=== PATIENT | male | born 1950 | race American Indian/Alaskan Native ===

== ENCOUNTER 2016-12-21 21:41 | Inpatient (IN) | payer MEDICARE ==
[2016-12-22 00:10] LABS: Basophils % (Auto) 0.5 % (0.0-1.8); Eosinophils % (Auto) 1.1 % (0.0-4.3); Hematocrit 31.4 % (35.5-45.6); Mean Corpuscular HGB Conc 32 % (32-34); Mean Corpuscular Hemoglobin 27 pg (28-32); Mean Corpuscular Volume 84 fl (84-94); Platelet Count 368 K/mm3 (140-440); Red Blood Count 3.74 M/mm3 (3.65-5.03); Red Cell Distribution Width 16.6 % (13.2-15.2); White Blood Count 9.7 K/mm3 (4.5-11.0)
[2016-12-22 00:24] LABS: Albumin 2.8 g/dL (3.9-5); Albumin/Globulin Ratio 0.5 %; Bilirubin,Total 1.1 mg/dL (0.1-1.2); Calcium 8.7 mg/dL (8.4-10.2); Chloride 95.2 mmol/L (98-107); Total Protein 8.3 g/dL (6.3-8.2)
[2016-12-22] MEDS ORDERED: NACL 0.9% 1000 ML 1,000 ML IV ONE (00:30)
[2016-12-22] MEDS ORDERED: ZOFRAN IV ONE (00:30)
[2016-12-22] MEDS ORDERED: MORPHINE IV ONE (00:30)
[2016-12-22 00:51] LABS: Potassium 5.2 mmol/L (3.6-5.0)
[2016-12-22] MEDS ORDERED: MORPHINE ONE (01:21)
--- NOTE | 2016-12-22 01:51 | Emergency Department Report ---
ED Abdominal Pain HPI - General Chief Complaint: Abdominal Pain Stated Complaint: ABD PAIN Time Seen by Provider: 12/22/16 00:28 Source: patient, EMS, old records reviewed Mode of arrival: Ambulatory Limitations: No Limitations - History of Present Illness Initial Comments: 66-year-old male with past medical history of alcohol abuse, hypertension, prostate cancer, anemia, and recent hemicolectomy presents to the hospital complaining of nausea, vomiting, by mouth intolerance and abdominal distention. Patient was recently admitted here December 01 until the . He is initially admitted for GI bleed and was found to have large soft multilobulated lesions approximately 8-10 cm from the cecum to the ascending colon. On December 13 patient underwent laparoscopic, hand-assisted right hemicolectomy performed by Dr Osorio. During admission patient required transfusion of 2 PRBC due to GI hemorrhage. Patient also had renal sufficiency that improved to normal prior to discharge. See recent discharge summary for further treatment and other diagnoses during ED stay. Patient states prior to discharge she was having vomiting that was not improved. When he went home he continued to vomit and was unable to tolerate any food or liquids. His pain and generalized intermittent aching abdominal pain rated 8/10 intensity that is worse with palpation. Patient states he is passing gas and did have a small bowel movement earlier today. No fever reported. Patient has not had any alcohol since before recent admission. Severity scale (0 -10): 7 - Related Data Home Medications Medication Instructions Recorded Confirmed Last Taken amLODIPine [Norvasc] 10 mg PO DAILY 12/01/16 12/01/16 11/30/16 Previous Rx's Medication Instructions Recorded Last Taken Type Allopurinol [Zyloprim] 100 mg PO QDAY #30 tablet 12/20/16 Unknown Rx Folic Acid [Folvite] 1 mg PO QDAY #30 tablet 12/20/16 Unknown Rx Metoprolol [Lopressor TAB] 50 mg PO BID #60 tablet 12/20/16 Unknown Rx Multivitamin Tab [Multiple Vitamin 1 each PO QDAY #30 tablet 12/20/16 Unknown Rx TAB (Theragran)] Pantoprazole [Protonix TAB] 40 mg PO DAILY #30 tablet 12/20/16 Unknown Rx Tamsulosin [Flomax] 0.4 mg PO QDAY #30 capsule 12/20/16 Unknown Rx Thiamine [Vitamin B-1] 100 mg PO QDAY #30 tablet 12/20/16 Unknown Rx amLODIPine [Norvasc] 10 mg PO QDAY #30 tablet 12/20/16 Unknown Rx traMADol [Ultram 50 MG tab] 50 mg PO Q6HR PRN #14 tablet 12/20/16 Unknown Rx Allergies Allergy/AdvReac Type Severity Reaction Status Date / Time No Known Allergies Allergy Unverified 12/01/16 00:18 ED Review of Systems ROS: Stated complaint: ABD PAIN Other details as noted in HPI Comment: All other systems reviewed and negative Other: Constitutional: No fevers chills or weight loss Eyes: No eye pain visual changes or discharge ENT: No ear pain or throat pain Neck: Denies pain Respiratory: Denies cough wheezing shortness of breath Cardiovascular: Denies chest pain, palpitations, syncope GI: as per hpi : Denies dysuria, Musculoskeletal: Denies back pain, joint swelling Skin: Denies rash, lesions, erythema Neurologic: Denies headache, numbness, weakness Psychiatric: Denies suicidal ideation, hallucinations ED Past Medical Hx - Past Medical History Previous Medical History?: Yes Hx Hypertension: Yes Additional medical history: prostate cancer, Anemia, KF, alcohol abuse - Surgical History Past Surgical History?: Yes Additional Surgical History: Colonectomy - Social History Smoking Status: Never Smoker Substance Use Type: Alcohol - Medications Home Medications: Home Medications Medication Instructions Recorded Confirmed Last Taken Type amLODIPine [Norvasc] 10 mg PO DAILY 12/01/16 12/01/16 11/30/16 History Allopurinol [Zyloprim] 100 mg PO QDAY #30 tablet 12/20/16 Unknown Rx Folic Acid [Folvite] 1 mg PO QDAY #30 tablet 12/20/16 Unknown Rx Metoprolol [Lopressor TAB] 50 mg PO BID #60 tablet 12/20/16 Unknown Rx Multivitamin Tab [Multiple Vitamin 1 each PO QDAY #30 tablet 12/20/16 Unknown Rx TAB (Theragran)] Pantoprazole [Protonix TAB] 40 mg PO DAILY #30 tablet 12/20/16 Unknown Rx Tamsulosin [Flomax] 0.4 mg PO QDAY #30 capsule 12/20/16 Unknown Rx Thiamine [Vitamin B-1] 100 mg PO QDAY #30 tablet 12/20/16 Unknown Rx amLODIPine [Norvasc] 10 mg PO QDAY #30 tablet 12/20/16 Unknown Rx traMADol [Ultram 50 MG tab] 50 mg PO Q6HR PRN #14 tablet 12/20/16 Unknown Rx ED Physical Exam - General Limitations: No Limitations - Other Other exam information: General: No limitations, patient is alert in no acute distress Head exam: Atraumatic, normocephalic Eyes exam: Normal appearance, pupils equal reactive to light, extraocular movements intact ENT: Moist mucous membrane, normal oropharynx Neck exam: Normal inspection, full range of motion, no meningismus nontender Respiratory exam: Clear to auscultation bilateral, no wheezes, rales, crackles Cardiovascular: Normal rate and rhythm, normal heart sounds Abdomen: Soft, distended mild diffuse tenderness, with normal bowel sounds, no rebound, or guarding. lap scars noted Extremity: Full range of motion normal inspection no deformity Back: Normal Inspection, full range of motion, no tenderness Neurologic: Alert, oriented x3, cranial nerves intact, no motor or sensory deficit Psychiatric: normal affect, normal mood Skin: Warm, dry, intact ED Course Vital Signs 12/21/16 12/21/16 12/22/16 21:44 21:47 01:25 Temperature 98.7 F 97.8 F Pulse Rate 104 H Respiratory 22 22 18 Rate Blood Pressure 117/66 Blood Pressure 117/66 [Right] O2 Sat by Pulse 98 Oximetry 12/22/16 02:01 Temperature Pulse Rate 96 H Respiratory 18 Rate Blood Pressure Blood Pressure 126/78 [Right] O2 Sat by Pulse 100 Oximetry - Reevaluation(s) Reevaluation #1: 12/22/16 02:26 pt tx with NS, morphine, zofran - Consultations Consultation #1: 12/22/16 05:12 Attempted to reach out to patient surgeon Dr. Osorio. There appears to be an issue with his answering service and we repeated a contributing signal. NG tube placed and consult ordered for the morning. Patient is not an acute surgical candidate at this time so patient may be seen during admission in the hospital. ED Medical Decision Making - Lab Data Result diagrams: 12/21/16 23:47 12/22/16 00:01 Lab Results 12/21/16 12/22/16 12/22/16 Range/Units 23:47 00:01 00:01 WBC 9.7 (4.5-11.0) K/mm3 RBC 3.74 (3.65-5.03) M/mm3 Hgb 10.0 L (11.8-15.2) gm/dl Hct 31.4 L (35.5-45.6) % MCV 84 (84-94) fl MCH 27 L (28-32) pg MCHC 32 (32-34) % RDW 16.6 H (13.2-15.2) % Plt Count 368 (140-440) K/mm3 Lymph % (Auto) 16.0 (13.4-35.0) % [place] % (Auto) 8.9 H (0.0-7.3) % Eos % (Auto) 1.1 (0.0-4.3) % Baso % (Auto) 0.5 (0.0-1.8) % Lymph # 1.5 (1.2-5.4) K/mm3 [place] # 0.9 H (0.0-0.8) K/mm3 Eos # 0.1 (0.0-0.4) K/mm3 Baso # 0.1 (0.0-0.1) K/mm3 Seg Neutrophils % 73.5 H (40.0-70.0) % Seg Neutrophils # 7.1 (1.8-7.7) K/mm3 Sodium 131 L (137-145) mmol/L Potassium 5.2 H (3.6-5.0) mmol/L Chloride 95.2 L (98-107) mmol/L Carbon Dioxide 18 L (22-30) mmol/L Anion Gap 23 mmol/L BUN 47 H (9-20) mg/dL Creatinine 2.2 H D (0.8-1.5) mg/dL Estimated GFR 36 ml/min BUN/Creatinine Ratio 21 % Glucose 134 H (75-100) mg/dL Calcium 8.7 (8.4-10.2) mg/dL Magnesium 2.20 (1.7-2.3) mg/dL Total Bilirubin 1.10 (0.1-1.2) mg/dL AST 39 (5-40) units/L ALT 17 (7-56) units/L Alkaline Phosphatase 80 (35-129) units/L Ammonia (25-60) umol/L Total Protein 8.3 H (6.3-8.2) g/dL Albumin 2.8 L (3.9-5) g/dL Albumin/Globulin Ratio 0.5 % Lipase 55 (13-60) units/L Plasma/Serum Alcohol (0-0.07) gm% 12/22/16 12/22/16 Range/Units 00:35 00:35 WBC (4.5-11.0) K/mm3 RBC (3.65-5.03) M/mm3 Hgb (11.8-15.2) gm/dl Hct (35.5-45.6) % MCV (84-94) fl MCH (28-32) pg MCHC (32-34) % RDW (13.2-15.2) % Plt Count (140-440) K/mm3 Lymph % (Auto) (13.4-35.0) % [place] % (Auto) (0.0-7.3) % Eos % (Auto) (0.0-4.3) % Baso % (Auto) (0.0-1.8) % Lymph # (1.2-5.4) K/mm3 [place] # (0.0-0.8) K/mm3 Eos # (0.0-0.4) K/mm3 Baso # (0.0-0.1) K/mm3 Seg Neutrophils % (40.0-70.0) % Seg Neutrophils # (1.8-7.7) K/mm3 Sodium (137-145) mmol/L Potassium (3.6-5.0) mmol/L Chloride (98-107) mmol/L Carbon Dioxide (22-30) mmol/L Anion Gap mmol/L BUN (9-20) mg/dL Creatinine (0.8-1.5) mg/dL Estimated GFR ml/min BUN/Creatinine Ratio % Glucose (75-100) mg/dL Calcium (8.4-10.2) mg/dL Magnesium (1.7-2.3) mg/dL Total Bilirubin (0.1-1.2) mg/dL AST (5-40) units/L ALT (7-56) units/L Alkaline Phosphatase (35-129) units/L Ammonia 114.0 H (25-60) umol/L Total Protein (6.3-8.2) g/dL Albumin (3.9-5) g/dL Albumin/Globulin Ratio % Lipase (13-60) units/L Plasma/Serum Alcohol < 0.01 (0-0.07) gm% - Radiology Data Radiology results: report reviewed CT abdomen and pelvis with oral contrast only. Cholelithiasis without cholecystitis. There is anastomotic suture line in the right lower quadrant. There is moderate distention of multiple loops of bowel with air-fluid levels. Small bowel loops measuring up to 4.2 cm in diameter. Suspicion for partial mechanical small bowel obstruction. Severe arthritic changes and right hip. Nonspecific reticulation of subcutaneous fat above the umbilicus which could be postsurgical versus cellulitis. Liver cirrhosis - Medical Decision Making Patient requires admission to the hospital acutely worsening renal function likely secondary to dehydration and by mouth intolerance/vomiting. CT suspicious for mechanical partial small bowel obstruction and anastomotic surgical site. Patient will require admission to the hospital for hydration and surgical consultation. NGT ordered - Differential Diagnosis obstruction, posto infections, gastroenteritis, pancreatitis Critical Care Time: No Critical care attestation.: If time is entered above; I have spent that time in minutes in the direct care of this critically ill patient, excluding procedure time. ED Disposition Clinical Impression: Partial small bowel obstruction, S/P right hemicolectomy, Acute renal insufficiency, Dehydration, Vomiting, Increased ammonia level, Liver cirrhosis Disposition: OP ADMIT IP TO THIS HOSP Is pt being admited?: Yes Condition: Stable Time of Disposition: 04:57 (Dr Asencio/hosp)
--- NOTE | 2016-12-22 04:51 | Cat Scan Report ---
FINAL REPORT EXAM: CT ABDOMEN PELVIS WO CON HISTORY: recent hemicolectom secondary to mass, pain, swell TECHNIQUE: Routine axial imaging was obtained of the abdomen and pelvis without IV contrast. Oral contrast was administered. Comparison is made to the study of 12/01/2016. FINDINGS: Images through lung bases reveal areas of scarring in the right middle lobe and right lower lobe. There are several blebs in the left lower lobe. There is a small hiatal hernia at the GE junction. The liver has a lobulated contour suggesting cirrhosis. There are no focal hepatic lesions. The gallbladder is normal size reveals multiple stones. There are no secondary signs of acute cholecystitis. The pancreas and spleen appear normal. The adrenal glands reveal stable 2.8 cm in diameter right adrenal nodule. The kidneys show no evidence of stones or hydronephrosis. There is an anastomotic suture line in the right lower quadrant. There is moderate distention of multiple small bowel loops with air-fluid levels. The small bowel loops measure up to 4.2 cm in diameter. The findings are suspicious for partial mechanical small bowel obstruction. The visualized colon reveals multiple uncomplicated diverticula. There is no evidence of free fluid or adenopathy. In the pelvis the prostate gland and bladder appear normal. The skeletal structures reveal severe arthritic changes of the right hip joint. The soft tissues reveal nonspecific reticulation of the subcutaneous fat above the umbilicus. With this is postsurgical in origin or related cellulitis is uncertain. IMPRESSION: Dilatation of small-bowel loops with air-fluid levels with a partial mechanical small bowel obstruction. Uncomplicated colonic diverticulosis. Contour changes of the liver suggesting cirrhosis. Gallstones. Stable 2.8 cm right adrenal nodule. Severe arthritic changes of the right hip joint. Reticulation of the subcutaneous fat in the anterior abdominal wall above the umbilicus. With this related cellulitis or postsurgical changes is uncertain.
[2016-12-22] MEDS ORDERED: LIDOCAINE VISCOUS 2% PO ONE (05:04)
[2016-12-22] MEDS ORDERED: MILK OF MAGNESIA PO PRN (09:00)
[2016-12-22] MEDS ORDERED: MORPHINE IV PRN (09:00)
[2016-12-22] MEDS ORDERED: TYLENOL PO PRN (09:00)
--- NOTE | 2016-12-22 09:19 | Progress Note ---
Subjective Narrative: Event note , called to see Pt Mr Acadia , I Talked to Dr Pryor, she will take deni for the Pt surgery rodriguez , will see EDU ,panchito , Objective Vital Signs - 12hr 12/22/16 12/22/16 12/22/16 08:43 08:45 09:00 Temperature Pulse Rate 102 H 109 H 105 H Respiratory 20 22 20 Rate Blood Pressure 127/72 O2 Sat by Pulse 98 98 99 Oximetry 12/22/16 09:03 Temperature 97.7 F Pulse Rate Respiratory Rate Blood Pressure O2 Sat by Pulse Oximetry - Labs 12/21/16 23:47 12/22/16 00:01
--- NOTE | 2016-12-22 09:20 | History and Physical Report ---
<BRYANT HUNG - Last Filed: 12/22/16 12:34> History of Present Illness Date of examination: 12/22/16 Date of admission: 12/22/16 08:09 Chief complaint: Nausea and vomiting History of present illness: Patient is a 66-year-old male with past medical history of alcohol abuse, hypertension, prostate cancer, anemia, and recent hemicolectomy for bleeding ascending colon mass on 12/13/16, who presents to the hospital complaining of nausea, vomiting, eating or drinking intolerance and abdominal distention. Patient was recently admitted here for GI bleed and was found to have large soft multilobulated lesions approximately 8-10 cm from the cecum to the ascending colon and was discharge on . Patient states that he was having intermittent nausea and vomiting while in the hospital, but after she went home he continued vomiting and unable to tolerate anything even water. Patient also complains of generalized abdominal pain. The pain is described as a constant dull, diffuse pain that intermittently becomes sharp and well localized. The sharp pain tends to occur in different locations at different times. The intensity of the pain has been increasing over the past two days and on pain scale he now rates the pain at 8 out of 10. Eating or drinking worsened his pain, no reliving factors. His last bowel movement was today. He denies a recent history of fever, jaundice, pruritis, diarrhea, hemoptysis, melena, or hematochezia. An NGT was placed in the ER with thick yellow gastric output. Past History Past Medical History: anemia, hypertension, other (prostate cancer, and recent hemicolectomy for bleeding ascending colon mass on 12/13/16) Past Surgical History: No surgical history, Other ( hemicolectomy for bleeding ascending colon mass on 12/13/16) Social history: alcohol abuse. denies: smoking Family history: hypertension Medications and Allergies Allergies Allergy/AdvReac Type Severity Reaction Status Date / Time No Known Allergies Allergy Unverified 12/01/16 00:18 Home Medications Medication Instructions Recorded Confirmed Last Taken Type Allopurinol [Zyloprim] 100 mg PO QDAY #30 tablet 12/20/16 12/22/16 12/21/16 08: 00 Rx Folic Acid [Folvite] 1 mg PO QDAY #30 tablet 12/20/16 12/22/16 12/21/16 08:00 Rx Metoprolol [Lopressor TAB] 50 mg PO BID #60 tablet 12/20/16 12/22/16 12/21/16 08 :00 Rx Multivitamin Tab [Multiple Vitamin 1 each PO QDAY #30 tablet 12/20/16 12/22/16 Unknown Rx TAB (Theragran)] Pantoprazole [Protonix TAB] 40 mg PO DAILY #30 tablet 12/20/16 12/22/16 08:00 Rx Tamsulosin [Flomax] 0.4 mg PO QDAY #30 capsule 12/20/16 12/22/16 12/21/16 08:00 Rx Thiamine [Vitamin B-1] 100 mg PO QDAY #30 tablet 12/20/16 12/22/16 12/21/16 08: 00 Rx amLODIPine [Norvasc] 10 mg PO QDAY #30 tablet 12/20/16 12/22/16 12/21/16 08:00 Rx traMADol [Ultram 50 MG tab] 50 mg PO Q6HR PRN #14 tablet 12/20/16 12/22/1612/21 08:00 Rx Active Meds: Active Medications Acetaminophen (Tylenol) 650 mg PO Q4H PRN PRN Reason: Pain MILD(1-3)/Fever >100.5/HAMM Allopurinol (Zyloprim) 100 mg PO QDAY [facility] Amlodipine Besylate (Norvasc) 10 mg PO DAILY [facility] Bisacodyl (Dulcolax) 10 mg IA QDAY PRN PRN Reason: Constipation unrelieved by MOM Enoxaparin Sodium (Lovenox) 40 mg SUB-Q QDAY [facility] Folic Acid (Folvite) 1 mg PO QDAY [facility] Sodium Chloride (Nacl 0.9% 1000 Ml) 1,000 mls @ 100 mls/hr IV DIRECT [facility] Magnesium Hydroxide (Milk Of Magnesia) 30 ml PO Q4H PRN PRN Reason: Constipation Metoprolol Tartrate (Lopressor) 50 mg PO BID [facility] Morphine Sulfate (Morphine) 2 mg IV Q4H PRN PRN Reason: Pain, Moderate (4-6) Multivitamins (Theragran Tab) 1 each PO QDAY [facility] Ondansetron HCl (Zofran) 4 mg IV Q4H PRN PRN Reason: Nausea And Vomiting Pantoprazole Sodium (Protonix) 40 mg PO DAILY [facility] Tamsulosin HCl (Flomax) 0.4 mg PO QDAY [facility] Thiamine HCl (Vitamin B-1) 100 mg PO QDAY [facility] Review of Systems Constitutional: no weight gain, no fever, no chills Ears, nose, mouth and throat: no ear discharge, no tinnitis, no decreased hearing, no nose pain, no nasal congestion Respiratory: no cough with sputum, no excessive sputum, no hemoptysis Gastrointestinal: abdominal pain, nausea, vomiting, no diarrhea, no constipation , no hematemesis, no coffee ground emesis, no melena, no hematochezia Genitourinary Male: no flank pain, no discharge, no urinary frequency, no urinary hesitancy, no nocturia Rectal: no incontinence, no bleeding Musculoskeletal: no shooting arm pain, no arm numbness/tingling, no low back pain, no shooting leg pain Integumentary: no pruritis, no redness, no sores, no jaundice Neurological: no tingling, no seizures, no syncope, no tremors Psychiatric: no change in appetite, no change in libido, no suicidal ideation, no disorientation Endocrine: no polydipsia, no polyuria, no nocturia, no excessive sweating Hematologic/Lymphatic: no easy bruising, no easy bleeding Allergic/Immunologic: no urticaria, no allergic rhinitis Exam - Constitutional Vitals: Temp Pulse Resp BP Pulse Ox 97.7 F 105 H 20 127/72 99 12/22/16 09:03 12/22/16 09:00 12/22/16 09:00 12/22/16 09:00 12/22/16 09:00 General appearance: Present: no acute distress - EENT Eyes: Present: PERRL ENT: hearing intact - Neck Neck: Present: supple - Respiratory Respiratory effort: normal Respiratory: bilateral: CTA - Cardiovascular Rhythm: regular Heart Sounds: Present: S1 & S2 - Abdominal General gastrointestinal: Present: tender Localized gastrointestinal: tender: RUQ, LUQ Male genitourinary: Present: deferred - Rectal Rectal Exam: deferred - Integumentary Integumentary: Present: clear, warm, dry - Musculoskeletal Musculoskeletal: strength equal bilaterally, generalized weakness - Psychiatric Psychiatric: appropriate mood/affect - Neurologic Neurologic: CNII-XII intact - Allied Health Allied health notes reviewed: nursing Results - Labs CBC & Chem 7: 12/21/16 23:47 12/22/16 00:01 Labs: Laboratory Last Values WBC 9.7 K/mm3 (4.5-11.0) 12/21/16 23:47 RBC 3.74 M/mm3 (3.65-5.03) 12/21/16 23:47 Hgb 10.0 gm/dl (11.8-15.2) L 12/21/16 23:47 Hct 31.4 % (35.5-45.6) L 12/21/16 23:47 MCV 84 fl (84-94) 12/21/16 23:47 MCH 27 pg (28-32) L 12/21/16 23:47 MCHC 32 % (32-34) 12/21/16 23:47 RDW 16.6 % (13.2-15.2) H 12/21/16 23:47 Plt Count 368 K/mm3 (140-440) 12/21/16 23:47 Lymph % (Auto) 16.0 % (13.4-35.0) 12/21/16 23:47 [place] % (Auto) 8.9 % (0.0-7.3) H 12/21/16 23:47 Eos % (Auto) 1.1 % (0.0-4.3) 12/21/16 23:47 Baso % (Auto) 0.5 % (0.0-1.8) 12/21/16 23:47 Lymph # 1.5 K/mm3 (1.2-5.4) 12/21/16 23:47 [place] # 0.9 K/mm3 (0.0-0.8) H 12/21/16 23:47 Eos # 0.1 K/mm3 (0.0-0.4) 12/21/16 23:47 Baso # 0.1 K/mm3 (0.0-0.1) 12/21/16 23:47 Seg Neutrophils % 73.5 % (40.0-70.0) H 12/21/16 23:47 Seg Neutrophils # 7.1 K/mm3 (1.8-7.7) 12/21/16 23:47 Sodium 131 mmol/L (137-145) L 12/22/16 00:01 Potassium 5.2 mmol/L (3.6-5.0) H 12/22/16 00:01 Chloride 95.2 mmol/L (98-107) L 12/22/16 00:01 Carbon Dioxide 18 mmol/L (22-30) L 12/22/16 00:01 Anion Gap 23 mmol/L 12/22/16 00:01 BUN 47 mg/dL (9-20) H 12/22/16 00:01 Creatinine 2.2 mg/dL (0.8-1.5) H D 12/22/16 00:01 Estimated GFR 36 ml/min 12/22/16 00:01 BUN/Creatinine Ratio 21 % 12/22/16 00:01 Glucose 134 mg/dL (75-100) H 12/22/16 00:01 Calcium 8.7 mg/dL (8.4-10.2) 12/22/16 00:01 Magnesium 2.20 mg/dL (1.7-2.3) 12/22/16 00:01 Total Bilirubin 1.10 mg/dL (0.1-1.2) 12/22/16 00:01 AST 39 units/L (5-40) 12/22/16 00:01 ALT 17 units/L (7-56) 12/22/16 00:01 Alkaline Phosphatase 80 units/L (35-129) 12/22/16 00:01 Ammonia 114.0 umol/L (25-60) H 12/22/16 00:35 Total Protein 8.3 g/dL (6.3-8.2) H 12/22/16 00:01 Albumin 2.8 g/dL (3.9-5) L 12/22/16 00:01 Albumin/Globulin Ratio 0.5 % 12/22/16 00:01 Lipase 55 units/L (13-60) 12/22/16 00:01 Plasma/Serum Alcohol < 0.01 gm% (0-0.07) 12/22/16 00:35 Assessment and Plan Assessment and plan: patient is a 66-year-old male with past medical history of alcohol abuse, hypertension, prostate cancer, anemia, and recent hemicolectomy for bleeding ascending colon mass on 12/13/16, who presents to the hospital complaining of nausea, vomiting, eating or drinking intolerance and abdominal distention. Patient recently admitted here for GI bleed and was found to have large soft multilobulated lesions approximately 8-10 cm from the cecum to the ascending colon and was discharge on . Patient states that he was having intermittent nausea and vomiting while in the hospital, but after she went home he continued for Vomiting and unable to tolerate anything even water. Patient also complains of generalized abdominal pain. Partial small bowel obstruction Nothing by mouth; rest the gut NG tube placed IV fluid Supportive care Status post right hemicolectomy Managed by Gen. surgery Acute renal failure/vasomotor nephropathy IV fluid hydration Renal Ultrasound Nephrology consult Intractable nausea and vomiting. IV fluid hydration Antiemetic Elevated ammonia level Started gently on lactulose Repeat CMP Closely monitor liver function History liver cirrhosis Closely monitor liver function Hyponatremia IV fluid at NS that will correct it Repeat BMP Closely monitor electrolytes Hyperkalemia Most likely due to dehydration Patient started on enema lactulose, diarrhea that will correct it Repeat BMP Closely monitor electrolytes ETOH abuse Counseling done. Hx Transient afib no anticoagulation per Cardiology on previous admission. DVT prophylaxis Heparin Advance Directives: Yes VTE prophylaxis?: Chemical Contraindication Mechanical VTE Prophylaxis: Treatment Not Indicated Plan of care discussed with patient/family: Yes <EVERARDO GREEN R - Last Filed: 12/22/16 13:25> History of Present Illness Date of admission: 12/22/16 08:09 Medications and Allergies Active Meds: Active Medications Bisacodyl (Dulcolax) 10 mg IA QDAY PRN PRN Reason: Constipation unrelieved by MOM Heparin Sodium (Porcine) (Heparin) 5,000 unit SUB-Q Q12HR [facility] Sodium Chloride (Nacl 0.9% 1000 Ml) 1,000 mls @ 125 mls/hr IV DIRECT [facility] Labetalol HCl (Normodyne) 10 mg IV Q4H PRN PRN Reason: Blood Pressure Metoprolol Tartrate (Lopressor) 5 mg IV Q6HR [facility] Morphine Sulfate (Morphine) 2 mg IV Q4H PRN PRN Reason: Pain, Moderate (4-6) Ondansetron HCl (Zofran) 4 mg IV Q4H PRN PRN Reason: Nausea And Vomiting Pantoprazole Sodium (Protonix) 40 mg IV QDAY [facility] Phenol (Chloraseptic) 1 spray MM PRN PRN PRN Reason: Sore Throat Exam - Constitutional Vitals: Temp Pulse Resp BP Pulse Ox 97.7 F 100 H 20 127/72 99 12/22/16 09:03 12/22/16 09:59 12/22/16 09:00 12/22/16 09:59 12/22/16 09:00 Results - Labs CBC & Chem 7: 12/21/16 23:47 12/22/16 12:25 Labs: Laboratory Last Values WBC 9.7 K/mm3 (4.5-11.0) 12/21/16 23:47 RBC 3.74 M/mm3 (3.65-5.03) 12/21/16 23:47 Hgb 10.0 gm/dl (11.8-15.2) L 12/21/16 23:47 Hct 31.4 % (35.5-45.6) L 12/21/16 23:47 MCV 84 fl (84-94) 12/21/16 23:47 MCH 27 pg (28-32) L 12/21/16 23:47 MCHC 32 % (32-34) 12/21/16 23:47 RDW 16.6 % (13.2-15.2) H 12/21/16 23:47 Plt Count 368 K/mm3 (140-440) 12/21/16 23:47 Lymph % (Auto) 16.0 % (13.4-35.0) 12/21/16 23:47 [place] % (Auto) 8.9 % (0.0-7.3) H 12/21/16 23:47 Eos % (Auto) 1.1 % (0.0-4.3) 12/21/16 23:47 Baso % (Auto) 0.5 % (0.0-1.8) 12/21/16 23:47 Lymph # 1.5 K/mm3 (1.2-5.4) 12/21/16 23:47 [place] # 0.9 K/mm3 (0.0-0.8) H 12/21/16 23:47 Eos # 0.1 K/mm3 (0.0-0.4) 12/21/16 23:47 Baso # 0.1 K/mm3 (0.0-0.1) 12/21/16 23:47 Seg Neutrophils % 73.5 % (40.0-70.0) H 12/21/16 23:47 Seg Neutrophils # 7.1 K/mm3 (1.8-7.7) 12/21/16 23:47 Sodium 136 mmol/L (137-145) L 12/22/16 12:25 Potassium 4.5 mmol/L (3.6-5.0) 12/22/16 12:25 Chloride 99.8 mmol/L (98-107) 12/22/16 12:25 Carbon Dioxide 19 mmol/L (22-30) L 12/22/16 12:25 Anion Gap 22 mmol/L 12/22/16 12:25 BUN 47 mg/dL (9-20) H 12/22/16 12:25 Creatinine 2.0 mg/dL (0.8-1.5) H 12/22/16 12:25 Estimated GFR 40 ml/min 12/22/16 12:25 BUN/Creatinine Ratio 24 % 12/22/16 12:25 Glucose 122 mg/dL (75-100) H 12/22/16 12:25 Calcium 8.2 mg/dL (8.4-10.2) L 12/22/16 12:25 Magnesium 2.20 mg/dL (1.7-2.3) 12/22/16 00:01 Total Bilirubin 1.10 mg/dL (0.1-1.2) 12/22/16 00:01 AST 39 units/L (5-40) 12/22/16 00:01 ALT 17 units/L (7-56) 12/22/16 00:01 Alkaline Phosphatase 80 units/L (35-129) 12/22/16 00:01 Ammonia 114.0 umol/L (25-60) H 12/22/16 00:35 Total Protein 8.3 g/dL (6.3-8.2) H 12/22/16 00:01 Albumin 2.8 g/dL (3.9-5) L 12/22/16 00:01 Albumin/Globulin Ratio 0.5 % 12/22/16 00:01 Lipase 55 units/L (13-60) 12/22/16 00:01 Urine Color Yellow (Yellow) 12/22/16 Unknown Urine Turbidity Hazy (Clear) 12/22/16 Unknown Urine pH 5.0 (5.0-7.0) 12/22/16 Unknown Ur Specific [place] 1.017 (1.003-1.030) 12/22/16 Unknown Urine Protein <15 mg/dl mg/dL (Negative) 12/22/16 Unknown Urine Glucose (UA) Neg mg/dL (Negative) 12/22/16 Unknown Urine Ketones Neg mg/dL (Negative) 12/22/16 Unknown Urine Blood Sm (Negative) 12/22/16 Unknown Urine Nitrite Pos (Negative) 12/22/16 Unknown Urine Bilirubin Neg (Negative) 12/22/16 Unknown Urine Urobilinogen < 2.0 mg/dL (<2.0) 12/22/16 Unknown Ur Leukocyte Esterase Mod (Negative) 12/22/16 Unknown Urine WBC (Auto) 33.0 /HPF (0.0-6.0) H 12/22/16 Unknown Urine RBC (Auto) 4.0 /HPF (0.0-6.0) 12/22/16 Unknown U Epithel Cells (Auto) 2.0 /HPF (0-13.0) 12/22/16 Unknown Urine Bacteria (Auto) 2+ /HPF (Negative) 12/22/16 Unknown Urine Mucus Few /HPF 12/22/16 Unknown Plasma/Serum Alcohol < 0.01 gm% (0-0.07) 12/22/16 00:35 Assessment and Plan Assessment and plan: I saw and evaluated the patient. I agree with the findings and the plan of care as documented in the Nurse Practitioner's~note, with the following corrections and additions.
[2016-12-22 09:23] LABS: Bacteria,Urine 2+ /HPF (Negative); Bilirubin,Urine NEG (Negative); Blood,Urine SM (Negative); Ketones,Urine NEG (Negative); Leukocyte Esterase,Urine MOD (Negative); Mucus,Urine FEW /HPF; Nitrite,Urine POS (Negative); Protein,Urine <15 mg/dL mg/dL (Negative); Urobilinogen,Urine < 2.0 mg/dL (<2.0)
[2016-12-22] MEDS ORDERED: LOPRESSOR IV ONE (09:51)
[2016-12-22] MEDS ORDERED: NORVASC PO SCH (10:00)
[2016-12-22] MEDS ORDERED: THERAGRAN Tab PO SCH (10:00)
[2016-12-22] MEDS ORDERED: FLOMAX PO SCH (10:00)
[2016-12-22] MEDS ORDERED: LOPRESSOR PO SCH (10:00)
[2016-12-22] MEDS ORDERED: DULCOLAX PR PRN (10:00)
[2016-12-22] MEDS ORDERED: LOVENOX SUB-Q SCH (10:00)
[2016-12-22] MEDS ORDERED: PROTONIX PO SCH (10:00)
[2016-12-22] MEDS ORDERED: ZYLOPRIM PO SCH (10:00)
[2016-12-22] MEDS ORDERED: FOLVITE PO SCH (10:00)
[2016-12-22] MEDS ORDERED: VITAMIN B-1 PO SCH (10:00)
--- NOTE | 2016-12-22 10:02 | Consultation ---
History of Present Illness Consult date: 12/22/16 Reason for consult: abdominal pain Chief complaint: nausea, vomiting, abdominal pain - History of present illness History of present illness: 66 yo M with hx of etoh abuse, liver cirrhosis, prostate ca s/p recent R hemicolectomy for bleeding ascending colon mass on 12/13/16 and discharged on . Prior to being discharged he was tolerating a GI soft diet, having BMs, and passing flatus. He presented to emergency room last night with c/o nausea, vomiting (nonbloody/nonbilious) since leaving the hospital. He also had some associated abdominal pain. He has been consistently passing flatus and having BMs daily, last one was today. He denies f/c, CP, SOB. An NGT was placed in the ER and has had thick yellow gastric output. Since NGT was placed, he feels better and is asking for water to drink. Past History Past Medical History: atrial fib, cancer (prostate ca, colon adenocarcinoma), hypertension, liver disease, other (gout) Past Surgical History: bowel surgery (Lap HAMM R hemicolectomy), Other (colonscopy /EGD) Social history: alcohol abuse (quit November 2016). denies: smoking Family history: no significant family history Medications and Allergies Allergies Allergy/AdvReac Type Severity Reaction Status Date / Time No Known Allergies Allergy Unverified 12/01/16 00:18 Home Medications Medication Instructions Recorded Confirmed Last Taken Type amLODIPine [Norvasc] 10 mg PO DAILY 12/01/16 12/01/16 11/30/16 History Allopurinol [Zyloprim] 100 mg PO QDAY #30 tablet 12/20/16 Unknown Rx Folic Acid [Folvite] 1 mg PO QDAY #30 tablet 12/20/16 Unknown Rx Metoprolol [Lopressor TAB] 50 mg PO BID #60 tablet 12/20/16 Unknown Rx Multivitamin Tab [Multiple Vitamin 1 each PO QDAY #30 tablet 12/20/16 Unknown Rx TAB (Theragran)] Pantoprazole [Protonix TAB] 40 mg PO DAILY #30 tablet 12/20/16 Unknown Rx Tamsulosin [Flomax] 0.4 mg PO QDAY #30 capsule 12/20/16 Unknown Rx Thiamine [Vitamin B-1] 100 mg PO QDAY #30 tablet 12/20/16 Unknown Rx amLODIPine [Norvasc] 10 mg PO QDAY #30 tablet 12/20/16 Unknown Rx traMADol [Ultram 50 MG tab] 50 mg PO Q6HR PRN #14 tablet 12/20/16 Unknown Rx Active Meds: Active Medications Acetaminophen (Tylenol) 650 mg PO Q4H PRN PRN Reason: Pain MILD(1-3)/Fever >100.5/HAMM Allopurinol (Zyloprim) 100 mg PO QDAY [facility] Amlodipine Besylate (Norvasc) 10 mg PO DAILY [facility] Bisacodyl (Dulcolax) 10 mg MO QDAY PRN PRN Reason: Constipation unrelieved by MOM Enoxaparin Sodium (Lovenox) 40 mg SUB-Q QDAY [facility] Folic Acid (Folvite) 1 mg PO QDAY [facility] Sodium Chloride (Nacl 0.9% 1000 Ml) 1,000 mls @ 125 mls/hr IV DIRECT [facility] Magnesium Hydroxide (Milk Of Magnesia) 30 ml PO Q4H PRN PRN Reason: Constipation Metoprolol Tartrate (Lopressor) 50 mg PO BID [facility] Morphine Sulfate (Morphine) 2 mg IV Q4H PRN PRN Reason: Pain, Moderate (4-6) Multivitamins (Theragran Tab) 1 each PO QDAY [facility] Ondansetron HCl (Zofran) 4 mg IV Q4H PRN PRN Reason: Nausea And Vomiting Pantoprazole Sodium (Protonix) 40 mg PO DAILY [facility] Tamsulosin HCl (Flomax) 0.4 mg PO QDAY [facility] Thiamine HCl (Vitamin B-1) 100 mg PO QDAY [facility] Review of Systems All systems: negative (see HPI) Exam Vital Signs Temp Resp BP 98.7 F 22 117/66 12/21/16 21:44 12/21/16 21:44 12/21/16 21:44 Narrative exam: Gen: AAOx3. NAD ENT: NGT in place with thick yellow output - approx 500cc in canister since insertion CV: S1, S2+, tachycardic Resp: No audible wheezes Abd: soft, protuberant, mildly distended, NT. incisions c/d/i. Non tympanitic. + bowel sounds in all four quadrants Ext: No c/c/e Results - Labs 12/21/16 23:47 12/22/16 00:01 Abnormal lab results 12/22/16 Range/Units Unknown Urine WBC (Auto) 33.0 H (0.0-6.0) /HPF - Imaging CT scan - abdomen: report reviewed, image reviewed CT scan - pelvis: report reviewed, image reviewed Assessment and Plan 66 yo M with hx of recent Laparoscopic hand assisted right hemicolectomy for colon mass 1. post operative ileus vs p SBO 2. MINH 3. hyperkalemia 4. malnutrition 5. colon adenocarcinoma 6. pAfib 7. hyponatremia PLan: 1. admitted to hospitalist service 2. continue NPO 3. IVF - NS@ 125cc/hr 4. strict I/Os 5. repeat BMP this PM 6. NGT to low continuous suction 7. DVT ppx - lovenox/SCDs 8. obtain obstruction series today 9. Activity as tolerated 10. continue home meds, change to IV equivalent while NPO 11. PRN pain and nausea control Pt informed of pathology results from surgery. Will discuss further with him and his daughter today.
[2016-12-22] MEDS ORDERED: CEPHULAC PR SCH (12:00)
--- NOTE | 2016-12-22 12:58 | XRay Report ---
ABDOMINAL SERIES: History: Postoperative ileus. AP view of the chest is unremarkable. Supine and upright views the abdomen demonstrates multiple prominent loops of bowel filled with gas throughout the abdomen. This could represent a postoperative ileus. There is no evidence for free air or pathologic calcifications. A nasogastric tube terminates in the fundus of the stomach. IMPRESSION: Findings compatible with a postoperative ileus.
[2016-12-22 12:59] LABS: Calcium 8.2 mg/dL (8.4-10.2); Chloride 99.8 mmol/L (98-107); Potassium 4.5 mmol/L (3.6-5.0)
[2016-12-22] MEDS ORDERED: CHLORASEPTIC MM PRN (13:09)
[2016-12-22] MEDS ORDERED: NORMODYNE IV PRN (13:24)
[2016-12-22] MEDS: NACL 0.9% 1000 ML 1,000 ML IV SCH (13:28)
[2016-12-22] MEDS: HEPARIN SUB-Q SCH ×2 (13:28→21:00)
--- NOTE | 2016-12-22 13:59 | Ultrasound Report ---
ULTRASOUND RENAL BILATERAL HISTORY: Acute renal failure. TECHNIQUE: transabdominal ultrasound with color Doppler interrogation. FINDINGS: Scans of the kidneys show normal renal contours. There is normal central calyceal clustering and good preservation of the cortical thickness. There is no evidence of mass or hydronephrosis. The views of the bladder and the region of the ureters appear normal. Mild cirrhotic changes are identified in the liver. There is an area of relative decreased echogenicity in the right hepatic lobe measuring up to 4.5 cm. This lesion is not clearly identified on the CT abdomen without contrast performed the same day. Consider further evaluation with four-phase liver CT. IMPRESSION: Unremarkable renal ultrasound. Cirrhosis. Questionable liver mass. See above.
[2016-12-22] MEDS: LOPRESSOR IV SCH (17:21)
[2016-12-23] MEDS: LOPRESSOR IV SCH ×4 (02:58→18:51)
[2016-12-23] MEDS: NACL 0.9% 1000 ML 1,000 ML IV SCH (05:21)
[2016-12-23 06:02] LABS: Basophils % (Auto) 0.2 % (0.0-1.8); Eosinophils % (Auto) 0.3 % (0.0-4.3); Hematocrit 29.3 % (35.5-45.6); Hemoglobin 9.3 gm/dl (11.8-15.2); Mean Corpuscular HGB Conc 32 % (32-34); Mean Corpuscular Hemoglobin 27 pg (28-32); Mean Corpuscular Volume 85 fl (84-94); Platelet Count 241 K/mm3 (140-440); Red Blood Count 3.45 M/mm3 (3.65-5.03); Red Cell Distribution Width 16.4 % (13.2-15.2); White Blood Count 5.9 K/mm3 (4.5-11.0)
[2016-12-23 06:09] LABS: Albumin 2.6 g/dL (3.9-5); Albumin/Globulin Ratio 0.5 %; Calcium 8.4 mg/dL (8.4-10.2); Chloride 106.5 mmol/L (98-107); Magnesium 2.3 mg/dL (1.7-2.3); Phosphorous 3.5 mg/dL (2.5-4.5); Potassium 4.5 mmol/L (3.6-5.0); Total Protein 7.5 g/dL (6.3-8.2)
--- NOTE | 2016-12-23 07:24 | Consultation ---
History of Present Illness - Reason for Consult Consult date: 12/23/16 acute renal failure - History of Present Illness History obtained from patient's daughter and medical record. Mr. Garcia is a 66 yo gentleman with hypertension recently hospitalized after presenting to the ED with abdominal pain, anemia and heme+ stool. Colonoscopy was obtained and notable for large, soft multi-lobulated lesions approx 8-10 cm from caecum to ascending colon. General surgery was consulted, and on Dec 13, right hemicolectomy was performed. He was discharged to home on Dec 20. However, he represented to the ED on Dec 22 with intractable vomiting. Per daughter, following discharge, patient continued to vomit throughout the night and the following day. He was unable to tolerate an po intake. She reports that he was also experiencing abdominal pain. As symptoms failed to improve, EMS was called and patient was transported to the ED. In the ED, labs were notable for SCr 2.2mg/dL. Last SCr 1.2mg/dL on Dec 17. Nephrology consultation requested for MINH. Patient currently denies abdominal pain, SOB. Past History Past Medical History: anemia, hypertension, other (prostate cancer, and recent hemicolectomy for bleeding ascending colon mass on 12/13/16) Past Surgical History: No surgical history, Other ( hemicolectomy for bleeding ascending colon mass on 12/13/16) Social history: alcohol abuse. denies: smoking Family history: hypertension Medications and Allergies Allergies Allergy/AdvReac Type Severity Reaction Status Date / Time No Known Allergies Allergy Unverified 12/01/16 00:18 Home Medications Medication Instructions Recorded Confirmed Last Taken Type Allopurinol [Zyloprim] 100 mg PO QDAY #30 tablet 12/20/16 12/22/16 12/21/16 08: 00 Rx Folic Acid [Folvite] 1 mg PO QDAY #30 tablet 12/20/16 12/22/16 12/21/16 08:00 Rx Metoprolol [Lopressor TAB] 50 mg PO BID #60 tablet 12/20/16 12/22/16 12/21/16 08 :00 Rx Multivitamin Tab [Multiple Vitamin 1 each PO QDAY #30 tablet 12/20/16 12/22/16 Unknown Rx TAB (Theragran)] Pantoprazole [Protonix TAB] 40 mg PO DAILY #30 tablet 12/20/16 12/22/16 08:00 Rx Tamsulosin [Flomax] 0.4 mg PO QDAY #30 capsule 12/20/16 12/22/16 12/21/16 08:00 Rx Thiamine [Vitamin B-1] 100 mg PO QDAY #30 tablet 12/20/16 12/22/16 12/21/16 08: 00 Rx amLODIPine [Norvasc] 10 mg PO QDAY #30 tablet 12/20/16 12/22/16 12/21/16 08:00 Rx traMADol [Ultram 50 MG tab] 50 mg PO Q6HR PRN #14 tablet 12/20/16 12/22/1612/21 08:00 Rx Active Meds: Active Medications Bisacodyl (Dulcolax) 10 mg SC QDAY PRN PRN Reason: Constipation unrelieved by MOM Heparin Sodium (Porcine) (Heparin) 5,000 unit SUB-Q Q12HR [facility] Last Admin: 12/22/16 21:00 Dose: 5,000 unit Sodium Chloride (Nacl 0.9% 1000 Ml) 1,000 mls @ 125 mls/hr IV DIRECT [facility] Last Admin: 12/23/16 05:21 Dose: 125 mls/hr Labetalol HCl (Normodyne) 10 mg IV Q4H PRN PRN Reason: Blood Pressure Metoprolol Tartrate (Lopressor) 5 mg IV Q6HR [facility] Last Admin: 12/23/16 05:31 Dose: 5 mg Morphine Sulfate (Morphine) 2 mg IV Q4H PRN PRN Reason: Pain, Moderate (4-6) Ondansetron HCl (Zofran) 4 mg IV Q4H PRN PRN Reason: Nausea And Vomiting Pantoprazole Sodium (Protonix) 40 mg IV QDAY [facility] Phenol (Chloraseptic) 1 spray MM PRN PRN PRN Reason: Sore Throat Last Admin: 12/22/16 21:00 Dose: 1 spray Review of Systems All systems: negative Cardiovascular: no chest pain, no orthopnea, no shortness of breath Gastrointestinal: abdominal pain, nausea, vomiting Exam - Vital Signs Vital signs: Vital Signs Temp Resp BP 98.7 F 22 117/66 12/21/16 21:44 12/21/16 21:44 12/21/16 21:44 - General Appearance General appearance: well-developed, well-nourished EENT: ATNC, other (NGT in place - clamped) Respiratory: Clear to Ascultation Heart: regular, S1S2 Gastrointestinal: Present: hypoactive bowel sounds, distended (soft), obese Integumentary: no rash Neurologic: no focal deficit Musculoskeletal: Present: other (no edema) Psychiatric: cooperative Results - Lab Results 12/23/16 05:22 12/23/16 05:22 Most recent lab results Calcium 8.4 mg/dL (8.4-10.2) 12/23/16 05:22 Phosphorus 3.50 mg/dL (2.5-4.5) 12/23/16 05:22 Magnesium 2.30 mg/dL (1.7-2.3) 12/23/16 05:22 Assessment and Plan Impression: * Acute kidney injury secondary to prerenal azotemia due to volume depletion * Hyperkalemia * Ileus vs partial SBO * Nausea/vomiting secondary to #3 * Ascending colon mass s/p laparoscopic right hemicolectomy * Hx of transient atrial fibrillation * Anemia Plan: * No acute indication for renal replacement therapy - renal function has improved with conservative management * Continue IVF for hydration * Obtain urine studies * General surgery following * Avoid potential nephrotoxins * Strict I/O
--- NOTE | 2016-12-23 09:07 | XRay Report ---
ABDOMINAL SERIES: History: Partial small bowel obstruction. No change is demonstrated since yesterday's exam at 1127 hrs. A nasogastric tube terminates in the proximal stomach. Multiple dilated loops of small bowel with fluid levels are unchanged. No evidence for free air. These findings suggest a postoperative ileus versus partial small bowel obstruction. Single view of the chest remains unremarkable. Right upper lobe scarring is noted. IMPRESSION: No change.
--- NOTE | 2016-12-23 09:10 | Progress Note ---
Assessment and Plan Assessment and plan: Partial small bowel obstruction vs post operative ileus Nothing by mouth; bowel rest NG tube to low continuous suction IV fluid serial KUBs Supportive care Colon adenocarcinoma Oncology f/u as OP Status post right hemicolectomy Managed by Gen. surgery Acute renal failure/vasomotor nephropathy IV fluid hydration Renal Ultrasound Strict I/Os Nephrology following Intractable nausea and vomiting. etiology secondary to above IV fluid hydration Antiemetic History liver cirrhosis Elevated ammonia level Started gently on lactulose Repeat CMP Closely monitor liver function Hyponatremia IV fluid at NS Repeat BMP Closely monitor electrolytes Hyperkalemia Patient on enema lactulose, Repeat BMP Closely monitor electrolytes ETOH abuse Counseling done. Paroxysmal afib no anticoagulation per Cardiology on previous admission. DVT prophylaxis Heparin History Interval history: No new issues overnight. Hospitalist Physical - Constitutional Vitals: Temp Pulse Resp BP Pulse Ox 98.3 F 94 H 18 137/70 98 12/23/16 07:39 12/23/16 07:39 12/23/16 07:39 12/23/16 07:39 12/23/16 07:39 General appearance: Present: no acute distress - EENT Eyes: Present: PERRL, EOM intact ENT: hearing intact, clear oral mucosa, dentition normal - Neck Neck: Present: supple, normal ROM - Respiratory Respiratory effort: normal Respiratory: bilateral: CTA - Cardiovascular Rhythm: regular Heart Sounds: Present: S1 & S2. Absent: gallop, rub - Extremities Extremities: no ischemia, No edema, Full ROM - Abdominal General gastrointestinal: soft, non-tender, non-distended, normal bowel sounds - Integumentary Integumentary: Present: clear, warm, dry - Neurologic Neurologic: CNII-XII intact, moves all extremities Results - Labs CBC & Chem 7: 12/23/16 05:22 12/23/16 05:22 Labs: Laboratory Last Values WBC 5.9 K/mm3 (4.5-11.0) 12/23/16 05:22 RBC 3.45 M/mm3 (3.65-5.03) L 12/23/16 05:22 Hgb 9.3 gm/dl (11.8-15.2) L 12/23/16 05:22 Hct 29.3 % (35.5-45.6) L 12/23/16 05:22 MCV 85 fl (84-94) 12/23/16 05:22 MCH 27 pg (28-32) L 12/23/16 05:22 MCHC 32 % (32-34) 12/23/16 05:22 RDW 16.4 % (13.2-15.2) H 12/23/16 05:22 Plt Count 241 K/mm3 (140-440) 12/23/16 05:22 Lymph % (Auto) 17.1 % (13.4-35.0) 12/23/16 05:22 [place] % (Auto) 10.4 % (0.0-7.3) H 12/23/16 05:22 Eos % (Auto) 0.3 % (0.0-4.3) 12/23/16 05:22 Baso % (Auto) 0.2 % (0.0-1.8) 12/23/16 05:22 Lymph # 1.0 K/mm3 (1.2-5.4) L 12/23/16 05:22 [place] # 0.6 K/mm3 (0.0-0.8) 12/23/16 05:22 Eos # 0.0 K/mm3 (0.0-0.4) 12/23/16 05:22 Baso # 0.0 K/mm3 (0.0-0.1) 12/23/16 05:22 Seg Neutrophils % 72.0 % (40.0-70.0) H 12/23/16 05:22 Seg Neutrophils # 4.2 K/mm3 (1.8-7.7) 12/23/16 05:22 Sodium 142 mmol/L (137-145) 12/23/16 05:22 Potassium 4.5 mmol/L (3.6-5.0) 12/23/16 05:22 Chloride 106.5 mmol/L (98-107) 12/23/16 05:22 Carbon Dioxide 18 mmol/L (22-30) L 12/23/16 05:22 Anion Gap 22 mmol/L 12/23/16 05:22 BUN 42 mg/dL (9-20) H 12/23/16 05:22 Creatinine 1.6 mg/dL (0.8-1.5) H 12/23/16 05:22 Estimated GFR 52 ml/min 12/23/16 05:22 BUN/Creatinine Ratio 26 % 12/23/16 05:22 Glucose 101 mg/dL (75-100) H 12/23/16 05:22 Calcium 8.4 mg/dL (8.4-10.2) 12/23/16 05:22 Phosphorus 3.50 mg/dL (2.5-4.5) 12/23/16 05:22 Magnesium 2.30 mg/dL (1.7-2.3) 12/23/16 05:22 Total Bilirubin 1.00 mg/dL (0.1-1.2) 12/23/16 05:22 AST 22 units/L (5-40) 12/23/16 05:22 ALT 13 units/L (7-56) 12/23/16 05:22 Alkaline Phosphatase 69 units/L (35-129) 12/23/16 05:22 Ammonia 114.0 umol/L (25-60) H 12/22/16 00:35 Total Protein 7.5 g/dL (6.3-8.2) 12/23/16 05:22 Albumin 2.6 g/dL (3.9-5) L 12/23/16 05:22 Albumin/Globulin Ratio 0.5 % 12/23/16 05:22 Lipase 55 units/L (13-60) 12/22/16 00:01 Urine Color Yellow (Yellow) 12/22/16 Unknown Urine Turbidity Hazy (Clear) 12/22/16 Unknown Urine pH 5.0 (5.0-7.0) 12/22/16 Unknown Ur Specific [place]cd[place] 1.017 (1.003-1.030) 12/22/16 Unknown Urine Protein <15 mg/dl mg/dL (Negative) 12/22/16 Unknown Urine Glucose (UA) Neg mg/dL (Negative) 12/22/16 Unknown Urine Ketones Neg mg/dL (Negative) 12/22/16 Unknown Urine Blood Sm (Negative) 12/22/16 Unknown Urine Nitrite Pos (Negative) 12/22/16 Unknown Urine Bilirubin Neg (Negative) 12/22/16 Unknown Urine Urobilinogen < 2.0 mg/dL (<2.0) 12/22/16 Unknown Ur Leukocyte Esterase Mod (Negative) 12/22/16 Unknown Urine WBC (Auto) 33.0 /HPF (0.0-6.0) H 12/22/16 Unknown Urine RBC (Auto) 4.0 /HPF (0.0-6.0) 12/22/16 Unknown U Epithel Cells (Auto) 2.0 /HPF (0-13.0) 12/22/16 Unknown Urine Bacteria (Auto) 2+ /HPF (Negative) 12/22/16 Unknown Urine Mucus Few /HPF 12/22/16 Unknown Plasma/Serum Alcohol < 0.01 gm% (0-0.07) 12/22/16 00:35
--- NOTE | 2016-12-23 09:44 | Progress Note ---
Assessment and Plan 66 yo M with 1. postoperative ileus 2. MINH 3. ?liver mass 4. adenocarcinoma of colon - CEA preop 33.9 5. hx prostate ca Plan: 1. continue NPO 2. change IVF to D5 1/2 NS@100cc/hr 3. PT c/s/OOB 4. change SQ heparin to lovenox for DVT ppx 5. continue IV metoprolol 6. NGT to Low continuous suction 7. Obs series in am tomorrow 8. BMP in am tomorrow 9. recommend oncology c/s 10. Lactulose discontinued secondary to dilated bowel 11. liver mass seen on abdominal ultrasound -> pt will need additional liver imaging when Elderly Companion improved to r/o mets I had a long discussion with the patient and his daughter Jazmyn today regarding results of pathology from colon resection, imaging results from abdominal ultrasound and the finding of a possible liver mass. We discussed the need for additional testing to determine if the patient definitively has a liver mass and if this is possible mets from colon ca. In addition to the colon ca, the patient has a history of untreated prostate cancer diagnosed 3 years ago which was discovered at [place] and radiation was recommended at that time. All questions were answered. The patient's daughter has spoken with social work about inpatient rehab and possible hospice. Will continue current inpatient treatment for ileus at this time until the patient is more stable for additional testing. Will discuss case at tumor board next week. Subjective Date of service: 12/23/16 Narrative: Pt seen and examined. Feels pain in the back of his throat secondary to NGT. Was not able to sleep well last night secondary to discomfort from NGT. Minimal improvement in discomfort with chloraseptic spray and ice chips. No f/c, n/v, abdominal pain. Pt admits to passing flatus, but no BM while admitted to hospital. Objective Vital Signs - 12hr 12/22/16 12/23/16 12/23/16 23:07 00:41 02:58 Temperature 98.2 F Pulse Rate 97 H 97 H Respiratory 18 19 Rate Blood Pressure 126/76 126/67 Blood Pressure [Right] O2 Sat by Pulse 98 Oximetry 12/23/16 12/23/16 12/23/16 05:28 05:31 07:39 Temperature 98.3 F Pulse Rate 101 H 102 H 94 H Respiratory 18 18 Rate Blood Pressure 146/76 137/70 Blood Pressure 146/76 [Right] O2 Sat by Pulse 100 98 Oximetry - General physical appearance Narrative Exam: Gen: AAOx3. NAD ENT: NGT in place, minimal clear brown gastric contents draining CV: S1, S2+ Resp: No audible wheezes Abd: very soft, NT, distention improved. NOT tympanitic. + Bowel sounds in all four quadrants. Incisions c/d/i Ext: No c/c/e - Labs 12/23/16 05:22 12/23/16 05:22 Diabetes panel 12/22/16 12/23/16 Range/Units 12:25 05:22 Sodium 136 L 142 (137-145) mmol/L Potassium 4.5 4.5 (3.6-5.0) mmol/L Chloride 99.8 106.5 (98-107) mmol/L Carbon Dioxide 19 L 18 L (22-30) mmol/L BUN 47 H 42 H (9-20) mg/dL Creatinine 2.0 H 1.6 H (0.8-1.5) mg/dL Glucose 122 H 101 H (75-100) mg/dL Calcium 8.2 L 8.4 (8.4-10.2) mg/dL AST 22 (5-40) units/L ALT 13 (7-56) units/L Alkaline Phosphatase 69 (35-129) units/L Total Protein 7.5 (6.3-8.2) g/dL Albumin 2.6 L (3.9-5) g/dL Calcium panel 12/22/16 12/23/16 Range/Units 12:25 05:22 Calcium 8.2 L 8.4 (8.4-10.2) mg/dL Phosphorus 3.50 (2.5-4.5) mg/dL Albumin 2.6 L (3.9-5) g/dL Pituitary panel 12/22/16 12/23/16 Range/Units 12:25 05:22 Sodium 136 L 142 (137-145) mmol/L Potassium 4.5 4.5 (3.6-5.0) mmol/L Chloride 99.8 106.5 (98-107) mmol/L Carbon Dioxide 19 L 18 L (22-30) mmol/L BUN 47 H 42 H (9-20) mg/dL Creatinine 2.0 H 1.6 H (0.8-1.5) mg/dL Glucose 122 H 101 H (75-100) mg/dL Calcium 8.2 L 8.4 (8.4-10.2) mg/dL Adrenal panel 12/22/16 12/23/16 Range/Units 12:25 05:22 Sodium 136 L 142 (137-145) mmol/L Potassium 4.5 4.5 (3.6-5.0) mmol/L Chloride 99.8 106.5 (98-107) mmol/L Carbon Dioxide 19 L 18 L (22-30) mmol/L BUN 47 H 42 H (9-20) mg/dL Creatinine 2.0 H 1.6 H (0.8-1.5) mg/dL Glucose 122 H 101 H (75-100) mg/dL Calcium 8.2 L 8.4 (8.4-10.2) mg/dL Total Bilirubin 1.00 (0.1-1.2) mg/dL AST 22 (5-40) units/L ALT 13 (7-56) units/L Alkaline Phosphatase 69 (35-129) units/L Total Protein 7.5 (6.3-8.2) g/dL Albumin 2.6 L (3.9-5) g/dL - Imaging Abdominal x-ray: report reviewed, image reviewed (ileus, no improvement compared with 12/22/16) Additional Studies: abdominal ultrasound: Area of relatively decreased echogenicity in the right hepatic lobe measuring up to 4.5 cm. This lesion is not clearly identified on the CT abdomen without contrast performed the same day. Cirrhosis.
[2016-12-23] MEDS: PROTONIX IV SCH (10:31)
[2016-12-23] MEDS: LOVENOX SUB-Q SCH (10:31)
[2016-12-23] MEDS: D5/0.45NS 1,000 ML IV SCH (10:32)
[2016-12-23] MEDS: ATIVAN IV PRN (13:58)
[2016-12-24] MEDS: DILAUDID IV PRN ×3 (00:21→23:45)
[2016-12-24] MEDS: LOPRESSOR IV SCH ×5 (01:26→23:45)
[2016-12-24 03:12] LABS: Bacteria,Urine 1+ /HPF (Negative); Bilirubin,Urine NEG (Negative); Blood,Urine SM (Negative); Ketones,Urine NEG (Negative); Leukocyte Esterase,Urine LG (Negative); Nitrite,Urine POS (Negative); Protein,Urine <15 mg/dL mg/dL (Negative); Urobilinogen,Urine < 2.0 mg/dL (<2.0)
[2016-12-24 06:24] LABS: Anion Gap 15 mmol/L; BUN/Creatinine Ratio 24; Blood Urea Nitrogen 34 mg/dL (9-20); Calcium 8.4 mg/dL (8.4-10.2); Carbon Dioxide 23 mmol/L (22-30); Chloride 109.6 mmol/L (98-107); Glucose 137 mg/dL (75-100); Potassium 4.3 mmol/L (3.6-5.0); Sodium 143 mmol/L (137-145)
[2016-12-24] MEDS: D5/0.45NS 1,000 ML IV SCH ×2 (06:24→19:10)
--- NOTE | 2016-12-24 09:47 | Progress Note ---
Assessment and Plan 66 yo M with 1. postoperative ileus 2. MINH 3. ?liver mass 4. adenocarcinoma of colon - CEA preop 33.9 5. hx prostate ca 6. malnutrition Plan: 1. continue NPO 2. IVF D5 1/2 NS@100cc/hr 3. PT c/s/OOB 4. DVT ppx - lovenox 5. continue IV metoprolol 6. NGT - clamp trial until 12:30pm, nursing given instructions and to call at the end of clamp trial 7. cancel obs series - patient having bowel function 8. oncology c/s pending 9. liver mass seen on abdominal ultrasound -> pt will need additional liver imaging when Plant Facilities Technician improved to r/o mets Subjective Date of service: 12/24/16 Narrative: Patient seen and examined at bedside. Got some rest overnight. Had 2 very large soft, liquidy bowel movements overnight and continues to pass flatus. No n/v, abd pain, f/c, cp, sob. Pt is frustrated to be in the hospital and wants to go home. Objective Vital Signs - 12hr 12/24/16 12/24/16 12/24/16 00:23 04:31 08:04 Temperature 97.3 F L 97.4 F L 97.4 F L Pulse Rate 89 80 76 Respiratory 18 20 20 Rate Blood Pressure 142/63 149/74 128/65 O2 Sat by Pulse 99 100 100 Oximetry - General physical appearance Narrative Exam: Gen: Awake and alert. NAD. ENT: NGT in place with light brown gastric fluid in canister Abd: very soft, NT, ND, protuberant. Midline incision with pinpoint area of serous drainage at cephalad portion of incision. Approx 3ccm of seroma fluid evacuated and steristrips placed, 2x2 gauze, and tegaderm. No erythema around incision. All other incisions c/d/i. - Labs 12/23/16 05:22 12/24/16 05:02 Diabetes panel 12/24/16 Range/Units 05:02 Sodium 143 (137-145) mmol/L Potassium 4.3 (3.6-5.0) mmol/L Chloride 109.6 H (98-107) mmol/L Carbon Dioxide 23 (22-30) mmol/L BUN 34 H (9-20) mg/dL Creatinine 1.4 (0.8-1.5) mg/dL Glucose 137 H (75-100) mg/dL Calcium 8.4 (8.4-10.2) mg/dL Calcium panel 12/24/16 Range/Units 05:02 Calcium 8.4 (8.4-10.2) mg/dL Pituitary panel 12/24/16 Range/Units 05:02 Sodium 143 (137-145) mmol/L Potassium 4.3 (3.6-5.0) mmol/L Chloride 109.6 H (98-107) mmol/L Carbon Dioxide 23 (22-30) mmol/L BUN 34 H (9-20) mg/dL Creatinine 1.4 (0.8-1.5) mg/dL Glucose 137 H (75-100) mg/dL Calcium 8.4 (8.4-10.2) mg/dL Adrenal panel 12/24/16 Range/Units 05:02 Sodium 143 (137-145) mmol/L Potassium 4.3 (3.6-5.0) mmol/L Chloride 109.6 H (98-107) mmol/L Carbon Dioxide 23 (22-30) mmol/L BUN 34 H (9-20) mg/dL Creatinine 1.4 (0.8-1.5) mg/dL Glucose 137 H (75-100) mg/dL Calcium 8.4 (8.4-10.2) mg/dL
--- NOTE | 2016-12-24 10:32 | Progress Note ---
Assessment and Plan - Patient Problems (1) MINH (acute kidney injury) Current Visit: Yes Status: Acute Plan to address problem: Significantly improved since admission Serum creatinine down to 1.4 2/2 prerenal Continue IV hydration Monitor renal function Avoid nephrotoxins (2) Liver mass Current Visit: Yes Status: Acute Plan to address problem: Questionable liver mass in the right hepatic lobe CT of the abdomen and pelvis did not reveal any mass as this was done without contrast due to renal insufficiency However a renal ultrasound showed a 4.5 cm mass in the liver (3) Dehydration Current Visit: Yes Status: Acute Plan to address problem: Improving Continue IV hydration (4) Partial small bowel obstruction Current Visit: Yes Status: Acute Plan to address problem: 2/2 postop ileus Continue nothing by mouth with NG tube with low intermittent suction Gen. surgery following (5) S/P right hemicolectomy Current Visit: Yes Status: Acute Plan to address problem: Recent right hemicolectomy due to recurrent bleeding biopsy was positive for adenocarcinoma (6) Paroxysmal atrial fibrillation Current Visit: No Status: Acute Plan to address problem: Patient in sinus rhythm at this time Patient is nothing by mouth Continue IV beta vin as needed (7) History of prostate cancer Current Visit: Yes Status: Acute Plan to address problem: History of advanced prostate cancer, apparently diagnosed at [facility] 3 years ago He was offered radiation treatment but the patient apparently declined at that time His daughter wants the patient to be transferred to [facility] if possible to look into his prostate cancer as well as the questionable liver mass for further evaluation I have talked to the transfer center at [facility] and gave all the information Waiting for their response Subjective Date of service: 12/24/16 Interval history: Patient is resting No apparent distress Offers no specific complaints Wants to eat He denies any chest pain shortness of breath or abdominal pain He states he is passing flatus occasionally Denies any bowel movement All inter disciplinary notes reviewed Objective - Constitutional Vitals: Vital Signs - 12hr 12/24/16 12/24/16 12/24/16 00:23 04:31 08:04 Temperature 97.3 F L 97.4 F L 97.4 F L Pulse Rate 89 80 76 Respiratory 18 20 20 Rate Blood Pressure 142/63 149/74 128/65 O2 Sat by Pulse 99 100 100 Oximetry General appearance: Present: no acute distress - EENT Eyes: PERRL, EOM intact ENT: hearing intact - Neck Neck: supple, normal ROM, no masses or JVD - Respiratory Respiratory: bilateral: CTA - Cardiovascular Rhythm: regular Heart Sounds: Present: S1 & S2 Extremities: No edema - Gastrointestinal General gastrointestinal: Present: soft, non-tender, hypoactive bowel sounds - Genitourinary Male genitourinary: deferred - Integumentary Integumentary: clear, warm - Musculoskeletal Musculoskeletal: strength equal bilaterally - Neurologic Neurologic: no focal deficits - Psychiatric Psychiatric: appropriate mood/affect - Labs CBC & Chem 7: 12/23/16 05:22 12/24/16 05:02 Labs: Abnormal lab results 12/23/16 12/23/16 12/24/16 Range/Units Unknown Unknown 05:02 Chloride 109.6 H (98-107) mmol/L BUN 34 H (9-20) mg/dL Glucose 137 H (75-100) mg/dL Urine WBC (Auto) 84.0 H (0.0-6.0) /HPF Urine Creatinine 117.5 H (0.1-20.0) mg/dL
[2016-12-24] MEDS: PROTONIX IV SCH (11:00)
--- NOTE | 2016-12-24 11:06 | Progress Note ---
Subjective Interval history: Patient was seen today for follow-up, on many renal related issues Patient currently denies having any symptoms of chest pain pressure shortness of breath Better aware about renal related issues Interdisciplinary notes were reviewed Vitals labs intake and output medications were reviewed from today Allergies: Reviewed Social history: Reviewed Family history: Reviewed Physical examination HEENT: Oral mucosa moist no pharyngeal erythema Neck: Supple no JVD Chest: Clear to auscultation no crackles rales or wheezes Heart: Regular rate and rhythm S1-S2 heard no S3-S4 Abdomen: Soft nontender no renal bruit no CVA tenderness no suprapubic fullness Extremity: Mild edema dry skin no peripheral cyanosis pulses palpable Neurological: Alert awake Musculoskeletal: No joint effusion noted Assessment and plan Acute renal failure in a patient who has multiple risk factors for underlying chronic kidney disease: Patient was extensively counseled and educated to make necessary dietary lifestyle changes upon discharge will need to be seen in office for follow-up Avoid any follow-up CARLOS inhibitor as angiotensin receptor vin and nonsteroidal drugs since renal function has normalized we will sign off the case patient was given information to follow up in office metabolic acidosis currently resolved Renal ultrasonogram unremarkable Possible hepatic mass noted on the renal ultrasonogram please consider further workup as indicated, possibly consider a hematology oncology consultation, patient was made aware about ultrasonogram findings Labs were discussed with patient explained and simple Wolof does have good understanding off renal related issues, Will continue to follow and make recommendation from renal standpoint Objective - Vital Signs Vital signs: Vital Signs - 12hr 12/24/16 12/24/16 12/24/16 00:23 04:31 08:04 Temperature 97.3 F L 97.4 F L 97.4 F L Pulse Rate 89 80 76 Respiratory 18 20 20 Rate Blood Pressure 142/63 149/74 128/65 O2 Sat by Pulse 99 100 100 Oximetry - Lab 12/23/16 05:22 12/24/16 05:02 Most recent lab results Calcium 8.4 mg/dL (8.4-10.2) 12/24/16 05:02 Phosphorus 3.50 mg/dL (2.5-4.5) 12/23/16 05:22 Magnesium 2.30 mg/dL (1.7-2.3) 12/23/16 05:22 Urine Creatinine 117.5 mg/dL (0.1-20.0) H 12/23/16 Unknown Urine Sodium 41 mmol/L 12/23/16 Unknown
[2016-12-24] MEDS: LOVENOX SUB-Q SCH (11:27)
--- NOTE | 2016-12-24 15:05 | Hem/Onc Consultation ---
History of Present Illness - Reason for Consult Consult date: 12/24/16 - History of Present Illness Consult dictated. Past History Past Medical History: anemia, hypertension, other (prostate cancer, and recent hemicolectomy for bleeding ascending colon mass on 12/13/16) Past Surgical History: No surgical history, Other ( hemicolectomy for bleeding ascending colon mass on 12/13/16) Social history: alcohol abuse. denies: smoking Family history: hypertension Medications and Allergies Allergies Allergy/AdvReac Type Severity Reaction Status Date / Time No Known Allergies Allergy Unverified 12/01/16 00:18 Home Medications Medication Instructions Recorded Confirmed Last Taken Type Allopurinol [Zyloprim] 100 mg PO QDAY #30 tablet 12/20/16 12/22/16 12/21/16 08: 00 Rx Folic Acid [Folvite] 1 mg PO QDAY #30 tablet 12/20/16 12/22/16 12/21/16 08:00 Rx Metoprolol [Lopressor TAB] 50 mg PO BID #60 tablet 12/20/16 12/22/16 12/21/16 08 :00 Rx Multivitamin Tab [Multiple Vitamin 1 each PO QDAY #30 tablet 12/20/16 12/22/16 Unknown Rx TAB (Theragran)] Pantoprazole [Protonix TAB] 40 mg PO DAILY #30 tablet 12/20/16 12/22/16 08:00 Rx Tamsulosin [Flomax] 0.4 mg PO QDAY #30 capsule 12/20/16 12/22/16 12/21/16 08:00 Rx Thiamine [Vitamin B-1] 100 mg PO QDAY #30 tablet 12/20/16 12/22/16 12/21/16 08: 00 Rx amLODIPine [Norvasc] 10 mg PO QDAY #30 tablet 12/20/16 12/22/16 12/21/16 08:00 Rx traMADol [Ultram 50 MG tab] 50 mg PO Q6HR PRN #14 tablet 12/20/16 12/22/1612/21 08:00 Rx Active Meds: Active Medications Bisacodyl (Dulcolax) 10 mg SD QDAY PRN PRN Reason: Constipation unrelieved by MOM Enoxaparin Sodium (Lovenox) 40 mg SUB-Q DAILY [facility] Last Admin: 12/24/16 11:27 Dose: 40 mg Hydromorphone HCl (Dilaudid) 0.25 mg IV Q3H PRN PRN Reason: Pain, Moderate (4-6) Last Admin: 12/24/16 13:14 Dose: 0.25 mg Dextrose/Sodium Chloride (D5/0.45ns) 1,000 mls @ 100 mls/hr IV DIRECT AURA Last Admin: 12/24/16 06:24 Dose: 100 mls/hr Labetalol HCl (Normodyne) 10 mg IV Q4H PRN PRN Reason: Blood Pressure Lorazepam (Ativan) 0.5 mg IV Q12H PRN PRN Reason: Agitation Last Admin: 12/23/16 13:58 Dose: 0.5 mg Metoprolol Tartrate (Lopressor) 5 mg IV Q6HR [facility] Last Admin: 12/24/16 13:19 Dose: 5 mg Ondansetron HCl (Zofran) 4 mg IV Q4H PRN PRN Reason: Nausea And Vomiting Pantoprazole Sodium (Protonix) 40 mg IV QDAY [facility] Last Admin: 12/24/16 11:00 Dose: 40 mg Phenol (Chloraseptic) 1 spray MM PRN PRN PRN Reason: Sore Throat Last Admin: 12/22/16 21:00 Dose: 1 spray Exam - Constitutional Vitals: Last Vital Signs Temp 97.3 F L 12/24/16 12:45 Pulse 100 H 12/24/16 13:19 Resp 20 12/24/16 13:14 BP 140/90 12/24/16 13:19 Pulse Ox 99 12/24/16 12:45 Results - Labs lab Results: Laboratory Results - last 24 hr 12/23/16 12/23/16 12/24/16 Unknown Unknown 05:02 Sodium 143 Potassium 4.3 Chloride 109.6 H Carbon Dioxide 23 Anion Gap 15 BUN 34 H Creatinine 1.4 Estimated GFR > 60 BUN/Creatinine Ratio 24 Glucose 137 H Calcium 8.4 Urine Color Yellow Urine Turbidity Cloudy Urine pH 5.0 Ur Specific [place] 1.014 Urine Protein <15 mg/dl Urine Glucose (UA) Neg Urine Ketones Neg Urine Blood Sm Urine Nitrite Pos Urine Bilirubin Neg Urine Urobilinogen < 2.0 Ur Leukocyte Esterase Lg Urine WBC (Auto) 84.0 H Urine RBC (Auto) 3.0 U Epithel Cells (Auto) < 1.0 Urine Bacteria (Auto) 1+ Urine Creatinine 117.5 H Urine Sodium 41
[2016-12-24 15:54] LABS: Reticulocyte % 2.87 % (0.78-2.58)
[2016-12-24 16:21] LABS: Prostate Specific Antigen 21.75 ng/mL (0.00-4.00)
[2016-12-24] MEDS: ATIVAN IV PRN (19:08)
--- NOTE | 2016-12-25 02:36 | Consultation ---
REFERRING PHYSICIAN: Dr. Pryor. REASON FOR CONSULTATION: Colon CA. HISTORY OF PRESENT ILLNESS: The patient is a 66-year-old male with history of alcohol abuse, hypertension, previous history of prostate cancer who recently had right hemicolectomy for bleeding ascending colon mass. His pathology was found to be T2, N0 with 0/7 lymph nodes positive. He presented to the hospital now with evidence of intermittent nausea, vomiting. He also started having abdominal pain. He is also found to have renal insufficiency, which is improving. The patient did have CT scan during this hospitalization where he was found on his abdominal CT to have evidence of adrenal mass along with dilatation of the small bowel. 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 This was present in his last CAT scan too. He also had undergone renal ultrasound for renal insufficiency and he was found to have cirrhosis of the liver, questionable liver mass. Because of the liver mass and his recent history of colon cancer, Oncology consult was called. The patient is currently recovering and is able to take p.o. He denies any previous history of malignancy. I did have some form of malignancy in the father, he does not know the specifics. PAST MEDICAL HISTORY: Positive for anemia, hypertension, prostate cancer, colon cancer. SOCIAL HISTORY: Used to drink. He has quit drinking he said in November. PHYSICAL EXAMINATION: GENERAL: The patient is awake. HEAD AND ENT: Unremarkable. CHEST: Clear. CARDIOVASCULAR: Regular rate and rhythm. ABDOMEN: Slightly distended, midline abdominal incision is present. EXTREMITIES: No clubbing, cyanosis, or edema. LABORATORY DATA: Creatinine today is 1.4, which has improved from 2.2 on admission. The patient's hemoglobin yesterday was 9.3, white count 5.9, platelets 241,000. His presurgery CEA according to Dr. Pryor was greater than 30. ASSESSMENT: 1. T2, N0 colon cancer status post right hemicolectomy. 2. Abnormal contour of the liver, possibly cirrhosis, which could show as a mass. Rule out metastatic disease. 3. History of prostate cancer. 4. Anemia. RECOMMENDATION AND PLAN: At this time, we will go ahead and check PSA, also check CEA. We will also check hepatitis profile. Continue to monitor. May need MRI and PET scan, which we can do as outpatient. Strongly recommended for the patient to quit alcohol use. I will also do anemia workup. [facility]# [id number] JYOTI/SHEILA
[2016-12-25] MEDS: D5/0.45NS 1,000 ML IV SCH (04:00)
[2016-12-25] MEDS: LOPRESSOR IV SCH ×2 (06:28→17:06)
[2016-12-25 08:34] LABS: Anion Gap 15 mmol/L; BUN/Creatinine Ratio 21; Blood Urea Nitrogen 29 mg/dL (9-20); Calcium 8.1 mg/dL (8.4-10.2); Carbon Dioxide 22 mmol/L (22-30); Chloride 109.2 mmol/L (98-107); Glucose 108 mg/dL (75-100); Potassium 3.9 mmol/L (3.6-5.0); Sodium 142 mmol/L (137-145)
--- NOTE | 2016-12-25 10:33 | Progress Note ---
Assessment and Plan 66 yo M with 1. postoperative ileus - resolving 2. MINH - resolving 3. ?liver mass 4. adenocarcinoma of colon - CEA preop 33.9 5. elevated PSA - hx prostate ca 6. malnutrition 7. HepBsAg + Plan: 1. start clear liquids with supplements 2. decrease IVF D5 1/2 NS@75 cc/hr 3. continue OOB 4. DVT ppx - lovenox 5. continue IV metoprolol - if pt tolerates clears, may be changed to PO 6. oncology c/s appreciated - repeat CEA ordered and is pending 7. liver mass seen on abdominal ultrasound -> will need MRI and PET as outpt per oncology Possible transfer to [place] initiated yesterday per family request. Awaiting contact from [place] transfer center regarding accepting physician and bed. Subjective Date of service: 12/25/16 Narrative: Pt seen and examined at bedside. No acute complaints. No overnight events. No f/ c, cp, sob, n/v, abdominal pain. Patient passed NGT clamp trial yesterday afternoon and NGT was removed. No issues since then. Continues to pass flatus. Last BM one day ago. Objective Vital Signs - 12hr 12/24/16 12/24/16 12/25/16 23:45 23:52 00:15 Temperature 97.6 F Pulse Rate 96 H 84 Respiratory 18 22 18 Rate Blood Pressure 124/72 124/68 Blood Pressure [Right] O2 Sat by Pulse 97 Oximetry 12/25/16 12/25/16 12/25/16 04:08 06:28 09:25 Temperature 97.6 F 98.5 F Pulse Rate 85 85 84 Respiratory 17 18 Rate Blood Pressure 147/85 147/85 Blood Pressure 111/52 [Right] O2 Sat by Pulse 99 100 Oximetry 12/25/16 09:29 Temperature 98.5 F Pulse Rate Respiratory 18 Rate Blood Pressure 111/52 Blood Pressure [Right] O2 Sat by Pulse Oximetry - General physical appearance Narrative Exam: Gen: AAOx3. NAD CV: S2, S2+ Resp: No audible wheezes Abd: soft, NT, ND. Small amount of serous fluid draining from cephalad portion of midline incision. No additional fluid could be expressed. No erythema, no ttp. Skin apposed with steristrips and abdominal binder applied. Ext: No c/c/e - Labs 12/23/16 05:22 12/25/16 07:23 Diabetes panel 12/25/16 Range/Units 07:23 Sodium 142 (137-145) mmol/L Potassium 3.9 (3.6-5.0) mmol/L Chloride 109.2 H (98-107) mmol/L Carbon Dioxide 22 (22-30) mmol/L BUN 29 H (9-20) mg/dL Creatinine 1.4 (0.8-1.5) mg/dL Glucose 108 H (75-100) mg/dL Calcium 8.1 L (8.4-10.2) mg/dL Calcium panel 12/25/16 Range/Units 07:23 Calcium 8.1 L (8.4-10.2) mg/dL Pituitary panel 12/25/16 Range/Units 07:23 Sodium 142 (137-145) mmol/L Potassium 3.9 (3.6-5.0) mmol/L Chloride 109.2 H (98-107) mmol/L Carbon Dioxide 22 (22-30) mmol/L BUN 29 H (9-20) mg/dL Creatinine 1.4 (0.8-1.5) mg/dL Glucose 108 H (75-100) mg/dL Calcium 8.1 L (8.4-10.2) mg/dL Adrenal panel 12/25/16 Range/Units 07:23 Sodium 142 (137-145) mmol/L Potassium 3.9 (3.6-5.0) mmol/L Chloride 109.2 H (98-107) mmol/L Carbon Dioxide 22 (22-30) mmol/L BUN 29 H (9-20) mg/dL Creatinine 1.4 (0.8-1.5) mg/dL Glucose 108 H (75-100) mg/dL Calcium 8.1 L (8.4-10.2) mg/dL
[2016-12-25] MEDS ORDERED: D5/0.45NS 1,000 ML IV SCH (11:00)
[2016-12-25] MEDS: LOVENOX SUB-Q SCH (11:44)
[2016-12-25] MEDS: DILAUDID IV PRN ×3 (11:45→21:02)
[2016-12-25] MEDS ORDERED: MILK OF MAGNESIA PO ONE (15:00)
--- NOTE | 2016-12-25 15:46 | Progress Note ---
Assessment and Plan Assessment and Plan - Patient Problems (1) MINH (acute kidney injury) Current Visit: Yes Status: Acute Plan to address problem: Significantly improved since admission Serum creatinine down to 1.4 2/2 prerenal Continue IV hydration Monitor renal function Avoid nephrotoxins (2) Liver mass Current Visit: Yes Status: Acute Plan to address problem: Questionable liver mass in the right hepatic lobe CT of the abdomen and pelvis did not reveal any mass as this was done without contrast due to renal insufficiency However a renal ultrasound showed a 4.5 cm mass in the liver (3) Dehydration Current Visit: Yes Status: Acute Plan to address problem: Improving Continue IV hydration (4) Partial small bowel obstruction Current Visit: Yes Status: Acute Plan to address problem: 2/2 postop ileus NG tube is out Started on clear liquids with supplements Gen. surgery following (5) S/P right hemicolectomy Current Visit: Yes Status: Acute Plan to address problem: Recent right hemicolectomy due to recurrent bleeding biopsy was positive for adenocarcinoma (6) Paroxysmal atrial fibrillation Current Visit: No Status: Acute Plan to address problem: Patient in sinus rhythm at this time Patient is nothing by mouth Continue IV beta vin as needed (7) History of prostate cancer Current Visit: Yes Status: Acute Plan to address problem: History of advanced prostate cancer, apparently diagnosed at [place] 3 years ago He was offered radiation treatment but the patient apparently declined at that time His daughter apparently wants the patient to be transferred to [place] if possible to look into his prostate cancer as well as the questionable liver mass for further evaluation I have talked to the transfer center at [place] and gave all the information Waiting for their response - Patient Problems (1) MINH (acute kidney injury) Current Visit: Yes Status: Acute (2) Liver mass Current Visit: Yes Status: Acute (3) Dehydration Current Visit: Yes Status: Acute (4) Partial small bowel obstruction Current Visit: Yes Status: Acute (5) S/P right hemicolectomy Current Visit: Yes Status: Acute (6) Paroxysmal atrial fibrillation Current Visit: No Status: Acute (7) History of prostate cancer Current Visit: Yes Status: Acute Subjective Date of service: 12/25/16 Interval history: Patient is resting in the bed No apparent distress No specific complaints His NG tube is out He is passing flatus Had bowel movement last night All interdisciplinary notes were reviewed Objective - Constitutional Vitals: Vital Signs - 12hr 12/25/16 12/25/16 12/25/16 04:08 06:28 09:25 Temperature 97.6 F 98.5 F Pulse Rate 85 85 84 Pulse Rate [ Left Radial] Respiratory 17 18 Rate Blood Pressure 147/85 147/85 Blood Pressure 111/52 [Right] O2 Sat by Pulse 99 100 Oximetry 12/25/16 12/25/16 12/25/16 09:29 10:00 12:13 Temperature 98.5 F 98.2 F Pulse Rate 77 Pulse Rate [ 76 Left Radial] Respiratory 18 18 18 Rate Blood Pressure 111/52 116/65 Blood Pressure [Right] O2 Sat by Pulse 100 100 Oximetry General appearance: Present: no acute distress - EENT Eyes: PERRL, EOM intact ENT: hearing intact, clear oral mucosa - Neck Neck: supple, normal ROM - Respiratory Respiratory effort: normal Respiratory: bilateral: CTA - Cardiovascular Rhythm: regular Heart Sounds: Present: S1 & S2 Extremities: No edema - Gastrointestinal General gastrointestinal: Present: soft, tender (mild tenderness in the mid abdomen), distended - Integumentary Integumentary: clear - Musculoskeletal Musculoskeletal: strength equal bilaterally - Neurologic Neurologic: no focal deficits - Labs CBC & Chem 7: 12/23/16 05:22 12/25/16 07:23 Labs: Abnormal lab results 12/24/16 12/25/16 Range/Units 15:10 07:23 Chloride 109.2 H (98-107) mmol/L BUN 29 H (9-20) mg/dL Glucose 108 H (75-100) mg/dL Calcium 8.1 L (8.4-10.2) mg/dL Iron 23 L (49-181) ug/dL
[2016-12-25] MEDS: PROTONIX IV SCH (16:43)
[2016-12-25] MEDS: ZOFRAN IV PRN (19:54)
[2016-12-26] MEDS: LOPRESSOR IV SCH ×3 (00:21→16:57)
[2016-12-26] MEDS: DILAUDID IV PRN ×4 (02:21→20:01)
[2016-12-26 08:14] LABS: Calcium 8.4 mg/dL (8.4-10.2)
[2016-12-26 08:15] LABS: Chloride 104.6 mmol/L (98-107); Potassium 4.6 mmol/L (3.6-5.0)
[2016-12-26] MEDS ORDERED: NACL 0.9% 1000 ML 1,000 ML IV SCH ×2 (09:00→21:00)
--- NOTE | 2016-12-26 09:30 | Hem/Onc Progress Note ---
Assessment and Plan Patient's creatinine has risen.? Obstruction. Patient has had history of prostate cancer 3 years ago and opted for no treatment. This is according to his daughter. He has not had anybody check him for that since then. His PSA was 21 which makes me suggest that he may have prostate issues that may be causing his difficulty voiding now. I have discussed with nephrology who will see him again. We will also need a urology evaluation for history of prostate cancer. Continue to monitor Subjective Date of service: 12/26/16 Interval history: Patient uncomfortable. Complains of abdominal pain. Has difficulty voiding. Had a bout of emesis early this morning. Has been having bowel movements. Objective - Constitutional Vitals: Last Vital Signs Temp 97.6 F 12/26/16 05:16 Pulse 135 H 12/26/16 06:45 Resp 18 12/26/16 06:53 BP 114/59 12/26/16 06:45 Pulse Ox 97 12/26/16 05:16 General appearance: mild distress Performance status: 4-completely disabled - Neck Neck: supple - Respiratory Respiratory effort: Positive: normal Respiratory: bilateral: CTA - Cardiovascular Rhythm: regular - Gastrointestinal General gastrointestinal: Present: distended (right-sided abdominal wound) - Labs Lab Results: Laboratory Results - last 24 hr 12/26/16 06:57 Sodium 137 Potassium 4.6 Chloride 104.6 Carbon Dioxide 12 L D Anion Gap 25 BUN 34 H Creatinine 2.4 H D Estimated GFR 33 BUN/Creatinine Ratio 14 Glucose 126 H Calcium 8.4
--- NOTE | 2016-12-26 09:41 | Progress Note ---
Assessment and Plan - Patient Problems (1) MINH (acute kidney injury) Current Visit: Yes Status: Acute Plan to address problem: may be prerenal, R/O obstruction. Pt has significant abdomen distention-may be pressing on renal vasculature. Noted worsening renal function. Co2-12--check sepsis work up. Surgery notes reviewed. Place on bicarb supplements. Discussed with -hospitalist. PSA-21.75. Discussed with (2) Liver cirrhosis Current Visit: Yes Status: Acute Qualifiers: Hepatic cirrhosis type: H Ascites presence: A (3) Liver mass Current Visit: Yes Status: Acute (4) S/P right hemicolectomy Current Visit: Yes Status: Acute (5) Metabolic acidosis Current Visit: No Status: Acute Subjective Date of service: 12/26/16 Interval history: acutely ill looking, noted abdomen distention Objective - Vital Signs Vital signs: Vital Signs - 12hr 12/25/16 12/25/16 12/26/16 22:00 23:18 02:21 Temperature 98.9 F Pulse Rate 125 H Pulse Rate [ 90 Left Radial] Respiratory 18 20 18 Rate Blood Pressure 109/52 O2 Sat by Pulse 95 Oximetry 12/26/16 12/26/16 12/26/16 02:51 05:16 06:45 Temperature 97.6 F Pulse Rate 135 H 135 H Pulse Rate [ Left Radial] Respiratory 18 22 Rate Blood Pressure 114/59 114/59 O2 Sat by Pulse 97 Oximetry 12/26/16 06:53 Temperature Pulse Rate Pulse Rate [ Left Radial] Respiratory 18 Rate Blood Pressure O2 Sat by Pulse Oximetry - General Appearance General appearance: chronically ill EENT: mucous membranes dry Neck: no JVD Respiratory: Present: Decreased Breath Sounds Cardiology: regular, systolic murmur Gastrointestinal: hypoactive bowel sounds, other (distended) - Lab 12/26/16 11:09 12/26/16 06:57 Most recent lab results Calcium 8.4 mg/dL (8.4-10.2) 12/26/16 06:57 Phosphorus 3.50 mg/dL (2.5-4.5) 12/23/16 05:22 Magnesium 2.30 mg/dL (1.7-2.3) 12/23/16 05:22 Urine Creatinine 117.5 mg/dL (0.1-20.0) H 12/23/16 Unknown Urine Sodium 41 mmol/L 12/23/16 Unknown
--- NOTE | 2016-12-26 10:24 | Progress Note ---
Assessment and Plan 66 yo M with 1. postoperative ileus, vomting 2. MINH - worseing 3. ?liver mass 4. adenocarcinoma of colon, s/p lap right hemicolectomy - CEA preop 33.9 5. elevated PSA - hx prostate ca 6. malnutrition 7. HepB 8. urinary retention 9. UTI on admission UA - no antibiotics given thus far Plan: 1. make NPO, 2. change IVF - NS@125cc/hr 3. obtain CT scan A/P with oral contrast STAT 4. continue OOB 5. DVT ppx - lovenox 6. continue IV metoprolol 7. insert echevarria catheter for inability to urinate, I/Os 8. recommend uro c/s 9. oncology c/s appreciated - repeat CEA ordered and is pending 10. liver mass seen on abdominal ultrasound -> will need MRI and PET as outpt per oncology 11. elevated WBC and UTI- start abx 12. Further recommendations pending CT scan results Spoke with [place] transfer center. Because family requested transfer, they are responsible for transport costs. D/W Pts daughter who elects to stay at [facility] at this time. Hospice [facility] on board and has inpatient bed for patient once medically stable. Subjective Date of service: 12/26/16 Narrative: Attempted to see patient at 10:20am but down in Xray. Spoke with daughter. Patient has been having difficulty voiding and had one episode of emesis overnight (nonbloody/nonbilious). Pt seen and examined. Has not been having difficulty voiding for last one to two days, now unable to void. Had one episode of nonbloody/nonbilious emesis overnight and c/o associated lower abdominal pain at that time. Now feels well, denies abdominal pain, n/v. Had a BM yesterday and admits to consistently passing flatus. No f/c, cp, sob. Objective Vital Signs - 12hr 12/25/16 12/26/16 12/26/16 23:18 02:21 02:51 Temperature 98.9 F Pulse Rate 125 H Respiratory 20 18 18 Rate Blood Pressure 109/52 O2 Sat by Pulse 95 Oximetry 12/26/16 12/26/16 12/26/16 05:16 06:45 06:53 Temperature 97.6 F Pulse Rate 135 H 135 H Respiratory 22 18 Rate Blood Pressure 114/59 114/59 O2 Sat by Pulse 97 Oximetry - General physical appearance Narrative Exam: Gen: AAOx3. NAD. sleepy CV: S1, S2+ Resp: no audible wheezes Abd: soft, distended, NT. Midline incision with serous drainage. All other incisions clean and dry. +bowel sounds in all 4 quadrants - Labs 12/26/16 11:09 12/26/16 06:57 Diabetes panel 12/26/16 Range/Units 06:57 Sodium 137 (137-145) mmol/L Potassium 4.6 (3.6-5.0) mmol/L Chloride 104.6 (98-107) mmol/L Carbon Dioxide 12 L D (22-30) mmol/L BUN 34 H (9-20) mg/dL Creatinine 2.4 H D (0.8-1.5) mg/dL Glucose 126 H (75-100) mg/dL Calcium 8.4 (8.4-10.2) mg/dL Calcium panel 12/26/16 Range/Units 06:57 Calcium 8.4 (8.4-10.2) mg/dL Pituitary panel 12/26/16 Range/Units 06:57 Sodium 137 (137-145) mmol/L Potassium 4.6 (3.6-5.0) mmol/L Chloride 104.6 (98-107) mmol/L Carbon Dioxide 12 L D (22-30) mmol/L BUN 34 H (9-20) mg/dL Creatinine 2.4 H D (0.8-1.5) mg/dL Glucose 126 H (75-100) mg/dL Calcium 8.4 (8.4-10.2) mg/dL Adrenal panel 12/26/16 Range/Units 06:57 Sodium 137 (137-145) mmol/L Potassium 4.6 (3.6-5.0) mmol/L Chloride 104.6 (98-107) mmol/L Carbon Dioxide 12 L D (22-30) mmol/L BUN 34 H (9-20) mg/dL Creatinine 2.4 H D (0.8-1.5) mg/dL Glucose 126 H (75-100) mg/dL Calcium 8.4 (8.4-10.2) mg/dL - Imaging Abdominal x-ray: report reviewed, image reviewed (SBO, dilated small bowel loops )
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
[2016-12-26] MEDS ORDERED: SODIUM BICARBONATE 150 MEQ in D5W 1,000 ML IV SCH (11:00)
[2016-12-26] MEDS: LOVENOX SUB-Q SCH (11:12)
[2016-12-26 11:39] LABS: Mean Corpuscular HGB Conc 30 % (32-34); Mean Corpuscular Hemoglobin 27 pg (28-32); Mean Corpuscular Volume 89 fl (84-94); Platelet Count 268 K/mm3 (140-440); Red Blood Count 3.66 M/mm3 (3.65-5.03); Red Cell Distribution Width 17.4 % (13.2-15.2)
[2016-12-26 11:45] LABS: Hemoglobin 9.7 gm/dl (11.8-15.2); White Blood Count 24.7 K/mm3 (4.5-11.0)
[2016-12-26 11:47] LABS: Hematocrit 32.4 % (35.5-45.6)
[2016-12-26 12:46] LABS: Anisocytosis 1+; Basophils % (Manual) 0 % (0.0-1.8); Blastocytes % (Manual) 0 %; Diff Status Complete; Eosinophils % (Manual) 0 % (0.0-4.3); Platelet Estimate Consistent w Auto
[2016-12-26] MEDS ORDERED: ROCEPHIN/NS 1 GM/50 ML 1 GM/50 ML BAG IV SCH (13:00)
[2016-12-26] MEDS: PROTONIX IV SCH (14:13)
[2016-12-26 14:56] LABS: ISTAT Base Excess -10; ISTAT DEVICE 0; ISTAT HCO3 15.2; ISTAT PCO2 25.7 (35-45); ISTAT PO2 89 (80-105); ISTAT SO2 97; ISTAT TCO2 16
[2016-12-26] MEDS ORDERED: NACL 0.9% 1000 ML 1,000 ML IV ONE (16:50)
--- NOTE | 2016-12-26 18:20 | Cat Scan Report ---
FINAL REPORT EXAM: CT ABDOMEN PELVIS WO CON HISTORY: vomiting, hx right hemicolectomy due to mass TECHNIQUE: Standard unenhanced CT of the abdomen and pelvis. Coronal and sagittal reconstruction was also performed. Contrast: Oral contrast given. PRIORS: CT a/P 12/22/2016, 12/01/2016 FINDINGS: Surgical anastomosis clips are present in the right lower quadrant surrounding the proximal colon. There is a cluster of soft tissue nodules in the fat medial to the surgical site and anterior to the right ileus psoas muscle suspicious for possible enlarged lymph nodes. The largest focus measures 1.9 x 1.9 cm (axial image 218, series 2). Extensive diverticulosis is scattered throughout the remaining colon without active diverticulitis. In the small bowel, there is diffuse concentric wall thickening of the distal jejunum within the left mid abdomen. The bowel wall measures up to 11 mm (axial image 267, series 2). The wall thickening has progressed since the prior study. These loops are also borderline dilated in diameter measuring up to 3.9 cm. Also, there are small new bubbles of air within the venous branches of the mesentery feeding the distal segments of these involved loops of jejunum or possibly proximal ilium (axial images 169-195, series 2). No evidence for portal venous gas is seen. No definitive evidence for pneumatosis of the involved small bowel loops is seen. No haziness or induration in the mesenteric fat of these involve loops is seen. No definite transition zone is identified to suggest bowel obstruction. Within the abdomen, the liver appears cirrhotic, unchanged, being shrunken in size and lobulated in contour. Multiple gallstones are noted in the gallbladder. The spleen is upper limits normal in size. The nodule in the right adrenal gland contains focal fat, likely a benign entity such as adenoma or angiomyelolipoma. This is stable in size. The pancreas, left adrenal gland, and kidneys are unremarkable. No evidence for pelvic lymphadenopathy is seen. No fluid collection, inflammatory change, or free air is seen within the abdomen or pelvis. The appendix has likely been removed. Within the pelvis, the bladder is collapsed containing a Traylor catheter balloon and intraluminal air. The prostate is normal. No evidence for mass or lymphadenopathy is seen in the pelvis. Images through the upper abdomen include the lung bases which demonstrates stable linear atelectasis or scarring in the left base. Small bulla is also noted in the left lower lobe medially. Bony structures show severe osteoarthritis in the right hip with complete [id number] joint space narrowing, flattening of the right femoral head, and extensive subchondral cyst formation on both sides of the joint. There is also moderate narrowing of the L3-L4 disc. IMPRESSION: 1. Worsening diffuse bowel wall thickening involving the distal jejunum and possibly proximal ilium. However, this is associated with new mesenteric vein air bubbles. Possibility of ischemic bowel should be considered. 2. Suspicious soft tissue nodules in the right lower quadrant medial to the surgical site. Possible enlarged lymph nodes should be considered. 3. Diverticulosis without active diverticulitis 4. Cirrhosis 5. Cholelithiasis 6. Stable nodule in the right adrenal gland 7. Severe osteoarthritis in the right hip with [id number] joint space narrowing.
--- NOTE | 2016-12-26 18:20 | Progress Note ---
Assessment and Plan Assessment and plan: 1. Ileus vs SBO Status post recent laparoscopic right hemicolectomy Make NPO, give IV fluids Evaluated by surgeon and scheduled for CT with oral contrast 2. Adenocarcinoma of colon Colonoscopy with biopsy positive for adenocarcinoma Status post right hemicolectomy Preop CEA elevated, 33.9 Oncology following and plans additional workup for staging; also has liver mass - diff: metastasis vs hepatocarcinoma given history of chronic hep B and cirrhosis 3. Liver mass/liver cirrhosis History of chronic hepatitis B and remote alcohol abuse See above discussion 4. Acute renal failure Secondary to vasomotor nephropathy due to dehydration +/_ obstructive uropathy due to prostate cancer Give IV fluids Monitor BUN/creatinine and electrolytes 5. Prostate cancer Diagnosed 3 years ago at [facility] and patient denied treatment 6. Urinary retention Possible secondary to prostate cancer/ileus Insert Traylor Consider urology evaluation 7. Sepsis/UTI Leukocytosis, UA consistent with UTI Obtain urine culture and start antibiotic, IV fluids 8. Malnutrition Supplementation per dietitian 9. Anemia Iron deficient secondary to blood loss/chronic inflammation/malignancy Monitor H&H, currently in 9 range 10. Paroxysmal A. fib On beta vin for rate control Not on anticoagulation given multiple comorbidities/recent surgery Currently in sinus rhythm 11. DVT/GI prophylaxis History Interval history: overnight developed low abd pain and had an episode of vomiting; also, c/o inability to void evaluated by surgery and scheduled for abd x-ray and CT with oral contrast bernadine present, updated Hospitalist Physical - Constitutional Vitals: Temp Pulse Resp BP Pulse Ox 98.3 F 114 H 22 93/49 100 12/26/16 08:07 12/26/16 08:08 12/26/16 11:08 12/26/16 08:07 12/26/16 08:08 General appearance: Present: mild distress, well-nourished - EENT Eyes: Present: PERRL, EOM intact. Absent: scleral icterus, conjunctival injection - Neck Neck: Present: supple, normal ROM. Absent: masses or JVD - Respiratory Respiratory effort: normal Respiratory: bilateral: diminished, negative: rhonchi, wheezing - Cardiovascular Rhythm: other (tachycardic) Heart Sounds: Present: S1 & S2. Absent: systolic murmur - Extremities Extremities: no ischemia - Abdominal General gastrointestinal: soft, non-tender, distended, normal bowel sounds, other (serous drainage from latest abd incision) - Psychiatric Psychiatric: cooperative - Neurologic Neurologic: no focal deficits Results - Labs CBC & Chem 7: 12/27/16 02:34 12/27/16 02:34 Labs: Laboratory Last Values WBC 24.7 K/mm3 (4.5-11.0) H 12/26/16 11:09 RBC 3.66 M/mm3 (3.65-5.03) 12/26/16 11:09 Hgb 9.7 gm/dl (11.8-15.2) L 12/26/16 11:09 Hct 32.4 % (35.5-45.6) L 12/26/16 11:09 MCV 89 fl (84-94) 12/26/16 11:09 MCH 27 pg (28-32) L 12/26/16 11:09 MCHC 30 % (32-34) L 12/26/16 11:09 RDW 17.4 % (13.2-15.2) H 12/26/16 11:09 Plt Count 268 K/mm3 (140-440) 12/26/16 11:09 Lymph % (Auto) 17.1 % (13.4-35.0) 12/23/16 05:22 [place] % (Auto) 10.4 % (0.0-7.3) H 12/23/16 05:22 Eos % (Auto) 0.3 % (0.0-4.3) 12/23/16 05:22 Baso % (Auto) 0.2 % (0.0-1.8) 12/23/16 05:22 Lymph # 1.0 K/mm3 (1.2-5.4) L 12/23/16 05:22 [place] # 0.6 K/mm3 (0.0-0.8) 12/23/16 05:22 Eos # 0.0 K/mm3 (0.0-0.4) 12/23/16 05:22 Baso # 0.0 K/mm3 (0.0-0.1) 12/23/16 05:22 Add Manual Diff Complete 12/26/16 11:09 Total Counted 200 12/26/16 11:09 Seg Neutrophils % Remarketing Manager 12/26/16 11:09 Seg Neuts % (Manual) 94.5 % (40.0-70.0) H 12/26/16 11:09 Band Neutrophils % 1.5 % 12/26/16 11:09 Lymphocytes % (Manual) 2.0 % (13.4-35.0) L 12/26/16 11:09 Reactive Lymphs % (Man) 0 % 12/26/16 11:09 Monocytes % (Manual) 2.0 % (0.0-7.3) 12/26/16 11:09 Eosinophils % (Manual) 0 % (0.0-4.3) 12/26/16 11:09 Basophils % (Manual) 0 % (0.0-1.8) 12/26/16 11:09 Metamyelocytes % 0 % 12/26/16 11:09 Myelocytes % 0 % 12/26/16 11:09 Promyelocytes % 0 % 12/26/16 11:09 Blast Cells % 0 % 12/26/16 11:09 Nucleated RBC % Not Reportable 12/26/16 11:09 Seg Neutrophils # 4.2 K/mm3 (1.8-7.7) 12/23/16 05:22 Seg Neutrophils # Man 23.3 K/mm3 (1.8-7.7) H 12/26/16 11:09 Band Neutrophils # 0.4 K/mm3 12/26/16 11:09 Lymphocytes # (Manual) 0.5 K/mm3 (1.2-5.4) L 12/26/16 11:09 Abs React Lymphs (Man) 0.0 K/mm3 12/26/16 11:09 Monocytes # (Manual) 0.5 K/mm3 (0.0-0.8) 12/26/16 11:09 Eosinophils # (Manual) 0.0 K/mm3 (0.0-0.4) 12/26/16 11:09 Basophils # (Manual) 0.0 K/mm3 (0.0-0.1) 12/26/16 11:09 Metamyelocytes # 0.0 K/mm3 12/26/16 11:09 Myelocytes # 0.0 K/mm3 12/26/16 11:09 Promyelocytes # 0.0 K/mm3 12/26/16 11:09 Blast Cells # 0.0 K/mm3 12/26/16 11:09 WBC Morphology Not Reportable 12/26/16 11:09 Hypersegmented Neuts Not Reportable 12/26/16 11:09 Hyposegmented Neuts Not Reportable 12/26/16 11:09 Hypogranular Neuts Not Reportable 12/26/16 11:09 Smudge Cells Not Reportable 12/26/16 11:09 Toxic Granulation Not Reportable 12/26/16 11:09 Toxic Vacuolation Not Reportable 12/26/16 11:09 Dohle Bodies Not Reportable 12/26/16 11:09 Pelger-Huet Anomaly Not Reportable 12/26/16 11:09 Selin Rods Not Reportable 12/26/16 11:09 Platelet Estimate Consistent w auto 12/26/16 11:09 Clumped Platelets Not Reportable 12/26/16 11:09 Plt Clumps, EDTA Not Reportable 12/26/16 11:09 Large Platelets Not Reportable 12/26/16 11:09 Giant Platelets Not Reportable 12/26/16 11:09 Platelet Satelliting Not Reportable 12/26/16 11:09 Plt Morphology Comment Not Reportable 12/26/16 11:09 RBC Morphology Not Reportable 12/26/16 11:09 Dimorphic RBCs Not Reportable 12/26/16 11:09 Polychromasia Not Reportable 12/26/16 11:09 Hypochromasia Not Reportable 12/26/16 11:09 Poikilocytosis Not Reportable 12/26/16 11:09 Anisocytosis 1+ 12/26/16 11:09 Microcytosis Not Reportable 12/26/16 11:09 Macrocytosis Not Reportable 12/26/16 11:09 Spherocytes Not Reportable 12/26/16 11:09 Pappenheimer Bodies Not Reportable 12/26/16 11:09 Sickle Cells Not Reportable 12/26/16 11:09 Target Cells Not Reportable 12/26/16 11:09 Tear Drop Cells Not Reportable 12/26/16 11:09 Ovalocytes Not Reportable 12/26/16 11:09 Helmet Cells Not Reportable 12/26/16 11:09 [place] Bodies Not Reportable 12/26/16 11:09 [place] Rings Not Reportable 12/26/16 11:09 [place] Cells Not Reportable 12/26/16 11:09 Bite Cells Not Reportable 12/26/16 11:09 Crenated Cell Not Reportable 12/26/16 11:09 Elliptocytes Not Reportable 12/26/16 11:09 Acanthocytes (Spur) Not Reportable 12/26/16 11:09 Rouleaux Not Reportable 12/26/16 11:09 Hemoglobin C Crystals Not Reportable 12/26/16 11:09 Schistocytes Not Reportable 12/26/16 11:09 Malaria parasites Not Reportable 12/26/16 11:09 Percent Retic 2.87 % (0.78-2.58) H 12/24/16 15:10 Russ Bodies Not Reportable 12/26/16 11:09 Hem Pathologist Commnt No 12/26/16 11:09 POC ABG pH 7.380 (7.35-7.45) 12/26/16 14:04 POC ABG pCO2 25.7 (35-45) L 12/26/16 14:04 POC ABG pO2 89 (80-105) 12/26/16 14:04 POC ABG HCO3 15.2 12/26/16 14:04 POC ABG Total CO2 16 12/26/16 14:04 POC ABG O2 Sat 97 12/26/16 14:04 POC ABG Base Excess -10 12/26/16 14:04 FiO2 21 % 12/26/16 14:04 Sodium 137 mmol/L (137-145) 12/26/16 06:57 Potassium 4.6 mmol/L (3.6-5.0) 12/26/16 06:57 Chloride 104.6 mmol/L (98-107) 12/26/16 06:57 Carbon Dioxide 12 mmol/L (22-30) L D 12/26/16 06:57 Anion Gap 25 mmol/L 12/26/16 06:57 BUN 34 mg/dL (9-20) H 12/26/16 06:57 Creatinine 2.4 mg/dL (0.8-1.5) H D 12/26/16 06:57 Estimated GFR 33 ml/min 12/26/16 06:57 BUN/Creatinine Ratio 14 % 12/26/16 06:57 Glucose 126 mg/dL (75-100) H 12/26/16 06:57 Calcium 8.4 mg/dL (8.4-10.2) 12/26/16 06:57 Phosphorus 3.50 mg/dL (2.5-4.5) 12/23/16 05:22 Magnesium 2.30 mg/dL (1.7-2.3) 12/23/16 05:22 Iron 23 ug/dL (49-181) L 12/24/16 15:10 TIBC 267 mcg/dL (250-450) 12/24/16 15:10 % Saturation 8.61 % 12/24/16 15:10 Transferrin 233 mg/dl (180-329) 12/24/16 15:10 Ferritin 67.5 ng/mL (13.0-400.0) 12/24/16 15:10 Total Bilirubin 1.00 mg/dL (0.1-1.2) 12/23/16 05:22 AST 22 units/L (5-40) 12/23/16 05:22 ALT 13 units/L (7-56) 12/23/16 05:22 Alkaline Phosphatase 69 units/L (35-129) 12/23/16 05:22 Ammonia 114.0 umol/L (25-60) H 12/22/16 00:35 Total Protein 7.5 g/dL (6.3-8.2) 12/23/16 05:22 Albumin 2.6 g/dL (3.9-5) L 12/23/16 05:22 Albumin/Globulin Ratio 0.5 % 12/23/16 05:22 Lipase 55 units/L (13-60) 12/22/16 00:01 Prostate Specific Ag 21.75 ng/mL (0.00-4.00) H 12/24/16 15:10 Vitamin B12 1191 pg/mL (211-911) H 12/24/16 15:10 Folate 16.86 ng/mL (7.3-26.0) 12/24/16 15:10 Urine Color Yellow (Yellow) 12/23/16 Unknown Urine Turbidity Cloudy (Clear) 12/23/16 Unknown Urine pH 5.0 (5.0-7.0) 12/23/16 Unknown Ur Specific [place] 1.014 (1.003-1.030) 12/23/16 Unknown Urine Protein <15 mg/dl mg/dL (Negative) 12/23/16 Unknown Urine Glucose (UA) Neg mg/dL (Negative) 12/23/16 Unknown Urine Ketones Neg mg/dL (Negative) 12/23/16 Unknown Urine Blood Sm (Negative) 12/23/16 Unknown Urine Nitrite Pos (Negative) 12/23/16 Unknown Urine Bilirubin Neg (Negative) 12/23/16 Unknown Urine Urobilinogen < 2.0 mg/dL (<2.0) 12/23/16 Unknown Ur Leukocyte Esterase Lg (Negative) 12/23/16 Unknown Urine WBC (Auto) 84.0 /HPF (0.0-6.0) H 12/23/16 Unknown Urine RBC (Auto) 3.0 /HPF (0.0-6.0) 12/23/16 Unknown U Epithel Cells (Auto) < 1.0 /HPF (0-13.0) 12/23/16 Unknown Urine Bacteria (Auto) 1+ /HPF (Negative) 12/23/16 Unknown Urine Mucus Few /HPF 12/22/16 Unknown Urine Creatinine 117.5 mg/dL (0.1-20.0) H 12/23/16 Unknown Urine Sodium 41 mmol/L 12/23/16 Unknown Plasma/Serum Alcohol < 0.01 gm% (0-0.07) 12/22/16 00:35 Hep Bs Antigen Reactive (Negative) 12/24/16 15:10 Hepatitis C Antibody Non-reactive (NonReactive) 12/24/16 15:10
--- NOTE | 2016-12-26 18:52 | Event Note ---
Date: 12/26/[address] scan reviewed with in house radiology and discussed with [facility] radiologist Dr. Frankel. One loop of small bowel with severe wall thickening and mesenteric venous air is worrisome for ischemia. Patient's WBC has worsened today. His partial small bowel obstruction has not resolved and this small bowel loop is likely the cause if ischemic. Patient examined. Does not complain of pain. Abdomen is soft, NT. Together with the patient's partial bowel obstruction not improving clinically, leukocytosis, and worrisome findings of bowel ischemia on CT scan today, the decision was made to proceed to the operating room alon for a diagnostic laparoscopy, possible exploratory laparotomy, possible bowel resection. I explained all risks and benefits to patient and his daughter who was at the bedside. Consents were signed and placed on the chart. I notified Dr. Thorne.
[2016-12-26 20:20] LABS: INR 1.58 (0.87-1.13)
[2016-12-26] MEDS ORDERED: NACL 0.9% 1000 ML 1,000 ML ONE ×2 (20:25→22:21)
[2016-12-26] MEDS ORDERED: LEVAQUIN 500MG/100ML 500 MG/100 ML BAG IV NR (21:00)
[2016-12-26] MEDS ORDERED: FLAGYL 500 MG/100 ML 500 MG/100 ML BAG IV NR (21:00)
[2016-12-26] MEDS ORDERED: DIPRIVAN 10 MG/ML IV ONE (21:19)
[2016-12-26] MEDS ORDERED: DECADRON ONE (21:20)
[2016-12-26] MEDS ORDERED: XYLOCAINE MPF 2% ONE (21:20)
[2016-12-26] MEDS ORDERED: DILAUDID ONE (21:20)
[2016-12-26] MEDS ORDERED: ZOFRAN ONE (21:20)
[2016-12-26] MEDS ORDERED: ZEMURON IV ONE (21:20)
[2016-12-26] MEDS ORDERED: LEVAQUIN 500MG/100ML 500 MG/100 ML BAG IV ONE (21:40)
[2016-12-26] MEDS ORDERED: FLAGYL 500 MG/100 ML 500 MG/100 ML BAG IV ONE (21:41)
--- NOTE | 2016-12-26 21:51 | Anesthesia Day of Surgery ---
Anesthesia Day of Surgery - Day of Surgery Patient Examined: Yes Patient H&P Reviewed: Yes Patient is NPO: Yes
--- NOTE | 2016-12-26 21:51 | Anesthesia Consultation ---
Anesthesia Consult and Med Hx Date of service: 12/26/16 - Airway Anesthetic Teeth Evaluation: Poor ROM Head & Neck: Adequate Mental/Hyoid Distance: Adequate Mallampati Class: Class II Intubation Access Assessment: Probably Good - Pulmonary Exam CTA: Yes - Cardiac Exam Cardiac Exam: RRR - Pre-Operative Health Status ASA Pre-Surgery Classification: ASA3 Proposed Anesthetic Plan: General - Pulmonary Hx Smoking: Yes Hx Sleep Apnea: No - Cardiovascular System Hx Hypertension: Yes Hx Heart Attack/AMI: No Hx Angina: No - Central Nervous System Hx Psychiatric Problems: No - Gastrointestinal Hx Gastroesophageal Reflux Disease: Yes - Endocrine Hx Non-Insulin Dependent Diabetes: No - Other Systems Hx Alcohol Use: Yes Hx Cancer: Yes (Prostate CA) Hx Obesity: Yes
[2016-12-27] MEDS ORDERED: ATROPINE 0.1% (CARDIAC) ONE (00:16)
--- NOTE | 2016-12-27 00:22 | Post Operative Note ---
Date of procedure: 12/27/16 Pre-op diagnosis: ischemic bowel, sepsis Post-op diagnosis: other (ileus) Findings: Adhesions from ileocolic anastamosis to the RLQ and anastamosis patent. Generalized distension of small bowel loops, no clear transition point. All bowel pink and healthy. Palpable pulses in mesentery. Procedure: Exploratory laparotomy, lysis of adhesions Anesthesia: KARENA Surgeon: PHILIPPE SANDOVAL Computational Linguist: ESTEFANÍA MCPHERSON Estimated blood loss: other (250cc) Pathology: none Condition: stable Disposition: PACU
[2016-12-27] MEDS ORDERED: ATROVENT IH ONE ×2 (01:26→03:38)
[2016-12-27] MEDS ORDERED: PROVENTIL IH ONE (01:40)
[2016-12-27] MEDS: DILAUDID IV PRN ×8 (02:15→15:55)
[2016-12-27 02:56] LABS: Mean Corpuscular HGB Conc 29 % (32-34); Mean Corpuscular Hemoglobin 26 pg (28-32); Mean Corpuscular Volume 90 fl (84-94); Platelet Count 347 K/mm3 (140-440); Red Blood Count 3.55 M/mm3 (3.65-5.03); Red Cell Distribution Width 17.1 % (13.2-15.2)
[2016-12-27 03:09] LABS: Calcium 7.4 mg/dL (8.4-10.2)
[2016-12-27 03:10] LABS: Chloride 104.6 mmol/L (98-107); Potassium 4.9 mmol/L (3.6-5.0)
[2016-12-27] MEDS: FLAGYL 500 MG/100 ML 500 MG/100 ML BAG IV SCH ×4 (03:15→22:35)
[2016-12-27 03:35] LABS: Hematocrit 31.9 % (35.5-45.6); Hemoglobin 9.4 gm/dl (11.8-15.2); White Blood Count 26.4 K/mm3 (4.5-11.0)
[2016-12-27] MEDS: LEVAQUIN 500MG/100ML 500 MG/100 ML BAG IV SCH ×2 (03:45→23:32)
[2016-12-27] MEDS ORDERED: HESPAN 500 ML IV ONE ×2 (04:37→04:40)
[2016-12-27 05:32] LABS: Basophils % (Manual) 0 % (0.0-1.8); Blastocytes % (Manual) 0 %; Eosinophils % (Manual) 0 % (0.0-4.3)
[2016-12-27 05:33] LABS: Anisocytosis 1+; Diff Status Complete
[2016-12-27] MEDS: LOPRESSOR IV SCH ×4 (08:00→17:39)
[2016-12-27] MEDS ORDERED: NACL 0.9% 1000 ML 1,000 ML IV ONE (08:34)
--- NOTE | 2016-12-27 08:47 | Operative Report ---
Operative Report Operative Report: Date of procedure: 12/27/16 Pre-op diagnosis: ischemic bowel, sepsis Post-op diagnosis: other (ileus), sepsis Findings: Adhesions from ileocolic anastamosis to the RLQ and anastamosis patent. Generalized distension of small bowel loops, no clear transition point. All bowel pink and healthy. Palpable pulses in mesentery. Procedure: Exploratory laparotomy, lysis of adhesions Anesthesia: SHERRON Surgeon: PHILIPPE SANDOVAL Bakery Chef: ESTEFANÍA MCPHERSON Estimated blood loss: other (250cc) Pathology: none Condition: stable Disposition: PACU HPI and indication: 66 yo M with hx of prostate ca, newly diagnosed colon adenocarcinoma s/p recent Lap HAMM right hemicolectomy presented to the hospital with a post op ileus. The patient's WBC increased significantly since admission , ileus was not resolving and repeat CT scan A/P showed concerns for ischemic small bowel. For this reason, it was decided the patient should go back to the operating room for abdominal exploration. All risks and benefits were discussed with the patient and his family members at the bedside and consent was signed. Procedure in detail: Patient was identified in the preoperative area and taken back to the operating room, placed on operating room table in supine position. After anesthesia was induced the abdomen was prepped and draped in usual sterile fashion and a timeout was performed. A midline incision was made using a 10 blade and dissection carried down through the skin and subcutaneous tissue using Bovie electrocautery until the fascia was encountered. Fascia was scored and grasped between 2 hemostats and tented upwards. The fascia was then opened with Bovie electrocautery and the abdomen then bluntly entered. The remainder of the fascia was opened in the midline, in a cephalad and caudad direction to complete the incision using electrocautery. Distended small bowel was encountered and eviscerated. There was a minimal amount of serous fluid in the abdomen. The small bowel was ran from the ligament of Treitz to the ileocolic anastomosis in the right lower quadrant. The bowel showed signs of generalized distention however there is no transition point. All of the small bowel was pink, and showed no signs of ischemia or injury. All the mesentery was intact and there were bounding pulses palpated. The remaining colon also appeared healthy. The ileocolic anastomosis and omentum was adhesed to the retroperitoneum. These adhesions were carefully lysed and the anastomosis inspected. The anastomosis was intact and the common channel was patent. The liver was palpated and is cirrhotic. An obvious liver mass could not definitively be palpated. We then turned our attention to irrigating the surgical field. There was oozing from the right lower quadrant where some adhesions were lysed. This bleeding was controlled using Vicryl ties and Tisseel to the wound bed. The area was carefully inspected and hemostasis meticulously achieved. The bowel was then placed back into anatomic position. The NG tube was palpated in the stomach and secured by anesthesia. The midline fascia was closed with running looped PDS in the usual fashion. The subcutaneous tissue was then irrigated and the skin closed with pop. The patient was awoken from anesthesia and extubated. He was taken to PACU in stable condition. At the end of the case, all sponge, instrument, sharp counts were correct 2.
--- NOTE | 2016-12-27 09:18 | Hem/Onc Progress Note ---
Assessment and Plan supportive care Continue to monitor Subjective Date of service: 12/27/16 Interval history: Patient uncomfortable. Complains of abdominal pain. Events noted. Patient underwent expiratory laparotomy adhesions Objective - Constitutional Vitals: Last Vital Signs Temp 98.2 F 12/27/16 07:00 Pulse 117 H 12/27/16 07:00 Resp 20 12/27/16 07:00 BP 92/52 12/27/16 08:14 Pulse Ox 100 12/27/16 07:00 - Neck Neck: supple - Respiratory Respiratory effort: Positive: normal - Cardiovascular Rhythm: regular Extremities: No edema - Labs Lab Results: Laboratory Results - last 24 hr 12/26/16 12/26/16 12/26/16 11:09 14:04 19:47 WBC 24.7 H RBC 3.66 Hgb 9.7 L Hct 32.4 L MCV 89 MCH 27 L MCHC 30 L RDW 17.4 H Plt Count 268 Add Manual Diff Complete Total Counted 200 Seg Neutrophils % Buckle Strap Drum Operator Seg Neuts % (Manual) 94.5 H Band Neutrophils % 1.5 Lymphocytes % (Manual) 2.0 L Reactive Lymphs % (Man) 0 Monocytes % (Manual) 2.0 Eosinophils % (Manual) 0 Basophils % (Manual) 0 Metamyelocytes % 0 Myelocytes % 0 Promyelocytes % 0 Blast Cells % 0 Nucleated RBC % Not Reportable Seg Neutrophils # Man 23.3 H Band Neutrophils # 0.4 Lymphocytes # (Manual) 0.5 L Abs React Lymphs (Man) 0.0 Monocytes # (Manual) 0.5 Eosinophils # (Manual) 0.0 Basophils # (Manual) 0.0 Metamyelocytes # 0.0 Myelocytes # 0.0 Promyelocytes # 0.0 Blast Cells # 0.0 WBC Morphology Not Reportable Hypersegmented Neuts Not Reportable Hyposegmented Neuts Not Reportable Hypogranular Neuts Not Reportable Smudge Cells Not Reportable Toxic Granulation Not Reportable Toxic Vacuolation Not Reportable Dohle Bodies Not Reportable Pelger-Huet Anomaly Not Reportable Selin Rods Not Reportable Platelet Estimate Consistent w auto Clumped Platelets Not Reportable Plt Clumps, EDTA Not Reportable Large Platelets Not Reportable Giant Platelets Not Reportable Platelet Satelliting Not Reportable Plt Morphology Comment Not Reportable RBC Morphology Not Reportable Dimorphic RBCs Not Reportable Polychromasia Not Reportable Hypochromasia Not Reportable Poikilocytosis Not Reportable Anisocytosis 1+ Microcytosis Not Reportable Macrocytosis Not Reportable Spherocytes Not Reportable Pappenheimer Bodies Not Reportable Sickle Cells Not Reportable Target Cells Not Reportable Tear Drop Cells Not Reportable Ovalocytes Not Reportable Helmet Cells Not Reportable Hylton-Katy Bodies Not Reportable Morrill Rings Not Reportable Aranza Cells Not Reportable Bite Cells Not Reportable Crenated Cell Not Reportable Elliptocytes Not Reportable Acanthocytes (Spur) Not Reportable Rouleaux Not Reportable Hemoglobin C Crystals Not Reportable Schistocytes Not Reportable Malaria parasites Not Reportable Russ Bodies Not Reportable Hem Pathologist Commnt No PT 19.6 H INR 1.58 H POC ABG pH 7.380 POC ABG pCO2 25.7 L POC ABG pO2 89 POC ABG HCO3 15.2 POC ABG Total CO2 16 POC ABG O2 Sat 97 POC ABG Base Excess -10 FiO2 21 Sodium Potassium Chloride Carbon Dioxide Anion Gap BUN Creatinine Estimated GFR BUN/Creatinine Ratio Glucose Calcium Triglycerides Blood Type Antibody Screen 12/26/16 12/27/16 12/27/16 19:47 02:34 02:34 WBC 26.4 H RBC 3.55 L Hgb 9.4 L Hct 31.9 L MCV 90 MCH 26 L MCHC 29 L RDW 17.1 H Plt Count 347 Add Manual Diff Complete Total Counted 100 Seg Neutrophils % Buckle Strap Drum Operator Seg Neuts % (Manual) 35.0 L Band Neutrophils % 47.0 Lymphocytes % (Manual) 8.0 L Reactive Lymphs % (Man) 0 Monocytes % (Manual) 7.0 Eosinophils % (Manual) 0 Basophils % (Manual) 0 Metamyelocytes % 3.0 Myelocytes % 0 Promyelocytes % 0 Blast Cells % 0 Nucleated RBC % Not Reportable Seg Neutrophils # Man 9.2 H Band Neutrophils # 12.4 Lymphocytes # (Manual) 2.1 Abs React Lymphs (Man) 0.0 Monocytes # (Manual) 1.8 H Eosinophils # (Manual) 0.0 Basophils # (Manual) 0.0 Metamyelocytes # 0.8 Myelocytes # 0.0 Promyelocytes # 0.0 Blast Cells # 0.0 WBC Morphology Not Reportable Hypersegmented Neuts Not Reportable Hyposegmented Neuts Not Reportable Hypogranular Neuts Not Reportable Smudge Cells Not Reportable Toxic Granulation Not Reportable Toxic Vacuolation Not Reportable Dohle Bodies Not Reportable Pelger-Huet Anomaly Not Reportable Selin Rods Not Reportable Platelet Estimate Appears normal Clumped Platelets Not Reportable Plt Clumps, EDTA Not Reportable Large Platelets Not Reportable Giant Platelets Not Reportable Platelet Satelliting Not Reportable Plt Morphology Comment Not Reportable RBC Morphology Not Reportable Dimorphic RBCs Not Reportable Polychromasia Not Reportable Hypochromasia Not Reportable Poikilocytosis Not Reportable Anisocytosis 1+ Microcytosis Not Reportable Macrocytosis Not Reportable Spherocytes Not Reportable Pappenheimer Bodies Not Reportable Sickle Cells Not Reportable Target Cells Not Reportable Tear Drop Cells Not Reportable Ovalocytes Not Reportable Helmet Cells Not Reportable Hylton-Katy Bodies Not Reportable Morrill Rings Not Reportable Aranza Cells Not Reportable Bite Cells Not Reportable Crenated Cell Not Reportable Elliptocytes Not Reportable Acanthocytes (Spur) Not Reportable Rouleaux Not Reportable Hemoglobin C Crystals Not Reportable Schistocytes Not Reportable Malaria parasites Not Reportable Russ Bodies Not Reportable Hem Pathologist Commnt No PT INR POC ABG pH POC ABG pCO2 POC ABG pO2 POC ABG HCO3 POC ABG Total CO2 POC ABG O2 Sat POC ABG Base Excess FiO2 Sodium 138 Potassium 4.9 Chloride 104.6 Carbon Dioxide 13 L Anion Gap 25 BUN 41 H Creatinine 2.4 H Estimated GFR 33 BUN/Creatinine Ratio 17 Glucose 169 H Calcium 7.4 L Triglycerides 103 Blood Type O POSITIVE Antibody Screen Negative
--- NOTE | 2016-12-27 09:37 | Progress Note ---
Assessment and Plan 66 yo M s/p exploratory laparotomy, PATTI, POD#1 1. postoperative ileus 2. MINH, dehydration 3. ?liver mass 4. adenocarcinoma of colon, s/p lap right hemicolectomy - CEA preop 33.9 5. elevated PSA - hx prostate ca 6. malnutrition 7. HepB 8. urinary retention 9. UTI on admission UA 10. sepsis 2/2 UTI Plan: 1. continue NPO, 2. change IVF - NS@125cc/hr. Give 1L NS bolus now for low BP 3. abx - on levaquin and flagyl, ID c/s ordered, blood and urine cx pending 4. daily CBC, BMP 5. NGT to LCWS 6. strict I/Os 7. start TPN today, nutrition c/s ordered 8. PICC line consult ordered yesterday 9. OOB/IS 10. pain control PRN 11. DVT ppx - lovenox 12. continue IV metoprolol 13. continue echevarria for strict I/Os 14. recommend uro c/s 15. oncology c/s appreciated - repeat CEA ordered and is pending Subjective Date of service: 12/27/16 Narrative: Patient seen and examined. Recovered in PACU overnight and took many hours to fully wake up. Patient c/o abdominal pain near incision, 10/30 in severity. No n/ v, f/c, cp, sob. Low BP overnight in PACU. Objective Vital Signs - 12hr 12/27/16 12/27/16 12/27/16 00:05 00:10 00:15 Temperature 97 F L Pulse Rate 35 L 42 L 98 H Respiratory 6 L 17 11 L Rate Blood Pressure 120/45 136/53 Blood Pressure [Right] O2 Sat by Pulse 57 L 100 Oximetry 12/27/16 12/27/16 12/27/16 00:20 00:25 00:30 Temperature Pulse Rate 117 H 113 H 113 H Respiratory 18 11 L 13 Rate Blood Pressure 167/70 160/74 149/66 Blood Pressure [Right] O2 Sat by Pulse 100 100 100 Oximetry 12/27/16 12/27/16 12/27/16 00:45 01:00 01:15 Temperature Pulse Rate 114 H 121 H 134 H Respiratory 18 19 25 H Rate Blood Pressure 120/61 115/67 133/73 Blood Pressure [Right] O2 Sat by Pulse 100 100 100 Oximetry 12/27/16 12/27/16 12/27/16 01:30 01:45 02:00 Temperature Pulse Rate 142 H 142 H 144 H Respiratory 22 18 21 Rate Blood Pressure 141/106 134/81 132/90 Blood Pressure [Right] O2 Sat by Pulse 100 100 100 Oximetry 12/27/16 12/27/16 12/27/16 02:15 02:30 02:38 Temperature Pulse Rate 141 H 143 H Respiratory 22 22 22 Rate Blood Pressure 117/58 124/56 Blood Pressure [Right] O2 Sat by Pulse 100 100 Oximetry 12/27/16 12/27/16 12/27/16 02:45 02:50 03:00 Temperature 98.6 F Pulse Rate 139 H 136 H Respiratory 22 28 H 26 H Rate Blood Pressure 113/62 124/68 Blood Pressure [Right] O2 Sat by Pulse 98 100 Oximetry 12/27/16 12/27/16 12/27/16 03:07 03:30 04:00 Temperature Pulse Rate 138 H 120 H Respiratory 28 H 18 18 Rate Blood Pressure 125/62 74/37 Blood Pressure [Right] O2 Sat by Pulse 100 100 Oximetry 12/27/16 12/27/16 12/27/16 04:30 05:00 05:30 Temperature 97.7 F Pulse Rate 129 H 118 H 115 H Respiratory 18 18 16 Rate Blood Pressure 75/30 83/44 102/52 Blood Pressure [Right] O2 Sat by Pulse 100 98 100 Oximetry 12/27/16 12/27/16 12/27/16 06:00 06:15 06:30 Temperature 98.1 F Pulse Rate 115 H 118 H 114 H Respiratory 13 16 16 Rate Blood Pressure 101/54 105/56 104/60 Blood Pressure [Right] O2 Sat by Pulse 100 100 100 Oximetry 12/27/16 12/27/16 12/27/16 07:00 08:14 09:28 Temperature 98.2 F Pulse Rate 117 H Respiratory 20 Rate Blood Pressure Blood Pressure 112/60 92/52 109/60 [Right] O2 Sat by Pulse 100 Oximetry - General physical appearance Narrative Exam: Gen: Awake and alert, oriented to person and place ENT: NGT in place with scant drainage CV: S1, S2+ Resp: CTAB, no w/r/r. poor inspiratory effort Abd: soft, mildy distended, mod TTP near incision. Dressing c/d/i, abdominal binder in place Ext: no c/c/e : echevarria with clear, dark yellow urine - Labs 12/27/16 02:34 12/27/16 02:34 Diabetes panel 12/27/16 Range/Units 02:34 Sodium 138 (137-145) mmol/L Potassium 4.9 (3.6-5.0) mmol/L Chloride 104.6 (98-107) mmol/L Carbon Dioxide 13 L (22-30) mmol/L BUN 41 H (9-20) mg/dL Creatinine 2.4 H (0.8-1.5) mg/dL Glucose 169 H (75-100) mg/dL Calcium 7.4 L (8.4-10.2) mg/dL Triglycerides 103 (2-149) mg/dL Calcium panel 12/27/16 Range/Units 02:34 Calcium 7.4 L (8.4-10.2) mg/dL Pituitary panel 12/27/16 Range/Units 02:34 Sodium 138 (137-145) mmol/L Potassium 4.9 (3.6-5.0) mmol/L Chloride 104.6 (98-107) mmol/L Carbon Dioxide 13 L (22-30) mmol/L BUN 41 H (9-20) mg/dL Creatinine 2.4 H (0.8-1.5) mg/dL Glucose 169 H (75-100) mg/dL Calcium 7.4 L (8.4-10.2) mg/dL Adrenal panel 12/27/16 Range/Units 02:34 Sodium 138 (137-145) mmol/L Potassium 4.9 (3.6-5.0) mmol/L Chloride 104.6 (98-107) mmol/L Carbon Dioxide 13 L (22-30) mmol/L BUN 41 H (9-20) mg/dL Creatinine 2.4 H (0.8-1.5) mg/dL Glucose 169 H (75-100) mg/dL Calcium 7.4 L (8.4-10.2) mg/dL
--- NOTE | 2016-12-27 09:46 | Progress Note ---
Assessment and Plan - Patient Problems (1) MINH (acute kidney injury) Current Visit: Yes Status: Acute Plan to address problem: may be prerenal. Surgery notes reviewed. Co2-13 on bicarb supplements. Discussed with -hospitalist. Discussed with . Monitor renal function (2) Liver cirrhosis Current Visit: Yes Status: Acute Qualifiers: Hepatic cirrhosis type: H Ascites presence: A (3) Liver mass Current Visit: Yes Status: Acute (4) S/P right hemicolectomy Current Visit: Yes Status: Acute (5) Metabolic acidosis Current Visit: No Status: Acute Subjective Date of service: 12/27/16 Interval history: acutely ill looking, yesterday's events, surgery notes reviewed. More alert today Objective - Vital Signs Vital signs: Vital Signs - 12hr 12/27/16 12/27/16 12/27/16 00:05 00:10 00:15 Temperature 97 F L Pulse Rate 35 L 42 L 98 H Respiratory 6 L 17 11 L Rate Blood Pressure 120/45 136/53 Blood Pressure [Right] O2 Sat by Pulse 57 L 100 Oximetry 12/27/16 12/27/16 12/27/16 00:20 00:25 00:30 Temperature Pulse Rate 117 H 113 H 113 H Respiratory 18 11 L 13 Rate Blood Pressure 167/70 160/74 149/66 Blood Pressure [Right] O2 Sat by Pulse 100 100 100 Oximetry 12/27/16 12/27/16 12/27/16 00:45 01:00 01:15 Temperature Pulse Rate 114 H 121 H 134 H Respiratory 18 19 25 H Rate Blood Pressure 120/61 115/67 133/73 Blood Pressure [Right] O2 Sat by Pulse 100 100 100 Oximetry 12/27/16 12/27/16 12/27/16 01:30 01:45 02:00 Temperature Pulse Rate 142 H 142 H 144 H Respiratory 22 18 21 Rate Blood Pressure 141/106 134/81 132/90 Blood Pressure [Right] O2 Sat by Pulse 100 100 100 Oximetry 12/27/16 12/27/16 12/27/16 02:15 02:30 02:38 Temperature Pulse Rate 141 H 143 H Respiratory 22 22 22 Rate Blood Pressure 117/58 124/56 Blood Pressure [Right] O2 Sat by Pulse 100 100 Oximetry 12/27/16 12/27/16 12/27/16 02:45 02:50 03:00 Temperature 98.6 F Pulse Rate 139 H 136 H Respiratory 22 28 H 26 H Rate Blood Pressure 113/62 124/68 Blood Pressure [Right] O2 Sat by Pulse 98 100 Oximetry 12/27/16 12/27/16 12/27/16 03:07 03:30 04:00 Temperature Pulse Rate 138 H 120 H Respiratory 28 H 18 18 Rate Blood Pressure 125/62 74/37 Blood Pressure [Right] O2 Sat by Pulse 100 100 Oximetry 12/27/16 12/27/16 12/27/16 04:30 05:00 05:30 Temperature 97.7 F Pulse Rate 129 H 118 H 115 H Respiratory 18 18 16 Rate Blood Pressure 75/30 83/44 102/52 Blood Pressure [Right] O2 Sat by Pulse 100 98 100 Oximetry 12/27/16 12/27/16 12/27/16 06:00 06:15 06:30 Temperature 98.1 F Pulse Rate 115 H 118 H 114 H Respiratory 13 16 16 Rate Blood Pressure 101/54 105/56 104/60 Blood Pressure [Right] O2 Sat by Pulse 100 100 100 Oximetry 12/27/16 12/27/16 12/27/16 07:00 08:14 09:28 Temperature 98.2 F Pulse Rate 117 H Respiratory 20 Rate Blood Pressure Blood Pressure 112/60 92/52 109/60 [Right] O2 Sat by Pulse 100 Oximetry - General Appearance General appearance: chronically ill EENT: mucous membranes dry Neck: no JVD Respiratory: Present: Decreased Breath Sounds Cardiology: regular, systolic murmur Gastrointestinal: hypoactive bowel sounds Musculoskeletal: other (1+edema) - Lab 12/27/16 02:34 12/27/16 02:34 Most recent lab results Calcium 7.4 mg/dL (8.4-10.2) L 12/27/16 02:34 Phosphorus 3.50 mg/dL (2.5-4.5) 12/23/16 05:22 Magnesium 2.30 mg/dL (1.7-2.3) 12/23/16 05:22 Urine Creatinine 117.5 mg/dL (0.1-20.0) H 12/23/16 Unknown Urine Sodium 41 mmol/L 12/23/16 Unknown
[2016-12-27] MEDS: NACL 0.9% 1000 ML 1,000 ML IV SCH (10:26)
--- NOTE | 2016-12-27 10:56 | Consultation ---
History of Present Illness - Reason for Consult Consult date: 12/27/16 Requesting physician: PHILIPPE SANDOVAL - History of Present Illness 66 year old male with a history prostate cancer, hypertension, gout, GERD and alcohol abuse recently admitted from 11/21 to 12/20/16 due to be anemic and + FOBT. CT abd/pelvis without contrast showed Gallstones, no process in the abd and pelvis, uncomplicated colonic diverticulosis. Patient had an EGD which revealed Hiatal hernia and Mildly erythematous gastric mucosa, enlarged folds. Then a colonscopy 12/06/16 was done and showed a large, soft multi-lobulated lesions approx 8-10 cm from caecum to ascending colon. Patient was taken to the OR 12/13/2016 for laparoscopic, hand-assisted right hemicolectomy. Patient was then discharged. Unfortunately, he was readmitted on 12/21/16 due to nausea, vomiting, eating or drinking intolerance and abdominal distention. In the emergency room, intial temp 98.7, HR 104, BP 117/66, initial white count was 9.7, hemoglobin 10, platelets 268, creatinine 2.2. Ammonia was 114. Urinalysis was positive for leukocyte esterase moderate and wbc 33. CT of the abdomen demonstrated dilation of the small bowel loops with air-fluid levels and a partial mechanical small bowel obstruction. Patient was taken to the operating room on 12/27/2016 and underwent exploratory laparoscopy and lysis of adhesions. Current Antimicrobials: Levaquin 12/26 Metronidazole 12/26 Previous Antimicrobials: Microbiology: Blood cultures: 12/27 ngtd Past History Past Medical History: anemia, hypertension, other (prostate cancer, and recent hemicolectomy for bleeding ascending colon mass on 12/13/16) Past Surgical History: No surgical history, Other ( hemicolectomy for bleeding ascending colon mass on 12/13/16) Social history: alcohol abuse. denies: smoking Family history: hypertension Medications and Allergies Allergies Allergy/AdvReac Type Severity Reaction Status Date / Time No Known Allergies Allergy Unverified 12/01/16 00:18 Home Medications Medication Instructions Recorded Confirmed Last Taken Type Allopurinol [Zyloprim] 100 mg PO QDAY #30 tablet 12/20/16 12/22/16 12/21/16 08: 00 Rx Folic Acid [Folvite] 1 mg PO QDAY #30 tablet 12/20/16 12/22/1612/21/17 08:00 Rx Metoprolol [Lopressor TAB] 50 mg PO BID #60 tablet 12/20/16 12/22/16 12/21/16 08 :00 Rx Multivitamin Tab [Multiple Vitamin 1 each PO QDAY #30 tablet 12/20/16 12/22/16 Unknown Rx TAB (Theragran)] Pantoprazole [Protonix TAB] 40 mg PO DAILY #30 tablet 12/20/16 12/22/16 08:00 Rx Tamsulosin [Flomax] 0.4 mg PO QDAY #30 capsule 12/20/16 12/22/16 12/21/16 08:00 Rx Thiamine [Vitamin B-1] 100 mg PO QDAY #30 tablet 12/20/16 12/22/16 12/21/16 08: 00 Rx amLODIPine [Norvasc] 10 mg PO QDAY #30 tablet 12/20/16 12/22/16 12/21/16 08:00 Rx traMADol [Ultram 50 MG tab] 50 mg PO Q6HR PRN #14 tablet 12/20/16 12/22/1612/21 08:00 Rx Active Meds: Active Medications Bisacodyl (Dulcolax) 10 mg DC QDAY PRN PRN Reason: Constipation unrelieved by MOM Enoxaparin Sodium (Lovenox) 40 mg SUB-Q DAILY AURA Last Admin: 12/26/16 11:12 Dose: 40 mg Hydromorphone HCl (Dilaudid) 0.25 mg IV Q3H PRN PRN Reason: Pain, Moderate (4-6) Last Admin: 12/27/16 09:19 Dose: 0.25 mg Hydromorphone HCl (Dilaudid) 0.5 mg IV Q3H PRN PRN Reason: Pain , Severe (7-10) Hydromorphone HCl (Dilaudid) 0.5 mg IV Q10MIN PRN PRN Reason: Pain , Severe (7-10) Stop: 12/29/16 22:02 Last Admin: 12/27/16 03:07 Dose: 0.25 mg Sodium Bicarbonate 150 meq/ (Dextrose) 1,150 mls @ 75 mls/hr IV DIRECT AURA Last Admin: 12/26/16 14:02 Dose: 75 mls/hr Levofloxacin/Dextrose (Levaquin 500mg/100ml) 500 mg in 100 mls @ 100 mls/hr IV Q24H [facility] PRN Reason: Protocol Last Admin: 12/27/16 03:45 Dose: 100 mls/hr Metronidazole (Flagyl 500 Mg/100 Ml) 500 mg in 100 mls @ 100 mls/hr IV Q8HR [facility] Last Admin: 12/27/16 08:02 Dose: Not Given Sodium Chloride (Nacl 0.9% 1000 Ml) 1,000 mls @ 75 mls/hr IV DIRECT AURA Sodium Chloride (Nacl 0.9% 1000 Ml) 1,000 mls @ 100 mls/hr IV DIRECT [facility] Last Admin: 12/27/16 10:26 Dose: 100 mls/hr Labetalol HCl (Normodyne) 10 mg IV Q4H PRN PRN Reason: Blood Pressure Lorazepam (Ativan) 0.5 mg IV Q12H PRN PRN Reason: Agitation Last Admin: 12/24/16 19:08 Dose: 0.5 mg Metoprolol Tartrate (Lopressor) 5 mg IV Q6HR [facility] Last Admin: 12/27/16 08:01 Dose: Not Given Ondansetron HCl (Zofran) 4 mg IV Q4H PRN PRN Reason: Nausea And Vomiting Last Admin: 12/25/16 19:54 Dose: 4 mg Pantoprazole Sodium (Protonix) 40 mg IV QDAY [facility] Last Admin: 12/26/16 14:13 Dose: 40 mg Phenol (Chloraseptic) 1 spray MM PRN PRN PRN Reason: Sore Throat Last Admin: 12/22/16 21:00 Dose: 1 spray Review of Systems All systems: negative (as per HPI rest negative) Physical Examination - Physical Exam Narrative exam: General appearance: Alert in NAD, conversant Eyes: anicteric sclerae, moist conjunctivae; no lid-lag; PERRLA HENT: Atraumatic; oropharynx clear with moist mucous membranes and no mucosal ulcerations/no oral thrush; normal hard and soft palate. Normal external ears. + NGT Neck: Trachea midline; supple, no thyromegaly or lymphadenopathy Lungs: CTA, with normal respiratory effort and no intercostal retractions CV: tachy Abdomen: Soft, surg wound with dressings Extremities: No peripheral edema or extremity lymphadenopathy Skin: Normal temperature, turgor and texture; no rash, ulcers or subcutaneous nodules Psych: Appropriate affect, alert and oriented to person, place and time. Neuro: alert and oriented x 3. Moving all extermities Lines: No CVL / PICC + echevarria - Constitutional Vitals: Vital Signs Temp Pulse Resp BP Pulse Ox 98.2 F 135 H 20 104/55 100 12/27/16 07:00 12/27/16 10:27 12/27/16 07:00 12/27/16 10:27 12/27/16 07:00 Temperature -Last 24 Hours Temperature 98.2 F Temperature 98.1 F Temperature 97.7 F Temperature 98.6 F Temperature 97 F Temperature 97.8 F Temperature 98.3 F Temperature 98.6 F Results - Labs CBC & Chem 7: 12/27/16 02:34 12/27/16 02:34 Labs: Abnormal lab results 12/26/16 12/26/16 12/26/16 Range/Units 11:09 14:04 19:47 WBC 24.7 H (4.5-11.0) K/mm3 RBC (3.65-5.03) M/mm3 Hgb 9.7 L (11.8-15.2) gm/dl Hct 32.4 L (35.5-45.6) % MCH 27 L (28-32) pg MCHC 30 L (32-34) % RDW 17.4 H (13.2-15.2) % Seg Neuts % (Manual) 94.5 H (40.0-70.0) % Lymphocytes % (Manual) 2.0 L (13.4-35.0) % Seg Neutrophils # Man 23.3 H (1.8-7.7) K/mm3 Lymphocytes # (Manual) 0.5 L (1.2-5.4) K/mm3 Monocytes # (Manual) (0.0-0.8) K/mm3 PT 19.6 H (12.2-14.9) Sec. INR 1.58 H (0.87-1.13) POC ABG pCO2 25.7 L (35-45) Carbon Dioxide (22-30) mmol/L BUN (9-20) mg/dL Creatinine (0.8-1.5) mg/dL Glucose (75-100) mg/dL Calcium (8.4-10.2) mg/dL 12/27/16 12/27/16 Range/Units 02:34 02:34 WBC 26.4 H (4.5-11.0) K/mm3 RBC 3.55 L (3.65-5.03) M/mm3 Hgb 9.4 L (11.8-15.2) gm/dl Hct 31.9 L (35.5-45.6) % MCH 26 L (28-32) pg MCHC 29 L (32-34) % RDW 17.1 H (13.2-15.2) % Seg Neuts % (Manual) 35.0 L (40.0-70.0) % Lymphocytes % (Manual) 8.0 L (13.4-35.0) % Seg Neutrophils # Man 9.2 H (1.8-7.7) K/mm3 Lymphocytes # (Manual) (1.2-5.4) K/mm3 Monocytes # (Manual) 1.8 H (0.0-0.8) K/mm3 PT (12.2-14.9) Sec. INR (0.87-1.13) POC ABG pCO2 (35-45) Carbon Dioxide 13 L (22-30) mmol/L BUN 41 H (9-20) mg/dL Creatinine 2.4 H (0.8-1.5) mg/dL Glucose 169 H (75-100) mg/dL Calcium 7.4 L (8.4-10.2) mg/dL Assessment and Plan Assessment: 1) SIRS: Not present on admission, manifested by tachycardia, hypotension, leukocytosis, bandemia. Etiology most likely due to post-op reaction +/- SBO +/ - UTI. 2) SBO: -S/p exploratory laparoscopy and lysis of adhesions on 12/27/2016. -Repeat CT showed worsneing thickening of small bowel wall with new mesenteric vein air bubbles, cirrhotic liver. 3) Adenocarcinoma of the colon: -S/p laparoscopic, hand-assisted right hemicolectomy on 12/13/2016. 4) Liver cirrohsis: ? HBV ? ETOH. initial ammonia 114. 5) UTI / recent urinary retention 6) History of prostate cancer 7) Alcohol abuse 8) Renal failure Plan: -follow-up blood cultures, urine culture -obtain procalcitonin, C-reactive protein (CRP) -continue levaquin and flagyl -add fluconazole -will consider changing abx to meropenem if not better in 24-48h Guarded prognosis Thank you Dr Sandoval for your consultation, will follow up with you. Aria Pop MD Infectious Diseases Specialist [facility] M [phone] O [phone]
[2016-12-27 11:31] LABS: Magnesium 1.7 mg/dL (1.7-2.3)
[2016-12-27] MEDS: LOVENOX SUB-Q SCH (11:36)
[2016-12-27] MEDS: PROTONIX IV SCH (13:05)
--- NOTE | 2016-12-27 15:51 | Progress Note ---
Assessment and Plan Assessment and plan: 1. Ileus vs SBO Status post recent laparoscopic right hemicolectomy NPO, on IV fluids Evaluated by surgeon, CT with oral contrast obtained, s/p expl lap which revealed viable bowel; status post adhesion lysis Started on levofloxacin and Flagyl ID consulted and fluconazole added 2. Adenocarcinoma of colon Colonoscopy with biopsy positive for adenocarcinoma Status post right hemicolectomy Preop CEA elevated, 33.9 Oncology following and additional workup initiated; also has liver mass - diff: metastasis vs hepatocarcinoma given history of chronic hep B and cirrhosis 3. Liver mass/liver cirrhosis History of chronic hepatitis B and remote alcohol abuse See above discussion 4. Acute renal failure Secondary to vasomotor nephropathy due to dehydration +/_ obstructive uropathy due to prostate cancer Continue IV fluids [place] Monitor BUN/creatinine and electrolytes 5. Prostate cancer Diagnosed 3 years ago at [place] and denied treatment 6. Urinary retention Possible secondary to prostate cancer/ileus Insert Traylor Consider urology evaluation 7. Sepsis/UTI Leukocytosis, UA consistent with UTI, but urine culture negative 8. Malnutrition Supplementation per dietitian 9. Anemia Iron deficient secondary to blood loss/chronic inflammation/malignancy Monitor H&H, currently in 9 range 10. Paroxysmal A. fib On beta vin for rate control Not on anticoagulation given multiple comorbidities/recent surgery Currently in sinus rhythm 11. DVT/GI prophylaxis History Interval history: s/p exploratory laparotomy Family at bedside Hospitalist Physical - Constitutional Vitals: Temp Pulse Resp BP Pulse Ox 98.2 F 104 H 20 115/49 99 12/27/16 07:00 12/27/16 14:47 12/27/16 07:00 12/27/16 14:47 12/27/16 10:00 General appearance: Present: mild distress, well-nourished - EENT Eyes: Present: PERRL, EOM intact - Neck Neck: Present: supple. Absent: enlarged thyroid, masses or JVD - Respiratory Respiratory effort: normal Respiratory: bilateral: diminished, negative: rhonchi, wheezing - Cardiovascular Rhythm: other (tachycardic) Heart Sounds: Present: S1 & S2. Absent: systolic murmur - Extremities Extremities: no ischemia - Abdominal General gastrointestinal: soft, tender, distended, hypoactive bowel sounds - Psychiatric Psychiatric: other (confused, but answering simple questions appropriately) - Neurologic Neurologic: no focal deficits Results - Labs CBC & Chem 7: 12/29/16 06:19 12/29/16 06:19 Labs: Laboratory Last Values WBC 26.4 K/mm3 (4.5-11.0) H 12/27/16 02:34 RBC 3.55 M/mm3 (3.65-5.03) L 12/27/16 02:34 Hgb 9.4 gm/dl (11.8-15.2) L 12/27/16 02:34 Hct 31.9 % (35.5-45.6) L 12/27/16 02:34 MCV 90 fl (84-94) 12/27/16 02:34 MCH 26 pg (28-32) L 12/27/16 02:34 MCHC 29 % (32-34) L 12/27/16 02:34 RDW 17.1 % (13.2-15.2) H 12/27/16 02:34 Plt Count 347 K/mm3 (140-440) 12/27/16 02:34 Lymph % (Auto) 17.1 % (13.4-35.0) 12/23/16 05:22 [place] % (Auto) 10.4 % (0.0-7.3) H 12/23/16 05:22 Eos % (Auto) 0.3 % (0.0-4.3) 12/23/16 05:22 Baso % (Auto) 0.2 % (0.0-1.8) 12/23/16 05:22 Lymph # 1.0 K/mm3 (1.2-5.4) L 12/23/16 05:22 [place] # 0.6 K/mm3 (0.0-0.8) 12/23/16 05:22 Eos # 0.0 K/mm3 (0.0-0.4) 12/23/16 05:22 Baso # 0.0 K/mm3 (0.0-0.1) 12/23/16 05:22 Add Manual Diff Complete 12/27/16 02:34 Total Counted 100 12/27/16 02:34 Seg Neutrophils % Science Analyst 12/27/16 02:34 Seg Neuts % (Manual) 35.0 % (40.0-70.0) L 12/27/16 02:34 Band Neutrophils % 47.0 % 12/27/16 02:34 Lymphocytes % (Manual) 8.0 % (13.4-35.0) L 12/27/16 02:34 Reactive Lymphs % (Man) 0 % 12/27/16 02:34 Monocytes % (Manual) 7.0 % (0.0-7.3) 12/27/16 02:34 Eosinophils % (Manual) 0 % (0.0-4.3) 12/27/16 02:34 Basophils % (Manual) 0 % (0.0-1.8) 12/27/16 02:34 Metamyelocytes % 3.0 % 12/27/16 02:34 Myelocytes % 0 % 12/27/16 02:34 Promyelocytes % 0 % 12/27/16 02:34 Blast Cells % 0 % 12/27/16 02:34 Nucleated RBC % Not Reportable 12/27/16 02:34 Seg Neutrophils # 4.2 K/mm3 (1.8-7.7) 12/23/16 05:22 Seg Neutrophils # Man 9.2 K/mm3 (1.8-7.7) H 12/27/16 02:34 Band Neutrophils # 12.4 K/mm3 12/27/16 02:34 Lymphocytes # (Manual) 2.1 K/mm3 (1.2-5.4) 12/27/16 02:34 Abs React Lymphs (Man) 0.0 K/mm3 12/27/16 02:34 Monocytes # (Manual) 1.8 K/mm3 (0.0-0.8) H 12/27/16 02:34 Eosinophils # (Manual) 0.0 K/mm3 (0.0-0.4) 12/27/16 02:34 Basophils # (Manual) 0.0 K/mm3 (0.0-0.1) 12/27/16 02:34 Metamyelocytes # 0.8 K/mm3 12/27/16 02:34 Myelocytes # 0.0 K/mm3 12/27/16 02:34 Promyelocytes # 0.0 K/mm3 12/27/16 02:34 Blast Cells # 0.0 K/mm3 12/27/16 02:34 WBC Morphology Not Reportable 12/27/16 02:34 Hypersegmented Neuts Not Reportable 12/27/16 02:34 Hyposegmented Neuts Not Reportable 12/27/16 02:34 Hypogranular Neuts Not Reportable 12/27/16 02:34 Smudge Cells Not Reportable 12/27/16 02:34 Toxic Granulation Not Reportable 12/27/16 02:34 Toxic Vacuolation Not Reportable 12/27/16 02:34 Dohle Bodies Not Reportable 12/27/16 02:34 Pelger-Huet Anomaly Not Reportable 12/27/16 02:34 Selin Rods Not Reportable 12/27/16 02:34 Platelet Estimate Appears normal 12/27/16 02:34 Clumped Platelets Not Reportable 12/27/16 02:34 Plt Clumps, EDTA Not Reportable 12/27/16 02:34 Large Platelets Not Reportable 12/27/16 02:34 Giant Platelets Not Reportable 12/27/16 02:34 Platelet Satelliting Not Reportable 12/27/16 02:34 Plt Morphology Comment Not Reportable 12/27/16 02:34 RBC Morphology Not Reportable 12/27/16 02:34 Dimorphic RBCs Not Reportable 12/27/16 02:34 Polychromasia Not Reportable 12/27/16 02:34 Hypochromasia Not Reportable 12/27/16 02:34 Poikilocytosis Not Reportable 12/27/16 02:34 Anisocytosis 1+ 12/27/16 02:34 Microcytosis Not Reportable 12/27/16 02:34 Macrocytosis Not Reportable 12/27/16 02:34 Spherocytes Not Reportable 12/27/16 02:34 Pappenheimer Bodies Not Reportable 12/27/16 02:34 Sickle Cells Not Reportable 12/27/16 02:34 Target Cells Not Reportable 12/27/16 02:34 Tear Drop Cells Not Reportable 12/27/16 02:34 Ovalocytes Not Reportable 12/27/16 02:34 Helmet Cells Not Reportable 12/27/16 02:34 Hylton-Lazy Y U Bodies Not Reportable 12/27/16 02:34 [place] Rings Not Reportable 12/27/16 02:34 Stafford Cells Not Reportable 12/27/16 02:34 Bite Cells Not Reportable 12/27/16 02:34 Crenated Cell Not Reportable 12/27/16 02:34 Elliptocytes Not Reportable 12/27/16 02:34 Acanthocytes (Spur) Not Reportable 12/27/16 02:34 Rouleaux Not Reportable 12/27/16 02:34 Hemoglobin C Crystals Not Reportable 12/27/16 02:34 Schistocytes Not Reportable 12/27/16 02:34 Malaria parasites Not Reportable 12/27/16 02:34 Percent Retic 2.87 % (0.78-2.58) H 12/24/16 15:10 Russ Bodies Not Reportable 12/27/16 02:34 Hem Pathologist Commnt No 12/27/16 02:34 PT 19.6 Sec. (12.2-14.9) H 12/26/16 19:47 INR 1.58 (0.87-1.13) H 12/26/16 19:47 POC ABG pH 7.380 (7.35-7.45) 12/26/16 14:04 POC ABG pCO2 25.7 (35-45) L 12/26/16 14:04 POC ABG pO2 89 (80-105) 12/26/16 14:04 POC ABG HCO3 15.2 12/26/16 14:04 POC ABG Total CO2 16 12/26/16 14:04 POC ABG O2 Sat 97 12/26/16 14:04 POC ABG Base Excess -10 12/26/16 14:04 FiO2 21 % 12/26/16 14:04 Sodium 138 mmol/L (137-145) 12/27/16 02:34 Potassium 4.9 mmol/L (3.6-5.0) 12/27/16 02:34 Chloride 104.6 mmol/L (98-107) 12/27/16 02:34 Carbon Dioxide 13 mmol/L (22-30) L 12/27/16 02:34 Anion Gap 25 mmol/L 12/27/16 02:34 BUN 41 mg/dL (9-20) H 12/27/16 02:34 Creatinine 2.4 mg/dL (0.8-1.5) H 12/27/16 02:34 Estimated GFR 33 ml/min 12/27/16 02:34 BUN/Creatinine Ratio 17 % 12/27/16 02:34 Glucose 169 mg/dL (75-100) H 12/27/16 02:34 Calcium 7.4 mg/dL (8.4-10.2) L 12/27/16 02:34 Phosphorus 4.00 mg/dL (2.5-4.5) 12/27/16 11:04 Magnesium 1.70 mg/dL (1.7-2.3) 12/27/16 11:04 Iron 23 ug/dL (49-181) L 12/24/16 15:10 TIBC 267 mcg/dL (250-450) 12/24/16 15:10 % Saturation 8.61 % 12/24/16 15:10 Transferrin 233 mg/dl (180-329) 12/24/16 15:10 Ferritin 67.5 ng/mL (13.0-400.0) 12/24/16 15:10 Total Bilirubin 1.00 mg/dL (0.1-1.2) 12/23/16 05:22 AST 22 units/L (5-40) 12/23/16 05:22 ALT 13 units/L (7-56) 12/23/16 05:22 Alkaline Phosphatase 69 units/L (35-129) 12/23/16 05:22 Ammonia 114.0 umol/L (25-60) H 12/22/16 00:35 C-Reactive Protein 20.10 mg/dL (0.00-1.30) H 12/27/16 11:04 Total Protein 7.5 g/dL (6.3-8.2) 12/23/16 05:22 Albumin 2.6 g/dL (3.9-5) L 12/23/16 05:22 Albumin/Globulin Ratio 0.5 % 12/23/16 05:22 Triglycerides 103 mg/dL (2-149) 12/27/16 02:34 Lipase 55 units/L (13-60) 12/22/16 00:01 Prostate Specific Ag 21.75 ng/mL (0.00-4.00) H 12/24/16 15:10 Vitamin B12 1191 pg/mL (211-911) H 12/24/16 15:10 Folate 16.86 ng/mL (7.3-26.0) 12/24/16 15:10 Urine Color Yellow (Yellow) 12/23/16 Unknown Urine Turbidity Cloudy (Clear) 12/23/16 Unknown Urine pH 5.0 (5.0-7.0) 12/23/16 Unknown Ur Specific Indian 1.014 (1.003-1.030) 12/23/16 Unknown Urine Protein <15 mg/dl mg/dL (Negative) 12/23/16 Unknown Urine Glucose (UA) Neg mg/dL (Negative) 12/23/16 Unknown Urine Ketones Neg mg/dL (Negative) 12/23/16 Unknown Urine Blood Sm (Negative) 12/23/16 Unknown Urine Nitrite Pos (Negative) 12/23/16 Unknown Urine Bilirubin Neg (Negative) 12/23/16 Unknown Urine Urobilinogen < 2.0 mg/dL (<2.0) 12/23/16 Unknown Ur Leukocyte Esterase Lg (Negative) 12/23/16 Unknown Urine WBC (Auto) 84.0 /HPF (0.0-6.0) H 12/23/16 Unknown Urine RBC (Auto) 3.0 /HPF (0.0-6.0) 12/23/16 Unknown U Epithel Cells (Auto) < 1.0 /HPF (0-13.0) 12/23/16 Unknown Urine Bacteria (Auto) 1+ /HPF (Negative) 12/23/16 Unknown Urine Mucus Few /HPF 12/22/16 Unknown Urine Creatinine 117.5 mg/dL (0.1-20.0) H 12/23/16 Unknown Urine Sodium 41 mmol/L 12/23/16 Unknown Plasma/Serum Alcohol < 0.01 gm% (0-0.07) 12/22/16 00:35 Hep Bs Antigen Reactive (Negative) 12/24/16 15:10 Hepatitis C Antibody Non-reactive (NonReactive) 12/24/16 15:10 Blood Type O POSITIVE 12/26/16 19:47 Antibody Screen Negative 12/26/16 19:47
[2016-12-27] MEDS ORDERED: TPN ADULT 1,800 ML IV SCH (20:00)
[2016-12-28] MEDS: DILAUDID IV PRN ×7 (00:26→23:51)
[2016-12-28] MEDS: LOPRESSOR IV SCH ×3 (00:27→17:16)
[2016-12-28] MEDS: NACL 0.9% 1000 ML 1,000 ML IV SCH (00:28)
[2016-12-28] MEDS: FLAGYL 500 MG/100 ML 500 MG/100 ML BAG IV SCH ×3 (05:05→23:31)
[2016-12-28 06:46] LABS: Basophils % (Auto) 0.2 % (0.0-1.8); Eosinophils % (Auto) 0.2 % (0.0-4.3); Hematocrit 23.4 % (35.5-45.6); Hemoglobin 7.1 gm/dl (11.8-15.2); Mean Corpuscular HGB Conc 30 % (32-34); Mean Corpuscular Volume 85 fl (84-94); Platelet Count 149 K/mm3 (140-440); Red Blood Count 2.75 M/mm3 (3.65-5.03); Red Cell Distribution Width 17.1 % (13.2-15.2); White Blood Count 6.4 K/mm3 (4.5-11.0)
[2016-12-28 06:49] LABS: Mean Corpuscular Hemoglobin 26 pg (28-32)
[2016-12-28 07:12] LABS: Calcium 7.5 mg/dL (8.4-10.2); Chloride 110.6 mmol/L (98-107); Magnesium 1.9 mg/dL (1.7-2.3); Phosphorous 2.8 mg/dL (2.5-4.5); Potassium 4.5 mmol/L (3.6-5.0); Prealbumin 0.03 g/L (0.200-0.400)
--- NOTE | 2016-12-28 09:00 | Progress Note ---
Assessment and Plan 66 yo M s/p exploratory laparotomy, PATTI, POD#2 1. postoperative ileus 2. MINH, dehydration 3. ?liver mass 4. adenocarcinoma of colon, s/p lap right hemicolectomy - CEA preop 33.9 5. elevated PSA - hx prostate ca 6. malnutrition 7. HepB 8. urinary retention 9. UTI on admission UA 10. sepsis 2/2 UTI Plan: 1. continue NPO, 2. decerase IVF 3. abx - on levaquin and flagyl, ID following, blood and urine cx pending. WBC improved 4. daily BMP and CBC, Hb drop today likely secondary to dilution, recheck in am. transfuse PRN 5. NGT to LCWS 6. strict I/Os 7. continue TPN today, nutrition following 8. OOB/IS 9. pain control PRN 10. DVT ppx - lovenox 11. continue IV metoprolol 12. continue echevarria for strict I/Os 13. recommend uro c/s 14. oncology c/s appreciated - repeat CEA ordered and is pending 15. rad onc c/s to Dr. Tellez Discussed case at tumor board yesterday. 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 Recommend genetic testing as outpatient and d/w patient's daughter as well. Radiation oncology may be able to offer therapy and will see patient. Subjective Date of service: 12/28/16 Narrative: Patient seen and examined at bedside. He appears confused at times. No overnight events. No fevers/chills, chest pain, shortness of breath. Patient states she's been passing flatus, no bowel movements. He has no nausea, vomiting. Abdominal pain is controlled Objective Vital Signs - 12hr 12/27/16 12/28/16 12/28/16 22:00 00:20 05:44 Temperature 98.2 F 97.9 F Pulse Rate 106 H 104 H 108 H Respiratory 21 20 Rate Blood Pressure 116/62 109/61 [Right] O2 Sat by Pulse Oximetry 12/28/16 08:31 Temperature 98.4 F Pulse Rate 99 H Respiratory 20 Rate Blood Pressure 116/67 [Right] O2 Sat by Pulse 95 Oximetry - General physical appearance Narrative Exam: General: Awake, alert, oriented 3. Confused at times ENT: NGT with clear gastric content CV: S1, S2+ resp: No audible wheezes Abd: soft, NT, mildly distended. Dressing c/d/i Ext: No c/c/e : echevarria with clear dark yellow urine in bag - Labs 12/28/16 06:03 12/28/16 06:04 Diabetes panel 12/28/16 Range/Units 06:04 Sodium 141 (137-145) mmol/L Potassium 4.5 (3.6-5.0) mmol/L Chloride 110.6 H (98-107) mmol/L Carbon Dioxide 18 L (22-30) mmol/L BUN 39 H (9-20) mg/dL Creatinine 1.9 H (0.8-1.5) mg/dL Glucose 124 H (75-100) mg/dL Calcium 7.5 L (8.4-10.2) mg/dL Calcium panel 12/27/16 12/28/16 Range/Units 11:04 06:04 Calcium 7.5 L (8.4-10.2) mg/dL Phosphorus 4.00 2.80 D (2.5-4.5) mg/dL Pituitary panel 12/28/16 Range/Units 06:04 Sodium 141 (137-145) mmol/L Potassium 4.5 (3.6-5.0) mmol/L Chloride 110.6 H (98-107) mmol/L Carbon Dioxide 18 L (22-30) mmol/L BUN 39 H (9-20) mg/dL Creatinine 1.9 H (0.8-1.5) mg/dL Glucose 124 H (75-100) mg/dL Calcium 7.5 L (8.4-10.2) mg/dL Adrenal panel 12/28/16 Range/Units 06:04 Sodium 141 (137-145) mmol/L Potassium 4.5 (3.6-5.0) mmol/L Chloride 110.6 H (98-107) mmol/L Carbon Dioxide 18 L (22-30) mmol/L BUN 39 H (9-20) mg/dL Creatinine 1.9 H (0.8-1.5) mg/dL Glucose 124 H (75-100) mg/dL Calcium 7.5 L (8.4-10.2) mg/dL
--- NOTE | 2016-12-28 09:21 | Progress Note ---
Assessment and Plan - Patient Problems (1) MINH (acute kidney injury) Current Visit: Yes Status: Acute Plan to address problem: may be prerenal with hypoperfusion. Surgery and ID notes reviewed. Renal function slowly improving. Co2 level coming up. On TPN. Continue present treatment. S/P Exp lap with lysis of adhesions on 12/27/16. Adenocarcinoma of colon-S/P right hemicolectomy on 12/13/16 (2) Liver cirrhosis Current Visit: Yes Status: Acute Qualifiers: Hepatic cirrhosis type: H Ascites presence: A (3) Liver mass Current Visit: Yes Status: Acute (4) S/P right hemicolectomy Current Visit: Yes Status: Acute (5) Metabolic acidosis Current Visit: No Status: Acute Subjective Date of service: 12/28/16 Interval history: pt is alert, but confused. Daughter at bed side reports that he is hallucinating Objective - Vital Signs Vital signs: Vital Signs - 12hr 12/27/16 12/28/16 12/28/16 22:00 00:20 05:44 Temperature 98.2 F 97.9 F Pulse Rate 106 H 104 H 108 H Respiratory 21 20 Rate Blood Pressure 116/62 109/61 [Right] O2 Sat by Pulse Oximetry 12/28/16 08:31 Temperature 98.4 F Pulse Rate 99 H Respiratory 20 Rate Blood Pressure 116/67 [Right] O2 Sat by Pulse 95 Oximetry - General Appearance General appearance: chronically ill EENT: mucous membranes dry Neck: no JVD Respiratory: Present: Decreased Breath Sounds Cardiology: regular, systolic murmur Gastrointestinal: distended, other (s/p surgery) Musculoskeletal: other (trace edema) - Lab 12/28/16 06:03 12/28/16 06:04 Most recent lab results Calcium 7.5 mg/dL (8.4-10.2) L 12/28/16 06:04 Phosphorus 2.80 mg/dL (2.5-4.5) D 12/28/16 06:04 Magnesium 1.90 mg/dL (1.7-2.3) 12/28/16 06:04 Urine Creatinine 117.5 mg/dL (0.1-20.0) H 12/23/16 Unknown Urine Sodium 41 mmol/L 12/23/16 Unknown
--- NOTE | 2016-12-28 09:27 | Hem/Onc Progress Note ---
Assessment and Plan Hemoglobin has dropped. We will transfuse 1 unit of prbc. Discussed with patient's daughter. Creatinine improved. Continue supportive care. 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 Subjective Date of service: 12/28/16 Interval history: Patient feels better. Confused as per daughter. Currently on TPN. Objective - Constitutional Vitals: Last Vital Signs Temp 98.4 F 12/28/16 08:31 Pulse 99 H 12/28/16 08:31 Resp 20 12/28/16 08:31 BP 116/67 12/28/16 08:31 Pulse Ox 95 12/28/16 08:31 General appearance: no acute distress - Neck Neck: supple - Respiratory Respiratory effort: Positive: normal Respiratory: bilateral: CTA - Cardiovascular Rhythm: regular Extremity abnormal: other (SCDs present) - Gastrointestinal General gastrointestinal: Present: distended - Labs Lab Results: Laboratory Results - last 24 hr 12/27/16 12/27/16 12/27/16 11:04 11:04 21:55 WBC RBC Hgb Hct MCV MCH MCHC RDW Plt Count Lymph % (Auto) [place] % (Auto) Eos % (Auto) Baso % (Auto) Lymph # [place] # Eos # Baso # Seg Neutrophils % Seg Neutrophils # Sodium Potassium Chloride Carbon Dioxide Anion Gap BUN Creatinine Estimated GFR BUN/Creatinine Ratio Glucose POC Glucose 107 H Calcium Phosphorus 4.00 Magnesium 1.70 C-Reactive Protein 20.10 H Prealbumin 12/28/16 12/28/16 12/28/16 05:39 06:03 06:04 WBC 6.4 RBC 2.75 L Hgb 7.1 L Hct 23.4 L D MCV 85 MCH 26 L MCHC 30 L RDW 17.1 H Plt Count 149 Lymph % (Auto) 8.0 L [place] % (Auto) 5.6 Eos % (Auto) 0.2 Baso % (Auto) 0.2 Lymph # 0.5 L [place] # 0.4 Eos # 0.0 Baso # 0.0 Seg Neutrophils % 86.0 H Seg Neutrophils # 5.5 Sodium 141 Potassium 4.5 Chloride 110.6 H Carbon Dioxide 18 L Anion Gap 17 BUN 39 H Creatinine 1.9 H Estimated GFR 43 BUN/Creatinine Ratio 21 Glucose 124 H POC Glucose 150 H Calcium 7.5 L Phosphorus 2.80 D Magnesium 1.90 C-Reactive Protein Prealbumin 0.030 L 12/28/16 08:37 WBC RBC Hgb Hct MCV MCH MCHC RDW Plt Count Lymph % (Auto) [place] % (Auto) Eos % (Auto) Baso % (Auto) Lymph # [place] # Eos # Baso # Seg Neutrophils % Seg Neutrophils # Sodium Potassium Chloride Carbon Dioxide Anion Gap BUN Creatinine Estimated GFR BUN/Creatinine Ratio Glucose POC Glucose 163 H Calcium Phosphorus Magnesium C-Reactive Protein Prealbumin
[2016-12-28] MEDS: LOVENOX SUB-Q SCH (09:42)
[2016-12-28] MEDS: PROTONIX IV SCH (09:42)
[2016-12-28] MEDS ORDERED: NACL 0.9% 500 ML 500 ML IV ONE (10:00)
--- NOTE | 2016-12-28 12:09 | Progress Note ---
Assessment and Plan Assessment: 1) SIRS: better. Etiology most likely due to post-op reaction +/- SBO +/- UTI. CRP=20 2) SBO: -S/p exploratory laparoscopy and lysis of adhesions on 12/27/2016. -Repeat CT showed worsening thickening of small bowel wall with new mesenteric vein air bubbles, cirrhotic liver. 3) Adenocarcinoma of the colon: -S/p laparoscopic, hand-assisted right hemicolectomy on 12/13/2016. 4) Liver cirrohsis: ? HBV ? ETOH. initial ammonia 114. 5) UTI / recent urinary retention 6) History of prostate cancer 7) Alcohol abuse 8) Renal failure Plan: -follow-up procalcitonin -repeat CRP tomorrow -continue levaquin and flagyl day 3 of 7 -add fluconazole Thank you Dr Pryor for your consultation, will follow up with you. Aria Pop MD Infectious Diseases Specialist [facility], [place] [facility] ([facility]) M [phone] O [phone] Subjective Date of service: 12/28/16 Principal diagnosis: SIRS Interval history: Feels better. No fever. Current Antimicrobials: Levaquin 12/26 Metronidazole 12/26 Previous Antimicrobials: Microbiology: Blood cultures: 12/27 ngtd Objective - Exam Narrative Exam: General appearance: Alert in NAD, conversant Eyes: anicteric sclerae, moist conjunctivae; no lid-lag; PERRLA HENT: Atraumatic; oropharynx clear with moist mucous membranes and no mucosal ulcerations/no oral thrush; normal hard and soft palate. Normal external ears. + NGT Neck: Trachea midline; supple, no thyromegaly or lymphadenopathy Lungs: CTA, with normal respiratory effort and no intercostal retractions CV: tachy Abdomen: Soft, surg wound with dressings Extremities: No peripheral edema or extremity lymphadenopathy Skin: Normal temperature, turgor and texture; no rash, ulcers or subcutaneous nodules Psych: Appropriate affect, alert and oriented to person, place and time. Neuro: alert and oriented x 3. Moving all extermities Lines: No CVL / PICC + echevarria - Constitutional Vitals: Vital Signs Temp Pulse Resp BP Pulse Ox 98.4 F 99 H 20 116/67 95 12/28/16 08:31 12/28/16 08:31 12/28/16 08:31 12/28/16 08:31 12/28/16 08:31 Temperature -Last 24 Hours Temperature 98.4 F Temperature 97.9 F Temperature 98.2 F Temperature 98.7 F - Labs CBC & Chem 7: 12/28/16 06:03 12/28/16 06:04 Labs: Abnormal lab results 12/26/16 12/27/16 12/27/16 Range/Units 19:47 11:04 21:55 RBC (3.65-5.03) M/mm3 Hgb (11.8-15.2) gm/dl Hct (35.5-45.6) % MCH (28-32) pg MCHC (32-34) % RDW (13.2-15.2) % Lymph % (Auto) (13.4-35.0) % Lymph # (1.2-5.4) K/mm3 Seg Neutrophils % (40.0-70.0) % Chloride (98-107) mmol/L Carbon Dioxide (22-30) mmol/L BUN (9-20) mg/dL Creatinine (0.8-1.5) mg/dL Glucose (75-100) mg/dL POC Glucose 107 H (70-105) Calcium (8.4-10.2) mg/dL C-Reactive Protein 20.10 H (0.00-1.30) mg/dL Prealbumin (0.200-0.400) g/L Crossmatch See Detail 12/28/16 12/28/16 12/28/16 Range/Units 05:39 06:03 06:04 RBC 2.75 L (3.65-5.03) M/mm3 Hgb 7.1 L (11.8-15.2) gm/dl Hct 23.4 L D (35.5-45.6) % MCH 26 L (28-32) pg MCHC 30 L (32-34) % RDW 17.1 H (13.2-15.2) % Lymph % (Auto) 8.0 L (13.4-35.0) % Lymph # 0.5 L (1.2-5.4) K/mm3 Seg Neutrophils % 86.0 H (40.0-70.0) % Chloride 110.6 H (98-107) mmol/L Carbon Dioxide 18 L (22-30) mmol/L BUN 39 H (9-20) mg/dL Creatinine 1.9 H (0.8-1.5) mg/dL Glucose 124 H (75-100) mg/dL POC Glucose 150 H (70-105) Calcium 7.5 L (8.4-10.2) mg/dL C-Reactive Protein (0.00-1.30) mg/dL Prealbumin 0.030 L (0.200-0.400) g/L Crossmatch 12/28/16 12/28/16 Range/Units 08:37 12:53 RBC (3.65-5.03) M/mm3 Hgb (11.8-15.2) gm/dl Hct (35.5-45.6) % MCH (28-32) pg MCHC (32-34) % RDW (13.2-15.2) % Lymph % (Auto) (13.4-35.0) % Lymph # (1.2-5.4) K/mm3 Seg Neutrophils % (40.0-70.0) % Chloride (98-107) mmol/L Carbon Dioxide (22-30) mmol/L BUN (9-20) mg/dL Creatinine (0.8-1.5) mg/dL Glucose (75-100) mg/dL POC Glucose 163 H 182 H (70-105) Calcium (8.4-10.2) mg/dL C-Reactive Protein (0.00-1.30) mg/dL Prealbumin (0.200-0.400) g/L Crossmatch
[2016-12-28] MEDS: DIFLUCAN 200 MG/100 ML BAG IV SCH (16:43)
[2016-12-28] MEDS ORDERED: LIDOCAINE VISCOUS 2% MM ONE (17:30)
--- NOTE | 2016-12-28 19:28 | Progress Note ---
Assessment and Plan Assessment and plan: 1. Ileus vs SBO Status post recent laparoscopic right hemicolectomy NPO, on IV fluids Evaluated by surgeon, CT with oral contrast obtained, s/p expl lap which revealed viable bowel; status post adhesion lysis 2. Sepsis Started on levofloxacin and Flagyl ID consulted and fluconazole added Blood and urine cultures negative at 48 hours 3. Adenocarcinoma of colon Colonoscopy with biopsy positive for adenocarcinoma Status post right hemicolectomy Preop CEA elevated, 33.9 Oncology following and additional workup initiated; also has liver mass - diff: metastasis vs hepatocarcinoma given history of chronic hep B and cirrhosis 4. Liver mass/liver cirrhosis History of chronic hepatitis B and remote alcohol abuse See above discussion 5. Acute renal failure Secondary to vasomotor nephropathy due to dehydration +/_ obstructive uropathy due to prostate cancer Continue IV fluids Traylor Monitor BUN/creatinine and electrolytes 6. Prostate cancer Diagnosed 3 years ago at [place] and denied treatment 7. Urinary retention Possible secondary to prostate cancer/ileus S/p Traylor insertion Consider urology evaluation 8. Malnutrition Supplementation per dietitian 9. Anemia Iron deficient secondary to blood loss/chronic inflammation/malignancy Monitor H&H, currently in 9 range 10. Paroxysmal A. fib On beta vin for rate control Not on anticoagulation given multiple comorbidities/recent surgery Currently in sinus rhythm 11. DVT/GI prophylaxis History Interval history: s/p exploratory laparotomy, c/o abd pain and distension; passing flatus, no bowel movement famiy at bedside Hospitalist Physical - Constitutional Vitals: Temp Pulse Resp BP Pulse Ox 98 F 111 H 18 160/85 98 12/28/16 19:09 12/28/16 19:09 12/28/16 19:09 12/28/16 19:09 12/28/16 19:09 General appearance: Present: mild distress, well-nourished - EENT Eyes: Present: PERRL, EOM intact - Neck Neck: Present: supple, normal ROM. Absent: masses or JVD - Respiratory Respiratory effort: normal Respiratory: bilateral: diminished, rhonchi, negative: wheezing - Cardiovascular Rhythm: regular Heart Sounds: Present: S1 & S2. Absent: systolic murmur - Extremities Extremities: no ischemia - Abdominal General gastrointestinal: soft, tender, distended, hypoactive bowel sounds - Psychiatric Psychiatric: cooperative - Neurologic Neurologic: no focal deficits Results - Labs CBC & Chem 7: 12/29/16 06:19 12/29/16 06:19 Labs: Laboratory Last Values WBC 6.4 K/mm3 (4.5-11.0) 12/28/16 06:03 RBC 2.75 M/mm3 (3.65-5.03) L 12/28/16 06:03 Hgb 7.1 gm/dl (11.8-15.2) L 12/28/16 06:03 Hct 23.4 % (35.5-45.6) L D 12/28/16 06:03 MCV 85 fl (84-94) 12/28/16 06:03 MCH 26 pg (28-32) L 12/28/16 06:03 MCHC 30 % (32-34) L 12/28/16 06:03 RDW 17.1 % (13.2-15.2) H 12/28/16 06:03 Plt Count 149 K/mm3 (140-440) 12/28/16 06:03 Lymph % (Auto) 8.0 % (13.4-35.0) L 12/28/16 06:03 Larue % (Auto) 5.6 % (0.0-7.3) 12/28/16 06:03 Eos % (Auto) 0.2 % (0.0-4.3) 12/28/16 06:03 Baso % (Auto) 0.2 % (0.0-1.8) 12/28/16 06:03 Lymph # 0.5 K/mm3 (1.2-5.4) L 12/28/16 06:03 Larue # 0.4 K/mm3 (0.0-0.8) 12/28/16 06:03 Eos # 0.0 K/mm3 (0.0-0.4) 12/28/16 06:03 Baso # 0.0 K/mm3 (0.0-0.1) 12/28/16 06:03 Add Manual Diff Complete 12/27/16 02:34 Total Counted 100 12/27/16 02:34 Seg Neutrophils % 86.0 % (40.0-70.0) H 12/28/16 06:03 Seg Neuts % (Manual) 35.0 % (40.0-70.0) L 12/27/16 02:34 Band Neutrophils % 47.0 % 12/27/16 02:34 Lymphocytes % (Manual) 8.0 % (13.4-35.0) L 12/27/16 02:34 Reactive Lymphs % (Man) 0 % 12/27/16 02:34 Monocytes % (Manual) 7.0 % (0.0-7.3) 12/27/16 02:34 Eosinophils % (Manual) 0 % (0.0-4.3) 12/27/16 02:34 Basophils % (Manual) 0 % (0.0-1.8) 12/27/16 02:34 Metamyelocytes % 3.0 % 12/27/16 02:34 Myelocytes % 0 % 12/27/16 02:34 Promyelocytes % 0 % 12/27/16 02:34 Blast Cells % 0 % 12/27/16 02:34 Nucleated RBC % Not Reportable 12/27/16 02:34 Seg Neutrophils # 5.5 K/mm3 (1.8-7.7) 12/28/16 06:03 Seg Neutrophils # Man 9.2 K/mm3 (1.8-7.7) H 12/27/16 02:34 Band Neutrophils # 12.4 K/mm3 12/27/16 02:34 Lymphocytes # (Manual) 2.1 K/mm3 (1.2-5.4) 12/27/16 02:34 Abs React Lymphs (Man) 0.0 K/mm3 12/27/16 02:34 Monocytes # (Manual) 1.8 K/mm3 (0.0-0.8) H 12/27/16 02:34 Eosinophils # (Manual) 0.0 K/mm3 (0.0-0.4) 12/27/16 02:34 Basophils # (Manual) 0.0 K/mm3 (0.0-0.1) 12/27/16 02:34 Metamyelocytes # 0.8 K/mm3 12/27/16 02:34 Myelocytes # 0.0 K/mm3 12/27/16 02:34 Promyelocytes # 0.0 K/mm3 12/27/16 02:34 Blast Cells # 0.0 K/mm3 12/27/16 02:34 WBC Morphology Not Reportable 12/27/16 02:34 Hypersegmented Neuts Not Reportable 12/27/16 02:34 Hyposegmented Neuts Not Reportable 12/27/16 02:34 Hypogranular Neuts Not Reportable 12/27/16 02:34 Smudge Cells Not Reportable 12/27/16 02:34 Toxic Granulation Not Reportable 12/27/16 02:34 Toxic Vacuolation Not Reportable 12/27/16 02:34 Dohle Bodies Not Reportable 12/27/16 02:34 Pelger-Huet Anomaly Not Reportable 12/27/16 02:34 Selin Rods Not Reportable 12/27/16 02:34 Platelet Estimate Appears normal 12/27/16 02:34 Clumped Platelets Not Reportable 12/27/16 02:34 Plt Clumps, EDTA Not Reportable 12/27/16 02:34 Large Platelets Not Reportable 12/27/16 02:34 Giant Platelets Not Reportable 12/27/16 02:34 Platelet Satelliting Not Reportable 12/27/16 02:34 Plt Morphology Comment Not Reportable 12/27/16 02:34 RBC Morphology Not Reportable 12/27/16 02:34 Dimorphic RBCs Not Reportable 12/27/16 02:34 Polychromasia Not Reportable 12/27/16 02:34 Hypochromasia Not Reportable 12/27/16 02:34 Poikilocytosis Not Reportable 12/27/16 02:34 Anisocytosis 1+ 12/27/16 02:34 Microcytosis Not Reportable 12/27/16 02:34 Macrocytosis Not Reportable 12/27/16 02:34 Spherocytes Not Reportable 12/27/16 02:34 Pappenheimer Bodies Not Reportable 12/27/16 02:34 Sickle Cells Not Reportable 12/27/16 02:34 Target Cells Not Reportable 12/27/16 02:34 Tear Drop Cells Not Reportable 12/27/16 02:34 Ovalocytes Not Reportable 12/27/16 02:34 Helmet Cells Not Reportable 12/27/16 02:34 [place] Bodies Not Reportable 12/27/16 02:34 [place] Rings Not Reportable 12/27/16 02:34 [place] Cells Not Reportable 12/27/16 02:34 Bite Cells Not Reportable 12/27/16 02:34 Crenated Cell Not Reportable 12/27/16 02:34 Elliptocytes Not Reportable 12/27/16 02:34 Acanthocytes (Spur) Not Reportable 12/27/16 02:34 Rouleaux Not Reportable 12/27/16 02:34 Hemoglobin C Crystals Not Reportable 12/27/16 02:34 Schistocytes Not Reportable 12/27/16 02:34 Malaria parasites Not Reportable 12/27/16 02:34 Percent Retic 2.87 % (0.78-2.58) H 12/24/16 15:10 Russ Bodies Not Reportable 12/27/16 02:34 Hem Pathologist Commnt No 12/27/16 02:34 PT 19.6 Sec. (12.2-14.9) H 12/26/16 19:47 INR 1.58 (0.87-1.13) H 12/26/16 19:47 POC ABG pH 7.380 (7.35-7.45) 12/26/16 14:04 POC ABG pCO2 25.7 (35-45) L 12/26/16 14:04 POC ABG pO2 89 (80-105) 12/26/16 14:04 POC ABG HCO3 15.2 12/26/16 14:04 POC ABG Total CO2 16 12/26/16 14:04 POC ABG O2 Sat 97 12/26/16 14:04 POC ABG Base Excess -10 12/26/16 14:04 FiO2 21 % 12/26/16 14:04 Sodium 141 mmol/L (137-145) 12/28/16 06:04 Potassium 4.5 mmol/L (3.6-5.0) 12/28/16 06:04 Chloride 110.6 mmol/L (98-107) H 12/28/16 06:04 Carbon Dioxide 18 mmol/L (22-30) L 12/28/16 06:04 Anion Gap 17 mmol/L 12/28/16 06:04 BUN 39 mg/dL (9-20) H 12/28/16 06:04 Creatinine 1.9 mg/dL (0.8-1.5) H 12/28/16 06:04 Estimated GFR 43 ml/min 12/28/16 06:04 BUN/Creatinine Ratio 21 % 12/28/16 06:04 Glucose 124 mg/dL (75-100) H 12/28/16 06:04 POC Glucose 182 (70-105) H 12/28/16 12:53 Calcium 7.5 mg/dL (8.4-10.2) L 12/28/16 06:04 Phosphorus 2.80 mg/dL (2.5-4.5) D 12/28/16 06:04 Magnesium 1.90 mg/dL (1.7-2.3) 12/28/16 06:04 Iron 23 ug/dL (49-181) L 12/24/16 15:10 TIBC 267 mcg/dL (250-450) 12/24/16 15:10 % Saturation 8.61 % 12/24/16 15:10 Transferrin 233 mg/dl (180-329) 12/24/16 15:10 Ferritin 67.5 ng/mL (13.0-400.0) 12/24/16 15:10 Total Bilirubin 1.00 mg/dL (0.1-1.2) 12/23/16 05:22 AST 22 units/L (5-40) 12/23/16 05:22 ALT 13 units/L (7-56) 12/23/16 05:22 Alkaline Phosphatase 69 units/L (35-129) 12/23/16 05:22 Ammonia 114.0 umol/L (25-60) H 12/22/16 00:35 C-Reactive Protein 20.10 mg/dL (0.00-1.30) H 12/27/16 11:04 Total Protein 7.5 g/dL (6.3-8.2) 12/23/16 05:22 Albumin 2.6 g/dL (3.9-5) L 12/23/16 05:22 Albumin/Globulin Ratio 0.5 % 12/23/16 05:22 Prealbumin 0.030 g/L (0.200-0.400) L 12/28/16 06:04 Triglycerides 103 mg/dL (2-149) 12/27/16 02:34 Lipase 55 units/L (13-60) 12/22/16 00:01 Prostate Specific Ag 21.75 ng/mL (0.00-4.00) H 12/24/16 15:10 Vitamin B12 1191 pg/mL (211-911) H 12/24/16 15:10 Folate 16.86 ng/mL (7.3-26.0) 12/24/16 15:10 Urine Color Yellow (Yellow) 12/23/16 Unknown Urine Turbidity Cloudy (Clear) 12/23/16 Unknown Urine pH 5.0 (5.0-7.0) 12/23/16 Unknown Ur Specific [place] 1.014 (1.003-1.030) 12/23/16 Unknown Urine Protein <15 mg/dl mg/dL (Negative) 12/23/16 Unknown Urine Glucose (UA) Neg mg/dL (Negative) 12/23/16 Unknown Urine Ketones Neg mg/dL (Negative) 12/23/16 Unknown Urine Blood Sm (Negative) 12/23/16 Unknown Urine Nitrite Pos (Negative) 12/23/16 Unknown Urine Bilirubin Neg (Negative) 12/23/16 Unknown Urine Urobilinogen < 2.0 mg/dL (<2.0) 12/23/16 Unknown Ur Leukocyte Esterase Lg (Negative) 12/23/16 Unknown Urine WBC (Auto) 84.0 /HPF (0.0-6.0) H 12/23/16 Unknown Urine RBC (Auto) 3.0 /HPF (0.0-6.0) 12/23/16 Unknown U Epithel Cells (Auto) < 1.0 /HPF (0-13.0) 12/23/16 Unknown Urine Bacteria (Auto) 1+ /HPF (Negative) 12/23/16 Unknown Urine Mucus Few /HPF 12/22/16 Unknown Urine Creatinine 117.5 mg/dL (0.1-20.0) H 12/23/16 Unknown Urine Sodium 41 mmol/L 12/23/16 Unknown Plasma/Serum Alcohol < 0.01 gm% (0-0.07) 12/22/16 00:35 Hep Bs Antigen Reactive (Negative) 12/24/16 15:10 Hepatitis C Antibody Non-reactive (NonReactive) 12/24/16 15:10 Blood Type O POSITIVE 12/26/16 19:47 Antibody Screen Negative 12/26/16 19:47 Crossmatch See Detail 12/26/16 19:47
[2016-12-28] MEDS: ZOFRAN IV PRN (19:53)
[2016-12-28] MEDS ORDERED: TPN ADULT 1,800 ML IV SCH (20:00)
[2016-12-28] MEDS ORDERED: INTRALIPID 20% 250 ML IV SCH (20:00)
[2016-12-28] MEDS: ATIVAN IV PRN (21:54)
[2016-12-28] MEDS: LEVAQUIN 500MG/100ML 500 MG/100 ML BAG IV SCH (23:53)
[2016-12-29] MEDS: LOPRESSOR IV SCH ×2 (01:30→06:21)
[2016-12-29] MEDS: FLAGYL 500 MG/100 ML 500 MG/100 ML BAG IV SCH ×3 (06:20→23:19)
[2016-12-29 06:51] LABS: Hematocrit 25.9 % (35.5-45.6); Hemoglobin 8.1 gm/dl (11.8-15.2); Mean Corpuscular HGB Conc 31 % (32-34); Mean Corpuscular Hemoglobin 27 pg (28-32); Mean Corpuscular Volume 86 fl (84-94); Platelet Count 150 K/mm3 (140-440); Red Blood Count 3.02 M/mm3 (3.65-5.03); Red Cell Distribution Width 16.9 % (13.2-15.2); White Blood Count 15.9 K/mm3 (4.5-11.0)
[2016-12-29 07:10] LABS: Chloride 109.3 mmol/L (98-107); Potassium 4.6 mmol/L (3.6-5.0)
[2016-12-29] MEDS: DILAUDID IV PRN ×3 (07:20→20:22)
--- NOTE | 2016-12-29 08:38 | Progress Note ---
Assessment and Plan - Patient Problems (1) MINH (acute kidney injury) Current Visit: Yes Status: Acute Plan to address problem: may be prerenal with hypoperfusion. Surgery and ID notes reviewed. Renal function slowly improving.Scr-2.1 today. On TPN. S/P Exp lap with lysis of adhesions on 12/27/16. Adenocarcinoma of colon-S/P right hemicolectomy on . Co2-15-- monitor--adjust in TPN (2) Liver cirrhosis Current Visit: Yes Status: Acute Qualifiers: Hepatic cirrhosis type: H Ascites presence: A (3) Liver mass Current Visit: Yes Status: Acute (4) S/P right hemicolectomy Current Visit: Yes Status: Acute (5) Metabolic acidosis Current Visit: No Status: Acute Subjective Date of service: 12/29/16 Principal diagnosis: SIRS Interval history: pt is confused. Daughter at bed side reports that he is hallucinating. No BM or flatus Objective - Vital Signs Vital signs: Vital Signs - 12hr 12/28/16 12/29/16 12/29/16 21:37 00:12 05:16 Temperature 98.4 F 98.6 F 98.1 F Pulse Rate 129 H 141 H Respiratory 20 22 20 Rate Blood Pressure 136/46 110/64 123/67 O2 Sat by Pulse 95 98 Oximetry 12/29/16 12/29/16 06:21 07:20 Temperature Pulse Rate 125 H Respiratory 18 Rate Blood Pressure 123/67 O2 Sat by Pulse Oximetry - General Appearance General appearance: chronically ill EENT: mucous membranes dry Neck: no JVD Respiratory: Present: Decreased Breath Sounds Cardiology: regular, systolic murmur Gastrointestinal: absent bowel sounds, distended Neurologic: other (echevarria- dark colored urine) Musculoskeletal: other (no edema) - Lab 12/29/16 06:19 12/29/16 06:19 Most recent lab results Calcium 8.0 mg/dL (8.4-10.2) L 12/29/16 06:19 Phosphorus 2.80 mg/dL (2.5-4.5) D 12/28/16 06:04 Magnesium 1.90 mg/dL (1.7-2.3) 12/28/16 06:04 Urine Creatinine 117.5 mg/dL (0.1-20.0) H 12/23/16 Unknown Urine Sodium 41 mmol/L 12/23/16 Unknown
[2016-12-29 08:44] LABS: Basophils % (Manual) 0 % (0.0-1.8); Blastocytes % (Manual) 0 %; Eosinophils % (Manual) 0 % (0.0-4.3)
[2016-12-29 08:45] LABS: Anisocytosis 1+; Diff Status Complete; Ovalocytes Few; Poikilocytosis 1+; Tear Drop Cells Few
--- NOTE | 2016-12-29 10:55 | Progress Note ---
Assessment and Plan Assessment: 1) SIRS: better however leukocytosis is up today. Etiology most likely post-op reaction +/- SBO +/- UTI. CRP=20 2) SBO: -S/p exploratory laparoscopy and lysis of adhesions on 12/27/2016. -Repeat CT showed worsening thickening of small bowel wall with new mesenteric vein air bubbles, cirrhotic liver. 3) Adenocarcinoma of the colon: -S/p laparoscopic, hand-assisted right hemicolectomy on 12/13/2016. 4) Liver cirrohsis: ? ETOH. initial ammonia 114. HBV S ag negative 5) UTI / recent urinary retention 6) History of prostate cancer 7) Alcohol abuse 8) Renal failure - worsening Plan: -follow-up procalcitonin -repeat CRP today -monitor leukocytosis -continue levaquin and flagyl day 4 of 7 -continue fluconazole Thank you Dr Pryor for your consultation, will follow up with you. Aria Pop MD Infectious Diseases Specialist [facility] [phone] O [phone] Subjective Date of service: 12/29/16 Principal diagnosis: SIRS Interval history: Feels better. No fever. No abdominal pain. Current Antimicrobials: Levaquin 12/26 Metronidazole 12/26 Fluconazole 12/28 Previous Antimicrobials: Microbiology: Blood cultures: 12/27 ngtd Objective - Exam Narrative Exam: General appearance: Alert in NAD, conversant Eyes: anicteric sclerae, moist conjunctivae; no lid-lag; PERRLA HENT: Atraumatic; oropharynx clear with moist mucous membranes and no mucosal ulcerations/no oral thrush; normal hard and soft palate. Normal external ears. + NGT with clear green secretion Neck: Trachea midline; supple, no thyromegaly or lymphadenopathy Lungs: CTA, with normal respiratory effort and no intercostal retractions CV: tachy Abdomen: Soft, surg wound with dressings Extremities: No peripheral edema or extremity lymphadenopathy Skin: Normal temperature, turgor and texture; no rash, ulcers or subcutaneous nodules Psych: Appropriate affect, alert and oriented to person, place and time. Neuro: alert and oriented x 3. Moving all extermities Lines: No CVL / PICC + echevarria - Constitutional Vitals: Vital Signs Temp Pulse Resp BP Pulse Ox 97.4 F L 120 H 20 107/69 99 12/29/16 08:53 12/29/16 09:51 12/29/16 08:53 12/29/16 08:53 12/29/16 08:53 Temperature -Last 24 Hours Temperature 97.4 F Temperature 98.1 F Temperature 98.6 F Temperature 98.4 F Temperature 98.7 F Temperature 98 F Temperature 98 F Temperature 98.3 F Temperature 98.6 F Temperature 98.6 F - Labs CBC & Chem 7: 12/29/16 06:19 12/29/16 06:19 Labs: Abnormal lab results 12/26/16 12/28/16 12/28/16 Range/Units 19:47 12:53 20:47 WBC (4.5-11.0) K/mm3 RBC (3.65-5.03) M/mm3 Hgb (11.8-15.2) gm/dl Hct (35.5-45.6) % MCH (28-32) pg MCHC (32-34) % RDW (13.2-15.2) % Seg Neuts % (Manual) (40.0-70.0) % Lymphocytes % (Manual) (13.4-35.0) % Seg Neutrophils # Man (1.8-7.7) K/mm3 Lymphocytes # (Manual) (1.2-5.4) K/mm3 Chloride (98-107) mmol/L Carbon Dioxide (22-30) mmol/L BUN (9-20) mg/dL Creatinine (0.8-1.5) mg/dL Glucose (75-100) mg/dL POC Glucose 182 H 131 H (70-105) Calcium (8.4-10.2) mg/dL Crossmatch See Detail 12/29/16 12/29/16 12/29/16 Range/Units 06:19 06:19 06:49 WBC 15.9 H (4.5-11.0) K/mm3 RBC 3.02 L (3.65-5.03) M/mm3 Hgb 8.1 L (11.8-15.2) gm/dl Hct 25.9 L (35.5-45.6) % MCH 27 L (28-32) pg MCHC 31 L (32-34) % RDW 16.9 H (13.2-15.2) % Seg Neuts % (Manual) 90.0 H (40.0-70.0) % Lymphocytes % (Manual) 5.0 L (13.4-35.0) % Seg Neutrophils # Man 14.3 H (1.8-7.7) K/mm3 Lymphocytes # (Manual) 0.8 L (1.2-5.4) K/mm3 Chloride 109.3 H (98-107) mmol/L Carbon Dioxide 15 L (22-30) mmol/L BUN 37 H (9-20) mg/dL Creatinine 2.1 H (0.8-1.5) mg/dL Glucose 134 H (75-100) mg/dL POC Glucose 154 H (70-105) Calcium 8.0 L (8.4-10.2) mg/dL Crossmatch
--- NOTE | 2016-12-29 11:22 | Hem/Onc Progress Note ---
Assessment and Plan Continue to closely monitor. Transfusion support. Continue antibiotics. Subjective Date of service: 12/29/16 Interval history: Patient feels better. . Currently on TPN. Objective - Constitutional Vitals: Last Vital Signs Temp 97.4 F L 12/29/16 08:53 Pulse 120 H 12/29/16 09:51 Resp 20 12/29/16 08:53 BP 107/69 12/29/16 08:53 Pulse Ox 99 12/29/16 08:53 General appearance: mild distress Performance status: 4-completely disabled - Neck Neck: supple - Respiratory Respiratory effort: Positive: normal Respiratory: bilateral: diminished - Cardiovascular Rhythm: regular Extremities: No edema - Gastrointestinal General gastrointestinal: Present: distended - Labs Lab Results: Laboratory Results - last 24 hr 12/26/16 12/28/16 12/28/16 19:47 12:53 20:47 WBC RBC Hgb Hct MCV MCH MCHC RDW Plt Count Add Manual Diff Total Counted Seg Neutrophils % Seg Neuts % (Manual) Band Neutrophils % Lymphocytes % (Manual) Reactive Lymphs % (Man) Monocytes % (Manual) Eosinophils % (Manual) Basophils % (Manual) Metamyelocytes % Myelocytes % Promyelocytes % Blast Cells % Nucleated RBC % Seg Neutrophils # Man Band Neutrophils # Lymphocytes # (Manual) Abs React Lymphs (Man) Monocytes # (Manual) Eosinophils # (Manual) Basophils # (Manual) Metamyelocytes # Myelocytes # Promyelocytes # Blast Cells # WBC Morphology Hypersegmented Neuts Hyposegmented Neuts Hypogranular Neuts Smudge Cells Toxic Granulation Toxic Vacuolation Dohle Bodies Pelger-Huet Anomaly Selin Rods Platelet Estimate Clumped Platelets Plt Clumps, EDTA Large Platelets Giant Platelets Platelet Satelliting Plt Morphology Comment RBC Morphology Dimorphic RBCs Polychromasia Hypochromasia Poikilocytosis Anisocytosis Microcytosis Macrocytosis Spherocytes Pappenheimer Bodies Sickle Cells Target Cells Tear Drop Cells Ovalocytes Helmet Cells [place] Bodies [place] Rings [place] Cells Bite Cells Crenated Cell Elliptocytes Acanthocytes (Spur) Rouleaux Hemoglobin C Crystals Schistocytes Malaria parasites Russ Bodies Hem Pathologist Commnt Sodium Potassium Chloride Carbon Dioxide Anion Gap BUN Creatinine Estimated GFR BUN/Creatinine Ratio Glucose POC Glucose 182 H 131 H Calcium Blood Type O POSITIVE Antibody Screen Negative Crossmatch See Detail 11/11/0612/29/16 12/29/16 06:19 06:19 06:49 WBC 15.9 H RBC 3.02 L Hgb 8.1 L Hct 25.9 L MCV 86 MCH 27 L MCHC 31 L RDW 16.9 H Plt Count 150 Add Manual Diff Complete Total Counted 100 Seg Neutrophils % Hr Business Partner Consultant Seg Neuts % (Manual) 90.0 H Band Neutrophils % 4.0 Lymphocytes % (Manual) 5.0 L Reactive Lymphs % (Man) 0 Monocytes % (Manual) 0 Eosinophils % (Manual) 0 Basophils % (Manual) 0 Metamyelocytes % 1.0 Myelocytes % 0 Promyelocytes % 0 Blast Cells % 0 Nucleated RBC % Not Reportable Seg Neutrophils # Man 14.3 H Band Neutrophils # 0.6 Lymphocytes # (Manual) 0.8 L Abs React Lymphs (Man) 0.0 Monocytes # (Manual) 0.0 Eosinophils # (Manual) 0.0 Basophils # (Manual) 0.0 Metamyelocytes # 0.2 Myelocytes # 0.0 Promyelocytes # 0.0 Blast Cells # 0.0 WBC Morphology Not Reportable Hypersegmented Neuts Not Reportable Hyposegmented Neuts Not Reportable Hypogranular Neuts Not Reportable Smudge Cells Not Reportable Toxic Granulation Not Reportable Toxic Vacuolation Not Reportable Dohle Bodies Not Reportable Pelger-Huet Anomaly Not Reportable Selin Rods Not Reportable Platelet Estimate Appears normal Clumped Platelets Not Reportable Plt Clumps, EDTA Not Reportable Large Platelets Not Reportable Giant Platelets Not Reportable Platelet Satelliting Not Reportable Plt Morphology Comment Not Reportable RBC Morphology Not Reportable Dimorphic RBCs Not Reportable Polychromasia Not Reportable Hypochromasia Not Reportable Poikilocytosis 1+ Anisocytosis 1+ Microcytosis Not Reportable Macrocytosis Not Reportable Spherocytes Not Reportable Pappenheimer Bodies Not Reportable Sickle Cells Not Reportable Target Cells Not Reportable Tear Drop Cells Few Ovalocytes Few Helmet Cells Not Reportable [place] Bodies Not Reportable [place] Rings Not Reportable [place] Cells Not Reportable Bite Cells Not Reportable Crenated Cell Not Reportable Elliptocytes Not Reportable Acanthocytes (Spur) Not Reportable Rouleaux Not Reportable Hemoglobin C Crystals Not Reportable Schistocytes Not Reportable Malaria parasites Not Reportable Russ Bodies Not Reportable Hem Pathologist Commnt No Sodium 142 Potassium 4.6 Chloride 109.3 H Carbon Dioxide 15 L Anion Gap 22 BUN 37 H Creatinine 2.1 H Estimated GFR 38 BUN/Creatinine Ratio 18 Glucose 134 H POC Glucose 154 H Calcium 8.0 L Blood Type Antibody Screen Crossmatch
[2016-12-29] MEDS: DIFLUCAN 200 MG/100 ML BAG IV SCH (11:35)
[2016-12-29] MEDS: LOVENOX SUB-Q SCH (11:36)
[2016-12-29] MEDS: PROTONIX IV SCH (11:36)
--- NOTE | 2016-12-29 13:55 | Progress Note ---
Assessment and Plan 66 yo M s/p exploratory laparotomy, PATTI, POD#3 1. ileus 2. MINH, dehydration 3. ?liver mass 4. adenocarcinoma of colon, s/p lap right hemicolectomy - CEA preop 33.9 5. elevated PSA - hx prostate ca 6. malnutrition 7. HepB 8. urinary retention 9. UTI on admission UA 10. sepsis 2/2 UTI Plan: 1. continue NPO 2. IVF 3. abx - on levaquin and flagyl, ID following, blood cx pending. urine cx negative (but was collected after antibiotics initiated). trend WBC. 4. daily BMP and CBC, s/p 1 PRBC yesterday, Hb response appropriate 5. NGT to LCWS - will dc once patient has a BM 6. strict I/Os 7. continue PPN today, nutrition following, PICC line to be placed - then switch to TPN 8. OOB/IS 9. pain control PRN 10. DVT ppx - lovenox 11. continue IV metoprolol 12. continue echevarria for strict I/Os 13. recommend uro c/s for urinary retention/echevarria 14. oncology c/s appreciated - repeat CEA ordered and is pending 15. rad onc c/s to Dr. Tellez Subjective Date of service: 12/29/16 Narrative: Pt seen and examined. No complaints today. Pain is controlled. No f/c. No BM. Pt admits to flatus. No n/v Objective Vital Signs - 12hr 12/29/16 12/29/16 12/29/16 05:16 06:21 07:20 Temperature 98.1 F Pulse Rate 141 H 125 H Pulse Rate [ Apical] Pulse Rate [ From Monitor] Respiratory 20 18 Rate Blood Pressure 123/67 123/67 O2 Sat by Pulse 98 Oximetry 12/29/16 12/29/16 12/29/16 08:53 09:51 11:36 Temperature 97.4 F L Pulse Rate 92 H Pulse Rate [ 120 H Apical] Pulse Rate [ 120 H From Monitor] Respiratory 20 18 Rate Blood Pressure 107/69 O2 Sat by Pulse 99 Oximetry - General physical appearance Narrative Exam: Gen: AAOx3. NAD ENT: NGT in place with clear drainage - 200cc over 12 hours CV: S1, S2+ irregular pulse @ 88bpm manual Resp: No audible wheezes Abd: soft, NT, ND. incisions c/d/i. Ext: 1+ pitting edema b/l LE : echevarria catheter with dark yellow urine - Labs 12/29/16 06:19 12/29/16 06:19 Diabetes panel 12/29/16 Range/Units 06:19 Sodium 142 (137-145) mmol/L Potassium 4.6 (3.6-5.0) mmol/L Chloride 109.3 H (98-107) mmol/L Carbon Dioxide 15 L (22-30) mmol/L BUN 37 H (9-20) mg/dL Creatinine 2.1 H (0.8-1.5) mg/dL Glucose 134 H (75-100) mg/dL Calcium 8.0 L (8.4-10.2) mg/dL Calcium panel 12/29/16 Range/Units 06:19 Calcium 8.0 L (8.4-10.2) mg/dL Pituitary panel 12/29/16 Range/Units 06:19 Sodium 142 (137-145) mmol/L Potassium 4.6 (3.6-5.0) mmol/L Chloride 109.3 H (98-107) mmol/L Carbon Dioxide 15 L (22-30) mmol/L BUN 37 H (9-20) mg/dL Creatinine 2.1 H (0.8-1.5) mg/dL Glucose 134 H (75-100) mg/dL Calcium 8.0 L (8.4-10.2) mg/dL Adrenal panel 12/29/16 Range/Units 06:19 Sodium 142 (137-145) mmol/L Potassium 4.6 (3.6-5.0) mmol/L Chloride 109.3 H (98-107) mmol/L Carbon Dioxide 15 L (22-30) mmol/L BUN 37 H (9-20) mg/dL Creatinine 2.1 H (0.8-1.5) mg/dL Glucose 134 H (75-100) mg/dL Calcium 8.0 L (8.4-10.2) mg/dL
[2016-12-29] MEDS ORDERED: TPN ADULT 1,800 ML IV SCH (20:00)
--- NOTE | 2016-12-29 20:08 | Progress Note ---
Assessment and Plan Assessment and plan: 1. Ileus vs SBO Status post recent laparoscopic right hemicolectomy Status post exploratory lap 12/27 NPO, on IV fluids, plan to start TPN Surgery following 2. Sepsis Started on levofloxacin and Flagyl ID consulted and fluconazole added Blood and urine cultures negative at 48 hours 3. Adenocarcinoma of colon Colonoscopy with biopsy positive for adenocarcinoma Status post right hemicolectomy Preop CEA elevated, 33.9 Oncology following and additional workup initiated; also has liver mass - diff: metastasis vs hepatocarcinoma given history of chronic hep B and cirrhosis 4. Liver mass/liver cirrhosis History of chronic hepatitis B and remote alcohol abuse See above discussion 5. Acute renal failure likely superimposed on chronic kidney disease Secondary to vasomotor nephropathy due to dehydration +/_ obstructive uropathy due to prostate cancer Continue IV fluids Traylor Monitor BUN/creatinine and electrolytes Creatinine plateau in 1.9-2 range Nephrology following 6. Prostate cancer Diagnosed 3 years ago at [place] and denied treatment 7. Urinary retention Possible secondary to prostate cancer/ileus S/p Traylor insertion Consider urology evaluation 8. Malnutrition Supplementation per dietitian 9. Anemia Iron deficient secondary to blood loss/chronic inflammation/malignancy Monitor H&H, currently in 9 range Status post 1 unit PRBC 10. Paroxysmal A. fib On beta vin for rate control Not on anticoagulation given multiple comorbidities/recent surgery Currently in sinus rhythm, irregular with PACs noted on monitor 11. DVT/GI prophylaxis History Interval history: s/p exploratory laparotomy POD 3, c/o abd pain and distension; passing flatus, but no bowel movement; overall feeling slightly better family at bedside Hospitalist Physical - Constitutional Vitals: Temp Pulse Resp BP Pulse Ox 97.9 F 126 H 18 106/63 99 12/29/16 19:42 12/29/16 19:42 12/29/16 19:42 12/29/16 19:42 12/29/16 19:42 General appearance: Present: mild distress, well-nourished - EENT Eyes: Present: PERRL, EOM intact ENT: clear oral mucosa, poor dentition - Neck Neck: Present: supple. Absent: enlarged thyroid, masses or JVD - Respiratory Respiratory effort: normal Respiratory: bilateral: diminished, negative: rhonchi, wheezing - Cardiovascular Rhythm: other (tachycardic, irregular) Heart Sounds: Present: S1 & S2. Absent: systolic murmur - Extremities Extremities: no ischemia Extremity abnormal: edema - Abdominal General gastrointestinal: soft, non-tender, non-distended, normal bowel sounds - Psychiatric Psychiatric: cooperative - Neurologic Neurologic: CNII-XII intact, moves all extremities Results - Labs CBC & Chem 7: 12/29/16 06:19 12/29/16 06:19 Labs: Laboratory Last Values WBC 15.9 K/mm3 (4.5-11.0) H 12/29/16 06:19 RBC 3.02 M/mm3 (3.65-5.03) L 12/29/16 06:19 Hgb 8.1 gm/dl (11.8-15.2) L 12/29/16 06:19 Hct 25.9 % (35.5-45.6) L 12/29/16 06:19 MCV 86 fl (84-94) 12/29/16 06:19 MCH 27 pg (28-32) L 12/29/16 06:19 MCHC 31 % (32-34) L 12/29/16 06:19 RDW 16.9 % (13.2-15.2) H 12/29/16 06:19 Plt Count 150 K/mm3 (140-440) 12/29/16 06:19 Lymph % (Auto) 8.0 % (13.4-35.0) L 12/28/16 06:03 Cole % (Auto) 5.6 % (0.0-7.3) 12/28/16 06:03 Eos % (Auto) 0.2 % (0.0-4.3) 12/28/16 06:03 Baso % (Auto) 0.2 % (0.0-1.8) 12/28/16 06:03 Lymph # 0.5 K/mm3 (1.2-5.4) L 12/28/16 06:03 Cole # 0.4 K/mm3 (0.0-0.8) 12/28/16 06:03 Eos # 0.0 K/mm3 (0.0-0.4) 12/28/16 06:03 Baso # 0.0 K/mm3 (0.0-0.1) 12/28/16 06:03 Add Manual Diff Complete 12/29/16 06:19 Total Counted 100 12/29/16 06:19 Seg Neutrophils % Gem Cutter 12/29/16 06:19 Seg Neuts % (Manual) 90.0 % (40.0-70.0) H 12/29/16 06:19 Band Neutrophils % 4.0 % 12/29/16 06:19 Lymphocytes % (Manual) 5.0 % (13.4-35.0) L 12/29/16 06:19 Reactive Lymphs % (Man) 0 % 12/29/16 06:19 Monocytes % (Manual) 0 % (0.0-7.3) 12/29/16 06:19 Eosinophils % (Manual) 0 % (0.0-4.3) 12/29/16 06:19 Basophils % (Manual) 0 % (0.0-1.8) 12/29/16 06:19 Metamyelocytes % 1.0 % 12/29/16 06:19 Myelocytes % 0 % 12/29/16 06:19 Promyelocytes % 0 % 12/29/16 06:19 Blast Cells % 0 % 12/29/16 06:19 Nucleated RBC % Not Reportable 12/29/16 06:19 Seg Neutrophils # 5.5 K/mm3 (1.8-7.7) 12/28/16 06:03 Seg Neutrophils # Man 14.3 K/mm3 (1.8-7.7) H 12/29/16 06:19 Band Neutrophils # 0.6 K/mm3 12/29/16 06:19 Lymphocytes # (Manual) 0.8 K/mm3 (1.2-5.4) L 12/29/16 06:19 Abs React Lymphs (Man) 0.0 K/mm3 12/29/16 06:19 Monocytes # (Manual) 0.0 K/mm3 (0.0-0.8) 12/29/16 06:19 Eosinophils # (Manual) 0.0 K/mm3 (0.0-0.4) 12/29/16 06:19 Basophils # (Manual) 0.0 K/mm3 (0.0-0.1) 12/29/16 06:19 Metamyelocytes # 0.2 K/mm3 12/29/16 06:19 Myelocytes # 0.0 K/mm3 12/29/16 06:19 Promyelocytes # 0.0 K/mm3 12/29/16 06:19 Blast Cells # 0.0 K/mm3 12/29/16 06:19 WBC Morphology Not Reportable 12/29/16 06:19 Hypersegmented Neuts Not Reportable 12/29/16 06:19 Hyposegmented Neuts Not Reportable 12/29/16 06:19 Hypogranular Neuts Not Reportable 12/29/16 06:19 Smudge Cells Not Reportable 12/29/16 06:19 Toxic Granulation Not Reportable 12/29/16 06:19 Toxic Vacuolation Not Reportable 12/29/16 06:19 Dohle Bodies Not Reportable 12/29/16 06:19 Pelger-Huet Anomaly Not Reportable 12/29/16 06:19 Selin Rods Not Reportable 12/29/16 06:19 Platelet Estimate Appears normal 12/29/16 06:19 Clumped Platelets Not Reportable 12/29/16 06:19 Plt Clumps, EDTA Not Reportable 12/29/16 06:19 Large Platelets Not Reportable 12/29/16 06:19 Giant Platelets Not Reportable 12/29/16 06:19 Platelet Satelliting Not Reportable 12/29/16 06:19 Plt Morphology Comment Not Reportable 12/29/16 06:19 RBC Morphology Not Reportable 12/29/16 06:19 Dimorphic RBCs Not Reportable 12/29/16 06:19 Polychromasia Not Reportable 12/29/16 06:19 Hypochromasia Not Reportable 12/29/16 06:19 Poikilocytosis 1+ 12/29/16 06:19 Anisocytosis 1+ 12/29/16 06:19 Microcytosis Not Reportable 12/29/16 06:19 Macrocytosis Not Reportable 12/29/16 06:19 Spherocytes Not Reportable 12/29/16 06:19 Pappenheimer Bodies Not Reportable 12/29/16 06:19 Sickle Cells Not Reportable 12/29/16 06:19 Target Cells Not Reportable 12/29/16 06:19 Tear Drop Cells Few 12/29/16 06:19 Ovalocytes Few 12/29/16 06:19 Helmet Cells Not Reportable 12/29/16 06:19 [place] Bodies Not Reportable 12/29/16 06:19 [place] Rings Not Reportable 12/29/16 06:19 Aranza Cells Not Reportable 12/29/16 06:19 Bite Cells Not Reportable 12/29/16 06:19 Crenated Cell Not Reportable 12/29/16 06:19 Elliptocytes Not Reportable 12/29/16 06:19 Acanthocytes (Spur) Not Reportable 12/29/16 06:19 Rouleaux Not Reportable 12/29/16 06:19 Hemoglobin C Crystals Not Reportable 12/29/16 06:19 Schistocytes Not Reportable 12/29/16 06:19 Malaria parasites Not Reportable 12/29/16 06:19 Percent Retic 2.87 % (0.78-2.58) H 12/24/16 15:10 Russ Bodies Not Reportable 12/29/16 06:19 Hem Pathologist Commnt No 12/29/16 06:19 PT 19.6 Sec. (12.2-14.9) H 12/26/16 19:47 INR 1.58 (0.87-1.13) H 12/26/16 19:47 POC ABG pH 7.380 (7.35-7.45) 12/26/16 14:04 POC ABG pCO2 25.7 (35-45) L 12/26/16 14:04 POC ABG pO2 89 (80-105) 12/26/16 14:04 POC ABG HCO3 15.2 12/26/16 14:04 POC ABG Total CO2 16 12/26/16 14:04 POC ABG O2 Sat 97 12/26/16 14:04 POC ABG Base Excess -10 12/26/16 14:04 FiO2 21 % 12/26/16 14:04 Sodium 142 mmol/L (137-145) 12/29/16 06:19 Potassium 4.6 mmol/L (3.6-5.0) 12/29/16 06:19 Chloride 109.3 mmol/L (98-107) H 12/29/16 06:19 Carbon Dioxide 15 mmol/L (22-30) L 12/29/16 06:19 Anion Gap 22 mmol/L 12/29/16 06:19 BUN 37 mg/dL (9-20) H 12/29/16 06:19 Creatinine 2.1 mg/dL (0.8-1.5) H 12/29/16 06:19 Estimated GFR 38 ml/min 12/29/16 06:19 BUN/Creatinine Ratio 18 % 12/29/16 06:19 Glucose 134 mg/dL (75-100) H 12/29/16 06:19 POC Glucose 140 (70-105) H 12/29/16 17:35 Calcium 8.0 mg/dL (8.4-10.2) L 12/29/16 06:19 Phosphorus 2.80 mg/dL (2.5-4.5) D 12/28/16 06:04 Magnesium 1.90 mg/dL (1.7-2.3) 12/28/16 06:04 Iron 23 ug/dL (49-181) L 12/24/16 15:10 TIBC 267 mcg/dL (250-450) 12/24/16 15:10 % Saturation 8.61 % 12/24/16 15:10 Transferrin 233 mg/dl (180-329) 12/24/16 15:10 Ferritin 67.5 ng/mL (13.0-400.0) 12/24/16 15:10 Total Bilirubin 1.00 mg/dL (0.1-1.2) 12/23/16 05:22 AST 22 units/L (5-40) 12/23/16 05:22 ALT 13 units/L (7-56) 12/23/16 05:22 Alkaline Phosphatase 69 units/L (35-129) 12/23/16 05:22 Ammonia 114.0 umol/L (25-60) H 12/22/16 00:35 C-Reactive Protein 18.80 mg/dL (0.00-1.30) H 12/29/16 06:15 Total Protein 7.5 g/dL (6.3-8.2) 12/23/16 05:22 Albumin 2.6 g/dL (3.9-5) L 12/23/16 05:22 Albumin/Globulin Ratio 0.5 % 12/23/16 05:22 Prealbumin 0.030 g/L (0.200-0.400) L 12/28/16 06:04 Triglycerides 103 mg/dL (2-149) 12/27/16 02:34 Lipase 55 units/L (13-60) 12/22/16 00:01 Carcinoembryonic Ag See scanned report 12/24/16 15:10 Prostate Specific Ag 21.75 ng/mL (0.00-4.00) H 12/24/16 15:10 Vitamin B12 1191 pg/mL (211-911) H 12/24/16 15:10 Folate 16.86 ng/mL (7.3-26.0) 12/24/16 15:10 Urine Color Yellow (Yellow) 12/23/16 Unknown Urine Turbidity Cloudy (Clear) 12/23/16 Unknown Urine pH 5.0 (5.0-7.0) 12/23/16 Unknown Ur Specific [place] 1.014 (1.003-1.030) 12/23/16 Unknown Urine Protein <15 mg/dl mg/dL (Negative) 12/23/16 Unknown Urine Glucose (UA) Neg mg/dL (Negative) 12/23/16 Unknown Urine Ketones Neg mg/dL (Negative) 12/23/16 Unknown Urine Blood Sm (Negative) 12/23/16 Unknown Urine Nitrite Pos (Negative) 12/23/16 Unknown Urine Bilirubin Neg (Negative) 12/23/16 Unknown Urine Urobilinogen < 2.0 mg/dL (<2.0) 12/23/16 Unknown Ur Leukocyte Esterase Lg (Negative) 12/23/16 Unknown Urine WBC (Auto) 84.0 /HPF (0.0-6.0) H 12/23/16 Unknown Urine RBC (Auto) 3.0 /HPF (0.0-6.0) 12/23/16 Unknown U Epithel Cells (Auto) < 1.0 /HPF (0-13.0) 12/23/16 Unknown Urine Bacteria (Auto) 1+ /HPF (Negative) 12/23/16 Unknown Urine Mucus Few /HPF 12/22/16 Unknown Urine Creatinine 117.5 mg/dL (0.1-20.0) H 12/23/16 Unknown Urine Sodium 41 mmol/L 12/23/16 Unknown Plasma/Serum Alcohol < 0.01 gm% (0-0.07) 12/22/16 00:35 Hep Bs Antigen Reactive (Negative) 12/24/16 15:10 Hepatitis C Antibody Non-reactive (NonReactive) 12/24/16 15:10 Blood Type O POSITIVE 12/26/16 19:47 Antibody Screen Negative 12/26/16 19:47 Crossmatch See Detail 12/26/16 19:47
[2016-12-29] MEDS: LEVAQUIN 500MG/100ML 500 MG/100 ML BAG IV SCH (23:19)
[2016-12-29 23:39] LABS: Abnormal Protein Band 1 0.3 g/dL; Abnormal Protein Band 2 0.3 g/dL; Albumin 2.6 g/dL (3.8-4.8); Gamma Globulin 2.5 g/dL (0.8-1.7)
--- NOTE | 2016-12-30 01:07 | Consultation ---
REQUESTING PHYSICIAN: Heaven Pryor DO. CHIEF COMPLAINT: Colon cancer. PROFILE: This is a 66-year-old gentleman recently diagnosed as having an adenocarcinoma of the colon, also with a history of adenocarcinoma of the prostate, referred for consultation. CONCLUSION: 1. Reported history of adenocarcinoma of the prostate diagnosed 3 years ago at [facility]. No details available. 2. Diagnosed as having pathologic stage T2 N0 adenocarcinoma of the ascending colon. 3. Status post right hemicolectomy, lymph node dissection under the direction of Dr. Pryor. 4. History of reoperation secondary to probable bowel obstruction. 5. History of cirrhosis of the liver with liver mass. Workup pending. RECOMMENDATION: We will obtain all records from [facility] in regards to his adenocarcinoma of the prostate. Most likely his best treatment proceeding forward is an androgen ablation therapy. ASSESSMENT: This is a 66-year-old -[place] gentleman who has a history of alcohol abuse, hypertension, previous history of adenocarcinoma of the prostate and most recently underwent a right hemicolectomy for bleeding for an ascending colon mass. His pathology was noted to be adenocarcinoma, pathologic stage T2 N0 with 0/7 lymph nodes positive. He represented to [facility] with nausea and vomiting, abdominal pain. He was taken to the operating room on 12/27/2016 and underwent exploratory laparotomy with lysis of adhesions. He is noted to have a liver mass, but no mass was palpated intraoperatively. He has a history of liver cirrhosis. His CT of the abdomen did demonstrate dilatation of the small bowel loops with air fluid levels and mechanical small-bowel obstruction. He is now referred for evaluation for his prostate cancer. PAST MEDICAL HISTORY: Anemia, hypertension, recent hemicolectomy, alcohol abuse. SOCIAL HISTORY: Alcohol abuse. FAMILY HISTORY: Hypertension. MEDICATIONS: Allopurinol, metoprolol, Protonix, Flomax, aminophylline, tramadol, Dilaudid, levofloxacin, metronidazole, lorazepam. ALLERGIES: NONE KNOWN. REVIEW OF SYSTEMS: GENERAL: Fatigue, weak, tired. HEENT: Denies any hoarseness, headache, visual changes. RESPIRATORY: Denies shortness of breath, hemoptysis. CARDIOVASCULAR: Denies any chest pain. GASTROINTESTINAL: Recent hemicolectomy with bowel obstruction with reoperation. GENITOURINARY: History of prostate cancer. Traylor catheter indwelling. PHYSICAL EXAMINATION: GENERAL: He is a very ill-appearing gentleman in no obvious distress. VITAL SIGNS: Blood pressure 104/55, pulse is 90, respirations 18, afebrile. ECOG equals 2. Pain equals 3/10. HEENT: Normocephalic, atraumatic. Eyes were clear. LUNGS: Decreased breath sounds. NG tube in place. ABDOMEN: He is status post right hemicolectomy, well-healing dissection scar. Abdomen is tender. No hepatosplenomegaly. DIGITAL RECTAL: Deferred. EXTREMITIES: No clubbing, cyanosis or edema. GENITALIA: Normal indwelling Traylor catheter . DISCUSSION: This is an unfortunate 66-year-old gentleman who has a history of adenocarcinoma of the prostate, reportedly diagnosed 2-3 years ago at [facility]. We will attempt to obtain all these records. Because of his overall poor condition, we are recommending androgen ablation therapy as his primary treatment for his adenocarcinoma of the prostate. Reportedly, his PSA is greater than 60, but I need to verify those results. We will keep you informed. JOB# [id number] FERNY/SHEILA MCDONALD
[2016-12-30] MEDS: LOPRESSOR IV SCH ×6 (01:17→16:17)
[2016-12-30] MEDS: DILAUDID IV PRN ×2 (05:10→20:22)
[2016-12-30] MEDS: FLAGYL 500 MG/100 ML 500 MG/100 ML BAG IV SCH ×3 (05:11→21:00)
[2016-12-30 06:19] LABS: Basophils % (Auto) 0.2 % (0.0-1.8); Eosinophils % (Auto) 0.6 % (0.0-4.3); Hematocrit 24.4 % (35.5-45.6); Hemoglobin 7.9 gm/dl (11.8-15.2); Mean Corpuscular HGB Conc 32 % (32-34); Mean Corpuscular Hemoglobin 28 pg (28-32); Mean Corpuscular Volume 85 fl (84-94); Platelet Count 110 K/mm3 (140-440); Red Blood Count 2.87 M/mm3 (3.65-5.03); Red Cell Distribution Width 16.9 % (13.2-15.2); White Blood Count 7.7 K/mm3 (4.5-11.0)
[2016-12-30 06:35] LABS: Calcium 7.9 mg/dL (8.4-10.2); Chloride 111.9 mmol/L (98-107); Potassium 4.3 mmol/L (3.6-5.0)
--- NOTE | 2016-12-30 09:54 | Hem/Onc Progress Note ---
Assessment and Plan Overall improvement. Continue to closely monitor. Discussed with daughter. Upon discharge I will follow him for his colorectal cancer and his prostate cancer. follow CBC Subjective Date of service: 12/30/16 Interval history: Patient feels better. . Currently on TPN. Objective - Constitutional Vitals: Last Vital Signs Temp 98.9 F 12/30/16 09:18 Pulse 90 12/30/16 09:18 Resp 20 12/30/16 09:18 BP 117/69 12/30/16 09:18 Pulse Ox 99 12/30/16 09:18 General appearance: no acute distress Performance status: 3-limited selfcare - Neck Neck: supple - Respiratory Respiratory effort: Positive: normal Respiratory: bilateral: diminished - Cardiovascular Rhythm: regular - Gastrointestinal General gastrointestinal: Present: other (postop changes. Abdominal binder) - Labs Lab Results: Laboratory Results - last 24 hr 12/24/16 12/24/16 12/28/16 15:10 15:10 07:17 WBC RBC Hgb Hct MCV MCH MCHC RDW Plt Count Lymph % (Auto) [place] % (Auto) Eos % (Auto) Baso % (Auto) Lymph # [place] # Eos # Baso # Seg Neutrophils % Seg Neutrophils # Sodium Potassium Chloride Carbon Dioxide Anion Gap BUN Creatinine Estimated GFR BUN/Creatinine Ratio Glucose POC Glucose 149 H Calcium Phosphorus Magnesium C-Reactive Protein Serum Total Protein 7.8 Albumin 2.6 L Iqevm-0-Cvqhnmmyp 0.5 H Vndez-4-Weouevnpq 0.8 Beta Globulins 0.8 H Gamma Globulins 2.5 H Abnorm Protein Band 1 0.3 H Abnorm Protein Band 2 0.3 H PEP Interpretation see below H Carcinoembryonic Ag See scanned report 12/28/16 12/29/16 12/29/16 15:54 06:15 13:22 WBC RBC Hgb Hct MCV MCH MCHC RDW Plt Count Lymph % (Auto) [place] % (Auto) Eos % (Auto) Baso % (Auto) Lymph # [place] # Eos # Baso # Seg Neutrophils % Seg Neutrophils # Sodium Potassium Chloride Carbon Dioxide Anion Gap BUN Creatinine Estimated GFR BUN/Creatinine Ratio Glucose POC Glucose 168 H 149 H Calcium Phosphorus Magnesium C-Reactive Protein 18.80 H Serum Total Protein Albumin Ebzaj-4-Ewqibpsre Khzdd-4-Viaqprfwo Beta Globulins Gamma Globulins Abnorm Protein Band 1 Abnorm Protein Band 2 PEP Interpretation Carcinoembryonic Ag 12/29/16 12/30/16 12/30/16 17:35 01:12 05:44 WBC RBC Hgb Hct MCV MCH MCHC RDW Plt Count Lymph % (Auto) [place] % (Auto) Eos % (Auto) Baso % (Auto) Lymph # [place] # Eos # Baso # Seg Neutrophils % Seg Neutrophils # Sodium Potassium Chloride Carbon Dioxide Anion Gap BUN Creatinine Estimated GFR BUN/Creatinine Ratio Glucose POC Glucose 140 H 166 H 149 H Calcium Phosphorus Magnesium C-Reactive Protein Serum Total Protein Albumin Dirdy-5-Boyfponlr Sydga-5-Ugmfgdtwi Beta Globulins Gamma Globulins Abnorm Protein Band 1 Abnorm Protein Band 2 PEP Interpretation Carcinoembryonic Ag 12/30/16 12/30/16 06:00 06:00 WBC 7.7 RBC 2.87 L Hgb 7.9 L Hct 24.4 L MCV 85 MCH 28 MCHC 32 RDW 16.9 H Plt Count 110 L Lymph % (Auto) 9.2 L [place] % (Auto) 6.4 Eos % (Auto) 0.6 Baso % (Auto) 0.2 Lymph # 0.7 L [place] # 0.5 Eos # 0.0 Baso # 0.0 Seg Neutrophils % 83.6 H Seg Neutrophils # 6.4 Sodium 143 Potassium 4.3 Chloride 111.9 H Carbon Dioxide 20 L Anion Gap 15 BUN 42 H Creatinine 1.6 H Estimated GFR 52 BUN/Creatinine Ratio 26 Glucose 130 H POC Glucose Calcium 7.9 L Phosphorus 2.00 L Magnesium 2.00 C-Reactive Protein Serum Total Protein Albumin Zxqbc-7-Mgbsfbodo Qgecx-6-Ymzwaqecq Beta Globulins Gamma Globulins Abnorm Protein Band 1 Abnorm Protein Band 2 PEP Interpretation Carcinoembryonic Ag
--- NOTE | 2016-12-30 09:58 | Progress Note ---
Assessment and Plan Assessment: 1) SIRS: imrpoving. Etiology most likely post-op reaction +/- SBO +/- UTI. CRP= 20-->18 2) SBO: -S/p exploratory laparoscopy and lysis of adhesions on 12/27/2016. -Repeat CT showed worsening thickening of small bowel wall with new mesenteric vein air bubbles, cirrhotic liver. 3) Adenocarcinoma of the colon: -S/p laparoscopic, hand-assisted right hemicolectomy on 12/13/2016. 4) Liver cirrohsis: ? ETOH. initial ammonia 114. HBV S ag negative 5) UTI / recent urinary retention 6) History of prostate cancer 7) Alcohol abuse 8) Renal failure - improving Plan: -follow-up procalcitonin -continue levaquin and flagyl day of -continue fluconazole I am covering the weekend Thank you Dr Pryor for your consultation, will follow up with you. Aria Pop MD Infectious Diseases Specialist [facility] M [phone] O [phone] Subjective Date of service: 12/30/16 Principal diagnosis: SIRS Interval history: Feels better. No fever. No abdominal pain. Current Antimicrobials: Levaquin 12/26 Metronidazole 12/26 Fluconazole 12/28 Previous Antimicrobials: Microbiology: Blood cultures: 12/27 ngtd Urine cultures: 12/27 neg Objective - Exam Narrative Exam: General appearance: Alert in NAD, conversant Eyes: anicteric sclerae, moist conjunctivae; no lid-lag; PERRLA HENT: Atraumatic; oropharynx clear with moist mucous membranes and no mucosal ulcerations/no oral thrush; normal hard and soft palate. Normal external ears. + NGT with clear green secretion Neck: Trachea midline; supple, no thyromegaly or lymphadenopathy Lungs: CTA, with normal respiratory effort and no intercostal retractions CV: tachy Abdomen: Soft, surg wound with dressings Extremities: No peripheral edema or extremity lymphadenopathy Skin: Normal temperature, turgor and texture; no rash, ulcers or subcutaneous nodules Psych: Appropriate affect, alert and oriented to person, place and time. Neuro: alert and oriented x 3. Moving all extermities Lines: No CVL / PICC + echevarria - Constitutional Vitals: Vital Signs Temp Pulse Resp BP Pulse Ox 98.9 F 90 20 117/69 99 11/10/17 09:18 12/30/16 09:18 12/30/16 09:18 12/30/16 09:18 12/30/16 09:18 Temperature -Last 24 Hours Temperature 98.9 F Temperature 98.1 F Temperature 98.2 F Temperature 97.9 F Temperature 97.7 F Temperature 97.6 F - Labs CBC & Chem 7: 12/30/16 06:00 12/30/16 06:00 Labs: Abnormal lab results 12/24/16 12/28/16 12/28/16 Range/Units 15:10 07:17 15:54 RBC (3.65-5.03) M/mm3 Hgb (11.8-15.2) gm/dl Hct (35.5-45.6) % RDW (13.2-15.2) % Plt Count (140-440) K/mm3 Lymph % (Auto) (13.4-35.0) % Lymph # (1.2-5.4) K/mm3 Seg Neutrophils % (40.0-70.0) % Chloride (98-107) mmol/L Carbon Dioxide (22-30) mmol/L BUN (9-20) mg/dL Creatinine (0.8-1.5) mg/dL Glucose (75-100) mg/dL POC Glucose 149 H 168 H (70-105) Calcium (8.4-10.2) mg/dL Phosphorus (2.5-4.5) mg/dL C-Reactive Protein (0.00-1.30) mg/dL Albumin 2.6 L (3.8-4.8) g/dL Eivoh-8-Vrqiglwez 0.5 H (0.2-0.3) g/dL Beta Globulins 0.8 H (0.2-0.5) g/dL Gamma Globulins 2.5 H (0.8-1.7) g/dL Abnorm Protein Band 1 0.3 H g/dL Abnorm Protein Band 2 0.3 H g/dL PEP Interpretation see below H 12/29/16 12/29/16 12/29/16 Range/Units 06:15 13:22 17:35 RBC (3.65-5.03) M/mm3 Hgb (11.8-15.2) gm/dl Hct (35.5-45.6) % RDW (13.2-15.2) % Plt Count (140-440) K/mm3 Lymph % (Auto) (13.4-35.0) % Lymph # (1.2-5.4) K/mm3 Seg Neutrophils % (40.0-70.0) % Chloride (98-107) mmol/L Carbon Dioxide (22-30) mmol/L BUN (9-20) mg/dL Creatinine (0.8-1.5) mg/dL Glucose (75-100) mg/dL POC Glucose 149 H 140 H (70-105) Calcium (8.4-10.2) mg/dL Phosphorus (2.5-4.5) mg/dL C-Reactive Protein 18.80 H (0.00-1.30) mg/dL Albumin (3.8-4.8) g/dL Cpfsa-4-Csrsqveyn (0.2-0.3) g/dL Beta Globulins (0.2-0.5) g/dL Gamma Globulins (0.8-1.7) g/dL Abnorm Protein Band 1 g/dL Abnorm Protein Band 2 g/dL PEP Interpretation 12/30/16 12/30/16 12/30/16 Range/Units 01:12 05:44 06:00 RBC (3.65-5.03) M/mm3 Hgb (11.8-15.2) gm/dl Hct (35.5-45.6) % RDW (13.2-15.2) % Plt Count (140-440) K/mm3 Lymph % (Auto) (13.4-35.0) % Lymph # (1.2-5.4) K/mm3 Seg Neutrophils % (40.0-70.0) % Chloride 111.9 H (98-107) mmol/L Carbon Dioxide 20 L (22-30) mmol/L BUN 42 H (9-20) mg/dL Creatinine 1.6 H (0.8-1.5) mg/dL Glucose 130 H (75-100) mg/dL POC Glucose 166 H 149 H (70-105) Calcium 7.9 L (8.4-10.2) mg/dL Phosphorus 2.00 L (2.5-4.5) mg/dL C-Reactive Protein (0.00-1.30) mg/dL Albumin (3.8-4.8) g/dL Rbilp-0-Yvizykwzp (0.2-0.3) g/dL Beta Globulins (0.2-0.5) g/dL Gamma Globulins (0.8-1.7) g/dL Abnorm Protein Band 1 g/dL Abnorm Protein Band 2 g/dL PEP Interpretation 12/30/16 Range/Units 06:00 RBC 2.87 L (3.65-5.03) M/mm3 Hgb 7.9 L (11.8-15.2) gm/dl Hct 24.4 L (35.5-45.6) % RDW 16.9 H (13.2-15.2) % Plt Count 110 L (140-440) K/mm3 Lymph % (Auto) 9.2 L (13.4-35.0) % Lymph # 0.7 L (1.2-5.4) K/mm3 Seg Neutrophils % 83.6 H (40.0-70.0) % Chloride (98-107) mmol/L Carbon Dioxide (22-30) mmol/L BUN (9-20) mg/dL Creatinine (0.8-1.5) mg/dL Glucose (75-100) mg/dL POC Glucose (70-105) Calcium (8.4-10.2) mg/dL Phosphorus (2.5-4.5) mg/dL C-Reactive Protein (0.00-1.30) mg/dL Albumin (3.8-4.8) g/dL Acvaf-8-Aqwglcoee (0.2-0.3) g/dL Beta Globulins (0.2-0.5) g/dL Gamma Globulins (0.8-1.7) g/dL Abnorm Protein Band 1 g/dL Abnorm Protein Band 2 g/dL PEP Interpretation
[2016-12-30] MEDS: DIFLUCAN 200 MG/100 ML BAG IV SCH (10:17)
[2016-12-30] MEDS: LOVENOX SUB-Q SCH (10:18)
[2016-12-30] MEDS: PROTONIX IV SCH (10:19)
--- NOTE | 2016-12-30 10:59 | Progress Note ---
Assessment and Plan Impression: * Acute kidney injury secondary to prerenal azotemia due to volume depletion * Ileus vs partial SBO * Nausea/vomiting secondary to #2 * Ascending colon mass s/p laparoscopic right hemicolectomy * Hx of transient atrial fibrillation * Anemia Plan: * Renal function is stable * Heme/onc following * TPN per primary team * Dose medications for renal function * Avoid potential nephrotoxins * Strict I/O Subjective Date of service: 12/30/16 Principal diagnosis: SIRS Interval history: Patient c/o abdominal discomfort. Objective - Vital Signs Vital signs: Vital Signs - 12hr 12/29/16 12/29/16 12/30/16 23:33 23:39 01:17 Temperature 98.2 F Pulse Rate 100 H 105 H Pulse Rate [ 126 H Apical] Respiratory 18 Rate Blood Pressure 129/70 Blood Pressure [Right] O2 Sat by Pulse 98 Oximetry 12/30/16 12/30/16 05:13 09:18 Temperature 98.1 F 98.9 F Pulse Rate 89 90 Pulse Rate [ Apical] Respiratory 18 20 Rate Blood Pressure 119/71 Blood Pressure 117/69 [Right] O2 Sat by Pulse 99 99 Oximetry - General Appearance General appearance: well-developed, well-nourished EENT: ATNC, other (NGT in place) Respiratory: Present: Decreased Breath Sounds Cardiology: regular, S1S2 Gastrointestinal: hypoactive bowel sounds, distended Integumentary: no rash, warm and dry Musculoskeletal: other (no edema) Psychiatric: cooperative - Lab 12/30/16 06:00 12/30/16 06:00 Most recent lab results Calcium 7.9 mg/dL (8.4-10.2) L 12/30/16 06:00 Phosphorus 2.00 mg/dL (2.5-4.5) L 12/30/16 06:00 Magnesium 2.00 mg/dL (1.7-2.3) 12/30/16 06:00 Urine Creatinine 117.5 mg/dL (0.1-20.0) H 12/23/16 Unknown Urine Sodium 41 mmol/L 12/23/16 Unknown
[2016-12-30] MEDS ORDERED: PROVENTIL IH PRN (11:00)
--- NOTE | 2016-12-30 12:21 | Progress Note ---
Assessment and Plan 66 yo M s/p exploratory laparotomy, PATTI, POD#4 1. ileus 2. MINH, dehydration 3. ?liver mass 4. adenocarcinoma of colon, s/p lap right hemicolectomy - CEA preop 33.9 5. elevated PSA - hx prostate ca 6. malnutrition 7. HepB 8. urinary retention 9. UTI on admission UA 10. sepsis 2/2 UTI Plan: 1. continue NPO, ok to have mouth swabs and ice chips 2. IVF 3. abx - on levaquin and flagyl, ID following, blood cx pending. urine cx negative (but was collected after antibiotics initiated). WBC improved. 4. daily BMP and CBC, replace phos 5. NGT to LCWS - will dc once patient has a BM. May clamp to ambulate or to get up to chair 6. strict I/Os 7. continue PPN, nutrition following, PICC line to be placed - then switch to TPN 8. OOB TID/IS, PT consult. 9. pain control PRN 10. DVT ppx - lovenox 11. continue IV metoprolol 12. continue echevarria for strict I/Os 13. recommend uro c/s for urinary retention/echevarria 14. oncology and rad onc c/s appreciated, rpt CEA pending Subjective Date of service: 12/30/16 Narrative: Pt seen and examined. Feels well. Pain is controlled. No n/v, f/c, cp, sob. + flatus, no BM. Objective Vital Signs - 12hr 12/30/16 12/30/16 12/30/16 01:17 05:13 09:18 Temperature 98.1 F 98.9 F Pulse Rate 105 H 89 90 Respiratory 18 20 Rate Blood Pressure 119/71 Blood Pressure 117/69 [Right] O2 Sat by Pulse 99 99 Oximetry - General physical appearance Narrative Exam: Gen: Awake and alert. NAD ENT: NGT with clear yellow drainage CV: S1, S2+ Resp: No audible wheezes Abd: soft, NT, ND. incisions c/d/i, abdominal binder in place. + bowel sounds - hypoactive Ext: trace b/l pedal edema : echevarria with clear neptali urine I/Os: UO: 800cc/24 hr NGT: not recorded, approx 200cc/24 hours in canister - Labs 12/30/16 06:00 12/30/16 06:00 Diabetes panel 12/24/16 12/30/16 Range/Units 15:10 06:00 Sodium 143 (137-145) mmol/L Potassium 4.3 (3.6-5.0) mmol/L Chloride 111.9 H (98-107) mmol/L Carbon Dioxide 20 L (22-30) mmol/L BUN 42 H (9-20) mg/dL Creatinine 1.6 H (0.8-1.5) mg/dL Glucose 130 H (75-100) mg/dL Calcium 7.9 L (8.4-10.2) mg/dL Albumin 2.6 L (3.8-4.8) g/dL Calcium panel 12/24/16 12/30/16 Range/Units 15:10 06:00 Calcium 7.9 L (8.4-10.2) mg/dL Phosphorus 2.00 L (2.5-4.5) mg/dL Albumin 2.6 L (3.8-4.8) g/dL Pituitary panel 12/30/16 Range/Units 06:00 Sodium 143 (137-145) mmol/L Potassium 4.3 (3.6-5.0) mmol/L Chloride 111.9 H (98-107) mmol/L Carbon Dioxide 20 L (22-30) mmol/L BUN 42 H (9-20) mg/dL Creatinine 1.6 H (0.8-1.5) mg/dL Glucose 130 H (75-100) mg/dL Calcium 7.9 L (8.4-10.2) mg/dL Adrenal panel 12/24/16 12/30/16 Range/Units 15:10 06:00 Sodium 143 (137-145) mmol/L Potassium 4.3 (3.6-5.0) mmol/L Chloride 111.9 H (98-107) mmol/L Carbon Dioxide 20 L (22-30) mmol/L BUN 42 H (9-20) mg/dL Creatinine 1.6 H (0.8-1.5) mg/dL Glucose 130 H (75-100) mg/dL Calcium 7.9 L (8.4-10.2) mg/dL Albumin 2.6 L (3.8-4.8) g/dL
[2016-12-30] MEDS: DUONEB *Not for PRN Use IH SCH ×2 (13:34→22:32)
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
[2016-12-30] MEDS ORDERED: INTRALIPID 20% 250 ML IV SCH (20:00)
[2016-12-30] MEDS ORDERED: TPN ADULT 1,800 ML IV SCH (20:00)
[2016-12-30] MEDS: LEVAQUIN 500MG/100ML 500 MG/100 ML BAG IV SCH (21:00)
--- NOTE | 2016-12-30 21:47 | Progress Note ---
Assessment and Plan Assessment and plan: 1. Ileus vs SBO Status post recent laparoscopic right hemicolectomy Status post exploratory lap 12/27 On PPN, plan to start TPN Surgery following 2. Sepsis Started on levofloxacin and Flagyl ID consulted and fluconazole added Blood and urine cultures negative at 48 hours 3. Adenocarcinoma of colon Colonoscopy with biopsy positive for adenocarcinoma Status post right hemicolectomy Preop CEA elevated, 33.9 Oncology following and additional workup initiated; also has liver mass - diff: metastasis vs hepatocarcinoma given history of chronic hep B and cirrhosis 4. Liver mass/liver cirrhosis History of chronic hepatitis B and remote alcohol abuse See above discussion 5. Acute renal failure likely superimposed on chronic kidney disease Secondary to vasomotor nephropathy due to dehydration +/_ obstructive uropathy due to prostate cancer Continue IV fluids Tray[place] Monitor BUN/creatinine and electrolytes Improving Nephrology following 6. Prostate cancer Diagnosed 3 years ago at [facility] and denied treatment 7. Urinary retention Possible secondary to prostate cancer/ileus S/p Traylor insertion Will need urology evaluation for further management when stabilized 8. Malnutrition PPN, plan to start TPN 9. Anemia Iron deficient secondary to blood loss/chronic inflammation/malignancy Monitor H&H Status post 1 unit PRBC Currently Hgb 7.9 10. Paroxysmal A. fib On beta vin for rate control Not on anticoagulation given multiple comorbidities/recent surgery Currently in sinus rhythm, irregular with PACs noted on monitor 11. DVT/GI prophylaxis History Interval history: Still no bowel movement, but passing flatus; pain controlled Hospitalist Physical - Constitutional Vitals: Temp Pulse Resp BP Pulse Ox 98.3 F 85 20 114/70 99 12/30/16 20:01 12/30/16 20:01 12/30/16 20:22 12/30/16 20:01 12/30/16 20:01 General appearance: Present: mild distress, obese - EENT Eyes: Present: PERRL, EOM intact ENT: clear oral mucosa, poor dentition - Neck Neck: Present: supple. Absent: enlarged thyroid, masses or JVD - Respiratory Respiratory effort: normal Respiratory: bilateral: diminished, negative: rhonchi, wheezing - Cardiovascular Rhythm: other (tachycardic) Heart Sounds: Present: S1 & S2. Absent: systolic murmur - Extremities Extremities: no ischemia - Abdominal General gastrointestinal: soft, tender, distended, hypoactive bowel sounds - Psychiatric Psychiatric: cooperative - Neurologic Neurologic: no focal deficits Results - Labs CBC & Chem 7: 12/30/16 06:00 12/30/16 06:00 Labs: Laboratory Last Values WBC 7.7 K/mm3 (4.5-11.0) 12/30/16 06:00 RBC 2.87 M/mm3 (3.65-5.03) L 12/30/16 06:00 Hgb 7.9 gm/dl (11.8-15.2) L 12/30/16 06:00 Hct 24.4 % (35.5-45.6) L 12/30/16 06:00 MCV 85 fl (84-94) 12/30/16 06:00 MCH 28 pg (28-32) 12/30/16 06:00 MCHC 32 % (32-34) 12/30/16 06:00 RDW 16.9 % (13.2-15.2) H 12/30/16 06:00 Plt Count 110 K/mm3 (140-440) L 12/30/16 06:00 Lymph % (Auto) 9.2 % (13.4-35.0) L 12/30/16 06:00 [place] % (Auto) 6.4 % (0.0-7.3) 12/30/16 06:00 Eos % (Auto) 0.6 % (0.0-4.3) 12/30/16 06:00 Baso % (Auto) 0.2 % (0.0-1.8) 12/30/16 06:00 Lymph # 0.7 K/mm3 (1.2-5.4) L 12/30/16 06:00 [place] # 0.5 K/mm3 (0.0-0.8) 12/30/16 06:00 Eos # 0.0 K/mm3 (0.0-0.4) 12/30/16 06:00 Baso # 0.0 K/mm3 (0.0-0.1) 12/30/16 06:00 Add Manual Diff Complete 12/29/16 06:19 Total Counted 100 12/29/16 06:19 Seg Neutrophils % 83.6 % (40.0-70.0) H 12/30/16 06:00 Seg Neuts % (Manual) 90.0 % (40.0-70.0) H 12/29/16 06:19 Band Neutrophils % 4.0 % 12/29/16 06:19 Lymphocytes % (Manual) 5.0 % (13.4-35.0) L 12/29/16 06:19 Reactive Lymphs % (Man) 0 % 12/29/16 06:19 Monocytes % (Manual) 0 % (0.0-7.3) 12/29/16 06:19 Eosinophils % (Manual) 0 % (0.0-4.3) 12/29/16 06:19 Basophils % (Manual) 0 % (0.0-1.8) 12/29/16 06:19 Metamyelocytes % 1.0 % 12/29/16 06:19 Myelocytes % 0 % 12/29/16 06:19 Promyelocytes % 0 % 12/29/16 06:19 Blast Cells % 0 % 12/29/16 06:19 Nucleated RBC % Not Reportable 12/29/16 06:19 Seg Neutrophils # 6.4 K/mm3 (1.8-7.7) 12/30/16 06:00 Seg Neutrophils # Man 14.3 K/mm3 (1.8-7.7) H 12/29/16 06:19 Band Neutrophils # 0.6 K/mm3 12/29/16 06:19 Lymphocytes # (Manual) 0.8 K/mm3 (1.2-5.4) L 12/29/16 06:19 Abs React Lymphs (Man) 0.0 K/mm3 12/29/16 06:19 Monocytes # (Manual) 0.0 K/mm3 (0.0-0.8) 12/29/16 06:19 Eosinophils # (Manual) 0.0 K/mm3 (0.0-0.4) 12/29/16 06:19 Basophils # (Manual) 0.0 K/mm3 (0.0-0.1) 12/29/16 06:19 Metamyelocytes # 0.2 K/mm3 12/29/16 06:19 Myelocytes # 0.0 K/mm3 12/29/16 06:19 Promyelocytes # 0.0 K/mm3 12/29/16 06:19 Blast Cells # 0.0 K/mm3 12/29/16 06:19 WBC Morphology Not Reportable 12/29/16 06:19 Hypersegmented Neuts Not Reportable 12/29/16 06:19 Hyposegmented Neuts Not Reportable 12/29/16 06:19 Hypogranular Neuts Not Reportable 12/29/16 06:19 Smudge Cells Not Reportable 12/29/16 06:19 Toxic Granulation Not Reportable 12/29/16 06:19 Toxic Vacuolation Not Reportable 12/29/16 06:19 Dohle Bodies Not Reportable 12/29/16 06:19 Pelger-Huet Anomaly Not Reportable 12/29/16 06:19 Selin Rods Not Reportable 12/29/16 06:19 Platelet Estimate Appears normal 12/29/16 06:19 Clumped Platelets Not Reportable 12/29/16 06:19 Plt Clumps, EDTA Not Reportable 12/29/16 06:19 Large Platelets Not Reportable 12/29/16 06:19 Giant Platelets Not Reportable 12/29/16 06:19 Platelet Satelliting Not Reportable 12/29/16 06:19 Plt Morphology Comment Not Reportable 12/29/16 06:19 RBC Morphology Not Reportable 12/29/16 06:19 Dimorphic RBCs Not Reportable 12/29/16 06:19 Polychromasia Not Reportable 12/29/16 06:19 Hypochromasia Not Reportable 12/29/16 06:19 Poikilocytosis 1+ 12/29/16 06:19 Anisocytosis 1+ 12/29/16 06:19 Microcytosis Not Reportable 12/29/16 06:19 Macrocytosis Not Reportable 12/29/16 06:19 Spherocytes Not Reportable 12/29/16 06:19 Pappenheimer Bodies Not Reportable 12/29/16 06:19 Sickle Cells Not Reportable 12/29/16 06:19 Target Cells Not Reportable 12/29/16 06:19 Tear Drop Cells Few 12/29/16 06:19 Ovalocytes Few 12/29/16 06:19 Helmet Cells Not Reportable 12/29/16 06:19 Hylton-Roca Bodies Not Reportable 12/29/16 06:19 Jean Rings Not Reportable 12/29/16 06:19 [place] Cells Not Reportable 12/29/16 06:19 Bite Cells Not Reportable 12/29/16 06:19 Crenated Cell Not Reportable 12/29/16 06:19 Elliptocytes Not Reportable 12/29/16 06:19 Acanthocytes (Spur) Not Reportable 12/29/16 06:19 Rouleaux Not Reportable 12/29/16 06:19 Hemoglobin C Crystals Not Reportable 12/29/16 06:19 Schistocytes Not Reportable 12/29/16 06:19 Malaria parasites Not Reportable 12/29/16 06:19 Percent Retic 2.87 % (0.78-2.58) H 12/24/16 15:10 Russ Bodies Not Reportable 12/29/16 06:19 Hem Pathologist Commnt No 12/29/16 06:19 PT 19.6 Sec. (12.2-14.9) H 12/26/16 19:47 INR 1.58 (0.87-1.13) H 12/26/16 19:47 POC ABG pH 7.380 (7.35-7.45) 12/26/16 14:04 POC ABG pCO2 25.7 (35-45) L 12/26/16 14:04 POC ABG pO2 89 (80-105) 12/26/16 14:04 POC ABG HCO3 15.2 12/26/16 14:04 POC ABG Total CO2 16 12/26/16 14:04 POC ABG O2 Sat 97 12/26/16 14:04 POC ABG Base Excess -10 12/26/16 14:04 FiO2 21 % 12/26/16 14:04 Sodium 143 mmol/L (137-145) 12/30/16 06:00 Potassium 4.3 mmol/L (3.6-5.0) 12/30/16 06:00 Chloride 111.9 mmol/L (98-107) H 12/30/16 06:00 Carbon Dioxide 20 mmol/L (22-30) L 12/30/16 06:00 Anion Gap 15 mmol/L 12/30/16 06:00 BUN 42 mg/dL (9-20) H 12/30/16 06:00 Creatinine 1.6 mg/dL (0.8-1.5) H 12/30/16 06:00 Estimated GFR 52 ml/min 12/30/16 06:00 BUN/Creatinine Ratio 26 % 12/30/16 06:00 Glucose 130 mg/dL (75-100) H 12/30/16 06:00 POC Glucose 144 (70-105) H 12/30/16 20:53 Calcium 7.9 mg/dL (8.4-10.2) L 12/30/16 06:00 Phosphorus 2.00 mg/dL (2.5-4.5) L 12/30/16 06:00 Magnesium 2.00 mg/dL (1.7-2.3) 12/30/16 06:00 Iron 23 ug/dL (49-181) L 12/24/16 15:10 TIBC 267 mcg/dL (250-450) 12/24/16 15:10 % Saturation 8.61 % 12/24/16 15:10 Transferrin 233 mg/dl (180-329) 12/24/16 15:10 Ferritin 67.5 ng/mL (13.0-400.0) 12/24/16 15:10 Total Bilirubin 1.00 mg/dL (0.1-1.2) 12/23/16 05:22 AST 22 units/L (5-40) 12/23/16 05:22 ALT 13 units/L (7-56) 12/23/16 05:22 Alkaline Phosphatase 69 units/L (35-129) 12/23/16 05:22 Ammonia 114.0 umol/L (25-60) H 12/22/16 00:35 C-Reactive Protein 18.80 mg/dL (0.00-1.30) H 12/29/16 06:15 Serum Total Protein 7.8 g/dL (6.1-8.1) 12/24/16 15:10 Total Protein 7.5 g/dL (6.3-8.2) 12/23/16 05:22 Albumin 2.6 g/dL (3.8-4.8) L 12/24/16 15:10 Albumin/Globulin Ratio 0.5 % 12/23/16 05:22 Prealbumin 0.030 g/L (0.200-0.400) L 12/28/16 06:04 Fncbv-1-Sswjkwphg 0.5 g/dL (0.2-0.3) H 12/24/16 15:10 Enocu-6-Alqnndmiq 0.8 g/dL (0.5-0.9) 12/24/16 15:10 Beta Globulins 0.8 g/dL (0.2-0.5) H 12/24/16 15:10 Gamma Globulins 2.5 g/dL (0.8-1.7) H 12/24/16 15:10 Abnorm Protein Band 1 0.3 g/dL H 12/24/16 15:10 Abnorm Protein Band 2 0.3 g/dL H 12/24/16 15:10 PEP Interpretation see below H 12/24/16 15:10 Triglycerides 103 mg/dL (2-149) 12/27/16 02:34 Lipase 55 units/L (13-60) 12/22/16 00:01 Carcinoembryonic Ag See scanned report 12/24/16 15:10 Prostate Specific Ag 21.75 ng/mL (0.00-4.00) H 12/24/16 15:10 Vitamin B12 1191 pg/mL (211-911) H 12/24/16 15:10 Folate 16.86 ng/mL (7.3-26.0) 12/24/16 15:10 Urine Color Yellow (Yellow) 12/23/16 Unknown Urine Turbidity Cloudy (Clear) 12/23/16 Unknown Urine pH 5.0 (5.0-7.0) 12/23/16 Unknown Ur Specific [place] 1.014 (1.003-1.030) 12/23/16 Unknown Urine Protein <15 mg/dl mg/dL (Negative) 12/23/16 Unknown Urine Glucose (UA) Neg mg/dL (Negative) 12/23/16 Unknown Urine Ketones Neg mg/dL (Negative) 12/23/16 Unknown Urine Blood Sm (Negative) 12/23/16 Unknown Urine Nitrite Pos (Negative) 12/23/16 Unknown Urine Bilirubin Neg (Negative) 12/23/16 Unknown Urine Urobilinogen < 2.0 mg/dL (<2.0) 12/23/16 Unknown Ur Leukocyte Esterase Lg (Negative) 12/23/16 Unknown Urine WBC (Auto) 84.0 /HPF (0.0-6.0) H 12/23/16 Unknown Urine RBC (Auto) 3.0 /HPF (0.0-6.0) 12/23/16 Unknown U Epithel Cells (Auto) < 1.0 /HPF (0-13.0) 12/23/16 Unknown Urine Bacteria (Auto) 1+ /HPF (Negative) 12/23/16 Unknown Urine Mucus Few /HPF 12/22/16 Unknown Urine Creatinine 117.5 mg/dL (0.1-20.0) H 12/23/16 Unknown Urine Sodium 41 mmol/L 12/23/16 Unknown Plasma/Serum Alcohol < 0.01 gm% (0-0.07) 12/22/16 00:35 Hep Bs Antigen Reactive (Negative) 12/24/16 15:10 Hepatitis C Antibody Non-reactive (NonReactive) 12/24/16 15:10 Miscellaneous Test Flexitest 1 H 12/28/16 07:18 Blood Type O POSITIVE 12/26/16 19:47 Antibody Screen Negative 12/26/16 19:47 Crossmatch See Detail 12/26/16 19:47
[2016-12-31] MEDS: LOPRESSOR IV SCH ×4 (05:15→18:41)
[2016-12-31] MEDS: FLAGYL 500 MG/100 ML 500 MG/100 ML BAG IV SCH ×3 (05:15→22:36)
[2016-12-31 06:48] LABS: Basophils % (Auto) 0.3 % (0.0-1.8); Eosinophils % (Auto) 0.3 % (0.0-4.3); Hematocrit 23.5 % (35.5-45.6); Hemoglobin 7.5 gm/dl (11.8-15.2); Mean Corpuscular HGB Conc 32 % (32-34); Mean Corpuscular Hemoglobin 27 pg (28-32); Mean Corpuscular Volume 84 fl (84-94); Platelet Count 107 K/mm3 (140-440); Red Blood Count 2.81 M/mm3 (3.65-5.03); Red Cell Distribution Width 17.1 % (13.2-15.2); White Blood Count 6.7 K/mm3 (4.5-11.0)
[2016-12-31 07:08] LABS: Anion Gap 13 mmol/L; BUN/Creatinine Ratio 29; Blood Urea Nitrogen 41 mg/dL (9-20); Calcium 7.9 mg/dL (8.4-10.2); Carbon Dioxide 23 mmol/L (22-30); Chloride 110.3 mmol/L (98-107); Glucose 131 mg/dL (75-100); Potassium 4.5 mmol/L (3.6-5.0); Sodium 142 mmol/L (137-145)
[2016-12-31] MEDS: DUONEB *Not for PRN Use IH SCH ×3 (07:42→19:52)
--- NOTE | 2016-12-31 09:09 | Progress Note ---
Assessment and Plan 66 yo M s/p exploratory laparotomy, PATTI, POD#5 1. ileus 2. MINH, dehydration 3. ?liver mass 4. adenocarcinoma of colon, s/p lap right hemicolectomy - CEA preop 33.9 5. elevated PSA - hx prostate ca 6. malnutrition 7. HepB 8. urinary retention 9. UTI on admission UA 10. sepsis 2/2 UTI Plan: 1. continue NPO, ok to have mouth swabs and ice chips 2. IVF 3. abx - on levaquin and flagyl, ID following, blood cx pending. urine cx negative (but was collected after antibiotics initiated) 4. daily BMP and CBC 5. NGT to LCWS - will dc once patient has a BM. May clamp to ambulate or to get up to chair 6. strict I/Os 7. continue TPN, PICC placed 8. OOB TID/IS, PT consult. 9. pain control PRN 10. DVT ppx - lovenox 11. continue IV metoprolol 12. dc echevarria per primary team 13. recommend uro c/s for urinary retention/echevarria 14. oncology and rad onc c/s appreciated, rpt CEA pending Subjective Date of service: 12/31/16 Narrative: Pt seen and examined. c/o soreness in abdomen. + flatus. No BM per nursing. Pt agitated overnight and may have dislodged NGT per nursing. NO f/c, cp, sob, n/v Objective Vital Signs - 12hr 12/30/16 12/30/16 12/30/16 22:00 22:33 22:45 Temperature Pulse Rate Pulse Rate [ Apical] Pulse Rate [ 97 H 93 H Bilateral Throughout] Respiratory Rate Respiratory 13 15 Rate [Bilateral Throughout] Respiratory Rate [Right Knee] Blood Pressure Blood Pressure [Right] O2 Sat by Pulse 98 Oximetry 12/31/16 12/31/16 12/31/16 00:02 02:40 03:49 Temperature 98.3 F Pulse Rate 108 H Pulse Rate [ 113 H Apical] Pulse Rate [ Bilateral Throughout] Respiratory 18 20 Rate Respiratory Rate [Bilateral Throughout] Respiratory 20 Rate [Right Knee] Blood Pressure 111/71 Blood Pressure [Right] O2 Sat by Pulse 98 98 Oximetry 12/31/16 12/31/16 12/31/16 04:22 05:16 06:50 Temperature 98.1 F Pulse Rate 104 H 103 H 103 H Pulse Rate [ Apical] Pulse Rate [ Bilateral Throughout] Respiratory 18 Rate Respiratory Rate [Bilateral Throughout] Respiratory Rate [Right Knee] Blood Pressure 113/60 113/60 Blood Pressure [Right] O2 Sat by Pulse 98 Oximetry 12/31/16 12/31/16 07:47 08:50 Temperature 97.6 F Pulse Rate 93 H 96 H Pulse Rate [ Apical] Pulse Rate [ Bilateral Throughout] Respiratory 18 Rate Respiratory Rate [Bilateral Throughout] Respiratory Rate [Right Knee] Blood Pressure Blood Pressure 125/78 [Right] O2 Sat by Pulse 99 98 Oximetry - General physical appearance Narrative Exam: Gen: AAOx3. NAD ENT: NGT with clear dark yellow liquid in canister. NGT advanced by approximately 7 cm and taped into place. CV: S1, S2+ Resp: No audible wheezes Abd: soft, NT, mildy distended. Incisions c/d/i. abdominal binder in place Ext: No c/c/e : echevarria with neptali urine in bag I/Os: Uo: 1900cc/24 hours NGT: output not recorded, per nursing approx 1100cc over 24 hours - Labs 12/31/16 05:45 12/31/16 05:45 Diabetes panel 12/31/16 Range/Units 05:45 Sodium 142 (137-145) mmol/L Potassium 4.5 (3.6-5.0) mmol/L Chloride 110.3 H (98-107) mmol/L Carbon Dioxide 23 (22-30) mmol/L BUN 41 H (9-20) mg/dL Creatinine 1.4 (0.8-1.5) mg/dL Glucose 131 H (75-100) mg/dL Calcium 7.9 L (8.4-10.2) mg/dL Calcium panel 12/31/16 Range/Units 05:45 Calcium 7.9 L (8.4-10.2) mg/dL Phosphorus 2.30 L (2.5-4.5) mg/dL Pituitary panel 12/31/16 Range/Units 05:45 Sodium 142 (137-145) mmol/L Potassium 4.5 (3.6-5.0) mmol/L Chloride 110.3 H (98-107) mmol/L Carbon Dioxide 23 (22-30) mmol/L BUN 41 H (9-20) mg/dL Creatinine 1.4 (0.8-1.5) mg/dL Glucose 131 H (75-100) mg/dL Calcium 7.9 L (8.4-10.2) mg/dL Adrenal panel 12/31/16 Range/Units 05:45 Sodium 142 (137-145) mmol/L Potassium 4.5 (3.6-5.0) mmol/L Chloride 110.3 H (98-107) mmol/L Carbon Dioxide 23 (22-30) mmol/L BUN 41 H (9-20) mg/dL Creatinine 1.4 (0.8-1.5) mg/dL Glucose 131 H (75-100) mg/dL Calcium 7.9 L (8.4-10.2) mg/dL
[2016-12-31] MEDS: LOVENOX SUB-Q SCH (10:29)
[2016-12-31] MEDS: DIFLUCAN 200 MG/100 ML BAG IV SCH (10:29)
[2016-12-31] MEDS: PROTONIX IV SCH (10:30)
--- NOTE | 2016-12-31 10:36 | Progress Note ---
Assessment and Plan Assessment: 1) SIRS: improving. Etiology most likely post-op reaction +/- SBO +/- UTI. CRP= 20-->18. Procal=17 (very high) 2) SBO: -S/p exploratory laparoscopy and lysis of adhesions on 12/27/2016. -Repeat CT showed worsening thickening of small bowel wall with new mesenteric vein air bubbles, cirrhotic liver. 3) Adenocarcinoma of the colon: -S/p laparoscopic, hand-assisted right hemicolectomy on 12/13/2016. 4) Liver cirrohsis: ? ETOH. initial ammonia 114. HBV S ag negative 5) UTI / recent urinary retention 6) History of prostate cancer 7) Alcohol abuse 8) Renal failure - improving 9) Thrombocytopenia ? from liver cirrhosis/sepsis Plan: -continue levaquin and flagyl day (extended in view of high procal) -continue fluconazole -monitor platelets I am rounding on Monday, call me if questions Thank you Dr Pryor for your consultation, will follow up with you. Aria Pop MD Infectious Diseases Specialist [facility] M [phone] O [phone] Subjective Date of service: 12/31/16 Principal diagnosis: SIRS Interval history: Feels better. No fever. No abdominal pain. Current Antimicrobials: Levaquin 12/26 Metronidazole 12/26 Fluconazole 12/28 Previous Antimicrobials: Microbiology: Blood cultures: 12/27 ngtd Urine cultures: 12/27 neg Objective - Exam Narrative Exam: General appearance: Alert in NAD, conversant Eyes: anicteric sclerae, moist conjunctivae; no lid-lag; PERRLA HENT: Atraumatic; oropharynx clear with moist mucous membranes and no mucosal ulcerations/no oral thrush; normal hard and soft palate. Normal external ears. + NGT with clear green secretion Neck: Trachea midline; supple, no thyromegaly or lymphadenopathy Lungs: CTA, with normal respiratory effort and no intercostal retractions CV: tachy Abdomen: Soft, surg wound with dressings Extremities: No peripheral edema or extremity lymphadenopathy Skin: Normal temperature, turgor and texture; no rash, ulcers or subcutaneous nodules Psych: Appropriate affect, alert and oriented to person, place and time. Neuro: alert and oriented x 3. Moving all extermities Lines: No CVL / PICC + echevarria - Constitutional Vitals: Vital Signs Temp Pulse Resp BP Pulse Ox 97.6 F 96 H 18 125/78 98 12/31/16 08:50 12/31/16 08:50 12/31/16 08:50 12/31/16 08:50 12/31/16 08:50 Temperature -Last 24 Hours Temperature 97.6 F Temperature 98.1 F Temperature 98.3 F Temperature 98.3 F Temperature 98.2 F Temperature 98.6 F - Labs CBC & Chem 7: 12/31/16 05:45 12/31/16 05:45 Labs: Abnormal lab results 12/28/16 12/30/16 12/30/16 Range/Units 07:18 07:43 12:00 RBC (3.65-5.03) M/mm3 Hgb (11.8-15.2) gm/dl Hct (35.5-45.6) % MCH (28-32) pg RDW (13.2-15.2) % Plt Count (140-440) K/mm3 Lymph % (Auto) (13.4-35.0) % Lymph # (1.2-5.4) K/mm3 Seg Neutrophils % (40.0-70.0) % Chloride (98-107) mmol/L BUN (9-20) mg/dL Glucose (75-100) mg/dL POC Glucose 142 H 137 H (70-105) Calcium (8.4-10.2) mg/dL Phosphorus (2.5-4.5) mg/dL Miscellaneous Test Flexitest 1 H 12/30/16 12/30/16 12/31/16 Range/Units 16:18 20:53 05:45 RBC 2.81 L (3.65-5.03) M/mm3 Hgb 7.5 L (11.8-15.2) gm/dl Hct 23.5 L (35.5-45.6) % MCH 27 L (28-32) pg RDW 17.1 H (13.2-15.2) % Plt Count 107 L (140-440) K/mm3 Lymph % (Auto) 13.2 L (13.4-35.0) % Lymph # 0.9 L (1.2-5.4) K/mm3 Seg Neutrophils % 79.9 H (40.0-70.0) % Chloride (98-107) mmol/L BUN (9-20) mg/dL Glucose (75-100) mg/dL POC Glucose 146 H 144 H (70-105) Calcium (8.4-10.2) mg/dL Phosphorus (2.5-4.5) mg/dL Miscellaneous Test 12/31/16 12/31/16 Range/Units 05:45 07:53 RBC (3.65-5.03) M/mm3 Hgb (11.8-15.2) gm/dl Hct (35.5-45.6) % MCH (28-32) pg RDW (13.2-15.2) % Plt Count (140-440) K/mm3 Lymph % (Auto) (13.4-35.0) % Lymph # (1.2-5.4) K/mm3 Seg Neutrophils % (40.0-70.0) % Chloride 110.3 H (98-107) mmol/L BUN 41 H (9-20) mg/dL Glucose 131 H (75-100) mg/dL POC Glucose 134 H (70-105) Calcium 7.9 L (8.4-10.2) mg/dL Phosphorus 2.30 L (2.5-4.5) mg/dL Miscellaneous Test
--- NOTE | 2016-12-31 10:59 | Progress Note ---
Assessment and Plan - Patient Problems (1) MINH (acute kidney injury) Current Visit: Yes Status: Acute Plan to address problem: Surgery and ID notes reviewed. Renal function slowly improving.Scr-1.4 today. On TPN. S/P Exp lap with lysis of adhesions on 12/27/16. Adenocarcinoma of colon-S/P right hemicolectomy on 12/13/16. Co2 better-23. Continue present hydration (2) Liver cirrhosis Current Visit: Yes Status: Acute Qualifiers: Hepatic cirrhosis type: H Ascites presence: A (3) Liver mass Current Visit: Yes Status: Acute (4) S/P right hemicolectomy Current Visit: Yes Status: Acute (5) Metabolic acidosis Current Visit: No Status: Acute (6) Encephalopathy Current Visit: Yes Status: Acute Subjective Date of service: 12/31/16 Principal diagnosis: SIRS Interval history: pt is sleeping, but arousable, confused Objective - Vital Signs Vital signs: Vital Signs - 12hr 12/31/16 12/31/16 12/31/16 00:02 02:40 03:49 Temperature 98.3 F Pulse Rate 108 H Pulse Rate [ 113 H Apical] Respiratory 18 20 Rate Respiratory 20 Rate [Right Knee] Blood Pressure 111/71 Blood Pressure [Right] O2 Sat by Pulse 98 98 Oximetry 12/31/16 12/31/16 12/31/16 04:22 05:16 06:50 Temperature 98.1 F Pulse Rate 104 H 103 H 103 H Pulse Rate [ Apical] Respiratory 18 Rate Respiratory Rate [Right Knee] Blood Pressure 113/60 113/60 Blood Pressure [Right] O2 Sat by Pulse 98 Oximetry 12/31/16 12/31/16 07:47 08:50 Temperature 97.6 F Pulse Rate 93 H 96 H Pulse Rate [ Apical] Respiratory 18 Rate Respiratory Rate [Right Knee] Blood Pressure Blood Pressure 125/78 [Right] O2 Sat by Pulse 99 98 Oximetry - General Appearance General appearance: well-developed, chronically ill EENT: mucous membranes dry Neck: no JVD Respiratory: Present: Decreased Breath Sounds Cardiology: regular Gastrointestinal: hypoactive bowel sounds, distended Musculoskeletal: other (no edema) - Lab 12/31/16 05:45 12/31/16 05:45 Most recent lab results Calcium 7.9 mg/dL (8.4-10.2) L 12/31/16 05:45 Phosphorus 2.30 mg/dL (2.5-4.5) L 12/31/16 05:45 Magnesium 1.90 mg/dL (1.7-2.3) 12/31/16 05:45 Urine Creatinine 117.5 mg/dL (0.1-20.0) H 12/23/16 Unknown Urine Sodium 41 mmol/L 12/23/16 Unknown
[2016-12-31] MEDS: DILAUDID IV PRN (12:41)
--- NOTE | 2016-12-31 17:06 | Hem/Onc Progress Note ---
Subjective Date of service: 12/31/16 Interval history: Patient denies complaint but his abdomen remains distended - check KUB - hgb in 7.5 Consider transfusion Objective - Constitutional Vitals: Last Vital Signs Temp 97.9 F 12/31/16 17:02 Pulse 102 H 12/31/16 17:02 Resp 18 12/31/16 17:02 BP 122/77 12/31/16 17:02 Pulse Ox 99 12/31/16 17:02 Pain Intensity (0-10): denies any pain General appearance: no acute distress Performance status: 4-completely disabled - EENT Eyes: PERRL, EOM intact - Neck Neck: supple, normal ROM - Respiratory Respiratory effort: Positive: normal Respiratory: bilateral: CTA - Cardiovascular Rhythm: regular Extremities: No edema - Gastrointestinal General gastrointestinal: Present: non-tender, distended, hypoactive bowel sounds - Labs Lab Results: Laboratory Results - last 24 hr 12/28/16 12/30/16 12/30/16 07:18 07:43 12:00 WBC RBC Hgb Hct MCV MCH MCHC RDW Plt Count Lymph % (Auto) [place] % (Auto) Eos % (Auto) Baso % (Auto) Lymph # [place] # Eos # Baso # Seg Neutrophils % Seg Neutrophils # Sodium Potassium Chloride Carbon Dioxide Anion Gap BUN Creatinine Estimated GFR BUN/Creatinine Ratio Glucose POC Glucose 142 H 137 H Calcium Phosphorus Magnesium Miscellaneous Test Flexitest 1 H 12/30/16 12/30/16 12/31/16 16:18 20:53 05:45 WBC 6.7 RBC 2.81 L Hgb 7.5 L Hct 23.5 L MCV 84 MCH 27 L MCHC 32 RDW 17.1 H Plt Count 107 L Lymph % (Auto) 13.2 L [place] % (Auto) 6.3 Eos % (Auto) 0.3 Baso % (Auto) 0.3 Lymph # 0.9 L [place] # 0.4 Eos # 0.0 Baso # 0.0 Seg Neutrophils % 79.9 H Seg Neutrophils # 5.3 Sodium Potassium Chloride Carbon Dioxide Anion Gap BUN Creatinine Estimated GFR BUN/Creatinine Ratio Glucose POC Glucose 146 H 144 H Calcium Phosphorus Magnesium Miscellaneous Test 12/31/16 12/31/16 12/31/16 05:45 07:53 11:56 WBC RBC Hgb Hct MCV MCH MCHC RDW Plt Count Lymph % (Auto) [place] % (Auto) Eos % (Auto) Baso % (Auto) Lymph # [place] # Eos # Baso # Seg Neutrophils % Seg Neutrophils # Sodium 142 Potassium 4.5 Chloride 110.3 H Carbon Dioxide 23 Anion Gap 13 BUN 41 H Creatinine 1.4 Estimated GFR > 60 BUN/Creatinine Ratio 29 Glucose 131 H POC Glucose 134 H 136 H Calcium 7.9 L Phosphorus 2.30 L Magnesium 1.90 Miscellaneous Test
--- NOTE | 2016-12-31 18:39 | Progress Note ---
Assessment and Plan Assessment and plan: -- Adenocarcinoma of colon biopsy positive for adenocarcinoma, s/p right hemicolectomy Preop CEA elevated, 33.9, continue postoperative care Oncology following -- Ileus vs SBO s/p recent laparoscopic right hemicolectomy,s/p exploratory lap 12/27, On PPN, plan to start TPN --Sepsis : On Flagyl and Levaquin and Diflucan, ID following cultures negative to date -- Liver mass/liver cirrhosis History of chronic hepatitis B and remote alcohol abuse -- Acute renal failure vasomotor nephropathy; improving --History of Prostate cancer, Diagnosed 3 years ago at [facility] and denied treatment --Urinary retention, Possible secondary to prostate cancer/ileus S/p [place] insertion outpatient urology evaluation when medically stable --Severe protein calorie Malnutrition: Supportive care, TPN -- Anemia; s/p 1 unit PRBC Secondary to underlying malignancy ,Currently Hgb 7.9 --Paroxysmal A. fib On beta vin for rate control, not a candidate for chronic anticoagulation at this point -- DVT prophylaxis: SCD --Full CODE STATUS Plan of care discussed with the patient and the family members at the bedside History Interval history: Patient seen and evaluated, medical records reviewed Patient had flatus, did not have bowel movement Plaints of mild abdominal discomfort Vital signs reviewed Hospitalist Physical - Constitutional Vitals: Temp Pulse Resp BP Pulse Ox 97.9 F 102 H 18 122/77 99 12/31/16 17:02 12/31/16 17:02 12/31/16 17:02 12/31/16 17:02 12/31/16 17:02 General appearance: Present: mild distress, obese - EENT Eyes: Present: PERRL, EOM intact - Neck Neck: Present: supple, normal ROM - Respiratory Respiratory effort: normal Respiratory: bilateral: diminished, negative: rales, rhonchi, wheezing - Cardiovascular Rhythm: regular Heart Sounds: Present: S1 & S2 - Extremities Extremities: no ischemia, No edema - Abdominal General gastrointestinal: soft, non-tender (mild distention), distended, normal bowel sounds, other (surgical dressing intact) - Integumentary Integumentary: Present: clear, warm - Psychiatric Psychiatric: appropriate mood/affect, cooperative - Neurologic Neurologic: CNII-XII intact, moves all extremities Results - Labs CBC & Chem 7: 12/31/16 05:45 12/31/16 05:45 Labs: Laboratory Last Values WBC 6.7 K/mm3 (4.5-11.0) 12/31/16 05:45 RBC 2.81 M/mm3 (3.65-5.03) L 12/31/16 05:45 Hgb 7.5 gm/dl (11.8-15.2) L 12/31/16 05:45 Hct 23.5 % (35.5-45.6) L 12/31/16 05:45 MCV 84 fl (84-94) 12/31/16 05:45 MCH 27 pg (28-32) L 12/31/16 05:45 MCHC 32 % (32-34) 12/31/16 05:45 RDW 17.1 % (13.2-15.2) H 12/31/16 05:45 Plt Count 107 K/mm3 (140-440) L 12/31/16 05:45 Lymph % (Auto) 13.2 % (13.4-35.0) L 12/31/16 05:45 [place] % (Auto) 6.3 % (0.0-7.3) 12/31/16 05:45 Eos % (Auto) 0.3 % (0.0-4.3) 12/31/16 05:45 Baso % (Auto) 0.3 % (0.0-1.8) 12/31/16 05:45 Lymph # 0.9 K/mm3 (1.2-5.4) L 12/31/16 05:45 Bertie # 0.4 K/mm3 (0.0-0.8) 12/31/16 05:45 Eos # 0.0 K/mm3 (0.0-0.4) 12/31/16 05:45 Baso # 0.0 K/mm3 (0.0-0.1) 12/31/16 05:45 Add Manual Diff Complete 12/29/16 06:19 Total Counted 100 12/29/16 06:19 Seg Neutrophils % 79.9 % (40.0-70.0) H 12/31/16 05:45 Seg Neuts % (Manual) 90.0 % (40.0-70.0) H 12/29/16 06:19 Band Neutrophils % 4.0 % 12/29/16 06:19 Lymphocytes % (Manual) 5.0 % (13.4-35.0) L 12/29/16 06:19 Reactive Lymphs % (Man) 0 % 12/29/16 06:19 Monocytes % (Manual) 0 % (0.0-7.3) 12/29/16 06:19 Eosinophils % (Manual) 0 % (0.0-4.3) 12/29/16 06:19 Basophils % (Manual) 0 % (0.0-1.8) 12/29/16 06:19 Metamyelocytes % 1.0 % 12/29/16 06:19 Myelocytes % 0 % 12/29/16 06:19 Promyelocytes % 0 % 12/29/16 06:19 Blast Cells % 0 % 12/29/16 06:19 Nucleated RBC % Not Reportable 12/29/16 06:19 Seg Neutrophils # 5.3 K/mm3 (1.8-7.7) 12/31/16 05:45 Seg Neutrophils # Man 14.3 K/mm3 (1.8-7.7) H 12/29/16 06:19 Band Neutrophils # 0.6 K/mm3 12/29/16 06:19 Lymphocytes # (Manual) 0.8 K/mm3 (1.2-5.4) L 12/29/16 06:19 Abs React Lymphs (Man) 0.0 K/mm3 12/29/16 06:19 Monocytes # (Manual) 0.0 K/mm3 (0.0-0.8) 12/29/16 06:19 Eosinophils # (Manual) 0.0 K/mm3 (0.0-0.4) 12/29/16 06:19 Basophils # (Manual) 0.0 K/mm3 (0.0-0.1) 12/29/16 06:19 Metamyelocytes # 0.2 K/mm3 12/29/16 06:19 Myelocytes # 0.0 K/mm3 12/29/16 06:19 Promyelocytes # 0.0 K/mm3 12/29/16 06:19 Blast Cells # 0.0 K/mm3 12/29/16 06:19 WBC Morphology Not Reportable 12/29/16 06:19 Hypersegmented Neuts Not Reportable 12/29/16 06:19 Hyposegmented Neuts Not Reportable 12/29/16 06:19 Hypogranular Neuts Not Reportable 12/29/16 06:19 Smudge Cells Not Reportable 12/29/16 06:19 Toxic Granulation Not Reportable 12/29/16 06:19 Toxic Vacuolation Not Reportable 12/29/16 06:19 Dohle Bodies Not Reportable 12/29/16 06:19 Pelger-Huet Anomaly Not Reportable 12/29/16 06:19 Selin Rods Not Reportable 12/29/16 06:19 Platelet Estimate Appears normal 12/29/16 06:19 Clumped Platelets Not Reportable 12/29/16 06:19 Plt Clumps, EDTA Not Reportable 12/29/16 06:19 Large Platelets Not Reportable 12/29/16 06:19 Giant Platelets Not Reportable 12/29/16 06:19 Platelet Satelliting Not Reportable 12/29/16 06:19 Plt Morphology Comment Not Reportable 12/29/16 06:19 RBC Morphology Not Reportable 12/29/16 06:19 Dimorphic RBCs Not Reportable 12/29/16 06:19 Polychromasia Not Reportable 12/29/16 06:19 Hypochromasia Not Reportable 12/29/16 06:19 Poikilocytosis 1+ 12/29/16 06:19 Anisocytosis 1+ 12/29/16 06:19 Microcytosis Not Reportable 12/29/16 06:19 Macrocytosis Not Reportable 12/29/16 06:19 Spherocytes Not Reportable 12/29/16 06:19 Pappenheimer Bodies Not Reportable 12/29/16 06:19 Sickle Cells Not Reportable 12/29/16 06:19 Target Cells Not Reportable 12/29/16 06:19 Tear Drop Cells Few 12/29/16 06:19 Ovalocytes Few 12/29/16 06:19 Helmet Cells Not Reportable 12/29/16 06:19 [place] Bodies Not Reportable 12/29/16 06:19 [place] Rings Not Reportable 12/29/16 06:19 Aranza Cells Not Reportable 12/29/16 06:19 Bite Cells Not Reportable 12/29/16 06:19 Crenated Cell Not Reportable 12/29/16 06:19 Elliptocytes Not Reportable 12/29/16 06:19 Acanthocytes (Spur) Not Reportable 12/29/16 06:19 Rouleaux Not Reportable 12/29/16 06:19 Hemoglobin C Crystals Not Reportable 12/29/16 06:19 Schistocytes Not Reportable 12/29/16 06:19 Malaria parasites Not Reportable 12/29/16 06:19 Percent Retic 2.87 % (0.78-2.58) H 12/24/16 15:10 Russ Bodies Not Reportable 12/29/16 06:19 Hem Pathologist Commnt No 12/29/16 06:19 PT 19.6 Sec. (12.2-14.9) H 12/26/16 19:47 INR 1.58 (0.87-1.13) H 12/26/16 19:47 POC ABG pH 7.380 (7.35-7.45) 12/26/16 14:04 POC ABG pCO2 25.7 (35-45) L 12/26/16 14:04 POC ABG pO2 89 (80-105) 12/26/16 14:04 POC ABG HCO3 15.2 12/26/16 14:04 POC ABG Total CO2 16 12/26/16 14:04 POC ABG O2 Sat 97 12/26/16 14:04 POC ABG Base Excess -10 12/26/16 14:04 FiO2 21 % 12/26/16 14:04 Sodium 142 mmol/L (137-145) 12/31/16 05:45 Potassium 4.5 mmol/L (3.6-5.0) 12/31/16 05:45 Chloride 110.3 mmol/L (98-107) H 12/31/16 05:45 Carbon Dioxide 23 mmol/L (22-30) 12/31/16 05:45 Anion Gap 13 mmol/L 12/31/16 05:45 BUN 41 mg/dL (9-20) H 12/31/16 05:45 Creatinine 1.4 mg/dL (0.8-1.5) 12/31/16 05:45 Estimated GFR > 60 ml/min 12/31/16 05:45 BUN/Creatinine Ratio 29 % 12/31/16 05:45 Glucose 131 mg/dL (75-100) H 12/31/16 05:45 POC Glucose 136 (70-105) H 12/31/16 11:56 Calcium 7.9 mg/dL (8.4-10.2) L 12/31/16 05:45 Phosphorus 2.30 mg/dL (2.5-4.5) L 12/31/16 05:45 Magnesium 1.90 mg/dL (1.7-2.3) 12/31/16 05:45 Iron 23 ug/dL (49-181) L 12/24/16 15:10 TIBC 267 mcg/dL (250-450) 12/24/16 15:10 % Saturation 8.61 % 12/24/16 15:10 Transferrin 233 mg/dl (180-329) 12/24/16 15:10 Ferritin 67.5 ng/mL (13.0-400.0) 12/24/16 15:10 Total Bilirubin 1.00 mg/dL (0.1-1.2) 12/23/16 05:22 AST 22 units/L (5-40) 12/23/16 05:22 ALT 13 units/L (7-56) 12/23/16 05:22 Alkaline Phosphatase 69 units/L (35-129) 12/23/16 05:22 Ammonia 114.0 umol/L (25-60) H 12/22/16 00:35 C-Reactive Protein 18.80 mg/dL (0.00-1.30) H 12/29/16 06:15 Serum Total Protein 7.8 g/dL (6.1-8.1) 12/24/16 15:10 Total Protein 7.5 g/dL (6.3-8.2) 12/23/16 05:22 Albumin 2.6 g/dL (3.8-4.8) L 12/24/16 15:10 Albumin/Globulin Ratio 0.5 % 12/23/16 05:22 Prealbumin 0.030 g/L (0.200-0.400) L 12/28/16 06:04 Xicgz-3-Fxtgvmvmg 0.5 g/dL (0.2-0.3) H 12/24/16 15:10 Sckzz-5-Vlggvfung 0.8 g/dL (0.5-0.9) 12/24/16 15:10 Beta Globulins 0.8 g/dL (0.2-0.5) H 12/24/16 15:10 Gamma Globulins 2.5 g/dL (0.8-1.7) H 12/24/16 15:10 Abnorm Protein Band 1 0.3 g/dL H 12/24/16 15:10 Abnorm Protein Band 2 0.3 g/dL H 12/24/16 15:10 PEP Interpretation see below H 12/24/16 15:10 Triglycerides 103 mg/dL (2-149) 12/27/16 02:34 Lipase 55 units/L (13-60) 12/22/16 00:01 Carcinoembryonic Ag See scanned report 12/24/16 15:10 Prostate Specific Ag 21.75 ng/mL (0.00-4.00) H 12/24/16 15:10 Vitamin B12 1191 pg/mL (211-911) H 12/24/16 15:10 Folate 16.86 ng/mL (7.3-26.0) 12/24/16 15:10 Urine Color Yellow (Yellow) 12/23/16 Unknown Urine Turbidity Cloudy (Clear) 12/23/16 Unknown Urine pH 5.0 (5.0-7.0) 12/23/16 Unknown Ur Specific Eldred 1.014 (1.003-1.030) 12/23/16 Unknown Urine Protein <15 mg/dl mg/dL (Negative) 12/23/16 Unknown Urine Glucose (UA) Neg mg/dL (Negative) 12/23/16 Unknown Urine Ketones Neg mg/dL (Negative) 12/23/16 Unknown Urine Blood Sm (Negative) 12/23/16 Unknown Urine Nitrite Pos (Negative) 12/23/16 Unknown Urine Bilirubin Neg (Negative) 12/23/16 Unknown Urine Urobilinogen < 2.0 mg/dL (<2.0) 12/23/16 Unknown Ur Leukocyte Esterase Lg (Negative) 12/23/16 Unknown Urine WBC (Auto) 84.0 /HPF (0.0-6.0) H 12/23/16 Unknown Urine RBC (Auto) 3.0 /HPF (0.0-6.0) 12/23/16 Unknown U Epithel Cells (Auto) < 1.0 /HPF (0-13.0) 12/23/16 Unknown Urine Bacteria (Auto) 1+ /HPF (Negative) 12/23/16 Unknown Urine Mucus Few /HPF 12/22/16 Unknown Urine Creatinine 117.5 mg/dL (0.1-20.0) H 12/23/16 Unknown Urine Sodium 41 mmol/L 12/23/16 Unknown Plasma/Serum Alcohol < 0.01 gm% (0-0.07) 12/22/16 00:35 Hep Bs Antigen Reactive (Negative) 12/24/16 15:10 Hepatitis C Antibody Non-reactive (NonReactive) 12/24/16 15:10 Miscellaneous Test Flexitest 1 H 12/28/16 07:18 Blood Type O POSITIVE 12/26/16 19:47 Antibody Screen Negative 12/26/16 19:47 Crossmatch See Detail 12/26/16 19:47
--- NOTE | 2016-12-31 19:55 | XRay Report ---
FINAL REPORT PROCEDURE: XR ABDOMEN 1V AP TECHNIQUE: AP view of the abdomen is obtained HISTORY: ileus COMPARISON: CT exam dated December 26, 2016 FINDINGS: Mild retained GI contrast is seen in the nondistended:. Little small bowel air is seen within nondilated loops. Nasogastric tube has its tip and side hole in the body of the stomach. Skin pop are seen overlying the midline. Prominent arthritic changes are seen in the right hip. IMPRESSION: No evidence of ileus or constipation is seen.
[2016-12-31] MEDS ORDERED: TPN ADULT 1,800 ML IV SCH (20:00)
[2016-12-31] MEDS: LEVAQUIN 500MG/100ML 500 MG/100 ML BAG IV SCH (22:36)
[2017-01-01] MEDS: ZOFRAN IV PRN (02:08)
[2017-01-01] MEDS: ATIVAN IV PRN (02:08)
--- NOTE | 2017-01-01 04:37 | XRay Report ---
FINAL REPORT EXAM: XR ABDOMEN 1V AP HISTORY: confirm NG TUBE PLACEMENT TECHNIQUE: An AP view of the abdomen was obtained. FINDINGS: The distal end of the NG tube is coiled in the distal esophagus. It needs to be pulled back and readvanced toward the stomach. The bowel gas pattern otherwise is unremarkable. There is residual contrast noted in the colon. The skeletal structures are unremarkable. IMPRESSION: The distal end of the NG tube is coiled in the distal esophagus. These be pulled back and readvanced with repeat imaging.
[2017-01-01] MEDS: FLAGYL 500 MG/100 ML 500 MG/100 ML BAG IV SCH ×3 (05:33→21:13)
[2017-01-01] MEDS: LOPRESSOR IV SCH ×4 (05:43→18:49)
--- NOTE | 2017-01-01 05:54 | XRay Report ---
FINAL REPORT EXAM: XR ABDOMEN 1V AP HISTORY: To confirm N G TUBE placement TECHNIQUE: A repeat AP view of the abdomen was obtained for evaluation of NG tube repositioning. Comparison is made to the earlier study of the same day. FINDINGS: The tip of the NG tube is in the antrum of the stomach. The bowel gas pattern is normal. There is residual oral contrast noted in the colon. The bones and soft tissues are unchanged. IMPRESSION: Tip of the NG tube in satisfactory position in the antrum of the stomach.
[2017-01-01] MEDS: DUONEB *Not for PRN Use IH SCH ×3 (07:43→19:46)
[2017-01-01 08:43] LABS: Basophils % (Auto) 0.2 % (0.0-1.8); Eosinophils % (Auto) 0.2 % (0.0-4.3); Hematocrit 24.5 % (35.5-45.6); Mean Corpuscular HGB Conc 33 % (32-34); Mean Corpuscular Hemoglobin 28 pg (28-32); Mean Corpuscular Volume 84 fl (84-94); Platelet Count 114 K/mm3 (140-440); Red Cell Distribution Width 17.4 % (13.2-15.2)
[2017-01-01 09:06] LABS: Alanine Aminotransferase 21 units/L (7-56); Albumin 1.7 g/dL (3.9-5); Albumin/Globulin Ratio 0.4 %; Alkaline Phosphatase 102 units/L (35-129); Anion Gap 16 mmol/L; BUN/Creatinine Ratio 28; Blood Urea Nitrogen 39 mg/dL (9-20); Calcium 8.1 mg/dL (8.4-10.2); Carbon Dioxide 22 mmol/L (22-30); Chloride 108.1 mmol/L (98-107); Glucose 121 mg/dL (75-100); Potassium 4.1 mmol/L (3.6-5.0); Sodium 142 mmol/L (137-145); Total Protein 6.2 g/dL (6.3-8.2)
[2017-01-01] MEDS ORDERED: WATER FOR INJ (PF) 10 ML ONE (09:16)
[2017-01-01] MEDS: PROTONIX IV SCH (09:18)
[2017-01-01] MEDS: LOVENOX SUB-Q SCH (09:18)
--- NOTE | 2017-01-01 10:10 | Hem/Onc Progress Note ---
Subjective Date of service: 01/01/17 Interval history: Family reports worsening altered mental status, they are concerned because they said he had 2 seizures following waking up from anesthesia. Patient was much more alert yesterday. Currently he is not oriented to place or time. - family reports he has pulled to NG tube out several times. - KUB normal - cbc improved = Plan - stopped Dilaudid. If he fails to improve consider MRI brain Objective - Constitutional Vitals: Last Vital Signs Temp 98.0 F 01/01/17 08:32 Pulse 104 H 01/01/17 08:32 Resp 18 01/01/17 08:32 BP 134/73 01/01/17 08:32 Pulse Ox 99 01/01/17 08:32 Pain Intensity (0-10): denies any pain General appearance: other (disoreinted to time and place ) Performance status: 4-completely disabled - EENT Eyes: PERRL, EOM intact - Neck Neck: supple, normal ROM - Respiratory Respiratory effort: Positive: normal Respiratory: bilateral: CTA - Cardiovascular Rhythm: regular - Gastrointestinal General gastrointestinal: Present: distended, hypoactive bowel sounds - Integumentary Integumentary: clear, warm - Labs Lab Results: Laboratory Results - last 24 hr 12/27/16 12/31/16 12/31/16 13:20 11:56 16:44 WBC RBC Hgb Hct MCV MCH MCHC RDW Plt Count Lymph % (Auto) [place] % (Auto) Eos % (Auto) Baso % (Auto) Lymph # [place] # Eos # Baso # Seg Neutrophils % Seg Neutrophils # Sodium Potassium Chloride Carbon Dioxide Anion Gap BUN Creatinine Estimated GFR BUN/Creatinine Ratio Glucose POC Glucose 136 H 149 H Calcium Phosphorus Magnesium Total Bilirubin AST ALT Alkaline Phosphatase Total Protein Albumin Albumin/Globulin Ratio Hep B Core Total Ab Reactive H 12/31/16 01/01/17 01/01/17 21:12 05:00 05:00 WBC 9.0 RBC 2.90 L Hgb 8.0 L Hct 24.5 L MCV 84 MCH 28 MCHC 33 RDW 17.4 H Plt Count 114 L Lymph % (Auto) 9.4 L [place] % (Auto) 7.8 H Eos % (Auto) 0.2 Baso % (Auto) 0.2 Lymph # 0.8 L [place] # 0.7 Eos # 0.0 Baso # 0.0 Seg Neutrophils % 82.4 H Seg Neutrophils # 7.4 Sodium 142 Potassium 4.1 Chloride 108.1 H Carbon Dioxide 22 Anion Gap 16 BUN 39 H Creatinine 1.4 Estimated GFR > 60 BUN/Creatinine Ratio 28 Glucose 121 H POC Glucose 143 H Calcium 8.1 L Phosphorus 2.60 Magnesium 1.90 Total Bilirubin 4.50 H AST 50 H ALT 21 Alkaline Phosphatase 102 Total Protein 6.2 L Albumin 1.7 L Albumin/Globulin Ratio 0.4 Hep B Core Total Ab 01/01/17 08:27 WBC RBC Hgb Hct MCV MCH MCHC RDW Plt Count Lymph % (Auto) [place] % (Auto) Eos % (Auto) Baso % (Auto) Lymph # [place] # Eos # Baso # Seg Neutrophils % Seg Neutrophils # Sodium Potassium Chloride Carbon Dioxide Anion Gap BUN Creatinine Estimated GFR BUN/Creatinine Ratio Glucose POC Glucose 178 H Calcium Phosphorus Magnesium Total Bilirubin AST ALT Alkaline Phosphatase Total Protein Albumin Albumin/Globulin Ratio Hep B Core Total Ab
--- NOTE | 2017-01-01 11:20 | Progress Note ---
Assessment and Plan 66 yo M s/p exploratory laparotomy, PATTI, POD#6 1. ileus - resolved 2. MINH, dehydration - resolving 3. ?liver mass 4. adenocarcinoma of colon, s/p lap right hemicolectomy - CEA preop 33.9 5. elevated PSA - hx prostate ca 6. malnutrition 7. HepB 8. urinary retention 9. UTI on admission UA 10. sepsis 2/2 UTI 11. delerium Plan: 1. d/c NGT 2. start clear liquids, continue tpn 3. abx - on levaquin and flagyl, ID following, cultures negative 4. Hb stable - CBC in am 5. ?elevated bilirubin may be secondary to TPN, will repeat CMP, bilirubins in am 6. strict I/Os 7. OOB TID/IS, PT consult. 8. pain control PRN 9. start flomax 10. DVT ppx - lovenox 11. continue IV metoprolol 12. oncology and rad onc c/s appreciated, rpt CEA pending 13. DC restraints - discussed with nursing Subjective Date of service: 01/01/17 Narrative: Pt seen and examined. c/o R arm pain from restraints. Pt very agitated overnight per nursing notes and pulled out echevarria catheter and NGT. The NGT was reinserted overnight. The patient had a soft bowel movement yesterday and is passing flatus. Abdominal pain is controlled. No f/c, cp, son, n/v Objective Vital Signs - 12hr 01/01/17 01/01/17 01/01/17 00:19 05:43 05:44 Temperature 97.8 F 97.6 F Pulse Rate 94 H 94 H 104 H Pulse Rate [ Bilateral Throughout] Respiratory 20 21 Rate Respiratory Rate [Bilateral Throughout] Respiratory Rate [Right Knee] Blood Pressure 137/73 137/73 104/63 Blood Pressure [Right] O2 Sat by Pulse 100 98 Oximetry 01/01/17 01/01/17 01/01/17 06:50 07:43 07:53 Temperature Pulse Rate 104 H Pulse Rate [ 96 H 98 H Bilateral Throughout] Respiratory Rate Respiratory 18 20 Rate [Bilateral Throughout] Respiratory 20 Rate [Right Knee] Blood Pressure Blood Pressure [Right] O2 Sat by Pulse 100 Oximetry 01/01/17 01/01/17 08:21 08:32 Temperature 98.0 F Pulse Rate 106 H 104 H Pulse Rate [ Bilateral Throughout] Respiratory 18 Rate Respiratory Rate [Bilateral Throughout] Respiratory Rate [Right Knee] Blood Pressure Blood Pressure 134/73 [Right] O2 Sat by Pulse 100 99 Oximetry - General physical appearance Narrative Exam: Gen: Awake and alert. confused at time. ENT: NGT in place with minimal clear fluid in canister CV: S1, S2+ resp: No audible wheezes Abd: soft, NT, ND. incision c/d/i, dressing in place Ext: R hand swelling at IV site. - Labs 01/01/17 05:00 01/01/17 05:00 Diabetes panel 01/01/17 Range/Units 05:00 Sodium 142 (137-145) mmol/L Potassium 4.1 (3.6-5.0) mmol/L Chloride 108.1 H (98-107) mmol/L Carbon Dioxide 22 (22-30) mmol/L BUN 39 H (9-20) mg/dL Creatinine 1.4 (0.8-1.5) mg/dL Glucose 121 H (75-100) mg/dL Calcium 8.1 L (8.4-10.2) mg/dL AST 50 H (5-40) units/L ALT 21 (7-56) units/L Alkaline Phosphatase 102 (35-129) units/L Total Protein 6.2 L (6.3-8.2) g/dL Albumin 1.7 L (3.9-5) g/dL Calcium panel 01/01/17 Range/Units 05:00 Calcium 8.1 L (8.4-10.2) mg/dL Phosphorus 2.60 (2.5-4.5) mg/dL Albumin 1.7 L (3.9-5) g/dL Pituitary panel 01/01/17 Range/Units 05:00 Sodium 142 (137-145) mmol/L Potassium 4.1 (3.6-5.0) mmol/L Chloride 108.1 H (98-107) mmol/L Carbon Dioxide 22 (22-30) mmol/L BUN 39 H (9-20) mg/dL Creatinine 1.4 (0.8-1.5) mg/dL Glucose 121 H (75-100) mg/dL Calcium 8.1 L (8.4-10.2) mg/dL Adrenal panel 01/01/17 Range/Units 05:00 Sodium 142 (137-145) mmol/L Potassium 4.1 (3.6-5.0) mmol/L Chloride 108.1 H (98-107) mmol/L Carbon Dioxide 22 (22-30) mmol/L BUN 39 H (9-20) mg/dL Creatinine 1.4 (0.8-1.5) mg/dL Glucose 121 H (75-100) mg/dL Calcium 8.1 L (8.4-10.2) mg/dL Total Bilirubin 4.50 H (0.1-1.2) mg/dL AST 50 H (5-40) units/L ALT 21 (7-56) units/L Alkaline Phosphatase 102 (35-129) units/L Total Protein 6.2 L (6.3-8.2) g/dL Albumin 1.7 L (3.9-5) g/dL
[2017-01-01] MEDS: DIFLUCAN 200 MG/100 ML BAG IV SCH (14:06)
--- NOTE | 2017-01-01 15:40 | Progress Note ---
Assessment and Plan Impression: * Acute kidney injury secondary to prerenal azotemia due to volume depletion * Ileus vs partial SBO * Nausea/vomiting secondary to #2 * Ascending colon mass s/p laparoscopic right hemicolectomy * Hx of transient atrial fibrillation * Anemia Plan: * Renal function is stable * Heme/onc following * TPN per primary team * Dose medications for renal function * Avoid potential nephrotoxins * Strict I/O Subjective Date of service: 01/01/17 Principal diagnosis: SIRS Interval history: Patient now restrained after pulling out NGT and echevarria catheter. Objective - Vital Signs Vital signs: Vital Signs - 12hr 01/01/17 01/01/17 01/01/17 05:43 05:44 06:50 Temperature 97.6 F Pulse Rate 94 H 104 H 104 H Pulse Rate [ Bilateral Throughout] Respiratory 21 Rate Respiratory Rate [Bilateral Throughout] Respiratory 20 Rate [Right Knee] Blood Pressure 137/73 104/63 Blood Pressure [Right] O2 Sat by Pulse 98 Oximetry 01/01/17 01/01/17 01/01/17 07:43 07:53 08:21 Temperature Pulse Rate 106 H Pulse Rate [ 96 H 98 H Bilateral Throughout] Respiratory Rate Respiratory 18 20 Rate [Bilateral Throughout] Respiratory Rate [Right Knee] Blood Pressure Blood Pressure [Right] O2 Sat by Pulse 100 100 Oximetry 01/01/17 01/01/17 01/01/17 08:32 12:55 13:05 Temperature 98.0 F Pulse Rate 104 H Pulse Rate [ 96 H 98 H Bilateral Throughout] Respiratory 18 Rate Respiratory 20 20 Rate [Bilateral Throughout] Respiratory Rate [Right Knee] Blood Pressure Blood Pressure 134/73 [Right] O2 Sat by Pulse 99 Oximetry - General Appearance General appearance: well-developed, well-nourished EENT: ATNC Respiratory: Present: Clear to Ascultation Cardiology: regular, S1S2 Gastrointestinal: hypoactive bowel sounds, distended Neurologic: no focal deficit Musculoskeletal: other (1+edema) - Lab 01/01/17 05:00 01/01/17 05:00 Most recent lab results Calcium 8.1 mg/dL (8.4-10.2) L 01/01/17 05:00 Phosphorus 2.60 mg/dL (2.5-4.5) 01/01/17 05:00 Magnesium 1.90 mg/dL (1.7-2.3) 01/01/17 05:00 Urine Creatinine 117.5 mg/dL (0.1-20.0) H 12/23/16 Unknown Urine Sodium 41 mmol/L 12/23/16 Unknown
[2017-01-01] MEDS ORDERED: TPN ADULT 1,800 ML IV SCH (20:00)
--- NOTE | 2017-01-01 20:08 | Progress Note ---
Assessment and Plan Assessment and plan: -- Adenocarcinoma of colon per biopsy s/p right hemicolectomy, Preop CEA elevated, 33.9, Follow-up repeat CEA ,continue postoperative care -- Ileus vs SBO, patient had bowel movement, passing flatus s/p recent laparoscopic right hemicolectomy,s/p exploratory lap 12/27, On PPN, plan to start TPN --Sepsis : On Flagyl and Levaquin and Diflucan, ID following cultures negative to date -- Liver mass/liver cirrhosis History of chronic hepatitis B and remote alcohol abuse -- Acute renal failure vasomotor nephropathy; improving --History of Prostate cancer, Diagnosed 3 years ago at [place] and denied treatment --Urinary retention, Possible secondary to prostate cancer/ileus S/p Traylor insertion outpatient urology evaluation when medically stable --Severe protein calorie Malnutrition: Supportive care, TPN -- Anemia; s/p 1 unit PRBC Secondary to underlying malignancy ,Currently Hgb 7.9 --Paroxysmal A. fib On beta vin for rate control, not a candidate for chronic anticoagulation at this point -- DVT prophylaxis: SCD --Full CODE STATUS Plan of care discussed with the patient and the family members at the bedside History Interval history: Patient seen and examined Medical records reviewed Complaints of abdominal pain and discomfort ill-looking cachectic Had bowel movement and passed flatus Hospitalist Physical - Constitutional Vitals: Temp Pulse Resp BP Pulse Ox 98.7 F 87 20 134/85 100 01/01/17 17:59 01/01/17 19:56 01/01/17 19:56 01/01/17 18:49 01/01/17 19:49 General appearance: Present: mild distress, obese - EENT Eyes: Present: PERRL, EOM intact - Neck Neck: Present: supple, normal ROM - Respiratory Respiratory effort: normal Respiratory: bilateral: diminished, negative: rales, rhonchi, wheezing - Cardiovascular Rhythm: regular Heart Sounds: Present: S1 & S2 - Extremities Extremities: no ischemia, No edema - Abdominal General gastrointestinal: soft, distended (mild distention), normal bowel sounds , other (dressing in place) - Integumentary Integumentary: Present: clear, warm - Psychiatric Psychiatric: appropriate mood/affect, cooperative, other (irritated at times) - Neurologic Neurologic: moves all extremities Results - Labs CBC & Chem 7: 01/01/17 05:00 01/01/17 05:00 Labs: Laboratory Last Values WBC 9.0 K/mm3 (4.5-11.0) 01/01/17 05:00 RBC 2.90 M/mm3 (3.65-5.03) L 01/01/17 05:00 Hgb 8.0 gm/dl (11.8-15.2) L 01/01/17 05:00 Hct 24.5 % (35.5-45.6) L 01/01/17 05:00 MCV 84 fl (84-94) 01/01/17 05:00 MCH 28 pg (28-32) 01/01/17 05:00 MCHC 33 % (32-34) 01/01/17 05:00 RDW 17.4 % (13.2-15.2) H 01/01/17 05:00 Plt Count 114 K/mm3 (140-440) L 01/01/17 05:00 Lymph % (Auto) 9.4 % (13.4-35.0) L 01/01/17 05:00 [place] % (Auto) 7.8 % (0.0-7.3) H 01/01/17 05:00 Eos % (Auto) 0.2 % (0.0-4.3) 01/01/17 05:00 Baso % (Auto) 0.2 % (0.0-1.8) 01/01/17 05:00 Lymph # 0.8 K/mm3 (1.2-5.4) L 01/01/17 05:00 [place] # 0.7 K/mm3 (0.0-0.8) 01/01/17 05:00 Eos # 0.0 K/mm3 (0.0-0.4) 01/01/17 05:00 Baso # 0.0 K/mm3 (0.0-0.1) 01/01/17 05:00 Add Manual Diff Complete 12/29/16 06:19 Total Counted 100 12/29/16 06:19 Seg Neutrophils % 82.4 % (40.0-70.0) H 01/01/17 05:00 Seg Neuts % (Manual) 90.0 % (40.0-70.0) H 12/29/16 06:19 Band Neutrophils % 4.0 % 11/09/17 06:19 Lymphocytes % (Manual) 5.0 % (13.4-35.0) L 12/29/16 06:19 Reactive Lymphs % (Man) 0 % 12/29/16 06:19 Monocytes % (Manual) 0 % (0.0-7.3) 12/29/16 06:19 Eosinophils % (Manual) 0 % (0.0-4.3) 12/29/16 06:19 Basophils % (Manual) 0 % (0.0-1.8) 12/29/16 06:19 Metamyelocytes % 1.0 % 12/29/16 06:19 Myelocytes % 0 % 12/29/16 06:19 Promyelocytes % 0 % 12/29/16 06:19 Blast Cells % 0 % 12/29/16 06:19 Nucleated RBC % Not Reportable 12/29/16 06:19 Seg Neutrophils # 7.4 K/mm3 (1.8-7.7) 01/01/17 05:00 Seg Neutrophils # Man 14.3 K/mm3 (1.8-7.7) H 12/29/16 06:19 Band Neutrophils # 0.6 K/mm3 12/29/16 06:19 Lymphocytes # (Manual) 0.8 K/mm3 (1.2-5.4) L 12/29/16 06:19 Abs React Lymphs (Man) 0.0 K/mm3 12/29/16 06:19 Monocytes # (Manual) 0.0 K/mm3 (0.0-0.8) 12/29/16 06:19 Eosinophils # (Manual) 0.0 K/mm3 (0.0-0.4) 12/29/16 06:19 Basophils # (Manual) 0.0 K/mm3 (0.0-0.1) 12/29/16 06:19 Metamyelocytes # 0.2 K/mm3 12/29/16 06:19 Myelocytes # 0.0 K/mm3 12/29/16 06:19 Promyelocytes # 0.0 K/mm3 12/29/16 06:19 Blast Cells # 0.0 K/mm3 12/29/16 06:19 WBC Morphology Not Reportable 12/29/16 06:19 Hypersegmented Neuts Not Reportable 12/29/16 06:19 Hyposegmented Neuts Not Reportable 12/29/16 06:19 Hypogranular Neuts Not Reportable 12/29/16 06:19 Smudge Cells Not Reportable 12/29/16 06:19 Toxic Granulation Not Reportable 12/29/16 06:19 Toxic Vacuolation Not Reportable 12/29/16 06:19 Dohle Bodies Not Reportable 12/29/16 06:19 Pelger-Huet Anomaly Not Reportable 12/29/16 06:19 Selin Rods Not Reportable 12/29/16 06:19 Platelet Estimate Appears normal 12/29/16 06:19 Clumped Platelets Not Reportable 12/29/16 06:19 Plt Clumps, EDTA Not Reportable 12/29/16 06:19 Large Platelets Not Reportable 12/29/16 06:19 Giant Platelets Not Reportable 12/29/16 06:19 Platelet Satelliting Not Reportable 12/29/16 06:19 Plt Morphology Comment Not Reportable 12/29/16 06:19 RBC Morphology Not Reportable 12/29/16 06:19 Dimorphic RBCs Not Reportable 12/29/16 06:19 Polychromasia Not Reportable 12/29/16 06:19 Hypochromasia Not Reportable 12/29/16 06:19 Poikilocytosis 1+ 12/29/16 06:19 Anisocytosis 1+ 12/29/16 06:19 Microcytosis Not Reportable 12/29/16 06:19 Macrocytosis Not Reportable 12/29/16 06:19 Spherocytes Not Reportable 12/29/16 06:19 Pappenheimer Bodies Not Reportable 12/29/16 06:19 Sickle Cells Not Reportable 12/29/16 06:19 Target Cells Not Reportable 12/29/16 06:19 Tear Drop Cells Few 12/29/16 06:19 Ovalocytes Few 12/29/16 06:19 Helmet Cells Not Reportable 12/29/16 06:19 Hylton-Crumpler Bodies Not Reportable 12/29/16 06:19 Hurley Rings Not Reportable 12/29/16 06:19 Aranza Cells Not Reportable 12/29/16 06:19 Bite Cells Not Reportable 12/29/16 06:19 Crenated Cell Not Reportable 12/29/16 06:19 Elliptocytes Not Reportable 12/29/16 06:19 Acanthocytes (Spur) Not Reportable 12/29/16 06:19 Rouleaux Not Reportable 12/29/16 06:19 Hemoglobin C Crystals Not Reportable 12/29/16 06:19 Schistocytes Not Reportable 12/29/16 06:19 Malaria parasites Not Reportable 12/29/16 06:19 Percent Retic 2.87 % (0.78-2.58) H 12/24/16 15:10 Russ Bodies Not Reportable 12/29/16 06:19 Hem Pathologist Commnt No 12/29/16 06:19 PT 19.6 Sec. (12.2-14.9) H 12/26/16 19:47 INR 1.58 (0.87-1.13) H 12/26/16 19:47 POC ABG pH 7.380 (7.35-7.45) 12/26/16 14:04 POC ABG pCO2 25.7 (35-45) L 12/26/16 14:04 POC ABG pO2 89 (80-105) 12/26/16 14:04 POC ABG HCO3 15.2 12/26/16 14:04 POC ABG Total CO2 16 12/26/16 14:04 POC ABG O2 Sat 97 12/26/16 14:04 POC ABG Base Excess -10 12/26/16 14:04 FiO2 21 % 12/26/16 14:04 Sodium 142 mmol/L (137-145) 01/01/17 05:00 Potassium 4.1 mmol/L (3.6-5.0) 01/01/17 05:00 Chloride 108.1 mmol/L (98-107) H 01/01/17 05:00 Carbon Dioxide 22 mmol/L (22-30) 01/01/17 05:00 Anion Gap 16 mmol/L 01/01/17 05:00 BUN 39 mg/dL (9-20) H 01/01/17 05:00 Creatinine 1.4 mg/dL (0.8-1.5) 01/01/17 05:00 Estimated GFR > 60 ml/min 01/01/17 05:00 BUN/Creatinine Ratio 28 % 01/01/17 05:00 Glucose 121 mg/dL (75-100) H 01/01/17 05:00 POC Glucose 175 (70-105) H 01/01/17 17:36 Calcium 8.1 mg/dL (8.4-10.2) L 01/01/17 05:00 Phosphorus 2.60 mg/dL (2.5-4.5) 01/01/17 05:00 Magnesium 1.90 mg/dL (1.7-2.3) 01/01/17 05:00 Iron 23 ug/dL (49-181) L 12/24/16 15:10 TIBC 267 mcg/dL (250-450) 12/24/16 15:10 % Saturation 8.61 % 12/24/16 15:10 Transferrin 233 mg/dl (180-329) 12/24/16 15:10 Ferritin 67.5 ng/mL (13.0-400.0) 12/24/16 15:10 Total Bilirubin 4.50 mg/dL (0.1-1.2) H 01/01/17 05:00 AST 50 units/L (5-40) H 01/01/17 05:00 ALT 21 units/L (7-56) 01/01/17 05:00 Alkaline Phosphatase 102 units/L (35-129) 01/01/17 05:00 Ammonia 114.0 umol/L (25-60) H 12/22/16 00:35 C-Reactive Protein 18.80 mg/dL (0.00-1.30) H 12/29/16 06:15 Serum Total Protein 7.8 g/dL (6.1-8.1) 12/24/16 15:10 Total Protein 6.2 g/dL (6.3-8.2) L 01/01/17 05:00 Albumin 1.7 g/dL (3.9-5) L 01/01/17 05:00 Albumin/Globulin Ratio 0.4 % 01/01/17 05:00 Prealbumin 0.030 g/L (0.200-0.400) L 12/28/16 06:04 Esbpc-2-Qcbgocgfj 0.5 g/dL (0.2-0.3) H 12/24/16 15:10 Ikwao-3-Ndvriarhl 0.8 g/dL (0.5-0.9) 12/24/16 15:10 Beta Globulins 0.8 g/dL (0.2-0.5) H 12/24/16 15:10 Gamma Globulins 2.5 g/dL (0.8-1.7) H 12/24/16 15:10 Abnorm Protein Band 1 0.3 g/dL H 12/24/16 15:10 Abnorm Protein Band 2 0.3 g/dL H 12/24/16 15:10 PEP Interpretation see below H 12/24/16 15:10 Triglycerides 103 mg/dL (2-149) 12/27/16 02:34 Lipase 55 units/L (13-60) 12/22/16 00:01 Carcinoembryonic Ag See scanned report 12/24/16 15:10 Prostate Specific Ag 21.75 ng/mL (0.00-4.00) H 12/24/16 15:10 Vitamin B12 1191 pg/mL (211-911) H 12/24/16 15:10 Folate 16.86 ng/mL (7.3-26.0) 12/24/16 15:10 Urine Color Yellow (Yellow) 12/23/16 Unknown Urine Turbidity Cloudy (Clear) 12/23/16 Unknown Urine pH 5.0 (5.0-7.0) 12/23/16 Unknown Ur Specific [place] 1.014 (1.003-1.030) 12/23/16 Unknown Urine Protein <15 mg/dl mg/dL (Negative) 12/23/16 Unknown Urine Glucose (UA) Neg mg/dL (Negative) 12/23/16 Unknown Urine Ketones Neg mg/dL (Negative) 12/23/16 Unknown Urine Blood Sm (Negative) 12/23/16 Unknown Urine Nitrite Pos (Negative) 12/23/16 Unknown Urine Bilirubin Neg (Negative) 12/23/16 Unknown Urine Urobilinogen < 2.0 mg/dL (<2.0) 12/23/16 Unknown Ur Leukocyte Esterase Lg (Negative) 12/23/16 Unknown Urine WBC (Auto) 84.0 /HPF (0.0-6.0) H 12/23/16 Unknown Urine RBC (Auto) 3.0 /HPF (0.0-6.0) 12/23/16 Unknown U Epithel Cells (Auto) < 1.0 /HPF (0-13.0) 12/23/16 Unknown Urine Bacteria (Auto) 1+ /HPF (Negative) 12/23/16 Unknown Urine Mucus Few /HPF 12/22/16 Unknown Urine Creatinine 117.5 mg/dL (0.1-20.0) H 12/23/16 Unknown Urine Sodium 41 mmol/L 12/23/16 Unknown Plasma/Serum Alcohol < 0.01 gm% (0-0.07) 12/22/16 00:35 Hep Bs Antigen Reactive (Negative) 12/24/16 15:10 Hep B Core Total Ab Reactive (Nonreactive) H 12/27/16 13:20 Hepatitis C Antibody Non-reactive (NonReactive) 12/24/16 15:10 Miscellaneous Test Flexitest 1 H 12/28/16 07:18 Blood Type O POSITIVE 12/26/16 19:47 Antibody Screen Negative 12/26/16 19:47 Crossmatch See Detail 12/26/16 19:47
[2017-01-01] MEDS: LEVAQUIN 500MG/100ML 500 MG/100 ML BAG IV SCH (22:50)
[2017-01-02] MEDS: LOPRESSOR IV SCH ×4 (01:25→17:00)
[2017-01-02] MEDS: FLAGYL 500 MG/100 ML 500 MG/100 ML BAG IV SCH ×3 (06:12→21:49)
[2017-01-02 06:44] LABS: Basophils % (Auto) 0.3 % (0.0-1.8); Eosinophils % (Auto) 0.5 % (0.0-4.3); Hematocrit 24.4 % (35.5-45.6); Hemoglobin 7.8 gm/dl (11.8-15.2); Mean Corpuscular HGB Conc 32 % (32-34); Mean Corpuscular Hemoglobin 27 pg (28-32); Mean Corpuscular Volume 84 fl (84-94); Platelet Count 106 K/mm3 (140-440); Red Cell Distribution Width 17.6 % (13.2-15.2); White Blood Count 6.8 K/mm3 (4.5-11.0)
[2017-01-02 07:04] LABS: Alanine Aminotransferase 20 units/L (7-56); Albumin 1.7 g/dL (3.9-5); Albumin/Globulin Ratio 0.4 %; Alkaline Phosphatase 93 units/L (35-129); Anion Gap 16 mmol/L; BUN/Creatinine Ratio 31; Bilirubin,Direct 4.1 mg/dL (0-0.2); Bilirubin,Indirect 0.8 mg/dL; Blood Urea Nitrogen 40 mg/dL (9-20); Calcium 8.1 mg/dL (8.4-10.2); Carbon Dioxide 23 mmol/L (22-30); Chloride 103.3 mmol/L (98-107); Glucose 139 mg/dL (75-100); Sodium 138 mmol/L (137-145); Total Protein 6.4 g/dL (6.3-8.2)
[2017-01-02] MEDS: DUONEB *Not for PRN Use IH SCH ×3 (08:40→19:18)
[2017-01-02] MEDS: DIFLUCAN 200 MG/100 ML BAG IV SCH (09:27)
[2017-01-02] MEDS: FLOMAX PO SCH (09:28)
[2017-01-02] MEDS: LOVENOX SUB-Q SCH (09:28)
[2017-01-02] MEDS: PROTONIX IV SCH (09:28)
--- NOTE | 2017-01-02 10:00 | Hem/Onc Progress Note ---
Assessment and Plan Patient overall stable. Next Platelets have dropped. We will check heparin-induced thrombocytopenia assay but if drops further, may need to hold Lovenox. Hemoglobin is also low. May need to transfuse if drops further. CEA 20.1 postop. Will follow Subjective Date of service: 01/02/17 Interval history: Events noted. He was confused during the weekend. He seems more calm today. Knows where he is and nose his family members names. Objective - Constitutional Vitals: Last Vital Signs Temp 98.2 F 01/02/17 06:02 Pulse 113 H 01/02/17 08:52 Resp 16 01/02/17 08:52 BP 138/87 01/02/17 06:02 Pulse Ox 100 01/02/17 06:02 General appearance: mild distress Performance status: 4-completely disabled - Neck Neck: supple - Respiratory Respiratory effort: Positive: normal Respiratory: bilateral: diminished - Cardiovascular Rhythm: regular Extremities: No edema - Gastrointestinal General gastrointestinal: Present: distended (bowel sounds positive) - Labs Lab Results: Laboratory Results - last 24 hr 01/01/17 01/01/17 01/02/17 12:36 17:36 06:04 WBC RBC Hgb Hct MCV MCH MCHC RDW Plt Count Lymph % (Auto) [place] % (Auto) Eos % (Auto) Baso % (Auto) Lymph # [place] # Eos # Baso # Seg Neutrophils % Seg Neutrophils # Sodium Potassium Chloride Carbon Dioxide Anion Gap BUN Creatinine Estimated GFR BUN/Creatinine Ratio Glucose POC Glucose 167 H 175 H 150 H Calcium Phosphorus Magnesium Total Bilirubin Direct Bilirubin Indirect Bilirubin AST ALT Alkaline Phosphatase Total Protein Albumin Albumin/Globulin Ratio Prealbumin 01/02/17 01/02/17 06:09 06:09 WBC 6.8 RBC 2.90 L Hgb 7.8 L Hct 24.4 L MCV 84 MCH 27 L MCHC 32 RDW 17.6 H Plt Count 106 L Lymph % (Auto) 12.4 L [place] % (Auto) 6.9 Eos % (Auto) 0.5 Baso % (Auto) 0.3 Lymph # 0.8 L [place] # 0.5 Eos # 0.0 Baso # 0.0 Seg Neutrophils % 79.9 H Seg Neutrophils # 5.4 Sodium 138 Potassium 4.0 Chloride 103.3 Carbon Dioxide 23 Anion Gap 16 BUN 40 H Creatinine 1.3 Estimated GFR > 60 BUN/Creatinine Ratio 31 Glucose 139 H POC Glucose Calcium 8.1 L Phosphorus 2.90 Magnesium 1.90 Total Bilirubin 4.90 H Direct Bilirubin 4.1 H Indirect Bilirubin 0.8 AST 45 H ALT 20 Alkaline Phosphatase 93 Total Protein 6.4 Albumin 1.7 L Albumin/Globulin Ratio 0.4 Prealbumin 0.060 L
--- NOTE | 2017-01-02 10:30 | Progress Note ---
Assessment and Plan Assessment: 1) SIRS: resolved. Etiology most likely post-op reaction +/- SBO +/- UTI. CRP= 20-->18. Procal=17 (very high) 2) SBO: -S/p exploratory laparoscopy and lysis of adhesions on 12/27/2016. -Repeat CT showed worsening thickening of small bowel wall with new mesenteric vein air bubbles, cirrhotic liver. 3) Adenocarcinoma of the colon: -S/p laparoscopic, hand-assisted right hemicolectomy on 12/13/2016. 4) Liver cirrohsis: ? ETOH. initial ammonia 114. HBV S ag negative 5) UTI / recent urinary retention 6) History of prostate cancer 7) Alcohol abuse 8) Renal failure - improving 9) Thrombocytopenia ? from liver cirrhosis/sepsis Plan: -continue levaquin and flagyl day 8 (extended in view of high procal) -continue fluconazole -monitor platelets -re-check CRP Thank you Dr Pryor for your consultation, will follow up with you. Aria Pop MD Infectious Diseases Specialist [facility] [phone] O [phone] Subjective Date of service: 01/02/17 Principal diagnosis: SIRS Interval history: Feels better. No fever. No abdominal pain. He pulled out NGT. Tolerating po intake. Current Antimicrobials: Levaquin 12/26 Metronidazole 12/26 Fluconazole 12/28 Previous Antimicrobials: Microbiology: Blood cultures: 12/27 ngtd Urine cultures: 12/27 neg Objective - Exam Narrative Exam: General appearance: Alert in NAD, conversant Eyes: anicteric sclerae, moist conjunctivae; no lid-lag; PERRLA HENT: Atraumatic; oropharynx clear with moist mucous membranes and no mucosal ulcerations/no oral thrush; normal hard and soft palate. Normal external ears. Neck: Trachea midline; supple, no thyromegaly or lymphadenopathy Lungs: CTA, with normal respiratory effort and no intercostal retractions CV: tachy Abdomen: Soft, surg wound with dressings Extremities: No peripheral edema or extremity lymphadenopathy Skin: Normal temperature, turgor and texture; no rash, ulcers or subcutaneous nodules Psych: Appropriate affect, alert and oriented to person, place and time. Neuro: alert and oriented x 3. Moving all extermities Lines: No CVL / PICC + echevarria - Constitutional Vitals: Vital Signs Temp Pulse Resp BP Pulse Ox 98.2 F 113 H 16 138/87 100 01/02/17 06:02 01/02/17 08:52 01/02/17 08:52 01/02/17 06:02 01/02/17 06:02 Temperature -Last 24 Hours Temperature 98.2 F Temperature 98.0 F Temperature 97.6 F Temperature 97.9 F Temperature 98.7 F - Labs CBC & Chem 7: 01/02/17 06:09 01/02/17 06:09 Labs: Abnormal lab results 01/01/17 01/01/17 01/02/17 Range/Units 12:36 17:36 06:04 RBC (3.65-5.03) M/mm3 Hgb (11.8-15.2) gm/dl Hct (35.5-45.6) % MCH (28-32) pg RDW (13.2-15.2) % Plt Count (140-440) K/mm3 Lymph % (Auto) (13.4-35.0) % Lymph # (1.2-5.4) K/mm3 Seg Neutrophils % (40.0-70.0) % BUN (9-20) mg/dL Glucose (75-100) mg/dL POC Glucose 167 H 175 H 150 H (70-105) Calcium (8.4-10.2) mg/dL Total Bilirubin (0.1-1.2) mg/dL Direct Bilirubin (0-0.2) mg/dL AST (5-40) units/L Albumin (3.9-5) g/dL Prealbumin (0.200-0.400) g/L 01/02/17 01/02/17 Range/Units 06:09 06:09 RBC 2.90 L (3.65-5.03) M/mm3 Hgb 7.8 L (11.8-15.2) gm/dl Hct 24.4 L (35.5-45.6) % MCH 27 L (28-32) pg RDW 17.6 H (13.2-15.2) % Plt Count 106 L (140-440) K/mm3 Lymph % (Auto) 12.4 L (13.4-35.0) % Lymph # 0.8 L (1.2-5.4) K/mm3 Seg Neutrophils % 79.9 H (40.0-70.0) % BUN 40 H (9-20) mg/dL Glucose 139 H (75-100) mg/dL POC Glucose (70-105) Calcium 8.1 L (8.4-10.2) mg/dL Total Bilirubin 4.90 H (0.1-1.2) mg/dL Direct Bilirubin 4.1 H (0-0.2) mg/dL AST 45 H (5-40) units/L Albumin 1.7 L (3.9-5) g/dL Prealbumin 0.060 L (0.200-0.400) g/L
--- NOTE | 2017-01-02 11:27 | Progress Note ---
Assessment and Plan 66 yo M s/p exploratory laparotomy, PATTI, POD#7 1. ileus - resolved 2. MINH, dehydration - resolving 3. ?liver mass 4. adenocarcinoma of colon, s/p lap right hemicolectomy - CEA preop 33.9 5. elevated PSA - hx prostate ca 6. malnutrition 7. HepB 8. urinary retention 9. UTI on admission UA 10. sepsis 2/2 UTI 11. delerium - improving 12. elevated bilirubin Plan: 1. adv to full liquids 2. continue tpn, nutrition following 3. elevated LFTs - may be secondary to TPN, continue to monitor 4. c/w abx per ID, CRP improving, WBC wnl 5. continue metroprolol 6. heme/onc and rad onc following - input appreciated 7. c/w DVT ppx - lovenox 8. OOB/ambulate/PT 9. IS/pulm toilet 10. prn pain control 11. abdominal binder at all times 12. dc restraints D/W Case management - plan to dc pt to inpatient hospice. Will be stable for dc from surgery standpoint once patient is tolerating a regular diet and off TPN. Subjective Date of service: 01/02/17 Narrative: Pt seen and examined. No acute complaints. Tolerating clear liquids. Patient states he is having flatus, had a BM this am, and is urinating on his own. Pain is controlled. No n/v, f/c, cp, sob. Less confused today. Objective Vital Signs - 12hr 01/02/17 01/02/17 01/02/17 00:31 04:35 06:02 Temperature 97.6 F 98.0 F 98.2 F Pulse Rate 89 87 94 H Pulse Rate [ Bilateral Throughout] Respiratory 18 18 18 Rate Respiratory Rate [Bilateral Throughout] Blood Pressure 125/74 134/80 138/87 O2 Sat by Pulse 100 100 100 Oximetry 01/02/17 01/02/17 08:37 08:52 Temperature Pulse Rate Pulse Rate [ 88 113 H Bilateral Throughout] Respiratory Rate Respiratory 18 16 Rate [Bilateral Throughout] Blood Pressure O2 Sat by Pulse Oximetry - General physical appearance Narrative Exam: Gen: AAOx3. NAD CV: S1, S2+ Resp: No audible wheezes Abd: soft, NT, ND. incision c/d/i with minimal serous drainage from umbilicus. abdominal binder placed. Ext: 1+ pitting edema b/l LE - Labs 01/02/17 06:09 01/02/17 06:09 Diabetes panel 01/02/17 Range/Units 06:09 Sodium 138 (137-145) mmol/L Potassium 4.0 (3.6-5.0) mmol/L Chloride 103.3 (98-107) mmol/L Carbon Dioxide 23 (22-30) mmol/L BUN 40 H (9-20) mg/dL Creatinine 1.3 (0.8-1.5) mg/dL Glucose 139 H (75-100) mg/dL Calcium 8.1 L (8.4-10.2) mg/dL AST 45 H (5-40) units/L ALT 20 (7-56) units/L Alkaline Phosphatase 93 (35-129) units/L Total Protein 6.4 (6.3-8.2) g/dL Albumin 1.7 L (3.9-5) g/dL Calcium panel 01/02/17 Range/Units 06:09 Calcium 8.1 L (8.4-10.2) mg/dL Phosphorus 2.90 (2.5-4.5) mg/dL Albumin 1.7 L (3.9-5) g/dL Pituitary panel 01/02/17 Range/Units 06:09 Sodium 138 (137-145) mmol/L Potassium 4.0 (3.6-5.0) mmol/L Chloride 103.3 (98-107) mmol/L Carbon Dioxide 23 (22-30) mmol/L BUN 40 H (9-20) mg/dL Creatinine 1.3 (0.8-1.5) mg/dL Glucose 139 H (75-100) mg/dL Calcium 8.1 L (8.4-10.2) mg/dL Adrenal panel 01/02/17 Range/Units 06:09 Sodium 138 (137-145) mmol/L Potassium 4.0 (3.6-5.0) mmol/L Chloride 103.3 (98-107) mmol/L Carbon Dioxide 23 (22-30) mmol/L BUN 40 H (9-20) mg/dL Creatinine 1.3 (0.8-1.5) mg/dL Glucose 139 H (75-100) mg/dL Calcium 8.1 L (8.4-10.2) mg/dL Total Bilirubin 4.90 H (0.1-1.2) mg/dL AST 45 H (5-40) units/L ALT 20 (7-56) units/L Alkaline Phosphatase 93 (35-129) units/L Total Protein 6.4 (6.3-8.2) g/dL Albumin 1.7 L (3.9-5) g/dL
--- NOTE | 2017-01-02 13:17 | Progress Note ---
Assessment and Plan Assessment and plan: -- Ileus , resolved,clear liquid, advance as tolerated -- Adenocarcinoma of colon per biopsy s/p right hemicolectomy, Preop CEA elevated, 33.9, --Sepsis : On Flagyl and Levaquin and Diflucan, total 10 days, rec by ID cultures negative -- Liver mass/liver cirrhosis, History of chronic hepatitis B and remote alcohol abuse -- Acute renal failure vasomotor nephropathy; resolved --History of Prostate cancer, not on treatment. Follow with his oncology --Urinary retention, Possible secondary to prostate cancer/ileus S/p Traylor insertion outpatient urology evaluation when medically stable --Severe protein calorie Malnutrition: Supportive care, TPN -- Anemia; s/p 1 unit PRBC, Hb today 7.8 --Paroxysmal A. fib On beta vin for rate control, not a candidate for chronic anticoagulation at this point -- DVT prophylaxis: SCD --Full CODE STATUS Plan of care discussed with the patient and the family members at the bedside Discussed the case with surgeon, possible discharge to inpatient hospice vs rehabilitation in 2 days if stable Out of bed to chair with physical therapy as tolerated Plan of care discussed with the patient History Interval history: Patient seen and examined,Medical records reviewed patient feels better,on clear liquid diet Had bowel movement and passed flatus Hospitalist Physical - Constitutional Vitals: Temp Pulse Resp BP Pulse Ox 98.2 F 90 18 138/87 100 01/02/17 06:02 01/02/17 10:00 01/02/17 10:00 01/02/17 06:02 01/02/17 06:02 General appearance: Present: no acute distress, obese - EENT Eyes: Present: PERRL, EOM intact - Neck Neck: Present: supple, normal ROM - Respiratory Respiratory effort: normal Respiratory: bilateral: diminished, negative: rales, rhonchi, wheezing - Cardiovascular Rhythm: regular Heart Sounds: Present: S1 & S2 - Extremities Extremities: no ischemia, No edema - Abdominal General gastrointestinal: soft, non-tender, normal bowel sounds, other ( dressing in place) - Integumentary Integumentary: Present: clear, warm - Psychiatric Psychiatric: appropriate mood/affect, cooperative - Neurologic Neurologic: CNII-XII intact, moves all extremities Results - Labs CBC & Chem 7: 01/02/17 06:09 01/02/17 06:09 Labs: Laboratory Last Values WBC 6.8 K/mm3 (4.5-11.0) 01/02/17 06:09 RBC 2.90 M/mm3 (3.65-5.03) L 01/02/17 06:09 Hgb 7.8 gm/dl (11.8-15.2) L 01/02/17 06:09 Hct 24.4 % (35.5-45.6) L 01/02/17 06:09 MCV 84 fl (84-94) 01/02/17 06:09 MCH 27 pg (28-32) L 01/02/17 06:09 MCHC 32 % (32-34) 01/02/17 06:09 RDW 17.6 % (13.2-15.2) H 01/02/17 06:09 Plt Count 106 K/mm3 (140-440) L 01/02/17 06:09 Lymph % (Auto) 12.4 % (13.4-35.0) L 01/02/17 06:09 [place] % (Auto) 6.9 % (0.0-7.3) 01/02/17 06:09 Eos % (Auto) 0.5 % (0.0-4.3) 01/02/17 06:09 Baso % (Auto) 0.3 % (0.0-1.8) 01/02/17 06:09 Lymph # 0.8 K/mm3 (1.2-5.4) L 01/02/17 06:09 [place] # 0.5 K/mm3 (0.0-0.8) 01/02/17 06:09 Eos # 0.0 K/mm3 (0.0-0.4) 01/02/17 06:09 Baso # 0.0 K/mm3 (0.0-0.1) 01/02/17 06:09 Add Manual Diff Complete 12/29/16 06:19 Total Counted 100 12/29/16 06:19 Seg Neutrophils % 79.9 % (40.0-70.0) H 01/02/17 06:09 Seg Neuts % (Manual) 90.0 % (40.0-70.0) H 12/29/16 06:19 Band Neutrophils % 4.0 % 12/29/16 06:19 Lymphocytes % (Manual) 5.0 % (13.4-35.0) L 12/29/16 06:19 Reactive Lymphs % (Man) 0 % 12/29/16 06:19 Monocytes % (Manual) 0 % (0.0-7.3) 12/29/16 06:19 Eosinophils % (Manual) 0 % (0.0-4.3) 12/29/16 06:19 Basophils % (Manual) 0 % (0.0-1.8) 12/29/16 06:19 Metamyelocytes % 1.0 % 12/29/16 06:19 Myelocytes % 0 % 12/29/16 06:19 Promyelocytes % 0 % 12/29/16 06:19 Blast Cells % 0 % 12/29/16 06:19 Nucleated RBC % Not Reportable 12/29/16 06:19 Seg Neutrophils # 5.4 K/mm3 (1.8-7.7) 01/02/17 06:09 Seg Neutrophils # Man 14.3 K/mm3 (1.8-7.7) H 12/29/16 06:19 Band Neutrophils # 0.6 K/mm3 12/29/16 06:19 Lymphocytes # (Manual) 0.8 K/mm3 (1.2-5.4) L 12/29/16 06:19 Abs React Lymphs (Man) 0.0 K/mm3 12/29/16 06:19 Monocytes # (Manual) 0.0 K/mm3 (0.0-0.8) 12/29/16 06:19 Eosinophils # (Manual) 0.0 K/mm3 (0.0-0.4) 12/29/16 06:19 Basophils # (Manual) 0.0 K/mm3 (0.0-0.1) 12/29/16 06:19 Metamyelocytes # 0.2 K/mm3 12/29/16 06:19 Myelocytes # 0.0 K/mm3 12/29/16 06:19 Promyelocytes # 0.0 K/mm3 12/29/16 06:19 Blast Cells # 0.0 K/mm3 12/29/16 06:19 WBC Morphology Not Reportable 12/29/16 06:19 Hypersegmented Neuts Not Reportable 12/29/16 06:19 Hyposegmented Neuts Not Reportable 12/29/16 06:19 Hypogranular Neuts Not Reportable 12/29/16 06:19 Smudge Cells Not Reportable 12/29/16 06:19 Toxic Granulation Not Reportable 12/29/16 06:19 Toxic Vacuolation Not Reportable 12/29/16 06:19 Dohle Bodies Not Reportable 12/29/16 06:19 Pelger-Huet Anomaly Not Reportable 12/29/16 06:19 Selin Rods Not Reportable 12/29/16 06:19 Platelet Estimate Appears normal 12/29/16 06:19 Clumped Platelets Not Reportable 12/29/16 06:19 Plt Clumps, EDTA Not Reportable 12/29/16 06:19 Large Platelets Not Reportable 12/29/16 06:19 Giant Platelets Not Reportable 12/29/16 06:19 Platelet Satelliting Not Reportable 12/29/16 06:19 Plt Morphology Comment Not Reportable 12/29/16 06:19 RBC Morphology Not Reportable 12/29/16 06:19 Dimorphic RBCs Not Reportable 12/29/16 06:19 Polychromasia Not Reportable 12/29/16 06:19 Hypochromasia Not Reportable 12/29/16 06:19 Poikilocytosis 1+ 12/29/16 06:19 Anisocytosis 1+ 12/29/16 06:19 Microcytosis Not Reportable 12/29/16 06:19 Macrocytosis Not Reportable 12/29/16 06:19 Spherocytes Not Reportable 12/29/16 06:19 Pappenheimer Bodies Not Reportable 12/29/16 06:19 Sickle Cells Not Reportable 12/29/16 06:19 Target Cells Not Reportable 12/29/16 06:19 Tear Drop Cells Few 12/29/16 06:19 Ovalocytes Few 12/29/16 06:19 Helmet Cells Not Reportable 12/29/16 06:19 Hylton-Piggott Bodies Not Reportable 12/29/16 06:19 [place] Rings Not Reportable 12/29/16 06:19 [place] Cells Not Reportable 12/29/16 06:19 Bite Cells Not Reportable 12/29/16 06:19 Crenated Cell Not Reportable 12/29/16 06:19 Elliptocytes Not Reportable 12/29/16 06:19 Acanthocytes (Spur) Not Reportable 12/29/16 06:19 Rouleaux Not Reportable 12/29/16 06:19 Hemoglobin C Crystals Not Reportable 12/29/16 06:19 Schistocytes Not Reportable 12/29/16 06:19 Malaria parasites Not Reportable 12/29/16 06:19 Percent Retic 2.87 % (0.78-2.58) H 12/24/16 15:10 Russ Bodies Not Reportable 12/29/16 06:19 Hem Pathologist Commnt No 12/29/16 06:19 PT 19.6 Sec. (12.2-14.9) H 12/26/16 19:47 INR 1.58 (0.87-1.13) H 12/26/16 19:47 POC ABG pH 7.380 (7.35-7.45) 12/26/16 14:04 POC ABG pCO2 25.7 (35-45) L 12/26/16 14:04 POC ABG pO2 89 (80-105) 12/26/16 14:04 POC ABG HCO3 15.2 12/26/16 14:04 POC ABG Total CO2 16 12/26/16 14:04 POC ABG O2 Sat 97 12/26/16 14:04 POC ABG Base Excess -10 12/26/16 14:04 FiO2 21 % 12/26/16 14:04 Sodium 138 mmol/L (137-145) 01/02/17 06:09 Potassium 4.0 mmol/L (3.6-5.0) 01/02/17 06:09 Chloride 103.3 mmol/L (98-107) 01/02/17 06:09 Carbon Dioxide 23 mmol/L (22-30) 01/02/17 06:09 Anion Gap 16 mmol/L 01/02/17 06:09 BUN 40 mg/dL (9-20) H 01/02/17 06:09 Creatinine 1.3 mg/dL (0.8-1.5) 01/02/17 06:09 Estimated GFR > 60 ml/min 01/02/17 06:09 BUN/Creatinine Ratio 31 % 01/02/17 06:09 Glucose 139 mg/dL (75-100) H 01/02/17 06:09 POC Glucose 150 (70-105) H 01/02/17 06:04 Calcium 8.1 mg/dL (8.4-10.2) L 01/02/17 06:09 Phosphorus 2.90 mg/dL (2.5-4.5) 01/02/17 06:09 Magnesium 1.90 mg/dL (1.7-2.3) 01/02/17 06:09 Iron 23 ug/dL (49-181) L 12/24/16 15:10 TIBC 267 mcg/dL (250-450) 12/24/16 15:10 % Saturation 8.61 % 12/24/16 15:10 Transferrin 233 mg/dl (180-329) 12/24/16 15:10 Ferritin 67.5 ng/mL (13.0-400.0) 12/24/16 15:10 Total Bilirubin 4.90 mg/dL (0.1-1.2) H 01/02/17 06:09 Direct Bilirubin 4.1 mg/dL (0-0.2) H 01/02/17 06:09 Indirect Bilirubin 0.8 mg/dL 01/02/17 06:09 AST 45 units/L (5-40) H 01/02/17 06:09 ALT 20 units/L (7-56) 01/02/17 06:09 Alkaline Phosphatase 93 units/L (35-129) 01/02/17 06:09 Ammonia 114.0 umol/L (25-60) H 12/22/16 00:35 C-Reactive Protein 6.90 mg/dL (0.00-1.30) H 01/02/17 06:09 Serum Total Protein 7.8 g/dL (6.1-8.1) 12/24/16 15:10 Total Protein 6.4 g/dL (6.3-8.2) 01/02/17 06:09 Albumin 1.7 g/dL (3.9-5) L 01/02/17 06:09 Albumin/Globulin Ratio 0.4 % 01/02/17 06:09 Prealbumin 0.060 g/L (0.200-0.400) L 01/02/17 06:09 Qactv-5-Ozmejoaen 0.5 g/dL (0.2-0.3) H 12/24/16 15:10 Rbdmb-7-Chyqivreb 0.8 g/dL (0.5-0.9) 12/24/16 15:10 Beta Globulins 0.8 g/dL (0.2-0.5) H 12/24/16 15:10 Gamma Globulins 2.5 g/dL (0.8-1.7) H 12/24/16 15:10 Abnorm Protein Band 1 0.3 g/dL H 12/24/16 15:10 Abnorm Protein Band 2 0.3 g/dL H 12/24/16 15:10 PEP Interpretation see below H 12/24/16 15:10 Triglycerides 103 mg/dL (2-149) 12/27/16 02:34 Lipase 55 units/L (13-60) 12/22/16 00:01 Carcinoembryonic Ag See scanned report 12/24/16 15:10 Prostate Specific Ag 21.75 ng/mL (0.00-4.00) H 12/24/16 15:10 Vitamin B12 1191 pg/mL (211-911) H 12/24/16 15:10 Folate 16.86 ng/mL (7.3-26.0) 12/24/16 15:10 Urine Color Yellow (Yellow) 12/23/16 Unknown Urine Turbidity Cloudy (Clear) 12/23/16 Unknown Urine pH 5.0 (5.0-7.0) 12/23/16 Unknown Ur Specific [place] 1.014 (1.003-1.030) 12/23/16 Unknown Urine Protein <15 mg/dl mg/dL (Negative) 12/23/16 Unknown Urine Glucose (UA) Neg mg/dL (Negative) 12/23/16 Unknown Urine Ketones Neg mg/dL (Negative) 12/23/16 Unknown Urine Blood Sm (Negative) 12/23/16 Unknown Urine Nitrite Pos (Negative) 12/23/16 Unknown Urine Bilirubin Neg (Negative) 12/23/16 Unknown Urine Urobilinogen < 2.0 mg/dL (<2.0) 12/23/16 Unknown Ur Leukocyte Esterase Lg (Negative) 12/23/16 Unknown Urine WBC (Auto) 84.0 /HPF (0.0-6.0) H 12/23/16 Unknown Urine RBC (Auto) 3.0 /HPF (0.0-6.0) 12/23/16 Unknown U Epithel Cells (Auto) < 1.0 /HPF (0-13.0) 12/23/16 Unknown Urine Bacteria (Auto) 1+ /HPF (Negative) 12/23/16 Unknown Urine Mucus Few /HPF 12/22/16 Unknown Urine Creatinine 117.5 mg/dL (0.1-20.0) H 12/23/16 Unknown Urine Sodium 41 mmol/L 12/23/16 Unknown Plasma/Serum Alcohol < 0.01 gm% (0-0.07) 12/22/16 00:35 Hep Bs Antigen Reactive (Negative) 12/24/16 15:10 Hep B Core Total Ab Reactive (Nonreactive) H 12/27/16 13:20 Hepatitis C Antibody Non-reactive (NonReactive) 12/24/16 15:10 Miscellaneous Test Flexitest 1 H 12/28/16 07:18 Blood Type O POSITIVE 12/26/16 19:47 Antibody Screen Negative 12/26/16 19:47 Crossmatch See Detail 12/26/16 19:47
--- NOTE | 2017-01-02 13:20 | Progress Note ---
Assessment and Plan - Patient Problems (1) MINH (acute kidney injury) Current Visit: Yes Status: Acute Plan to address problem: Surgery and ID notes reviewed. Renal function slowly improving.Scr-1.3 today. S /P Exp lap with lysis of adhesions on 12/27/16. Adenocarcinoma of colon-S/P right hemicolectomy on 12/13/16. Co2 better. Continue present hydration (2) Liver cirrhosis Current Visit: Yes Status: Acute Qualifiers: Hepatic cirrhosis type: H Ascites presence: A Plan to address problem: noted high T.Bilirubin (3) Liver mass Current Visit: Yes Status: Acute (4) S/P right hemicolectomy Current Visit: Yes Status: Acute (5) Metabolic acidosis Current Visit: No Status: Acute (6) Encephalopathy Current Visit: Yes Status: Acute (7) Anemia Current Visit: Yes Status: Acute Qualifiers: Anemia type: A Iron deficiency anemia type: I Vitamin B12 deficiency anemia type: V Folate deficiency anemia type: F Bone marrow failure anemia type: B Hemolytic anemia type: H Other causes of anemia: O Chronic kidney disease stage: C (8) Hypoalbuminemia Current Visit: Yes Status: Acute Subjective Date of service: 01/02/17 Principal diagnosis: SIRS Interval history: pt is more alert, denies abdomen pain or SOB Objective - Vital Signs Vital signs: Vital Signs - 12hr 01/02/17 01/02/17 01/02/17 04:35 06:02 08:37 Temperature 98.0 F 98.2 F Pulse Rate 87 94 H Pulse Rate [ Apical] Pulse Rate [ 88 Bilateral Throughout] Respiratory 18 18 Rate Respiratory Rate [Abdomen] Respiratory 18 Rate [Bilateral Throughout] Respiratory Rate [Right Knee] Blood Pressure 134/80 138/87 O2 Sat by Pulse 100 100 Oximetry 01/02/17 01/02/17 08:52 10:00 Temperature Pulse Rate 74 Pulse Rate [ 90 Apical] Pulse Rate [ 113 H Bilateral Throughout] Respiratory 20 Rate Respiratory 18 Rate [Abdomen] Respiratory 16 Rate [Bilateral Throughout] Respiratory 18 Rate [Right Knee] Blood Pressure O2 Sat by Pulse Oximetry - General Appearance General appearance: well-developed EENT: mucous membranes dry Neck: no JVD Respiratory: Present: Decreased Breath Sounds Cardiology: regular, systolic murmur Gastrointestinal: hypoactive bowel sounds Musculoskeletal: other (no edema) Psychiatric: cooperative - Lab 01/02/17 06:09 01/02/17 06:09 Most recent lab results Calcium 8.1 mg/dL (8.4-10.2) L 01/02/17 06:09 Phosphorus 2.90 mg/dL (2.5-4.5) 01/02/17 06:09 Magnesium 1.90 mg/dL (1.7-2.3) 01/02/17 06:09 Urine Creatinine 117.5 mg/dL (0.1-20.0) H 12/23/16 Unknown Urine Sodium 41 mmol/L 12/23/16 Unknown
[2017-01-02] MEDS: ROXICODONE PO PRN (18:52)
[2017-01-02] MEDS ORDERED: TPN ADULT 1,800 ML IV SCH (20:00)
[2017-01-02] MEDS ORDERED: INTRALIPID 20% 250 ML IV SCH (20:00)
[2017-01-02] MEDS: LEVAQUIN 500MG/100ML 500 MG/100 ML BAG IV SCH (23:15)
[2017-01-03] MEDS: LOPRESSOR IV SCH ×4 (02:01→18:00)
[2017-01-03] MEDS: FLAGYL 500 MG/100 ML 500 MG/100 ML BAG IV SCH ×3 (06:25→21:55)
[2017-01-03 06:33] LABS: Basophils % (Auto) 0.4 % (0.0-1.8); Eosinophils % (Auto) 0.7 % (0.0-4.3); Hemoglobin 7.8 gm/dl (11.8-15.2); Mean Corpuscular HGB Conc 33 % (32-34); Mean Corpuscular Hemoglobin 27 pg (28-32); Mean Corpuscular Volume 84 fl (84-94); Platelet Count 106 K/mm3 (140-440); Red Blood Count 2.87 M/mm3 (3.65-5.03)
[2017-01-03 06:45] LABS: Anion Gap 15 mmol/L; BUN/Creatinine Ratio 28; Blood Urea Nitrogen 34 mg/dL (9-20); Carbon Dioxide 22 mmol/L (22-30); Chloride 101.6 mmol/L (98-107); Glucose 127 mg/dL (75-100); Sodium 135 mmol/L (137-145)
--- NOTE | 2017-01-03 09:40 | Hem/Onc Progress Note ---
Assessment and Plan Patient overall stable. Next Platelets have dropped. We will check heparin-induced thrombocytopenia assay but if drops further, may need to hold Lovenox. Hemoglobin is also low. May need to transfuse if drops further. CEA 20.1 postop. Will follow. Continue to closely monitor. Discussed with patient's daughter who was at bedside Subjective Date of service: 01/03/17 Interval history: Events noted. He was confused during the weekend. He seems more calm today. More alert today. Ambulated as per daughter. No bleeding. Objective - Constitutional Vitals: Last Vital Signs Temp 98.5 F 01/03/17 06:08 Pulse 103 H 01/03/17 06:26 Resp 20 01/03/17 05:00 BP 128/79 01/03/17 06:26 Pulse Ox 98 01/03/17 05:01 General appearance: no acute distress Performance status: 3-limited selfcare - Neck Neck: supple - Respiratory Respiratory effort: Positive: normal Respiratory: bilateral: diminished - Cardiovascular Rhythm: regular Extremities: No edema - Gastrointestinal General gastrointestinal: Present: soft (binder) - Labs Lab Results: Laboratory Results - last 24 hr 01/02/17 01/03/17 01/03/17 06:09 02:43 05:50 WBC 7.0 RBC 2.87 L Hgb 7.8 L Hct 24.0 L MCV 84 MCH 27 L MCHC 33 RDW 18.0 H Plt Count 106 L Lymph % (Auto) 12.5 L [place] % (Auto) 6.2 Eos % (Auto) 0.7 Baso % (Auto) 0.4 Lymph # 0.9 L [place] # 0.4 Eos # 0.0 Baso # 0.0 Seg Neutrophils % 80.2 H Seg Neutrophils # 5.6 Sodium Potassium Chloride Carbon Dioxide Anion Gap BUN Creatinine Estimated GFR BUN/Creatinine Ratio Glucose POC Glucose 164 H Calcium Phosphorus Magnesium C-Reactive Protein 6.90 H 01/03/17 05:50 WBC RBC Hgb Hct MCV MCH MCHC RDW Plt Count Lymph % (Auto) [place] % (Auto) Eos % (Auto) Baso % (Auto) Lymph # [place] # Eos # Baso # Seg Neutrophils % Seg Neutrophils # Sodium 135 L Potassium 4.0 Chloride 101.6 Carbon Dioxide 22 Anion Gap 15 BUN 34 H Creatinine 1.2 Estimated GFR > 60 BUN/Creatinine Ratio 28 Glucose 127 H POC Glucose Calcium 8.0 L Phosphorus 2.70 Magnesium 1.70 C-Reactive Protein
[2017-01-03] MEDS ORDERED: COLACE PO SCH (10:00)
--- NOTE | 2017-01-03 10:02 | Progress Note ---
Assessment and Plan 66 yo M s/p exploratory laparotomy, PATTI, POD#8 1. ileus - resolved 2. MINH, dehydration - resolving 3. ?liver mass 4. adenocarcinoma of colon, s/p lap right hemicolectomy 5. elevated PSA - hx prostate ca 6. malnutrition 7. HepB 8. urinary retention 9. UTI on admission UA 10. sepsis 2/2 UTI 11. delerium - improving 12. elevated bilirubin Plan: 1. will adv diet to gi soft for dinner 2. nutrition following. would consider weaning tpn if patient tolerated reg diet 3. elevated LFTs - may be secondary to TPN, continue to monitor 4. c/w abx per ID, CRP improving, WBC wnl 5. continue metroprolol - may change to PO per 1' team 6. heme/onc and rad onc following - input appreciated 7. c/w DVT ppx - lovenox 8. OOB/ambulate/PT 9. IS/pulm toilet 10. prn pain control 11. abdominal binder at all times 12. dc planning d/w caseworker protective services - pt to go to inpatient hospice. Subjective Date of service: 01/03/17 Narrative: Pt seen and examined. No complaints. States he had a BM and is passing flatus. He was given a bath this am and has been out of bed. Mild nausea, no emesis. Tolerating full liquids. No f/c, cp, sob, abd pain. Objective Vital Signs - 12hr 01/03/17 01/03/17 01/03/17 01:15 02:01 05:00 Temperature 97.6 F 98.5 F Pulse Rate 106 H 113 H 103 H Respiratory 20 20 Rate Blood Pressure 127/76 118/75 120/73 O2 Sat by Pulse 100 98 Oximetry 01/03/17 01/03/17 01/03/17 05:01 06:08 06:26 Temperature 98.5 F Pulse Rate 102 H 103 H Respiratory Rate Blood Pressure 120/73 128/79 O2 Sat by Pulse 98 Oximetry - General physical appearance Narrative Exam: Gen: AAOx3. NAD CV: s1, S2+ resp: No audible wheezes Abd: soft, NT, ND, protuberant at baseline. Midline incision c/d/i. Ext: b/l pedal edema - Labs 01/03/17 05:50 01/03/17 05:50 Diabetes panel 01/03/17 Range/Units 05:50 Sodium 135 L (137-145) mmol/L Potassium 4.0 (3.6-5.0) mmol/L Chloride 101.6 (98-107) mmol/L Carbon Dioxide 22 (22-30) mmol/L BUN 34 H (9-20) mg/dL Creatinine 1.2 (0.8-1.5) mg/dL Glucose 127 H (75-100) mg/dL Calcium 8.0 L (8.4-10.2) mg/dL Calcium panel 01/03/17 Range/Units 05:50 Calcium 8.0 L (8.4-10.2) mg/dL Phosphorus 2.70 (2.5-4.5) mg/dL Pituitary panel 01/03/17 Range/Units 05:50 Sodium 135 L (137-145) mmol/L Potassium 4.0 (3.6-5.0) mmol/L Chloride 101.6 (98-107) mmol/L Carbon Dioxide 22 (22-30) mmol/L BUN 34 H (9-20) mg/dL Creatinine 1.2 (0.8-1.5) mg/dL Glucose 127 H (75-100) mg/dL Calcium 8.0 L (8.4-10.2) mg/dL Adrenal panel 01/03/17 Range/Units 05:50 Sodium 135 L (137-145) mmol/L Potassium 4.0 (3.6-5.0) mmol/L Chloride 101.6 (98-107) mmol/L Carbon Dioxide 22 (22-30) mmol/L BUN 34 H (9-20) mg/dL Creatinine 1.2 (0.8-1.5) mg/dL Glucose 127 H (75-100) mg/dL Calcium 8.0 L (8.4-10.2) mg/dL
[2017-01-03] MEDS: DIFLUCAN 200 MG/100 ML BAG IV SCH (10:53)
[2017-01-03] MEDS: LOVENOX SUB-Q SCH (10:53)
[2017-01-03] MEDS: PROTONIX IV SCH (10:54)
[2017-01-03] MEDS: FLOMAX PO SCH (10:54)
[2017-01-03] MEDS: DUONEB *Not for PRN Use IH SCH ×3 (10:58→21:15)
--- NOTE | 2017-01-03 12:58 | Progress Note ---
Assessment and Plan - Patient Problems (1) MINH (acute kidney injury) Current Visit: Yes Status: Acute Plan to address problem: Surgery and ID notes reviewed. Renal function slowly improving.Scr-1.3-1.2 today. S/P Exp lap with lysis of adhesions on 12/27/16. Adenocarcinoma of colon-S /P right hemicolectomy on 12/13/16. Co2 better. Continue present hydration. Pt is on TPN. Mild thrombocytopenia--monitor (2) Liver cirrhosis Current Visit: Yes Status: Chronic Qualifiers: Hepatic cirrhosis type: H Ascites presence: A (3) Liver mass Current Visit: Yes Status: Acute (4) S/P right hemicolectomy Current Visit: Yes Status: Acute (5) Metabolic acidosis Current Visit: No Status: Resolved (6) Encephalopathy Current Visit: Yes Status: Acute (7) Anemia Current Visit: Yes Status: Acute Qualifiers: Anemia type: A Iron deficiency anemia type: I Vitamin B12 deficiency anemia type: V Folate deficiency anemia type: F Bone marrow failure anemia type: B Hemolytic anemia type: H Other causes of anemia: O Chronic kidney disease stage: C (8) Hypoalbuminemia Current Visit: Yes Status: Acute Subjective Date of service: 01/03/17 Principal diagnosis: SIRS Interval history: pt is more alert, denies abdomen pain or SOB, tolerating liquid diet Objective - Vital Signs Vital signs: Vital Signs - 12hr 01/03/17 01/03/17 01/03/17 01:15 02:01 05:00 Temperature 97.6 F 98.5 F Pulse Rate 106 H 113 H 103 H Respiratory 20 20 Rate Blood Pressure 127/76 118/75 120/73 O2 Sat by Pulse 100 98 Oximetry 01/03/17 01/03/17 01/03/17 05:01 06:08 06:26 Temperature 98.5 F Pulse Rate 102 H 103 H Respiratory Rate Blood Pressure 120/73 128/79 O2 Sat by Pulse 98 Oximetry - General Appearance General appearance: chronically ill EENT: mucous membranes moist Neck: no JVD Respiratory: Present: Decreased Breath Sounds Cardiology: regular, systolic murmur Gastrointestinal: normoactive bowel sounds, distended Musculoskeletal: other (no edema) Psychiatric: mood/affect appropriate, cooperative - Lab 01/03/17 05:50 01/03/17 05:50 Most recent lab results Calcium 8.0 mg/dL (8.4-10.2) L 01/03/17 05:50 Phosphorus 2.70 mg/dL (2.5-4.5) 01/03/17 05:50 Magnesium 1.70 mg/dL (1.7-2.3) 01/03/17 05:50 Urine Creatinine 117.5 mg/dL (0.1-20.0) H 12/23/16 Unknown Urine Sodium 41 mmol/L 12/23/16 Unknown
--- NOTE | 2017-01-03 14:45 | Progress Note ---
Assessment and Plan Assessment: 1) SIRS: resolved. Etiology most likely post-op reaction +/- SBO +/- UTI. CRP= 20-->18-->6. Procal=17 (very high) 2) SBO: -S/p exploratory laparoscopy and lysis of adhesions on 12/27/2016. -Repeat CT showed worsening thickening of small bowel wall with new mesenteric vein air bubbles, cirrhotic liver. 3) Adenocarcinoma of the colon: -S/p laparoscopic, hand-assisted right hemicolectomy on 12/13/2016. 4) Liver cirrohsis: ? ETOH. initial ammonia 114. HBV S ag negative 5) UTI / recent urinary retention 6) History of prostate cancer 7) Alcohol abuse 8) Renal failure - improving 9) Thrombocytopenia ? from liver cirrhosis/sepsis Plan: -continue levaquin and flagyl day (extended in view of high procal) -continue fluconazole Thank you Dr Pryor for your consultation, will follow up with you. Aria Pop MD Infectious Diseases Specialist [facility] [phone] O [phone] Subjective Date of service: 01/03/17 Principal diagnosis: SIRS Interval history: Feels better. No fever. No abdominal pain. Tolerating po intake. Current Antimicrobials: Levaquin 12/26 Metronidazole 12/26 Fluconazole 12/28 Previous Antimicrobials: Microbiology: Blood cultures: 12/27 ngtd Urine cultures: 12/27 neg Objective - Exam Narrative Exam: General appearance: Alert in NAD, conversant Eyes: anicteric sclerae, moist conjunctivae; no lid-lag; PERRLA HENT: Atraumatic; oropharynx clear with moist mucous membranes and no mucosal ulcerations/no oral thrush; normal hard and soft palate. Normal external ears. Neck: Trachea midline; supple, no thyromegaly or lymphadenopathy Lungs: CTA, with normal respiratory effort and no intercostal retractions CV: tachy Abdomen: Soft, surg wound with dressings Extremities: No peripheral edema or extremity lymphadenopathy Skin: Normal temperature, turgor and texture; no rash, ulcers or subcutaneous nodules Psych: Appropriate affect, alert and oriented to person, place and time. Neuro: alert and oriented x 3. Moving all extermities Lines: No CVL / PICC + echevarria - Constitutional Vitals: Vital Signs Temp Pulse Resp BP Pulse Ox 98.5 F 89 20 128/79 98 01/03/17 06:08 01/03/17 10:00 01/03/17 05:00 01/03/17 06:26 01/03/17 05:01 Temperature -Last 24 Hours Temperature 98.5 F Temperature 98.5 F Temperature 97.6 F Temperature 97.6 F Temperature 98.5 F - Labs CBC & Chem 7: 01/03/17 05:50 01/03/17 05:50 Labs: Abnormal lab results 01/03/17 01/03/17 01/03/17 Range/Units 02:43 05:50 05:50 RBC 2.87 L (3.65-5.03) M/mm3 Hgb 7.8 L (11.8-15.2) gm/dl Hct 24.0 L (35.5-45.6) % MCH 27 L (28-32) pg RDW 18.0 H (13.2-15.2) % Plt Count 106 L (140-440) K/mm3 Lymph % (Auto) 12.5 L (13.4-35.0) % Lymph # 0.9 L (1.2-5.4) K/mm3 Seg Neutrophils % 80.2 H (40.0-70.0) % Sodium 135 L (137-145) mmol/L BUN 34 H (9-20) mg/dL Glucose 127 H (75-100) mg/dL POC Glucose 164 H (70-105) Calcium 8.0 L (8.4-10.2) mg/dL
[2017-01-03 16:29] LABS: Heparin-Induced Platelet Antib Negative (Negative); Unfractionated Heparin Negative (Negative)
--- NOTE | 2017-01-03 19:29 | Progress Note ---
Assessment and Plan Assessment and plan: -- Ileus , resolved, then stat as tolerated -- Adenocarcinoma of colon per biopsy s/p right hemicolectomy, Preop CEA elevated, 33.9, --Sepsis : -continue levaquin and flagyl day 9 of 10 (extended in view of high procal) continue fluconazole 7 of 10 recommended by ID, cultures negative -- Liver mass/liver cirrhosis, History of chronic hepatitis B and remote alcohol abuse -- Acute renal failure vasomotor nephropathy; resolved --History of Prostate cancer, not on treatment. Outpatient management --Urinary retention, Possible secondary to prostate cancer/ileus outpatient urology evaluation when medically stable --Severe protein calorie Malnutrition: Supportive care, nutrition supplements -- Anemia; s/p 1 unit PRBC, Hb today 7.8 --Paroxysmal A. fib; rate controlled On beta vin for rate control, not a candidate for chronic anticoagulation at this point -- DVT prophylaxis: SCD --Full CODE STATUS possible discharge to inpatient hospice vs rehabilitation in 2 days if stable Ambulate as tolerated History Interval history: Patient seen and examined medical records reviewed Tolerating diet, feels better No new complaints Hospitalist Physical - Constitutional Vitals: Temp Pulse Resp BP Pulse Ox 98.5 F 114 H 20 120/71 98 01/03/17 06:08 01/03/17 18:28 01/03/17 18:28 01/03/17 18:00 01/03/17 05:01 General appearance: Present: no acute distress, well-nourished, obese - EENT Eyes: Present: PERRL, EOM intact - Neck Neck: Present: supple, normal ROM - Respiratory Respiratory effort: normal Respiratory: bilateral: diminished, negative: rales, rhonchi, wheezing - Cardiovascular Rhythm: regular Heart Sounds: Present: S1 & S2 - Extremities Extremities: no ischemia, No edema - Abdominal General gastrointestinal: soft, non-tender, non-distended, normal bowel sounds - Integumentary Integumentary: Present: clear, warm - Psychiatric Psychiatric: appropriate mood/affect, cooperative - Neurologic Neurologic: CNII-XII intact, moves all extremities Results - Labs CBC & Chem 7: 01/03/17 05:50 01/03/17 05:50 Labs: Laboratory Last Values WBC 7.0 K/mm3 (4.5-11.0) 01/03/17 05:50 RBC 2.87 M/mm3 (3.65-5.03) L 01/03/17 05:50 Hgb 7.8 gm/dl (11.8-15.2) L 01/03/17 05:50 Hct 24.0 % (35.5-45.6) L 01/03/17 05:50 MCV 84 fl (84-94) 01/03/17 05:50 MCH 27 pg (28-32) L 01/03/17 05:50 MCHC 33 % (32-34) 01/03/17 05:50 RDW 18.0 % (13.2-15.2) H 01/03/17 05:50 Plt Count 106 K/mm3 (140-440) L 01/03/17 05:50 Lymph % (Auto) 12.5 % (13.4-35.0) L 01/03/17 05:50 [place] % (Auto) 6.2 % (0.0-7.3) 01/03/17 05:50 Eos % (Auto) 0.7 % (0.0-4.3) 01/03/17 05:50 Baso % (Auto) 0.4 % (0.0-1.8) 01/03/17 05:50 Lymph # 0.9 K/mm3 (1.2-5.4) L 01/03/17 05:50 [place] # 0.4 K/mm3 (0.0-0.8) 01/03/17 05:50 Eos # 0.0 K/mm3 (0.0-0.4) 01/03/17 05:50 Baso # 0.0 K/mm3 (0.0-0.1) 01/03/17 05:50 Add Manual Diff Complete 12/29/16 06:19 Total Counted 100 12/29/16 06:19 Seg Neutrophils % 80.2 % (40.0-70.0) H 01/03/17 05:50 Seg Neuts % (Manual) 90.0 % (40.0-70.0) H 12/29/16 06:19 Band Neutrophils % 4.0 % 12/29/16 06:19 Lymphocytes % (Manual) 5.0 % (13.4-35.0) L 12/29/16 06:19 Reactive Lymphs % (Man) 0 % 12/29/16 06:19 Monocytes % (Manual) 0 % (0.0-7.3) 12/29/16 06:19 Eosinophils % (Manual) 0 % (0.0-4.3) 12/29/16 06:19 Basophils % (Manual) 0 % (0.0-1.8) 12/29/16 06:19 Metamyelocytes % 1.0 % 12/29/16 06:19 Myelocytes % 0 % 12/29/16 06:19 Promyelocytes % 0 % 12/29/16 06:19 Blast Cells % 0 % 12/29/16 06:19 Nucleated RBC % Not Reportable 12/29/16 06:19 Seg Neutrophils # 5.6 K/mm3 (1.8-7.7) 01/03/17 05:50 Seg Neutrophils # Man 14.3 K/mm3 (1.8-7.7) H 12/29/16 06:19 Band Neutrophils # 0.6 K/mm3 12/29/16 06:19 Lymphocytes # (Manual) 0.8 K/mm3 (1.2-5.4) L 12/29/16 06:19 Abs React Lymphs (Man) 0.0 K/mm3 12/29/16 06:19 Monocytes # (Manual) 0.0 K/mm3 (0.0-0.8) 12/29/16 06:19 Eosinophils # (Manual) 0.0 K/mm3 (0.0-0.4) 12/29/16 06:19 Basophils # (Manual) 0.0 K/mm3 (0.0-0.1) 12/29/16 06:19 Metamyelocytes # 0.2 K/mm3 12/29/16 06:19 Myelocytes # 0.0 K/mm3 12/29/16 06:19 Promyelocytes # 0.0 K/mm3 12/29/16 06:19 Blast Cells # 0.0 K/mm3 12/29/16 06:19 WBC Morphology Not Reportable 12/29/16 06:19 Hypersegmented Neuts Not Reportable 12/29/16 06:19 Hyposegmented Neuts Not Reportable 12/29/16 06:19 Hypogranular Neuts Not Reportable 12/29/16 06:19 Smudge Cells Not Reportable 12/29/16 06:19 Toxic Granulation Not Reportable 12/29/16 06:19 Toxic Vacuolation Not Reportable 12/29/16 06:19 Dohle Bodies Not Reportable 12/29/16 06:19 Pelger-Huet Anomaly Not Reportable 12/29/16 06:19 Selin Rods Not Reportable 12/29/16 06:19 Platelet Estimate Appears normal 12/29/16 06:19 Clumped Platelets Not Reportable 12/29/16 06:19 Plt Clumps, EDTA Not Reportable 12/29/16 06:19 Large Platelets Not Reportable 12/29/16 06:19 Giant Platelets Not Reportable 12/29/16 06:19 Platelet Satelliting Not Reportable 12/29/16 06:19 Plt Morphology Comment Not Reportable 12/29/16 06:19 RBC Morphology Not Reportable 12/29/16 06:19 Dimorphic RBCs Not Reportable 12/29/16 06:19 Polychromasia Not Reportable 12/29/16 06:19 Hypochromasia Not Reportable 12/29/16 06:19 Poikilocytosis 1+ 12/29/16 06:19 Anisocytosis 1+ 12/29/16 06:19 Microcytosis Not Reportable 12/29/16 06:19 Macrocytosis Not Reportable 12/29/16 06:19 Spherocytes Not Reportable 12/29/16 06:19 Pappenheimer Bodies Not Reportable 12/29/16 06:19 Sickle Cells Not Reportable 12/29/16 06:19 Target Cells Not Reportable 12/29/16 06:19 Tear Drop Cells Few 12/29/16 06:19 Ovalocytes Few 12/29/16 06:19 Helmet Cells Not Reportable 12/29/16 06:19 [place] Bodies Not Reportable 12/29/16 06:19 [place] Rings Not Reportable 12/29/16 06:19 Aranza Cells Not Reportable 12/29/16 06:19 Bite Cells Not Reportable 12/29/16 06:19 Crenated Cell Not Reportable 12/29/16 06:19 Elliptocytes Not Reportable 12/29/16 06:19 Acanthocytes (Spur) Not Reportable 12/29/16 06:19 Rouleaux Not Reportable 12/29/16 06:19 Hemoglobin C Crystals Not Reportable 12/29/16 06:19 Schistocytes Not Reportable 12/29/16 06:19 Malaria parasites Not Reportable 12/29/16 06:19 Percent Retic 2.87 % (0.78-2.58) H 12/24/16 15:10 Russ Bodies Not Reportable 12/29/16 06:19 Hem Pathologist Commnt No 12/29/16 06:19 PT 19.6 Sec. (12.2-14.9) H 12/26/16 19:47 INR 1.58 (0.87-1.13) H 12/26/16 19:47 Heparin Anti-Xa, Unfract Negative (Negative) 01/02/17 09:30 POC ABG pH 7.380 (7.35-7.45) 12/26/16 14:04 POC ABG pCO2 25.7 (35-45) L 12/26/16 14:04 POC ABG pO2 89 (80-105) 12/26/16 14:04 POC ABG HCO3 15.2 12/26/16 14:04 POC ABG Total CO2 16 12/26/16 14:04 POC ABG O2 Sat 97 12/26/16 14:04 POC ABG Base Excess -10 12/26/16 14:04 FiO2 21 % 12/26/16 14:04 Sodium 135 mmol/L (137-145) L 01/03/17 05:50 Potassium 4.0 mmol/L (3.6-5.0) 01/03/17 05:50 Chloride 101.6 mmol/L (98-107) 01/03/17 05:50 Carbon Dioxide 22 mmol/L (22-30) 01/03/17 05:50 Anion Gap 15 mmol/L 01/03/17 05:50 BUN 34 mg/dL (9-20) H 01/03/17 05:50 Creatinine 1.2 mg/dL (0.8-1.5) 01/03/17 05:50 Estimated GFR > 60 ml/min 01/03/17 05:50 BUN/Creatinine Ratio 28 % 01/03/17 05:50 Glucose 127 mg/dL (75-100) H 01/03/17 05:50 POC Glucose 164 (70-105) H 01/03/17 02:43 Calcium 8.0 mg/dL (8.4-10.2) L 01/03/17 05:50 Phosphorus 2.70 mg/dL (2.5-4.5) 01/03/17 05:50 Magnesium 1.70 mg/dL (1.7-2.3) 01/03/17 05:50 Iron 23 ug/dL (49-181) L 12/24/16 15:10 TIBC 267 mcg/dL (250-450) 12/24/16 15:10 % Saturation 8.61 % 12/24/16 15:10 Transferrin 233 mg/dl (180-329) 12/24/16 15:10 Ferritin 67.5 ng/mL (13.0-400.0) 12/24/16 15:10 Total Bilirubin 4.90 mg/dL (0.1-1.2) H 01/02/17 06:09 Direct Bilirubin 4.1 mg/dL (0-0.2) H 01/02/17 06:09 Indirect Bilirubin 0.8 mg/dL 01/02/17 06:09 AST 45 units/L (5-40) H 01/02/17 06:09 ALT 20 units/L (7-56) 01/02/17 06:09 Alkaline Phosphatase 93 units/L (35-129) 01/02/17 06:09 Ammonia 114.0 umol/L (25-60) H 12/22/16 00:35 C-Reactive Protein 6.90 mg/dL (0.00-1.30) H 01/02/17 06:09 Serum Total Protein 7.8 g/dL (6.1-8.1) 12/24/16 15:10 Total Protein 6.4 g/dL (6.3-8.2) 01/02/17 06:09 Albumin 1.7 g/dL (3.9-5) L 01/02/17 06:09 Albumin/Globulin Ratio 0.4 % 01/02/17 06:09 Prealbumin 0.060 g/L (0.200-0.400) L 01/02/17 06:09 Cwlhq-3-Hsjkpbdkg 0.5 g/dL (0.2-0.3) H 12/24/16 15:10 Ppxvt-0-Brmxxowan 0.8 g/dL (0.5-0.9) 12/24/16 15:10 Beta Globulins 0.8 g/dL (0.2-0.5) H 12/24/16 15:10 Gamma Globulins 2.5 g/dL (0.8-1.7) H 12/24/16 15:10 Abnorm Protein Band 1 0.3 g/dL H 12/24/16 15:10 Abnorm Protein Band 2 0.3 g/dL H 12/24/16 15:10 PEP Interpretation see below H 12/24/16 15:10 Triglycerides 103 mg/dL (2-149) 12/27/16 02:34 Lipase 55 units/L (13-60) 12/22/16 00:01 Carcinoembryonic Ag See scanned report 12/24/16 15:10 Prostate Specific Ag 21.75 ng/mL (0.00-4.00) H 12/24/16 15:10 Vitamin B12 1191 pg/mL (211-911) H 12/24/16 15:10 Folate 16.86 ng/mL (7.3-26.0) 12/24/16 15:10 Urine Color Yellow (Yellow) 12/23/16 Unknown Urine Turbidity Cloudy (Clear) 12/23/16 Unknown Urine pH 5.0 (5.0-7.0) 12/23/16 Unknown Ur Specific [place] 1.014 (1.003-1.030) 12/23/16 Unknown Urine Protein <15 mg/dl mg/dL (Negative) 12/23/16 Unknown Urine Glucose (UA) Neg mg/dL (Negative) 12/23/16 Unknown Urine Ketones Neg mg/dL (Negative) 12/23/16 Unknown Urine Blood Sm (Negative) 12/23/16 Unknown Urine Nitrite Pos (Negative) 12/23/16 Unknown Urine Bilirubin Neg (Negative) 12/23/16 Unknown Urine Urobilinogen < 2.0 mg/dL (<2.0) 12/23/16 Unknown Ur Leukocyte Esterase Lg (Negative) 12/23/16 Unknown Urine WBC (Auto) 84.0 /HPF (0.0-6.0) H 12/23/16 Unknown Urine RBC (Auto) 3.0 /HPF (0.0-6.0) 12/23/16 Unknown U Epithel Cells (Auto) < 1.0 /HPF (0-13.0) 12/23/16 Unknown Urine Bacteria (Auto) 1+ /HPF (Negative) 12/23/16 Unknown Urine Mucus Few /HPF 12/22/16 Unknown Urine Creatinine 117.5 mg/dL (0.1-20.0) H 12/23/16 Unknown Urine Sodium 41 mmol/L 12/23/16 Unknown Plasma/Serum Alcohol < 0.01 gm% (0-0.07) 12/22/16 00:35 Heparin-induced Plt Ab Negative (Negative) 01/02/17 09:30 UF Heparin High Dose 0 % Release 01/02/17 09:30 CASS UFH Low Dose 0.1 0 % Release 01/02/17 09:30 CASS UFH Low Dose 0.5 0 % Release 01/02/17 09:30 Hep Bs Antigen Reactive (Negative) 12/24/16 15:10 Hep B Core Total Ab Reactive (Nonreactive) H 12/27/16 13:20 Hepatitis C Antibody Non-reactive (NonReactive) 12/24/16 15:10 Miscellaneous Test Flexitest 1 H 12/28/16 07:18 Blood Type O POSITIVE 12/26/16 19:47 Antibody Screen Negative 12/26/16 19:47 Crossmatch See Detail 12/26/16 19:47
[2017-01-04 06:27] LABS: Basophils % (Auto) 0.5 % (0.0-1.8); Eosinophils % (Auto) 0.4 % (0.0-4.3); Hematocrit 23.9 % (35.5-45.6); Hemoglobin 7.8 gm/dl (11.8-15.2); Mean Corpuscular HGB Conc 33 % (32-34); Mean Corpuscular Hemoglobin 28 pg (28-32); Mean Corpuscular Volume 84 fl (84-94); Platelet Count 119 K/mm3 (140-440); Red Blood Count 2.86 M/mm3 (3.65-5.03); Red Cell Distribution Width 18.2 % (13.2-15.2); White Blood Count 7.8 K/mm3 (4.5-11.0)
[2017-01-04] MEDS: FLAGYL 500 MG/100 ML 500 MG/100 ML BAG IV SCH (06:30)
[2017-01-04 06:57] LABS: Alanine Aminotransferase 18 units/L (7-56); Albumin 1.8 g/dL (3.9-5); Albumin/Globulin Ratio 0.4 %; Alkaline Phosphatase 76 units/L (35-129); Anion Gap 19 mmol/L; BUN/Creatinine Ratio 28; Bilirubin,Direct 3.6 mg/dL (0-0.2); Bilirubin,Indirect 0.5 mg/dL; Blood Urea Nitrogen 33 mg/dL (9-20); Calcium 7.7 mg/dL (8.4-10.2); Carbon Dioxide 19 mmol/L (22-30); Chloride 102.8 mmol/L (98-107); Glucose 120 mg/dL (75-100); Potassium 4.5 mmol/L (3.6-5.0); Sodium 136 mmol/L (137-145)
[2017-01-04] MEDS: DUONEB *Not for PRN Use IH SCH ×3 (09:23→21:25)
--- NOTE | 2017-01-04 09:50 | Hem/Onc Progress Note ---
Assessment and Plan Patient's CBC is stable. Platelets have improved. Heparin-induced thrombus cytopenia is negative We will go ahead and get Doppler of the lower extremities to make sure there is no thrombosis. If Doppler unremarkable, he can be discharged hematology/onc rodriguez and I will see him in my office Subjective Date of service: 01/04/17 Interval history: Events noted. He was confused during the weekend. He seems more calm today. More alert today. Ambulated as per daughter. No bleeding. Tolerating by mouth. Daughter complaining of lower leg swelling. This off his TPN Objective - Constitutional Vitals: Last Vital Signs Temp 98.5 F 01/04/17 04:40 Pulse 101 H 01/04/17 09:34 Resp 18 01/04/17 09:34 BP 115/72 01/04/17 04:40 Pulse Ox 97 01/04/17 04:40 Pain Intensity (0-10): denies any pain General appearance: no acute distress Performance status: 3-limited selfcare - Neck Neck: supple - Respiratory Respiratory effort: Positive: normal Respiratory: bilateral: diminished - Cardiovascular Rhythm: regular Extremities: abnormal (bilateral lower extremity edema) - Gastrointestinal General gastrointestinal: Present: soft (distended bowel sounds positive) - Labs Lab Results: Laboratory Results - last 24 hr 12/27/16 01/02/17 01/04/17 13:20 09:30 05:26 WBC 7.8 RBC 2.86 L Hgb 7.8 L Hct 23.9 L MCV 84 MCH 28 MCHC 33 RDW 18.2 H Plt Count 119 L Lymph % (Auto) 16.6 [place] % (Auto) 6.4 Eos % (Auto) 0.4 Baso % (Auto) 0.5 Lymph # 1.3 [place] # 0.5 Eos # 0.0 Baso # 0.0 Seg Neutrophils % 76.1 H Seg Neutrophils # 6.0 Heparin Anti-Xa, Unfract Negative Sodium Potassium Chloride Carbon Dioxide Anion Gap BUN Creatinine Estimated GFR BUN/Creatinine Ratio Glucose Calcium Total Bilirubin Direct Bilirubin Indirect Bilirubin AST ALT Alkaline Phosphatase Total Protein Albumin Albumin/Globulin Ratio Heparin-induced Plt Ab Negative UF Heparin High Dose 0 CASS UFH Low Dose 0.1 0 CASS UFH Low Dose 0.5 0 Hep Bs Antibody, Quant <5 L 01/04/17 05:26 WBC RBC Hgb Hct MCV MCH MCHC RDW Plt Count Lymph % (Auto) [place] % (Auto) Eos % (Auto) Baso % (Auto) Lymph # [place] # Eos # Baso # Seg Neutrophils % Seg Neutrophils # Heparin Anti-Xa, Unfract Sodium 136 L Potassium 4.5 Chloride 102.8 Carbon Dioxide 19 L Anion Gap 19 BUN 33 H Creatinine 1.2 Estimated GFR > 60 BUN/Creatinine Ratio 28 Glucose 120 H Calcium 7.7 L Total Bilirubin 4.10 H Direct Bilirubin 3.6 H Indirect Bilirubin 0.5 AST 39 ALT 18 Alkaline Phosphatase 76 Total Protein 6.0 L Albumin 1.8 L Albumin/Globulin Ratio 0.4 Heparin-induced Plt Ab UF Heparin High Dose CASS UFH Low Dose 0.1 CASS UFH Low Dose 0.5 Hep Bs Antibody, Quant
[2017-01-04] MEDS ORDERED: LOPRESSOR PO SCH (10:00)
[2017-01-04] MEDS: LOVENOX SUB-Q SCH (10:21)
--- NOTE | 2017-01-04 10:53 | Progress Note ---
Assessment and Plan Assessment: 1) SIRS: resolved. Etiology most likely post-op reaction +/- SBO +/- UTI. CRP= 20-->18-->6. Procal=17 (very high) 2) SBO: -S/p exploratory laparoscopy and lysis of adhesions on 12/27/2016. -Repeat CT showed worsening thickening of small bowel wall with new mesenteric vein air bubbles, cirrhotic liver. 3) Adenocarcinoma of the colon: -S/p laparoscopic, hand-assisted right hemicolectomy on 12/13/2016. 4) Liver cirrohsis: ? ETOH. initial ammonia 114. HBV S ag negative 5) UTI / recent urinary retention 6) History of prostate cancer 7) Alcohol abuse 8) Renal failure - improving 9) Thrombocytopenia ? from liver cirrhosis/sepsis Plan: -stop levaquin and flagyl s/p 10 days -continue fluconazole 8 of 10 change to po I am signing off Thank you Dr Pryor for your consultation, will follow up with you. Aria Pop MD Infectious Diseases Specialist [facility] [phone] Subjective Date of service: 01/04/17 Principal diagnosis: SIRS Interval history: Feels better. No fever. No abdominal pain. Tolerating po intake. Current Antimicrobials: Levaquin 12/26 Metronidazole 12/26 Fluconazole 12/28 Previous Antimicrobials: Microbiology: Blood cultures: 12/27 ngtd Urine cultures: 12/27 neg Objective - Exam Narrative Exam: General appearance: Alert in NAD, conversant Eyes: anicteric sclerae, moist conjunctivae; no lid-lag; PERRLA HENT: Atraumatic; oropharynx clear with moist mucous membranes and no mucosal ulcerations/no oral thrush; normal hard and soft palate. Neck: Trachea midline; supple, no thyromegaly or lymphadenopathy Lungs: CTA CV: tachy Abdomen: Soft, surg wound with dressings Extremities: No peripheral edema or extremity lymphadenopathy Skin: Normal temperature, turgor and texture; no rash, ulcers or subcutaneous nodules Psych: Appropriate affect, alert and oriented to person, place and time. Neuro: alert and oriented x 3. Moving all extermities Lines: No CVL / PICC + echevarria - Constitutional Vitals: Vital Signs Temp Pulse Resp BP Pulse Ox 98.5 F 101 H 18 115/72 97 11/15/17 04:40 01/04/17 09:34 01/04/17 09:34 01/04/17 04:40 01/04/17 04:40 Temperature -Last 24 Hours Temperature 98.5 F Temperature 98.5 F Temperature 98.9 F Temperature 99.0 F Temperature 98.0 F Temperature 98.7 F - Labs CBC & Chem 7: 01/04/17 05:26 01/04/17 05:26 Labs: Abnormal lab results 12/27/16 01/04/17 01/04/17 Range/Units 13:20 05:26 05:26 RBC 2.86 L (3.65-5.03) M/mm3 Hgb 7.8 L (11.8-15.2) gm/dl Hct 23.9 L (35.5-45.6) % RDW 18.2 H (13.2-15.2) % Plt Count 119 L (140-440) K/mm3 Seg Neutrophils % 76.1 H (40.0-70.0) % Sodium 136 L (137-145) mmol/L Carbon Dioxide 19 L (22-30) mmol/L BUN 33 H (9-20) mg/dL Glucose 120 H (75-100) mg/dL Calcium 7.7 L (8.4-10.2) mg/dL Total Bilirubin 4.10 H (0.1-1.2) mg/dL Direct Bilirubin 3.6 H (0-0.2) mg/dL Total Protein 6.0 L (6.3-8.2) g/dL Albumin 1.8 L (3.9-5) g/dL Hep Bs Antibody, Quant <5 L (>=10) mIU/mL
--- NOTE | 2017-01-04 11:44 | Progress Note ---
Assessment and Plan 66 yo M s/p exploratory laparotomy, PATTI, POD#9 1. ileus - resolved 2. MINH, dehydration - resolving 3. ?liver mass 4. adenocarcinoma of colon, s/p lap right hemicolectomy 5. elevated PSA - hx prostate ca 6. malnutrition 7. HepB 8. urinary retention 9. UTI on admission UA 10. sepsis 2/2 UTI 11. delerium - improving 12. elevated bilirubin Plan: 1. continue GI soft diet 2. TPN discontinued 3. elevated LFTs - may be secondary to TPN, improving. 4. c/w abx per ID, CRP improving, WBC wnl 5. continue metroprolol - changed to PO 6. heme/onc and rad onc following - input appreciated 7. c/w DVT ppx - lovenox 8. OOB/ambulate/PT 9. IS/pulm toilet 10. prn pain control 11. abdominal binder at all times 12. dc planning d/w complex case manager - pt to go to inpatient hospice. ok for dc from surgery standpoint when medically cleared. will follow up in surgery office in 2 weeks for post op check. Subjective Date of service: 01/04/17 Narrative: Pt seen and examined. No complaints. Pain controlled. + BM and flatus. No n/v. Tolerating regular diet. Objective Vital Signs - 12hr 01/04/17 01/04/17 01/04/17 00:07 00:22 04:06 Temperature 98.9 F 98.5 F Pulse Rate 112 H 112 H Pulse Rate [ Bilateral Throughout] Respiratory 18 18 Rate Respiratory Rate [Bilateral Throughout] Blood Pressure O2 Sat by Pulse 100 Oximetry 01/04/17 01/04/17 01/04/17 04:40 09:23 09:34 Temperature 98.5 F Pulse Rate 125 H Pulse Rate [ 100 H 101 H Bilateral Throughout] Respiratory 18 Rate Respiratory 18 18 Rate [Bilateral Throughout] Blood Pressure 115/72 O2 Sat by Pulse 97 Oximetry - General physical appearance Narrative Exam: Gen: AAOx3. NAD CV: s1, S2+ resp: No audible wheezes Abd: soft, NT, ND. incisions c/d/i Ext: trace bilateral pedal edema - Labs 01/04/17 05:26 01/04/17 05:26 Diabetes panel 01/04/17 Range/Units 05:26 Sodium 136 L (137-145) mmol/L Potassium 4.5 (3.6-5.0) mmol/L Chloride 102.8 (98-107) mmol/L Carbon Dioxide 19 L (22-30) mmol/L BUN 33 H (9-20) mg/dL Creatinine 1.2 (0.8-1.5) mg/dL Glucose 120 H (75-100) mg/dL Calcium 7.7 L (8.4-10.2) mg/dL AST 39 (5-40) units/L ALT 18 (7-56) units/L Alkaline Phosphatase 76 (35-129) units/L Total Protein 6.0 L (6.3-8.2) g/dL Albumin 1.8 L (3.9-5) g/dL Calcium panel 01/04/17 Range/Units 05:26 Calcium 7.7 L (8.4-10.2) mg/dL Albumin 1.8 L (3.9-5) g/dL Pituitary panel 01/04/17 Range/Units 05:26 Sodium 136 L (137-145) mmol/L Potassium 4.5 (3.6-5.0) mmol/L Chloride 102.8 (98-107) mmol/L Carbon Dioxide 19 L (22-30) mmol/L BUN 33 H (9-20) mg/dL Creatinine 1.2 (0.8-1.5) mg/dL Glucose 120 H (75-100) mg/dL Calcium 7.7 L (8.4-10.2) mg/dL Adrenal panel 01/04/17 Range/Units 05:26 Sodium 136 L (137-145) mmol/L Potassium 4.5 (3.6-5.0) mmol/L Chloride 102.8 (98-107) mmol/L Carbon Dioxide 19 L (22-30) mmol/L BUN 33 H (9-20) mg/dL Creatinine 1.2 (0.8-1.5) mg/dL Glucose 120 H (75-100) mg/dL Calcium 7.7 L (8.4-10.2) mg/dL Total Bilirubin 4.10 H (0.1-1.2) mg/dL AST 39 (5-40) units/L ALT 18 (7-56) units/L Alkaline Phosphatase 76 (35-129) units/L Total Protein 6.0 L (6.3-8.2) g/dL Albumin 1.8 L (3.9-5) g/dL
[2017-01-04] MEDS ORDERED: DIFLUCAN PO SCH (13:00)
--- NOTE | 2017-01-04 13:38 | Progress Note ---
Assessment and Plan Impression: * Acute kidney injury secondary to prerenal azotemia due to volume depletion * Ileus vs partial SBO * Nausea/vomiting secondary to #2 * Ascending colon mass s/p laparoscopic right hemicolectomy * Hx of transient atrial fibrillation * Anemia Plan: * Renal function is stable; MINH resolved * Heme/onc following * TPN per primary team * Dose medications for renal function * Avoid potential nephrotoxins * Strict I/O Subjective Date of service: 01/04/17 Principal diagnosis: SIRS Interval history: Patient has no complaints. Tolerating po. Objective - Vital Signs Vital signs: Vital Signs - 12hr 01/04/17 01/04/17 01/04/17 04:06 04:40 09:23 Temperature 98.5 F Pulse Rate 112 H 125 H Pulse Rate [ 100 H Bilateral Throughout] Respiratory 18 Rate Respiratory 18 Rate [Bilateral Throughout] Blood Pressure 115/72 O2 Sat by Pulse 97 Oximetry 01/04/17 09:34 Temperature Pulse Rate Pulse Rate [ 101 H Bilateral Throughout] Respiratory Rate Respiratory 18 Rate [Bilateral Throughout] Blood Pressure O2 Sat by Pulse Oximetry - General Appearance General appearance: well-developed, well-nourished EENT: ATNC Gastrointestinal: normoactive bowel sounds, no tenderness, distended Integumentary: no rash Neurologic: no focal deficit Musculoskeletal: other (+edema) Psychiatric: cooperative - Lab 01/04/17 05:26 01/04/17 05:26 Most recent lab results Calcium 7.7 mg/dL (8.4-10.2) L 01/04/17 05:26 Phosphorus 2.70 mg/dL (2.5-4.5) 01/03/17 05:50 Magnesium 1.70 mg/dL (1.7-2.3) 01/03/17 05:50 Urine Creatinine 117.5 mg/dL (0.1-20.0) H 12/23/16 Unknown Urine Sodium 41 mmol/L 12/23/16 Unknown
[2017-01-04 14:08] VITALS: BP 93/56
--- NOTE | 2017-01-04 14:13 | Discharge Summary ---
<PHILIPPE ARMENTA - Last Filed: 01/04/17 14:31> Providers - Providers Date of Admission: 12/22/16 08:09 Attending physician: STEVO MOCTEZUMA 12/22/16 10:02 Consult to Physician [CONS] Routine Consulting Provider: PHILIPPE ARMENTA Reason For Exam: sbo, pt known to you Place consult to:: dr. armenta Notified:: yes Was contact made?: Yes Time called:: 12:54 Comment:: marilyn 12/22/16 11:22 Consult to Physician [CONS] Routine Consulting Provider: MARINO SAMS Reason For Exam: acute renal failure Place consult to:: office Notified:: yes Phone number called:: yes If yes, spoke with:: castro Shah called:: 11:37 Comment:: marilyn 12/23/16 09:05 Consult to Physician [CONS] Routine Consulting Provider: CATRACHITA VALENCIA Reason For Exam: colon adenocarcinoma Place consult to:: dr. valencia Notified:: office Phone number called:: Was contact made?: Yes If yes, spoke with:: nga Time called:: 10:39 Comment:: recalled 1019 on 12/24/16 12/23/16 09:29 Physical Therapy Evaluation and Treat [CONS] Routine Comment: ok to clamp ngt to ambulate and get OOB Reason For Exam: post op 12/26/16 10:56 Consult to PICC Line RN [CONS] Routine Reason For Exam: possible TPN Type Line:: PICC 12/27/16 08:49 Consult to Dietitian/Nutrition [CONS] Routine Physician Instructions: Reason For Exam: Reason for Consult: Write/Manage TPN/PPN 12/27/16 08:52 Consult to Physician [CONS] Routine Consulting Provider: FOREST HUFFMAN Reason For Exam: sepsis, UTI, bandemia Place consult to:: Dr. Griffith Notified:: Lulú JACKSON Was contact made?: Yes If yes, spoke with:: Dr. Griffith Time called:: 08:55 12/27/16 10:01 Consult to Case Management [CONS] Routine Services Needed at Discharge: Other Notified:: jamari 12/27/16 12:58 Consult to Wound/ET Nurse [CONS] Routine Reason For Exam: wound eval/skin tear right buttock 12/28/16 12:20 Consult to Physician [CONS] Routine Consulting Provider: MT TELLEZ Reason For Exam: hx prostate ca, new dx of colon adenocarcinoma Place consult to:: Dr. Tellez Notified:: Radha RN Phone number called:: Was contact made?: Yes If yes, spoke with:: Kenny-office 12/30/16 11:41 Physical Therapy Evaluation and Treat [CONS] Routine Comment: needs to be OOB tid Reason For Exam: post op Primary care physician: WAREHOUSE DRIVER Hospitalization Condition: Stable Disposition: DC-[id number] HOSPICE ([facility]) Exam - Constitutional Vitals: Temp Pulse Resp BP Pulse Ox 98.3 F 85 18 93/56 98 01/04/17 12:35 01/04/17 14:30 01/04/17 14:30 01/04/17 12:35 01/04/17 12:35 Plan Activity: other (no heavy lifting more than 15 lbs. ) Diet: other (GI soft diet, consistent carbohydrate) Wound: other (keep midline incision covered with ABD pad and change daily. Keep abdominal binder on at all times. May shower, no baths/hottubs/pools until incisions healed. Do not remove pop, will be removed on follow up visit with surgeon.) Follow up with: CATRACHITA VALENCIA MD [Staff Physician] - 7 Days PRIMARY CARE, [Primary Care Provider] - 3-5 Days PHILIPPE ARMENTA DO [Staff Physician] - 10 Days <STEVO MOCTEZUMA - Last Filed: 01/05/17 18:58> Providers - Providers Date of Admission: 12/22/16 08:09 Date of discharge: 01/04/17 Attending physician: STEVO MOCTEZUMA 12/22/16 10:02 Consult to Physician [CONS] Routine Consulting Provider: PHILIPPE ARMENTA Reason For Exam: sbo, pt known to you Place consult to:: dr. armenta Notified:: yes Was contact made?: Yes Time called:: 12:54 Comment:: marilyn 12/22/16 11:22 Consult to Physician [CONS] Routine Consulting Provider: MARINO SAMS Reason For Exam: acute renal failure Place consult to:: office Notified:: yes Phone number called:: yes If yes, spoke with:: castro Shah called:: 11:37 Comment:: marilyn 12/23/16 09:05 Consult to Physician [CONS] Routine Consulting Provider: CATRACHITA VALENCIA Reason For Exam: colon adenocarcinoma Place consult to:: dr. valencia Notified:: office Phone number called:: Was contact made?: Yes If yes, spoke with:: nga Shah called:: 10:39 Comment:: recalled 1019 on 12/24/16 12/23/16 09:29 Physical Therapy Evaluation and Treat [CONS] Routine Comment: ok to clamp ngt to ambulate and get OOB Reason For Exam: post op 12/26/16 10:56 Consult to PICC Line RN [CONS] Routine Reason For Exam: possible TPN Type Line:: PICC 12/27/16 08:49 Consult to Dietitian/Nutrition [CONS] Routine Physician Instructions: Reason For Exam: Reason for Consult: Write/Manage TPN/PPN 12/27/16 08:52 Consult to Physician [CONS] Routine Consulting Provider: FOREST HUFFMAN Reason For Exam: sepsis, UTI, bandemia Place consult to:: Dr. Griffith Notified:: Lulú RN Was contact made?: Yes If yes, spoke with:: Dr. Griffith Time called:: 08:55 12/27/16 10:01 Consult to Case Management [CONS] Routine Services Needed at Discharge: Other Notified:: jamari 12/27/16 12:58 Consult to Wound/ET Nurse [CONS] Routine Reason For Exam: wound eval/skin tear right buttock 12/28/16 12:20 Consult to Physician [CONS] Routine Consulting Provider: MT TELLEZ Reason For Exam: hx prostate ca, new dx of colon adenocarcinoma Place consult to:: Dr. Tellez Notified:: Radha RN Phone number called:: Was contact made?: Yes If yes, spoke with:: Kenny-[place] 12/30/16 11:41 Physical Therapy Evaluation and Treat [CONS] Routine Comment: needs to be OOB tid Reason For Exam: post op Primary care physician: WAREHOUSE DRIVER Hospitalization Reason for admission: nausea vomiting abdominal pain Pertinent studies: CT abdomen and pelvis Renal ultrasound Chest and abdominal x-ray Repeat abdominal and pelvis CT Chest and abdominal x-ray Lower extremity venous Doppler; negative for DVT Multiple chest x-ray and abdominal x-rays Procedures: Exploratory laparotomy ; lysis of adhesions Hospital course: 66-year-old male patient with significant history of alcohol abuse hypertension prostate cancer anemia recent hemicolectomy for ascending colon mass on 2016 was admitted through emergency room with the nausea vomiting abdominal pain and abdominal distentionm patient was again admitted and discharged on 1130 2016 continued to have nausea vomiting and abdominal pain admitted to the hospital, Symptomatically managed Evaluated by surgery: Underwent exploratory laparotomy, and there lysis of adhesions Patient had ileus expected, Ileus gradually but significantly improved, started sips of water, advanced to clear liquids for liquids and soft diet Patient was evaluated by hematology oncologist, outpatient management, Today he is comfortable in bed tolerated soft diet, received physical therapy Evaluated by ID for SIRS, UTI, started on antibiotics with Levaquin Flagyl and Diflucan for total of 10 days Patient's symptoms significantly improved He is comfortable receiving physical therapy, tolerating soft diet Cleared by surgery, oncology, and ID and follow up after discharge Social service evaluated the patient, patient will be discharged to discharge to hospice house Patient is hemodynamically and clinically stable at the time of discharge Discharge diagnosis: - Ileus , resolved, advance diet as tolerated -- Adenocarcinoma of colon per biopsy --Sepsis : -continue Diflucan ,levaquin and flagyl total 10 days -- Liver mass/liver cirrhosis, History of chronic hepatitis B and remote alcohol abuse -- Acute renal failure, resolved --History of Prostate cancer, follow urology --Urinary retention, Possible secondary to prostate cancer/ileus --Severe protein calorie Malnutrition: -- Anemia; s/p 1 unit PRBC, Hb today 7.8 --Paroxysmal A. fib; rate controlled, not a candidate for chronic anticoagulation Time spent for discharge: 33min Core Measure Documentation - Palliative Care Palliative Care/ Comfort Measures: Hospice Care - Core Measures Any of the following diagnoses?: none Exam - Constitutional Vitals: Temp Pulse Resp BP Pulse Ox 98.3 F 76 18 93/56 98 01/04/17 12:35 01/04/17 12:35 01/04/17 12:35 01/04/17 12:35 11/15/17 12:35 General appearance: Present: no acute distress, well-nourished - EENT Eyes: Present: PERRL, EOM intact - Neck Neck: Present: supple, normal ROM - Respiratory Respiratory effort: normal Respiratory: bilateral: diminished, negative: rales, rhonchi, wheezing - Cardiovascular Rhythm: regular Heart Sounds: Present: S1 & S2 - Extremities Extremities: no ischemia Extremity abnormal: edema - Abdominal General gastrointestinal: Present: soft, non-tender, non-distended, normal bowel sounds - Integumentary Integumentary: Present: clear, warm - Musculoskeletal Musculoskeletal: strength equal bilaterally, generalized weakness - Psychiatric Psychiatric: appropriate mood/affect, cooperative - Neurologic Neurologic: CNII-XII intact, moves all extremities Plan Activity: advance as tolerated, fall precautions Diet: other (soft diet advance as tolerated) Additional Instructions: care of Hospice Med Director
[2017-01-04] MEDS: ROXICODONE PO PRN (20:23)
--- NOTE | 2017-01-05 11:25 | Vascular Lab Report ---
LOWER EXTREMITY VENOUS DUPLEX: REASON FOR EXAM: Swelling of the lower extremities. COMMENTS ON THE RIGHT: All veins visualized are freely compressible without evidence of internal echogenicity. Flow is spontaneous and phasic throughout. COMMENTS ON THE LEFT: All veins visualized are freely compressible without evidence of internal echogenicity. Flow is spontaneous and phasic throughout. IMPRESSION: No evidence of acute or chronic deep venous thrombosis in either lower extremity.
== END 2017-01-04 20:30 | disposition hospice, inpatient (51) | DRG 853 ==
LOC: ED 21:41 → 3A 12-22 08:09 → 4A 12-23 12:20
PROVIDERS: ADMIT Internal Medicine; ATTEND Internal Medicine
PROC: 4A033R1 Measurement of Arterial Saturation, Peripheral, Percutaneous Approach (ICD-10-PCS; 2016-12-26)
PROC: 0DNC0ZZ Release Ileocecal Valve, Open Approach (ICD-10-PCS; principal; 2016-12-28)
PROC: 30233N1 Transfusion of Nonautologous Red Blood Cells into Peripheral Vein, Percutaneous Approach (ICD-10-PCS; 2016-12-28)
PROC: 02H633Z Insertion of Infusion Device into Right Atrium, Percutaneous Approach (ICD-10-PCS; 2016-12-30)
DX: A41.9 Sepsis, unspecified organism (principal); N17.0 Acute kidney failure with tubular necrosis; E43 Unspecified severe protein-calorie malnutrition; K56.600 Partial intestinal obstruction, unspecified as to cause; E87.1 Hypo-osmolality and hyponatremia; C18.9 Malignant neoplasm of colon, unspecified; B19.10 Unspecified viral hepatitis B without hepatic coma; K56.7 Ileus, unspecified; Z90.49 Acquired absence of other specified parts of digestive tract; E87.5 Hyperkalemia; E86.0 Dehydration; Z87.891 Personal history of nicotine dependence; K21.9 Gastro-esophageal reflux disease without esophagitis; I10 Essential (primary) hypertension; E66.9 Obesity, unspecified; Z85.46 Personal history of malignant neoplasm of prostate; K74.60 Unspecified cirrhosis of liver; Z82.49 Family history of ischemic heart disease and other diseases of the circulatory system; F10.10 Alcohol abuse, uncomplicated; M10.9 Gout, unspecified; Z71.41 Alcohol abuse counseling and surveillance of alcoholic; I48.0 Paroxysmal atrial fibrillation; Z79.01 Long term (current) use of anticoagulants; D69.6 Thrombocytopenia, unspecified; Z68.32 Body mass index [BMI] 32.0-32.9, adult
CPT/HCPCS: 36415; 36600; 71010; 74000; 74022; 74176; 76770; 80048; 80053; 80320; 81001; 82140; 82248; 82378; 82570; 82607; 82728; 82747; 82803; 82962; 83550; 83690; 83735; 84100; 84134; 84153; 84165; 84300; 84478; 85007; 85025; 85045; 85610; 86022; 86140; 86705; 86706; 86803; 86850; 86900; 86901; 86922; 87040; 87086; 87517; 93970; 94640; 94760; C9113; C9250; G0480; G8978-GP; G8979-GP; J0461; J0696; J1100; J1170; J1450; J1644; J1650; J1956; J2060; J2270; J2405; J2704; J7030; J7040; J7070; P9016